=== PATIENT | female | born 1985 | race Caucasian/White ===

== ENCOUNTER 2023-06-15 10:07 | Outpatient (RCR) | payer OTHER, SELFPAY | END 2023-06-16 12:00 | disposition home or self-care (01) | LOC: FBCO 10:07 | PROVIDERS: Visit Provider Obstetrics & Gynecology | DX: O36.5990 Maternal care for other known or suspected poor fetal growth, unspecified trimester, not applicable or unspecified (principal); Z3A.00 Weeks of gestation of pregnancy not specified; O32.1XX0 Maternal care for breech presentation, not applicable or unspecified | CPT/HCPCS: 96372; J0702 ==

== ENCOUNTER 2023-06-17 06:00 | Inpatient (IN) | payer OTHER, SELFPAY ==
[2023-06-17] VITALS (36 sets, daily range): BP systolic 113–136; BP diastolic 54–91; PULSE 54–87; RESP 4–29; TEMP 36.5–37.1; O2SAT 92–100
[2023-06-17] MEDS: 0.9 % SODIUM CHLORIDE 1,000 ML 1000 ML IV ×2 (06:52→07:48)
[2023-06-17 06:55] LABS: Basophils Percent Auto 0.1 % (0.2-2.0); Eosinophils Absolute Auto 0.1 10^3/uL (0.0-0.7); Eosinophils Percent Auto 0.7 % (0.9-7.0); Hematocrit 30.8 % (36.0-48.0); Hemoglobin 10.2 g/dL (12.0-16.0); Immature Granulocytes Abs Auto 0.02 10^3/uL (0.00-0.03); Immature Granulocytes Pct Auto 0.3 % (0.0-0.5); Lymphocytes Absolute Auto 2.4 10^3/uL (1.2-3.8); Lymphocytes Percent Auto 31.3 % (20.5-60.0); Mean Corpuscular HGB Conc 33.1 g/dL (29.9-35.2); Mean Corpuscular Hemoglobin 28.7 pg (26.7-34.0); Mean Corpuscular Volume 86.5 fL (81.0-99.0); Mean Platelet Volume 10.8 fL (9.5-13.5); Monocytes Absolute Auto 0.7 10^3/uL (0.3-0.8); Monocytes Percent Auto 9.5 % (1.7-12.0); Neutrophils Absolute Auto 4.4 10^3/uL (1.4-6.5); Neutrophils Percent Auto 58.1 % (43.0-75.0); Platelet Count 202 10^3/uL (150-450); Red Blood Count 3.56 10^6/uL (4.20-5.40); Red Cell Distribution Width 14.5 % (11.0-15.0); White Blood Count 7.5 10^3/uL (4.0-11.0)
[2023-06-17 07:01] LABS: Bilirubin Urine NEGATIVE (NEGATIVE); Blood Urine TRACE-I (NEGATIVE); Clarity Urine CLEAR (CLEAR); Color Urine LT. YELLOW (YELLOW); Glucose Urine UA NEGATIVE (NEGATIVE); Ketones Urine NEGATIVE (NEGATIVE); Leukocyte Esterase Urine SMALL (NEGATIVE); Nitrite Urine NEGATIVE (NEGATIVE); Protein Urine NEGATIVE (NEG/TRACE); Specific Gravity Urine 1.015 (1.005-1.025); Urobilinogen Urine 0.2 EU/dL (0.2-1.0)
[2023-06-17 07:08] LABS: Bacteria Urine LARGE #/HPF (NONE SEEN); Mucus Urine NONE SEEN (NONE SEEN); Squamous Epithelial Cell Urine MODERATE #/LPF (NONE/RARE)
[2023-06-17 07:09] LABS: Cast Seen? NONE SEEN #/LPF (NONE SEEN); Crystals Seen? None Seen #/HPF (None Seen); Urine Culture Indicated YES
[2023-06-17 07:12] LABS: Amphetamine Screen Urine NEGATIVE (NEGATIVE); Barbiturates Screen Urine NEGATIVE (NEGATIVE); Benzodiazepines Screen Urine NEGATIVE (NEGATIVE); Buprenorphine Screen Urine NEGATIVE (NEGATIVE); Cannabinoid Screen Urine NEGATIVE (NEGATIVE); Cocaine Screen Urine NEGATIVE (NEGATIVE); Methadone Screen Urine NEGATIVE (NEGATIVE); Methamphetamines Screen Urine NEGATIVE (NEGATIVE); Opiate Screen Urine NEGATIVE (NEGATIVE); Oxycodone Screen Urine NEGATIVE (NEGATIVE); Phencyclidine Screen Urine NEGATIVE (NEGATIVE); Tricyclic Antidepressant Urine NEGATIVE (NEGATIVE)
--- NOTE | 2023-06-17 07:37 | P.OBHP_ITS ---
OB - H&P: HPI History of Present Illness Chief complaint: INDUCTION : 2 Para: 0 Gestational age based on last menstrual period: 37.1 Indications for induction: abnormal positioning and other (IUGR) History of Present Dating criteria: LMP confirmed by 1st trimester US care: good care Ultrasounds: normal 1st trimester US, normal mid trimester US and abnormal US findings Abnormal ultrasound findings: unicornuate uterus, marginal cord insertion, IUGR complications: other (unicornuate uterus , IUGR) Medical complications OB: none Labs Blood type: A (+) positive Rubella: immune RPR/VDLR: nonreactive GBS status: negative HBsAG: negative Review of Systems ROS Status of ROS 10 or more systems reviewed and unremarkable except as noted in history and below Meds Home Medications and Allergies Allergies Allergy/AdvReac Type Severity Reaction Status Date / Time No Known Drug Allergies Allergy Verified 06/15/23 10:28 Exam Constitutional Documenting provider has reviewed patient's vital signs: yes Common normals: no apparent distress General appearance: cooperative Orientation/consciousness: Yes awake, Yes oriented to person, Yes oriented to place and Yes oriented to time HENMT Common normals: normocephalic Eye Common normals: PERRL Neck & C-Spine Common normals: full ROM Lymph Lymphatic: no lymphadenopathy noted Chest Common normals: inspection of chest normal Respiratory Common normals: normal respiratory effort Auscultation: clear to auscultation bilaterally Cardio Common normals: regular rate and regular rhythm Rate: regular rate Rhythm: regular rhythm GI Palpation: soft Common normals: no CVA tenderness Back & Pelvis Common normals: no CVA tenderness Extremity Common normals: normal to inspection Neuro Common normals: oriented x3 Sensorium/orientation: awake, alert, oriented to person, oriented to place and oriented to time Psych Attitude: calm Results Labs Labs: Short CBC 06/17/23 Range/Units 06:48 WBC 7.5 (4.0-11.0) 10^3/uL Hgb 10.2 L (12.0-16.0) g/dL Hct 30.8 L (36.0-48.0) % Plt Count 202 (150-450) 10^3/uL Urine 06/17/23 Range/Units 06:20 Urine Color Lt. yellow (YELLOW) Urine Clarity Clear (CLEAR) Urine pH 7.0 (5.0-9.0) Ur Specific [place] 1.015 (1.005-1.025) Urine Protein Negative (NEG/TRACE) mg/dL Urine Glucose (UA) Negative (NEGATIVE) mg/dL OB - A/P Assessment and Plan (1) Term : Plan primary section due to breech presentation, saw MFM, IUGR
[2023-06-17] MEDS: FAMOTIDINE/PF 20 MG/2 ML VIAL IV (08:09)
[2023-06-17] MEDS: METOCLOPRAMIDE HCL 10 MG/2 ML VIAL IVP (08:09)
[2023-06-17] MEDS: CITRIC ACID/SODIUM CITRATE 30 ML SOLUTION ORACIT SHOHL'S SOLN PO (08:10)
[2023-06-17] MEDS: CEFAZOLIN SODIUM/DEXTROSE 2 GM/50 ML PIGGYBACK IV (08:16)
[2023-06-17] MEDS: LACTATED RINGER'S SOLUTION 1,000 ML 50 ML IV (09:16)
--- NOTE | 2023-06-17 10:02 | P.OBPN_ITS ---
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 I first assisted as directed. I independently closed the incision with 4-0 Vicryl on a Darian Needle without difficulty. Hemostasis noted at completion of closure. Mastisol applied to incision and steri strips then applied to incision without difficulty. Sterile abd dressing applied, pt tolerated procedure well. Exam Constitutional Vital Signs, click to edit/add: Last Vital Signs Temp 98.8 F 06/17/23 07:50 Pulse 70 06/17/23 07:50 Resp 18 06/17/23 07:50 BP 133/91 06/17/23 07:50 Pulse Ox 100 06/17/23 07:50 O2 Del Method Room Air 06/17/23 07:50 Results Labs Labs: Short CBC 06/17/23 Range/Units 06:48 WBC 7.5 (4.0-11.0) 10^3/uL Hgb 10.2 L (12.0-16.0) g/dL Hct 30.8 L (36.0-48.0) % Plt Count 202 (150-450) 10^3/uL Urine 06/17/23 Range/Units 06:20 Urine Color Lt. yellow (YELLOW) Urine Clarity Clear (CLEAR) Urine pH 7.0 (5.0-9.0) Ur Specific [place] 1.015 (1.005-1.025) Urine Protein Negative (NEG/TRACE) mg/dL Urine Glucose (UA) Negative (NEGATIVE) mg/dL OB - PN: A/P Assessment and Plan (1) Term : Time Spent with Patient Time: Total time spent is greater than 50% in coordination of care (as documented) at patient's floor/unit and/or counseling patient: Total time spent with greater than 50% in coordination of care (as documented) at patient's floor/unit and/or counseling patient: less than 15 minutes
--- NOTE | 2023-06-17 11:27 | P.ON_ITS ---
Brief Operative Note Date of procedure: 06/17/23 Pre-op diagnosis: iup at 37 1/7wk, breech presentation, unicornuate uterus, iugr Post-op diagnosis: same Procedure: NAME OF PROCEDURE: [ section ] PROCEDURE: Patient was taken back to the Operating Room where she was given a spinal anesthesia with Duramorph without difficulty. She was prepped and draped in the normal sterile fashion. A Pfannenstiel skin incision was then made 2 cm above the symphysis pubis and carried down to underlying rectus fascia using a Bovie. The fascia was incised in the midline and extended laterally using Betts scissors. Two Ramírez clamps were placed on the superior aspect of the fascia and dissected off the underlying rectus muscles. The same was performed on the inferior aspect as well. The muscles were then in the midline. Perito neum was identified and entered bluntly. The peritoneum was then extended superiorly and inferiorly with good visualization of the bladder. The bladder blade was inserted. A low transverse incision was made on the patient's uterus and extended laterally digitally. The was then delivered atraumatically after the bladder blade was removed in the cephalic position. The cord was clamped and cut. Cord blood was obtained. The was handed off to awaiting team. The patient's placenta was spontaneously delivered. The uterus was then exteriorized. The uterus was cleared of all clots and debris. The bladder blade was reinserted. The patient's uterine incision was closed using #0 Vicryl in a running lock fashion. Excellent hemostasis was assured. The uterus was then returned to the patient's abdomen. The patient's abdomen was copiously irrigated using warm saline. Peritoneal gutters were cleared of all clots and debris. Again excellent hemostasis was assured. The patient's peritoneum was closed using 3-0 Vicryl in a running fashion. The patient's fascia was closed using #0 Vicryl in a running fashion. The patient's skin was closed using 4-0 Vicryl subcuticularly. The patient tolerated the procedure well. Sponge, lap, and needle counts were correct x2. The patient was taken to the Recovery Room in stable condition. Anesthesia: spinal Surgeon: Smooth Michele Electric Organ Checker: HERIBERTO URIARTE Estimated blood loss (mL): 650 Pathology: other (placenta) Condition: stable Disposition: floor
--- NOTE | 2023-06-17 11:29 | P.OBPRC_ITS ---
Procedure Pre-op/Post-op diagnoses: Pre-Op/Post-Op Diagnoses Operation Date: 06/17/23 08:30 <No data on this case meets the specified criteria> Procedure: Procedures Operation Date: 06/17/23 08:30 Actual Procedure Side Surgeon p Not Applicable Smooth Michele DO Bolting Machine Operator: Smooth Michele Estimated blood loss (mL): 650 Disposition: floor Anesthesia type: Spinal
[2023-06-17] MEDS: KETOROLAC TROMETHAMINE 30 MG/ML VIAL IVP (11:58)
[2023-06-17] MEDS: CEFAZOLIN SODIUM/DEXTROSE,ISO 2 GM/50 ML PIGGYBACK IV (15:02)
[2023-06-17] MEDS: ENOXAPARIN SODIUM 40 MG/0.4 ML SYRINGE SUBQ (21:45)
[2023-06-18] VITALS (12 sets, daily range): BP systolic 122–139; BP diastolic 60–77; PULSE 61–80; RESP 14–18; TEMP 36.7–36.9; O2SAT 96–100
--- NOTE | 2023-06-18 00:34 | PC.NURSE ---
2100 Abdominal dressing appears red to 4 by 4s under tape across full incision. Dressing removed, cleansed with saline, steristrips appear bloody but with no new drainage, fresh 4 by 4s applied with pressure dsg to apparent past leaking area in middle of incision, no new drainage noted. Pt tolerates well
--- NOTE | 2023-06-18 01:10 | PC.NURSE ---
0050- Chowdhury not present at this time. Patient has been up and voided numerous times.
[2023-06-18] MEDS: KETOROLAC TROMETHAMINE 30 MG/ML VIAL IVP (03:54)
[2023-06-18 06:07] LABS: Basophils Percent Auto 0.2 % (0.2-2.0); Eosinophils Absolute Auto 0.1 10^3/uL (0.0-0.7); Eosinophils Percent Auto 0.5 % (0.9-7.0); Hemoglobin 7.5 g/dL (12.0-16.0); Immature Granulocytes Abs Auto 0.04 10^3/uL (0.00-0.03); Immature Granulocytes Pct Auto 0.4 % (0.0-0.5); Lymphocytes Absolute Auto 2.4 10^3/uL (1.2-3.8); Lymphocytes Percent Auto 21.6 % (20.5-60.0); Mean Corpuscular HGB Conc 32.2 g/dL (29.9-35.2); Mean Corpuscular Hemoglobin 28.8 pg (26.7-34.0); Mean Corpuscular Volume 89.6 fL (81.0-99.0); Mean Platelet Volume 10.9 fL (9.5-13.5); Monocytes Percent Auto 8.6 % (1.7-12.0); Neutrophils Absolute Auto 7.6 10^3/uL (1.4-6.5); Neutrophils Percent Auto 68.7 % (43.0-75.0); Platelet Count 184 10^3/uL (150-450); Red Cell Distribution Width 14.6 % (11.0-15.0); White Blood Count 11.1 10^3/uL (4.0-11.0)
[2023-06-18 06:15] LABS: Hematocrit 23.3 % (36.0-48.0)
--- NOTE | 2023-06-18 07:59 | W.PC.ACHO ---
Registration Status: ADM IN Primary Language: Colombian Preferred Language: Colombian report received from cleo jackson Active Medications Generic Name Dose Route Start Last Admin Trade Name Freq PRN Reason Stop Dose Admin Al Hydroxide/Mg Hydroxide 2,400 mg 06/17/23 10:23 Magnesium Hydroxide 2,400 Mg/10 Ml Oral.Susp PO Q6H PRN Dyspepsia Diphenhydramine HCl 25 mg 06/17/23 10:23 Diphenhydramine Hcl 50 Mg/Ml (1ml) Vial IV 06/18/23 10:28 Q6H PRN Itching Docusate Sodium 100 mg 06/18/23 09:00 Docusate Sodium 100 Mg Capsule PO BID HALEIGH Enoxaparin Sodium 40 mg 06/17/23 21:00 06/17/23 21:45 Enoxaparin Sodium 40 Mg/0.4 Ml Syringe SUBQ 40 mg Q24H HALEIGH Administration Sodium Chloride 1,000 mls @ 125 mls/hr 06/17/23 06:15 Sodium Chloride 0.9% 1,000 Ml IV .Q8H HALEIGH Lactated Ringer's 1,000 mls @ 50 mls/hr 06/17/23 09:15 06/17/23 09:16 Lactated Ringers IV 50 mls/hr .Q20H HALEIGH Administration Sodium Chloride 1,000 mls @ 125 mls/hr 06/17/23 10:30 Sodium Chloride 0.9% 1,000 Ml IV .Q8H HALEIGH Ibuprofen 800 mg 06/17/23 10:23 Ibuprofen 400 Mg Tablet PO Q8H PRN Pain Ketorolac Tromethamine 30 mg 06/17/23 10:23 06/18/23 03:54 Ketorolac Tromethamine 30 Mg/Ml Vial IVP 06/19/23 10:24 30 mg Q6H PRN Administration Pain Ondansetron HCl 4 mg 06/17/23 10:23 Ondansetron Pf 4 Mg/2 Ml Vial IV Q6H PRN Nausea And Vomiting Ondansetron HCl 4 mg 06/17/23 10:23 Ondansetron 4 Mg Rapdis Tablet PO Q6H PRN Nausea And Vomiting Oxycodone/Acetaminophen 1 each 06/17/23 10:23 Oxycodone Hcl/Acetaminophen 5-325 Mg Tablet PO Q4H PRN Pain Oxycodone/Acetaminophen 2 each 06/17/23 10:23 Oxycodone Hcl/Acetaminophen 5-325 Mg Tablet PO Q4H PRN Pain Polysaccharide Iron Complex 180 mg 06/18/23 09:00 Iron Polysaccharide Complex 180 Mg Capsule PO BID HALEIGH Senna 17.2 mg 06/17/23 20:00 Sennosides 8.6 Mg Tablet PO QHS PRN Constipation Simethicone 80 mg 06/17/23 10:23 Simethicone 80 Mg Tab.Chew PO QID PRN Abdominal Distention Diet Category Date Time Status Regular Consistency Diet Diet 06/17/23 Lunch Active Neurology Wes coma scale total score 15 Respiratory Lung sounds [Throughout] clear Lung sounds [Throughout] clear Lung sounds [Throughout] clear Lung sounds [Throughout] clear Lung sounds [Throughout] clear Lung sounds [Throughout] clear Pulse Oximetry 100 Pulse Oximetry 97 Pulse Oximetry 99 Pulse Oximetry 97 Pulse Oximetry 96 Pulse Oximetry 95 Pulse Oximetry 95 Pulse Oximetry 97 Pulse Oximetry 96 Pulse Oximetry 96 Pulse Oximetry 96 Pulse Oximetry 96 Pulse Oximetry 96 Pulse Oximetry 96 Pulse Oximetry 96 Pulse Oximetry 94 Pulse Oximetry 95 Pulse Oximetry 96 Pulse Oximetry 95 Pulse Oximetry 95 Pulse Oximetry 92 Pulse Oximetry 96 Pulse Oximetry 97 Pulse Oximetry 95 Pulse Oximetry 96 Pulse Oximetry 97 Oxygen Delivery Method Room Air Oxygen Delivery Method Room Air Oxygen Delivery Method Room Air Oxygen Delivery Method Room Air Oxygen Delivery Method Room Air Oxygen Delivery Method Room Air Oxygen Delivery Method Room Air Oxygen Delivery Method Room Air Oxygen Delivery Method Room Air Oxygen Delivery Method Room Air Oxygen Delivery Method Room Air Oxygen Delivery Method Room Air Cardiology Heart Sounds Strong,Regular Heart Sounds Strong,Regular Bowels Bowel Pattern No Bowel Movement Bowel Pattern No Bowel Movement Renal Bladder Pattern Continent Bladder Pattern Continent Catheter Date Urinary Catheter Removed 06/17/23 [Urethral] Time Urinary Catheter 15:15 Discontinued [Urethral]
[2023-06-18] MEDS: IRON POLYSACCHARIDE COMPLEX 180 MG CAPSULE PO ×2 (08:53→21:43)
[2023-06-18] MEDS: SIMETHICONE 80 MG TAB.CHEW PO ×2 (08:55→13:08)
[2023-06-18] MEDS: DOCUSATE SODIUM 100 MG CAPSULE PO ×2 (08:55→21:43)
--- NOTE | 2023-06-18 12:39 | PM.OBPN ---
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 I first assisted as directed. I independently closed the incision with 4-0 Vicryl on a Darian Needle without difficulty. Hemostasis noted at completion of closure. Mastisol applied to incision and steri strips then applied to incision without difficulty. Sterile abd dressing applied, pt tolerated procedure well. Patient comments: no complaints and pain well controlled status: doing well [place] feeding status: exclusively Exam Constitutional Vital Signs, click to edit/add: Last Vital Signs Temp 98.1 F 06/18/23 09:09 Pulse 75 06/18/23 08:24 Resp 18 06/18/23 09:09 BP 139/69 06/18/23 08:24 Pulse Ox 100 06/18/23 11:43 O2 Del Method Room Air 06/18/23 11:43 Documenting provider has reviewed patient's vital signs: yes Common normals: no apparent distress, average body habitus, oriented x3, no limitations, healthy appearing, alert and well nourished General appearance: cooperative and comfortable HENMT Common normals: normocephalic and head/scalp atraumatic Eye Common normals: PERRL Pupil: accommodation reflex normal Neck & C-Spine Common normals: full ROM Respiratory Common normals: normal respiratory effort Auscultation: clear to auscultation bilaterally Cardio Common normals: regular rate and regular rhythm GI Common normals: Normal to inspection, nondistended, normoactive bowel sounds present Common normals: no CVA tenderness Extremity Common normals: normal to inspection and full ROM Neuro Common normals: oriented x3, CN's II-XII intact bilaterally and moves all extremities Motor exam: strength 5/5 throughout Psych Common normals: mental status grossly normal, thought process normal, cooperative and affect normal Results Labs Labs: Short CBC 06/18/23 Range/Units 06:00 WBC 11.1 H (4.0-11.0) 10^3/uL Hgb 7.5 L (12.0-16.0) g/dL Hct 23.3 L* (36.0-48.0) % Plt Count 184 (150-450) 10^3/uL OB - PN: A/P Assessment and Plan (1) delivery delivered: Assessment and Plan: CS FOR BREECH AND UNICORNUATE UTERUS. NO COMPLICATION. (2) Anemia: Assessment and Plan: NON MEET EATER PRIOR TO . HEMOGLOBIN IN 9's PRIOR TO CS. NOW IN 7's HOWEVER WITHOUT SYMPTOMS. IS TAKING PNV AND IRON. Plan - day: 1 Plan: routine postop care Comment: KNOWS TO NOTIFY NURSE FOR VISUAL CHANGE OR HEADACHE OR LIGHTHEADEDNESS OR PROBLEM WITH INCISION WILL CONTINUE IRON AND PNV AND ALLOW THE BODY TO REPLETE HEMOGLOBIN Time Spent with Patient Time: Total time spent is greater than 50% in coordination of care (as documented) at patient's floor/unit and/or counseling patient: Total time spent with greater than 50% in coordination of care (as documented) at patient's floor/unit and/or counseling patient: 25 - 35 minutes
[2023-06-18] MEDS: IBUPROFEN 400 MG TABLET 800 MG PO ×2 (13:13→21:43)
--- NOTE | 2023-06-18 13:17 | PC.NURSE ---
LC into room. baby being held by mom, fully wrapped, mom with clothes on. Discussed benefits of skin to skin for both mom and baby. Reviewed and states it is going better than expected states latching gets better with each feed, is aware of a shallow latch or deep one and positioning is getting easier. Given handouts with discussion and the Sleep, Suckle, Thrive book States is aware support is available with LC and at [facility] support group
[2023-06-18] MEDS: ACETAMINOPHEN 500 MG TABLET 1000 MG PO (18:31)
--- NOTE | 2023-06-18 19:06 | W.PC.ACHO ---
Registration Status: ADM IN Primary Language: Mozambican Preferred Language: Mozambican report given to tonia rn Active Medications Generic Name Dose Route Start Last Admin Trade Name Freq PRN Reason Stop Dose Admin Acetaminophen 1,000 mg 06/18/23 18:18 06/18/23 18:31 Acetaminophen 500 Mg Tablet PO 1,000 mg Q6H PRN Administration Moderate Pain Al Hydroxide/Mg Hydroxide 2,400 mg 06/17/23 10:23 Magnesium Hydroxide 2,400 Mg/10 Ml Oral.Susp PO Q6H PRN Dyspepsia Docusate Sodium 100 mg 06/18/23 09:00 06/18/23 08:55 Docusate Sodium 100 Mg Capsule PO 100 mg BID HALEIGH Administration Enoxaparin Sodium 40 mg 06/17/23 21:00 06/17/23 21:45 Enoxaparin Sodium 40 Mg/0.4 Ml Syringe SUBQ 40 mg Q24H HALEIGH Administration Ibuprofen 800 mg 06/17/23 10:23 06/18/23 13:13 Ibuprofen 400 Mg Tablet PO 800 mg Q8H PRN Administration Pain Ondansetron HCl 4 mg 06/17/23 10:23 Ondansetron 4 Mg Rapdis Tablet PO Q6H PRN Nausea And Vomiting Oxycodone/Acetaminophen 1 each 06/17/23 10:23 Oxycodone Hcl/Acetaminophen 5-325 Mg Tablet PO Q4H PRN Pain Oxycodone/Acetaminophen 2 each 06/17/23 10:23 Oxycodone Hcl/Acetaminophen 5-325 Mg Tablet PO Q4H PRN Pain Polysaccharide Iron Complex 180 mg 06/18/23 09:00 06/18/23 08:53 Iron Polysaccharide Complex 180 Mg Capsule PO 180 mg BID HALEIGH Administration Senna 17.2 mg 06/17/23 20:00 Sennosides 8.6 Mg Tablet PO QHS PRN Constipation Simethicone 80 mg 06/17/23 10:23 06/18/23 13:08 Simethicone 80 Mg Tab.Chew PO 80 mg QID PRN Administration Abdominal Distention Respiratory Lung sounds [Throughout] clear Lung sounds [Throughout] clear Lung sounds [Throughout] clear Pulse Oximetry 100 Pulse Oximetry 100 Pulse Oximetry 97 Pulse Oximetry 99 Oxygen Delivery Method Room Air Oxygen Delivery Method Room Air Oxygen Delivery Method Room Air Oxygen Delivery Method Room Air Oxygen Delivery Method Room Air Oxygen Delivery Method Room Air Oxygen Delivery Method Room Air Oxygen Delivery Method Room Air Oxygen Delivery Method Room Air Cardiology Heart Sounds Regular Heart Sounds Strong,Regular Heart Sounds Strong,Regular Bowels Bowel Pattern No Bowel Movement Bowel Pattern No Bowel Movement Renal Bladder Pattern Continent Bladder Pattern Continent Bladder Pattern Continent
[2023-06-18] MEDS: ENOXAPARIN SODIUM 40 MG/0.4 ML SYRINGE SUBQ (21:43)
[2023-06-19 08:42] VITALS: BP 137/76; PULSE 83
[2023-06-19] MEDS: DOCUSATE SODIUM 100 MG CAPSULE PO (08:49)
[2023-06-19] MEDS: IBUPROFEN 400 MG TABLET 800 MG PO (08:49)
[2023-06-19] MEDS: ACETAMINOPHEN 500 MG TABLET 1000 MG PO (08:49)
[2023-06-19] MEDS: IRON POLYSACCHARIDE COMPLEX 180 MG CAPSULE PO (08:49)
[2023-06-19 08:50] VITALS: RESP 18; TEMP 37.5
--- NOTE | 2023-06-19 11:45 | PM.OBDS ---
DS: Providers Provider Date of admission: 06/17/23 06:00 Primary care physician: Non-Staff Physician, Admitting clinician: Smooth Michele Consults: 06/17/23 Consult to Anesthesiology Routine Consulting Provider: Nasir Dejesus Attending physician on discharge: Chacha Coombs Anticipated date of discharge: 06/19/23 DS: Diagnosis Discharge Diagnosis (1) delivery delivered: Assessment and plan: MAY SHOWER, PAT INCISION DRY AND NO NEED TO COVER (2) Anemia: Assessment and plan: ASYMPTOMATIC. HAS RESUMED EATING EAT. ON FOLIC ACIDE, IRON AND PNV OB - DS: Summary Hospital Course Hospital Course: UNCOMPLICATED Time spent discussing smoking cessation with patient: 3 to 10 minutes Peripartum Data - Procedures: Procedures Operation Date: 06/17/23 08:30 Actual Procedure Side Surgeon p Not Applicable Smooth Michele DO Peripartum Data - Vaginal Delivery Procedures: Procedures Operation Date: 06/17/23 08:30 Actual Procedure Side Surgeon p Not Applicable Smooth Michele DO Complications complications: none Delivery method: section Gender: female Discharge plan: home Time Spent with Patient Time attestation: Total time spent providing and/or coordinating discharge services: Time spent: less than 30 minutes Exam Constitutional Vital Signs, click to edit/add: Last Vital Signs Temp 99.5 F 06/19/23 08:50 Pulse 83 06/19/23 08:42 Resp 18 06/19/23 08:50 BP 137/76 06/19/23 08:42 Pulse Ox 96 06/18/23 19:38 O2 Del Method Room Air 06/18/23 21:45 Documenting provider has reviewed patient's vital signs: yes Common normals: no apparent distress, oriented x3, no limitations, healthy appearing, alert and well nourished [facility] Common normals: normocephalic and head/scalp atraumatic Eye Common normals: PERRL Pupil: accommodation reflex normal Neck & C-Spine Common normals: full ROM Chest Common normals: inspection of chest normal Respiratory Common normals: normal respiratory effort Cardio Common normals: regular rate and regular rhythm GI Common normals: Normal to inspection, nondistended, normoactive bowel sounds present, soft to palpation and non-tender Common normals: no CVA tenderness Extremity Common normals: normal to inspection and full ROM Neuro Motor exam: strength 5/5 throughout Psych Common normals: mental status grossly normal, cooperative and affect normal Discharge Plan Discharge Disposition: Home, Self-Care Condition: Good Assessment: PERFORMING ADL'S WITHOUT LIMITATION. EATING AND ELIMINATING NORMALLY. BREAST FEEDING WITHOUT PROBLEM. INCISION DRY AND INTACT WITHOUT ERYTHEMA. VOICING NO COMPLAINTS OR CONCERNS. CLINICAL EXAM NONFOCAL. ANXIOUS TO GO HOME. Health Concerns: WILL BE SENT HOME ON IRON AND HAS RESUMED EATING MEAT SO ANEMIA SHOULD BE RESOLVED WITHIN 3 MONTHS Plan of Treatment: DISCHARGE HOME Discharge Medications: Continued PNV [id number] 90 mg iron- 1 mg-200 mg capsule 1 cap PO DAILY folic acid 1 mg tablet 1 mg PO DAILY Activity: resume usual activities as tolerated Activity Detail: WALKING ONLY FORM OF EXERCISE FOR SIX WEEKS Diet: regular diet Patient Instructions: Anemia (DC) Activity Restrictions/Additional Instructions: NO SEX SIX WEEKS, NO DRIVING FOR 4 WEEKS, NO SWIMMING 4 WEEKS, ONLY LIFT BABY, MAY CLIMB STAIRS, MAY SHOWER, NO BATHTUB FOR 4 WEEKS, GENERAL RSV AND COVID PRECAUTIONS GIVEN Forms: Delivery - Discharge, Portal Instructions Follow Up Appointments: NEEDS INCISION CHECK WITH DR. MICHELE IN ONE WEEK Discharge location: HOME
== END 2023-06-19 13:48 | disposition home or self-care (01) | DRG 788 ==
PROVIDERS: Obstetrics & Gynecology; Admitting Provider Midwife; Visit Provider Obstetrics & Gynecology
PROC: 10D00Z1 Extraction of Products of Conception, Low, Open Approach (ICD-10-PCS; CPT 59514; principal; 2023-06-17 08:30)
DX: O32.1XX0 Maternal care for breech presentation, not applicable or unspecified (principal); O36.5930 Maternal care for other known or suspected poor fetal growth, third trimester, not applicable or unspecified; O34.03 Maternal care for unspecified congenital malformation of uterus, third trimester; Q51.4 Unicornate uterus; Z3A.37 37 weeks gestation of pregnancy; Z37.0 Single live birth; Z79.899 Other long term (current) drug therapy; O90.81 Anemia of the puerperium
CPT/HCPCS: 36415; 80307; 81001; 85025; 86850; 86900; 86901; 87086; 88307; 94667; 94668; 94761; 96372; 96374; 96375

== ENCOUNTER 2023-06-21 09:00 | Outpatient (RCR) | payer OTHER, SELFPAY ==
[2023-06-21 17:41] VITALS: PULSE 88; RESP 18; TEMP 36.8; O2SAT 96
== END 2023-06-21 10:10 | disposition home or self-care (01) ==
LOC: FBCO 09:00
PROVIDERS: Visit Provider Obstetrics & Gynecology
DX: Z39.2 Encounter for routine postpartum follow-up (principal)

== ENCOUNTER 2024-12-05 17:24 | Outpatient (OUT) | payer OTHER, SELFPAY ==
--- NOTE | 2024-12-05 17:26 | US_ITS ---
[address] [address] Patient Name: JUANITA WHEELER MRN: [id number] date: 1985 Sex: F Assigned Patient Location: Current Patient Location: Accession/Order Number: [id number] Exam Date: 12/05/2024 17:30 Report Date: 12/08/2024 10:05 At the request of: HERIBERTO URIARTE Procedure: US OB transvaginal EXAMINATION: US OB transvaginal HISTORY: AMENORRHEA N91.2 COMPARISON: No relevant comparison available. FINDINGS: GESTATIONAL SAC: Present and normal appearing. YOLK SAC: Present and normal appearing. POLE: Present and normal appearing. CARDIAC: 158 bpm UTERUS: Unicornate uterus. OVARIES: Right: Corpus lutein cyst. Left: Normal. CERVIX: 4.0 cm in length and closed. CUL-DE-SAC: Normal. OTHER: None. AGE BY LMP: 7 weeks 6 days HAYLEY BY LMP: 07/18/2025 AGE BY US CRL: 7 weeks 5 days HAYLEY BY US CRL: 07/19/2025 US/US OB transvaginal IMPRESSION: 1. Single live intrauterine . Electronically authenticated by: PUMA CONNOLLY Date: 12/08/2024 10:05
--- OUTSIDE RECORDS SUMMARY | 2024-12-05 17:27 | XMS_ITS | CCD ---
Author Organization [facility] Care Team Providers Care Plug Machine Operator Name Role Phone CHAPIN, DR NATAN Lazar Attending Unavailable CHAPIN, DR NATAN Lazar Consulting Unavailable REQUEST, NONE LISTED Primary Care Unavailnupur SAMSON, DR NATAN Lazar Admitting Unavailable GARFIELD, DR AUDREY Phillips Consulting Unavailasha CONNOLLY, DR PUMA Lazar Consulting Unavailable HERIBERTO SNELL Consulting Unavailable HERIBERTO SNELL Admitting Unavailable REQUEST, NONE LISTED Primary Care HERIBERTO Valdez Attending Unavailable Heriberto Snell CNM Unavailable Sayra Leon MD Primary Care Provider BUD MAIN Attending Unavailable HERIBERTO SNELL Attending Unavailable Medications Current Medications Medication Drug Class(es) Dates Sig (Normalized) Sig (Original) ferrous sulfate 325 mg delayed release oral tablet (1 source) Start: 12-14-2023 End: 03-13-2024 take 1 tablet by mouth in the morning ferrous sulfate (Fe Tabs) 325 (65 Fe) MG EC tablet Indications: Iron deficiency anemia secondary to inadequate dietary iron intake Take 1 tablet (325 mg) by mouth in the morning. Do not crush, chew, or split.. 90 tablet 0 12/14/2023 03/13/2024 Active folic acid 2.5 mg / pyridoxine 25 mg / vitamin b12 1 mg oral tablet (4 sources) Vitamin B12 folic acid-vit B6-vit B12 2.5-25-1 MG tablet tablet Take 1 tablet by mouth in the morning. Active w/o A Vit-Fe Fum-FA (AZESCHEW / PO) (4 sources) w/o A Vit-Fe Fum-FA (AZESCHEW / PO) Take by mouth Active w/o A V it-Fe Fum-FA (AZESCHEW / PO) Take by mouth 0 Active progesterone 200 mg oral capsule (1 source) Progesterone Start: 11-10-2024 End: 02-18-2025 take 1 capsule by mouth in the morning progesterone 200 MG capsule Indications: examination or test, positive result Take 1 capsule (200 mg) by mouth in the morning and in the evening 60 capsule 3 11/10/2024 02/18/2025 Active Problems Active Problems Problem Classification Problem Date Documented Da te Episodic/Chronic Anxiety disorders (5 sources) Anxiety about body function or health; Translations: [Other specified anxiety disorders] Onset: 08-22-2016 12-12-2023 Chronic Female infertility (4 sources) Anovulation; Translations: [Female infertility associated with anovulation] Onset: 12-26-2021 12-12-2023 Chronic 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; 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] Onset: 12-12-2023 12-12-2023 Chronic Hemorrhage during ; abruptio placenta; placenta previa (3 sources) Hemorrhage in early , unspecified; Translations: [HEMORRHAGE EARLY UNS] Onset: 04-04-2022 Episodic Menstrual disorders (10 sources) Amenorrhea; Translations: [Amenorrhea, unspecified] Onset: 03-08-2017 12-12-2023 Chronic Other screening for suspected conditions (not mental disorders or infectious disease) (2 sources) Cancer cervix screening status; Translations: [Encounter for screening for malignant neoplasm of cervix] 08-18-2024 Episodic Spontaneous (1 source) Complete or unspecified spontaneous without complication; Translations: [COMPLETE/UNS SPONT AB W/O COMP] Onset: 04-25-2022 Episodic Past or Other Problems Problem Classification Problem Date Documented Da te Episodic/Chronic Administrative/social admission (4 sources) Worried well; Translations: [Person with feared health complaint in whom no diagnosis is made] Onset: 07-27-2017 12-12-2023 Episodic Allergic reactions (4 sources) Contact dermatitis due to poison oscar; Translations: [Allergic contact dermatitis due to plants, except food] Onset: 04-26-2021 12-12-2023 Episodic Deficiency and other anemia (5 sources) Iron deficiency anemia secondary to inadequate dietary iron intake; Translations: [Other iron deficiency anemias] Onset: 10-10-2018 12-14-2023 Episodic Inflammatory diseases of female pelvic organs (4 sources) Vulvovaginitis; Translations: [Acute vaginitis] Onset: 07-27-2017 12-12-2023 Episodic Miscellaneous mental health disorders (3 sources) Anxiety about body function or health; Translations: [Other symptoms and signs involving emotional state] Onset: 08-22-2016 12-12-2023 Episodic Other ear and sense organ disorders (4 sources) Impacted cerumen of bilateral ears; Translations: [Impacted cerumen, bilateral] Onset: 12-06-2018 12-12-2023 Episodic Residual codes; unclassified (4 sources) Family history of malignant neoplasm of brain; Translations: [Family history of malignant neoplasm of other organs or systems] Onset: 07-27-2017 12-12-2023 Episodic Residual codes; unclassified (4 sources) Unprotected sexual intercourse; Translations: [High risk heterosexual behavior] Onset: 07-27-2017 12-12-2023 Episodic Results Test Name Value Interpretation Reference Range Facility HCG ( test) Ql (U)o n 08-18-2024 Interpretation and review of laboratory results Normal [facility] Healthcare Preg Test, Ur Negative [facility] Health care [facility] US OB 1ST Trimesteron 2022 US OB 1ST Trimester EXAM: First trimester ultrasound. TECHNIQUE: Transvaginal ultrasound pelvis. REASON FOR EXAM: Bleeding. Known unicollis uterus COMPARISON: None FINDINGS: There is a single intrauterine fetus with crown-rump length indicating a gestational age of 9 weeks and 3 days. This is concordant with gestational age based on last menstrual period. heart rate 165 bpm. Well-formed yolk sac. Uterus otherwise unremarkable. Right ovary 3.0 and left ovary 2.4 cm in diameter. 1.7 cm right ovarian cyst. No adnexal mass or free fluid. IMPRESSION: Single live intrauterine 9 weeks 3 days. 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 FINDINGS: Right Zdlodl29.3 x 6.3 x 5.4 cm Left Rdldrt98.8 x 5.2 x 6.0 cm Normal renal size, cortical volume and echotexture is present for this age. No collecting system dilatation or echogenic foci with posterior shadowing are noted. No bladder stone or mass. Both ureteral jets visualized. IMPRESSION: Normal bilateral renal morphology. Report reported and signed by Rangel Chowdhury on 10/10/2022 1351 Normal [facility] CBC AUTO DIFFon 06-29-2022 BASO # 0.0 103/ul Normal 0.0-0.1 [facility] Comment on above: Performed By: #### H FPFCBC #### [facility] [address] [address] [address] Preston George Basophils/100 WBC (Bld) 0.6 % Normal 0.2-2.0 [facility] Comment on above: Performed By: #### H FPFCBC #### [facility] [address] [place] [address] Dr. Preston George EO # 0.2 103/ul Normal 0.0-0.7 [facility] Comment on above: Performed By: #### H FPFCBC #### [facility] [address] [address] [address] Preston George Eosinophils/100 WBC (Bld) 3.1 % Normal 0.9-7.0 [facility] Comment on above: Performed By: #### H FPFCBC #### [facility] [address] [place] [address] Dr. Preston George Erythrocyte distribution width (RBC) [Ratio] 13.0 % Normal 11.0-15.0 [facility] Comment on above: Performed By: #### H FPFCBC #### [facility] [address] [place] [address] Dr. Preston George Hematocrit (Bld) [Volume fraction] 40.8 % Normal 36.0-48.0 [facility] Comment on above: Performed By: #### H FPFCBC #### [facility] [address] [place] [address] Dr. Preston George Hemoglobin (Bld) [Mass/Vol] 13.4 g/dL Normal 12.0-16.0 [facility] Comment on above: Performed By: #### H FPFCBC #### [facility] [address] [place] [address] Dr. Preston George IG # 0.01 10e3/ul Normal 0.00-0.03 [facility] Comment on above: Performed By: #### H FPFCBC #### [facility] [address] [place] [address] Dr. Preston George IG % 0.2 % Normal 0.0-0.5 [facility] Comment on above: Performed By: #### H FPFCBC #### [facility] [address] [place] [address] Dr. Preston George LYMPH # 2.2 103/ul Normal 1.2-3.8 [facility] Comment on above: Performed By: #### H FPFCBC #### [facility] [address] [place] [address] Dr. Preston George Lymphocytes/100 WBC (Bld) 45.5 % Normal 20.5-60.0 [facility] Comment on above: Performed By: #### H FPFCBC #### [facility] [address] [place] [address] Dr. Preston George MCH (RBC) [Entitic mass] 31.0 pg Normal 26.7-34.0 [facility] Comment on above: Performed By: #### H FPFCBC #### [facility] [address] [place] [address] Dr. Preston George MCHC (RBC) [Mass/Vol] 32.8 g/dL Normal 29.9-35.2 [facility] Comment on above: Performed By: #### H FPFCBC #### [facility] [address] [place] [address] Dr. Preston George MCV (RBC) [Entitic vol] 94.4 fL Normal 81.0-99.0 [facility] Comment on above: Performed By: #### H FPFCBC #### [facility] [address] [place] [address] Dr. Preston George MONO # 0.5 103/ul Normal 0.3-0.8 [facility] Comment on above: Performed By: #### H FPFCBC #### [facility] [address] [address] [address] Preston George Monocytes/100 WBC (Bld) 9.6 % Normal 1.7-12.0 [facility] Comment on above: Performed By: #### H FPFCBC #### [facility] [address] [address] [address] Preston George NEUT # 2.0 103/ul Normal 1.4-6.5 [facility] Comment on above: Performed By: #### H FPFCBC #### [facility] [address] [place] [address] Dr. Preston George Neutrophils/100 WBC (Bld) 41.0 % Critically low 43.0-75.0 [facility] Comment on above: Performed By: #### H FPFCBC #### [facility] [address] [place] [address] Dr. Preston George Platelet mean volume (Bld) [Entitic vol] 10.5 fL Normal 9.5-13.5 [facility] Comment on above: Performed By: #### H FPFCBC #### [facility] [address] [place] [address] Dr. Preston George PLT 274 103/ul Normal 150-450 [facility] Comment on above: Performed By: #### H FPFCBC #### [facility] [address] [place] [address] Dr. Preston George RBC 4.32 106/ul Normal 4.20-5.40 [facility] Comment on above: Performed By: #### H FPFCBC #### [facility] [address] [place] [address] Dr. Preston George WBC 4.8 103/ul Normal 4.0-11.0 [facility] Comment on above: Performed By: #### H FPFCBC #### [facility] [address] [place] [address] Dr. Preston George [facility] PROFILEon 022 Albumin [Mass/Vol] 3.9 g/dL Normal 3.4-5.0 [facility] Comment on above: Performed By: #### H FPF #### [facility] [address] [address] [address] Preston George Albumin/Globulin [Mass ratio] 1.3 {ratio} Normal [facility] Comment on above: Performed By: #### H FPF #### [facility] [address] [address] [address] Preston George ALP [Catalytic activity/Vol] 40 U/L Critically low 46-116 [facility] Comment on above: Performed By: #### H FPF #### [facility] [address] [address] [address] Preston George ALT [Catalytic activity/Vol] 17 U/L Normal 14-59 [facility] Comment on above: Performed By: #### H FPF #### [facility] [address] [address] [address] Preston George AST [Catalytic activity/Vol] 14 U/L Critically low 15-37 [facility] Comment on above: Performed By: #### H FPF #### [facility] [address] [address] [address] Preston George Bilirubin [Mass/Vol] 0.5 mg/dL Normal 0.2-1.0 [facility] Comment on above: Performed By: #### H FPF #### [facility] [address] [address] [address] Preston George Calcium [Mass/Vol] 8.7 mg/dL Normal 8.5-10.1 [facility] Comment on above: Performed By: #### H FPF #### [facility] [address] [address] [address] Preston George Chloride [Moles/Vol] 105 mmol/L Normal 98-107 [facility] Comment on above: Performed By: #### H FPF #### [facility] [address] [address] [address] Preston George CHOL-HDL RATIO NORM SEE BELOW Normal [facility] Comment on above: Result Comment: 3.3 - 4.4 LOW RISK 4.4 - 7.1 AVERAGE RISK 7.1 - 11.0 MODERATE RISK >11.0 HIGH RISK Performed By: #### H FPF #### [facility] [address] [address] [address] Preston George Cholesterol [Mass/Vol] 204 mg/dL Critically high <=200 [facility] Comment on above: Performed By: #### H FPF #### [facility] [address] [address] [address] Preston George Cholesterol in HDL [Mass/Vol] 80 mg/dL Critically high 40-60 [facility] Comment on above: Performed By: #### H FPF #### [facility] [address] [place] [address] Dr. Preston George Cholesterol in LDL [Mass/Vol] 118.0 mg/dL Normal [facility] Comment on above: Performed By: #### H FPF #### [facility] [address] [address] [address] Preston George Cholesterol.total/Cho lesterol in HDL [Mass ratio] 2.6 {ratio} Normal [facility] Comment on above: Performed By: #### H FPF #### [facility] [address] [place] [address] Dr. Preston George CO2 [Moles/Vol] 24.7 mmol/L Normal 21.0-32.0 [facility] Comment on above: Performed By: #### H FPF #### [facility] [address] [address] [address] Preston George Creatinine [Mass/Vol] 0.64 mg/dL Normal 0.55-1.02 [facility] Comment on above: Performed By: #### H FPF #### [facility] [address] [place] [address] Dr. Preston George Globulin (S) [Mass/Vol] 2.9 g/dL Normal [facility] Comment on above: Performed By: #### H FPF #### [facility] [address] [place] [address] Dr. Preston George Glucose [Mass/Vol] 92 mg/dL Normal 74-106 [facility] Comment on above: Performed By: #### H FPF #### [facility] [address] [address] [address] Preston George HDL NORMAL > or = 60 mg/dl - LOW CARDIOVASCULAR RISK <40 mg/dl - HIGH CARDIOVASCULAR RISK Normal [facility] Comment on above: Performed By: #### H FPF #### [facility] [address] [address] [address] Preston George LDL CALC NORMAL SEE BELOW Normal [facility] Comment on above: Result Comment: <100 mg/dl OPTIMAL 100 - 129 mg/dl NEAR OR ABOVE OPTIMAL 130 - 159 mg/dl BORDERLINE HIGH 160 - 189 mg/dl HIGH >190 mg/dl VERY HIGH Performed By: #### H FPF #### [facility] [address] [address] [address] Preston George Potassium [Moles/Vol] 4.2 mmol/L Normal 3.5-5.1 [facility] Comment on above: Performed By: #### H FPF #### [facility] [address] [address] [address] Preston George Protein [Mass/Vol] 6.8 g/dL Normal 6.4-8.2 [facility] Comment on above: Performed By: #### H FPF #### [facility] [address] [address] [address] Preston George Sodium [Moles/Vol] 141 mmol/L Normal 136-145 [facility] Comment on above: Performed By: #### H FPF #### [facility] [address] [address] [address] Preston George Triglyceride [Mass/Vol] 30 mg/dL Normal <=150 [facility] Comment on above: Performed By: #### H FPF #### [facility] [address] [address] [address] Preston George TSH 2.941 uIU/mL Normal 0.358-3.740 [facility] Comment on above: Performed By: #### H FPF #### [facility] [address] [address] [address] Preston George Urea nitrogen [Mass/Vol] 13.0 mg/dL Normal 7.0-18.0 [facility] Comment on above: Performed By: #### H FPF #### [facility] [address] [address] [address] Preston George Urea nitrogen/Creatinine [Mass ratio] 20.3 mg/mg Normal [facility] Comment on above: Performed By: #### H FPF #### [facility] [address] [address] [address] Preston George VLDL CALC 6.0 mg/dL Normal [facility] Comment on above: Performed By: #### H FPF #### [facility] [address] [address] [address] Preston George Q - HCG TOTAL QNon 2 HCG Qn 111 m[IU]/mL [facility] Cdl Driver Comment on above: Order Comment: [facility] Testing performed at: [facility], [address] [place] [address], [address] [place] [address], [address] [place] [address], [employer] Butting Machine Operator: Salvatore Lawson MD [facility] Collection Date/Time: [facility] Results Received Date/Time: [facility] Reported Date/Time: FASTING: NO Result Comment: Refe rence Range Non or premenopausal <5 Postmenopausal <10 Values from different assay methods may vary. The use of this assay to monitor or to diagnose patients with cancer or any condition unrelated to has not been cleared or approved by the FDA or the traffic representative of the assay. Performed By: #### [id number] #### [facility] [address] [place] [id number] Q - HCG TOTAL QNon 2 HCG Qn 820 m[IU]/mL [facility] Cdl Driver Comment on above: Order Comment: [facility] performed at: [facility], [address] [facility], [address] [place] [address], [phone], [employer]ting Machine Operator: Salvatore Lawson MD [facility] Collection Date/Time: [id number] [facility] Results Received Date/Time: [id number] [facility] Reported Date/Time: [id number] Result Comment: Refe rence Range Non or premenopausal <5 Postmenopausal <10 Values from different assay methods may vary. The use of this assay to monitor or to diagnose patients with cancer or any condition unrelated to has not been cleared or approved by the FDA or the traffic representative of the assay. Performed By: #### [id number] #### [facility] [address] [place] [address] Q - HCG TOTAL QNon 2 HCG Qn 2387 m[IU]/mL [facility] Cdl Driver Comment on above: Order Comment: [facility] performed at: Q, [facility], [address] [place] [address], [address] [place] [address], [phone], [employer]ting Machine Operator: Salvatore Lawson MD [facility] Date/Time: [id number] [facility] Results Received Date/Time: [id number] [facility] Reported Date/Time: [id number] Result Comment: Refe rence Range Non or premenopausal <5 Postmenopausal <10 Values from different assay methods may vary. The use of this assay to monitor or to diagnose patients with cancer or any condition unrelated to has not been cleared or approved by the FDA or the traffic representative of the assay. Performed By: #### 2 [id number] #### [facility] [address] [place] [address] ABO AND RH TYPEon 04-04-2022 ABO and Rh group Nom (Bld) ABO Rh Typing A Rh Positive Normal [facility] Comment on above: Performed By: #### A BORChristie #### [facility] [address] [place] [address] Dr. Preston George CBC AUTO DIFFon 04-04-2022 BASO # 0.0 103/ul Normal 0.0-0.1 [facility] Comment on above: Performed By: #### C BC #### [facility] [address] [place] [address] Dr. Preston George Basophils/100 WBC (Bld) 0.5 % Normal 0.2-2.0 [facility] Comment on above: Performed By: #### C BC #### [facility] [address] [place] [address] Dr. Preston George EO # 0.1 103/ul Normal 0.0-0.7 [facility] Comment on above: Performed By: #### C BC #### [facility] [address] [place] [address] Dr. Preston George Eosinophils/100 WBC (Bld) 1.8 % Normal 0.9-7.0 [facility] Comment on above: Performed By: #### C BC #### [facility] [address] [place] [address] Dr. Preston George Erythrocyte distribution width (RBC) [Ratio] 13.2 % Normal 11.0-15.0 [facility] Comment on above: Performed By: #### C BC #### [facility] [address] [place] [address] Dr. Preston George Hematocrit (Bld) [Volume fraction] 37.1 % Normal 36.0-48.0 [facility] Comment on above: Performed By: #### C BC #### [facility] [address] [place] [address] Dr. Preston George Hemoglobin (Bld) [Mass/Vol] 12.5 g/dL Normal 12.0-16.0 [facility] Comment on above: Performed By: #### C BC #### [facility] [address] [place] [address] Dr. Preston George IG # 0.01 10e3/ul Normal 0.00-0.03 [facility] Comment on above: Performed By: #### C BC #### [facility] [address] [place] [address] Dr. Preston George IG % 0.2 % Normal 0.0-0.5 [facility] Comment on above: Performed By: #### C BC #### [facility] [address] [place] [address] Dr. Preston George LYMPH # 1.3 103/ul Normal 1.2-3.8 [facility] Comment on above: Performed By: #### C BC #### [facility] [address] [place] [address] Dr. Preston George Lymphocytes/100 WBC (Bld) 23.7 % Normal 20.5-60.0 [facility] Comment on above: Performed By: #### C BC #### [facility] [address] [place] [address] Dr. Preston George MANUAL DIFF REQ NO Normal [facility] Comment on above: Performed By: #### C BC #### [facility] [address] [place] [address] Dr. Preston George MCH (RBC) [Entitic mass] 30.9 pg Normal 26.7-34.0 [facility] Comment on above: Performed By: #### C BC #### [facility] [address] [place] [address] Dr. Preston George MCHC (RBC) [Mass/Vol] 33.7 g/dL Normal 29.9-35.2 [facility] Comment on above: Performed By: #### C BC #### [facility] [address] [place] [address] Dr. Preston George MCV (RBC) [Entitic vol] 91.8 fL Normal 81.0-99.0 [facility] Comment on above: Performed By: #### C BC #### [facility] [address] [place] [address] Dr. Preston George MONO # 0.5 103/ul Normal 0.3-0.8 [facility] Comment on above: Performed By: #### C BC #### [facility] [address] [place] [address] Dr. Preston George Monocytes/100 WBC (Bld) 8.5 % Normal 1.7-12.0 [facility] Comment on above: Performed By: #### C BC #### [facility] [address] [place] [address] Dr. Preston George NEUT # 3.7 103/ul Normal 1.4-6.5 [facility] Comment on above: Performed By: #### C BC #### [facility] [address] [address] [address] Preston George Neutrophils/100 WBC (Bld) 65.3 % Normal 43.0-75.0 [facility] Comment on above: Performed By: #### C BC #### [facility] [address] [address] [address] Preston George Platelet mean volume (Bld) [Entitic vol] 9.5 fL Normal 9.5-13.5 [facility] Comment on above: Performed By: #### C BC #### [facility] [address] [address] [address] Preston George PLT 240 103/ul Normal 150-450 [facility] Comment on above: Performed By: #### C BC #### [facility] [address] [place] [address] Dr. Preston George RBC 4.04 106/ul Critically low 4.20-5.40 [facility] Comment on above: Performed By: #### C BC #### [facility] [address] [place] [address] Dr. Preston George WBC 5.7 103/ul Normal 4.0-11.0 [facility] Comment on above: Performed By: #### C BC #### [facility] [address] [place] [address] Dr. Preston George CULTURE URINEon 04-04-2022 CULTURE URINE Culture Observations: MODERATE GROWTH OF MIXED GENITAL JOSE A. NO POTENTIAL PATHOGENS SEEN. Normal [facility] Comment on above: Performed By: #### U RCX #### [facility] [address] [place] [address] Dr. Preston George ER URINE PROFILEon 2 Bilirubin Ql (U) Negative Normal NEGATIVE [facility] Comment on above: Performed By: #### U MICRO, ERUR #### [facility] [address] [place] [address] Dr. Preston George Clarity (U) CLOUDY Abnormal CLEAR [facility] Comment on above: Performed By: #### U MICRO, ERUR #### [facility] [address] [address] [address] Preston George Color (U) RED Abnormal YELLOW [facility] Comment on above: Performed By: #### U MICRO, ERUR #### [facility] [address] [address] [address] Preston PERERA A micrscopic examination will be performed if indicated. Normal [facility] Comment on above: Performed By: #### U MICRO, ERUR #### [facility] [address] [address] [address] Preston George Glucose Ql (U) Negative Normal NEGATIVE [facility] Comment on above: Performed By: #### U MICRO, ERUR #### [facility] [address] [place], [place] [address] Dr. Preston George Hemoglobin Ql (U) LARGE Abnormal NEGATIVE [facility] Comment on above: Performed By: #### U MICRO, ERUR #### [facility] [address] [address] [address] Preston George Ketones Ql (U) Negative Normal NEGATIVE [facility] Comment on above: Performed By: #### U MICRO, ERUR #### [facility] [address] [address] [address] Preston George LEUKOCYTES Negative Normal NEGATIVE [facility] Comment on above: Performed By: #### U MICRO, ERUR #### [facility] [address] [address] [address] Preston George Nitrite Ql (U) Negative Normal NEGATIVE [facility] Comment on above: Performed By: #### U MICRO, ERUR #### [facility] [address] [address] [address] Preston George pH (U) 8.5 [pH] Normal 5-9 [facility] Comment on above: Performed By: #### U MICRO, ERUR #### [facility] [address] [address] [address] Preston George Protein (U) [Mass/Vol] 30 mg/dL Abnormal NEGATIVE/ TRACE [facility] Comment on above: Performed By: #### U MICRO, ERUR #### [facility] [address] [address] [address] Preston George SPEC GRAVITY 1.020 Normal 1.005-<=1.025 The [facility] Comment on above: Performed By: #### U MICRO, ERUR #### [facility] [address] [address] [address] Preston George UR MICRO IND INDICATED Normal [facility] Comment on above: Performed By: #### U MICRO, ERUR #### [facility] [address] [address] [address] Preston George Urobilinogen Qn (U) 0.2 {Anupam'U}/dL Normal 0.2 - 1. 0 [facility] Comment on above: Performed By: #### U MICRO, ERUR #### [facility] [address] [place] [address] Dr. Preston George PREG QUANT HCGon 04-04-2022 HCG QUANT 5751 mIU/mL Normal [facility] Comment on above: Performed By: #### P REGQNT #### [facility] [address] [place] [address] Dr. Preston George HCG RANGE SEE BELOW Normal [facility] Comment on above: Result Comment: 5-50 0-1 WEEK 40-300 1-2 WEEKS 100-1,000 2-3 WEEKS 500-6,000 3-4 WEEKS 5,000-200,000 1-2 MONTHS 10,000-100,000 2-3 MONTHS 3,000-50,000 2ND TRIMESTER 1,000-50,000 3RD TRIMESTER Performed By: #### P REGQNT #### [facility] [address] [place] [address] Dr. Preston George PROF 14(COMP METB)on 022 Albumin [Mass/Vol] 3.5 g/dL Normal 3.4-5.0 [facility] Comment on above: Performed By: #### C MP #### [facility] [address] [address] [address] Preston George Albumin/Globulin [Mass ratio] 1.1 {ratio} Normal [facility] Comment on above: Performed By: #### C MP #### [facility] [address] [address] [address] Preston George ALP [Catalytic activity/Vol] 38 U/L Critically low 46-116 [facility] Comment on above: Performed By: #### C MP #### [facility] [address] [address] [address] Preston George ALT [Catalytic activity/Vol] 22 U/L Normal 14-59 [facility] Comment on above: Performed By: #### C MP #### [facility] [address] [address] [address] Preston George Anion gap [Moles/Vol] 14.1 mmol/L Normal [facility] Comment on above: Performed By: #### C MP #### [facility] [address] [place] [address] Dr. Preston George AST [Catalytic activity/Vol] 14 U/L Critically low 15-37 [facility] Comment on above: Performed By: #### C MP #### [facility] [address] [address] [address] Preston George Bilirubin [Mass/Vol] 0.3 mg/dL Normal 0.2-1.0 [facility] Comment on above: Performed By: #### C MP #### [facility] [address] [place] [address] Dr. Preston George Calcium [Mass/Vol] 8.6 mg/dL Normal 8.5-10.1 [facility] Comment on above: Performed By: #### C MP #### [facility] [address] [address] [address] Preston George Chloride [Moles/Vol] 105 mmol/L Normal 98-107 [facility] Comment on above: Performed By: #### C MP #### [facility] [address] [address] [address] Preston George CO2 [Moles/Vol] 24.2 mmol/L Normal 21.0-32.0 [facility] Comment on above: Performed By: #### C MP #### [facility] [address] [address] [address] Preston George Creatinine [Mass/Vol] 0.58 mg/dL Normal 0.55-1.02 [facility] Comment on above: Performed By: #### C MP #### [facility] [address] [address] [address] Preston George EGFR-AF POLISH >60 Normal >=60 [facility] Comment on above: Performed By: #### C MP #### [facility] [address] [address] [address] Preston George EGFR-NON AF POLISH >60 Normal >=60 [facility] Comment on above: Performed By: #### C MP #### [facility] [address] [place] [address] Dr. Preston George Globulin (S) [Mass/Vol] 3.1 g/dL Normal [facility] Comment on above: Performed By: #### C MP #### [facility] [address] [place] [address] Dr. Preston George Glucose [Mass/Vol] 100 mg/dL Normal 74-106 [facility] Comment on above: Performed By: #### C MP #### [facility] [address] [place] [address] Dr. Preston George Potassium [Moles/Vol] 4.3 mmol/L Normal 3.5-5.1 [facility] Comment on above: Performed By: #### C MP #### [facility] [address] [place] [address] Dr. Preston George Protein [Mass/Vol] 6.6 g/dL Normal 6.4-8.2 [facility] Comment on above: Performed By: #### C MP #### [facility] [address] [place] [address] Dr. Preston George Sodium [Moles/Vol] 139 mmol/L Normal 136-145 [facility] Comment on above: Performed By: #### C MP #### [facility] [address] [place] [address] Dr. Preston George Urea nitrogen [Mass/Vol] 12.0 mg/dL Normal 7.0-18.0 [facility] Comment on above: Performed By: #### C MP #### [facility] [address] [place] [address] Dr. Preston George Urea nitrogen/Creatinine [Mass ratio] 20.7 mg/mg Normal [facility] Comment on above: Performed By: #### C MP #### [facility] [address] [place] [address] Dr. Preston George URINE MICROSCOPIC ONLYon BACTERIA NONE SEEN Normal NONE SEEN [facility] Comment on above: Performed By: #### U MICRO, ERUR #### [facility] [address] [place] [address] Dr. Preston George Bacteria identified Cx Nom (U) INDICATED Normal [facility] Comment on above: Performed By: #### U MICRO, ERUR #### [facility] [address] [place] [address] Dr. Preston George CAST NONE SEEN Normal NONE SEEN [facility] Comment on above: Performed By: #### U MICRO, ERUR #### [facility] [address] [place] [address] Dr. Preston George Crystals LM Nom (Urine sed) NONE SEEN Normal NONE SEEN [facility] Comment on above: Performed By: #### U MICRO, ERUR #### [facility] [address] [place] [address] Dr. Preston George Epithelial cells LM Ql (Urine sed) FEW Abnormal NONE SEEN /RARE [facility] Comment on above: Performed By: #### U MICRO, ERUR #### [facility] [address] [place] [address] Dr. Preston George MUCOUS NONE SEEN Normal NONE SEEN [facility] Comment on above: Performed By: #### U MICRO, ERUR #### [facility] [address] [place] [address] Dr. Preston George RBC 50-75 Abnormal 0-2 [facility] Comment on above: Performed By: #### U MICRO, ERUR #### [facility] [address] [place], [place] [address] Dr. Preston George WBC 2-5 Abnormal NONE SEEN [facility] Comment on above: Performed By: #### U MICRO, ERUR #### [facility] [address] [place], [place] [address] Dr. Preston George US PREG TVon 04-04-2022 US PREG TV EXAMINATION: US PREG TV HISTORY: Pain , vaginal bleeding since yesterday COMPARISON: No relevant comparison available. FINDINGS: GESTATIONAL SAC: Absent POLE: Absent YOLK SAC: Absent CARDIAC: Absent UTERUS: Thickened endometrium with no visible gestational sac. OVARIES: Right: Corpus luteal cyst Left: Normal. CERVIX: 2.1 cm in length and closed. CUL-DE-SAC: Normal. OTHER: Trace amount free fluid in pelvic cul-de-sac. AGE BY LMP: 8 weeks, 1 day HAYLEY BY LMP: 11/13/2022 AGE BY US CRL: Not applicable HAYLEY BY US CRL: IMPRESSION: 1. Thickened endometrium and what appears to be a corpus lutein cyst within right ovary. No intrauterine or appreciable ectopic . Findings would be compatible with spontaneous . Follow-up recommended. Electronically authenticated by: PUMA CONNOLLY Date: 2022-04-04 07:15 Normal [facility] US Pelvic, Transabdominalon 01-02-2022 US Pelvic, Transabdominal FILL IN HOW MANY FOLLICLES AND APPROXIMATE SIZE IN EACH OVARY FINDINGS: Uterus 7.1 x 4.7 x 2.8 cm Endometrium 10mm Right Ovary3.8 x 2.4 x 2.0 cm Left Ovary4.8 x 3.7 x 1.7 cm Normal uterine orientation and morphology are identified. No worrisome mass lesions are seen. No pelvic fluid is present. Bilateral ovaries demonstrate small peripheral follicles, unremarkable in appearance. Overall appearance is normal for this age. IMPRESSION: 1. Multiple ovarian subcentimeter follicles (5 on right and 3 on the left) 2. Normal uterus. Report reported and signed by Rangel Chowdhury on 01/03/2022 1035 Normal [facility] Complete Blood Counton 12-26 Erythrocyte distribution width (RBC) [Ratio] 13.1 % Normal 11.0-15.0 [facility] Comment on above: Performed By: #### 2 5791E, 402X, 71583N, 561, 60987F #### [facility] [address] [place] [address] Hematocrit (Bld) [Volume fraction] 40.7 % Normal 35.0-47.0 [facility] Comment on above: Performed By: #### 2 5791E, 402X, 29141U, 561, 25689K #### [facility] [address] [place] [address] Hemoglobin (Bld) [Mass/Vol] 13.4 g/dL Normal 11.6-15.5 [facility] Comment on above: Performed By: #### 2 5791E, 402X, 57928B, 561, 19094O #### [facility] [address] [place] [address] MCH (RBC) [Entitic mass] 31.1 pg Normal 27.0-33.0 [facility] Comment on above: Performed By: #### 2 5791E, 402X, 20816Z, 561, 09237I #### [facility] [address] [place] [address] MCHC (RBC) [Mass/Vol] 32.9 g/dL Normal 32.0-36.0 [facility] Comment on above: Performed By: #### 2 5791E, 402X, 72253P, 561, 96588M #### [facility] [address] [place] [address] MCV (RBC) [Entitic vol] 94 fL Normal 80-100 [facility] Comment on above: Performed By: #### 2 5791E, 402X, 39184K, 561, 51799Q #### [facility] [address] [place] [address] Platelet mean volume (Bld) [Entitic vol] 11.50 fL Normal 7.50-12.50 [facility] Comment on above: Performed By: #### 2 5791E, 402X, 76603H, 561, 98852H #### [facility] [address] [place] [address] Platelets (Bld) [#/Vol] 257 10*3/uL Normal 140-400 [facility] Comment on above: Performed By: #### 2 5791E, 402X, 06693R, 561, 04260E #### [facility] [address] [place] [address] RBC (Bld) [#/Vol] 4.31 10*6/uL Normal 3.90-5.20 [facility] Comment on above: Performed By: #### 2 5791E, 402X, 13494P, 561, 42117E #### [facility] [address] [place] [address] RDW-SD 45.2 fL Normal 37.0-50.0 [facility] Comment on above: Performed By: #### 2 5791E, 402X, 05164Y, 561, 02038F #### [facility] [address] [place] [address] WBC (Bld) [#/Vol] 5.5 10*3/uL Normal 3.8-11.0 [facility] Comment on above: Performed By: #### 2 5791E, 402X, 55204S, 561, 16850D #### [facility] [address] [place] [address] Comprehensive Metabolic Pane renzo 12-26-2021 Albumin [Mass/Vol] 4.6 g/dL Normal 3.6-5.1 [facility] Comment on above: Performed By: #### 2 5791E, 402X, 94439H, 561, 33566F #### [facility] [address] [place] [address] Albumin/Globulin [Mass ratio] 2.4 {ratio} Normal 1.0-2.5 [facility] Comment on above: Performed By: #### 2 5791E, 402X, 93625X, 561, 56802T #### [facility] [address] [place] [address] ALP [Catalytic activity/Vol] 45 U/L Normal 35-119 [facility] Comment on above: Performed By: #### 2 5791E, 402X, 12708Z, 561, 50300W #### [facility] [address] [place] [address] ALT [Catalytic activity/Vol] 14 U/L Normal 6-33 [facility] Comment on above: Result Comment: 10/12 Female reference range changed. Performed By: #### 2 5791E, 402X, 74679H, 561, 30268S #### [facility] [address] [place] [address] Anion gap [Moles/Vol] 16 mmol/L Normal 12-20 [facility] Comment on above: Result Comment: Effe ctive 11/17/2019 reference range changed. Performed By: #### 2 5791E, 402X, 92270P, 561, 15977V #### [facility] [address] [place] [address] AST [Catalytic activity/Vol] 20 U/L Normal 9-34 [facility] Comment on above: Performed By: #### 2 5791E, 402X, 88581D, 561, 84097U #### [facility] [address] [place] [address] Bilirubin [Mass/Vol] 0.38 mg/dL Normal 0.30-1.20 [facility] Comment on above: Performed By: #### 2 5791E, 402X, 26678W, 561, 42642X #### [facility] [address] [place] [address] BUN/CREA 26 Ratio High 6-22 [facility] Comment on above: Performed By: #### 2 5791E, 402X, 64219F, 561, 33151Q #### [facility] [address] [place] [address] Calcium [Mass/Vol] 9.7 mg/dL Normal 8.6-10.2 [facility] Comment on above: Performed By: #### 2 5791E, 402X, 47518T, 561, 42398A #### [facility] [address] [place] [address] Chloride [Moles/Vol] 104 mmol/L Normal 98-107 [facility] Comment on above: Performed By: #### 2 5791E, 402X, 96995Y, 561, 40151T #### [facility] [address] [place] [address] CO2 [Moles/Vol] 25 mmol/L Normal 20-31 [facility] Comment on above: Performed By: #### 2 5791E, 402X, 29263Y, 561, 42700S #### [facility] [address] [place] [address] Creatinine [Mass/Vol] 0.5 mg/dL Low 0.6-1.4 [facility] Comment on above: Performed By: #### 2 5791E, 402X, 44328F, 561, 07159K #### [facility] [address] [place] [address] eGFRAA 170 mL/min/1.73m2 Normal >60 [facility] Comment on above: Performed By: #### 2 5791E, 402X, 46619Y, 561, 09765D #### [facility] [address] [place] [address] eGFRNAA 140 mL/min/1.73m2 Normal >60 [facility] Comment on above: Performed By: #### 2 5791E, 402X, 85555L, 561, 17995X #### [facility] [address] [place] [address] Globulin (S) [Mass/Vol] 1.9 g/dL Normal 1.9-3.7 [facility] Comment on above: Performed By: #### 2 5791E, 402X, 29655J, 561, 54632L #### [facility] [address] [place] [address] Glucose [Mass/Vol] 86 mg/dL Normal 65-99 [facility] Comment on above: Result Comment: For FASTING Glucose --- ADA reference ranges: Normal 65-99 mg/dl Prediabetes 100-125 Diabetes >/= 126 Performed By: #### 2 5791E, 402X, 77343U, 561, 44740L #### [facility] [address] [place] [address] Potassium [Moles/Vol] 4.6 mmol/L Normal 3.5-5.5 [facility] Comment on above: Performed By: #### 2 5791E, 402X, 96493R, 561, 36563N #### [facility] [address] [place] [address] Protein [Mass/Vol] 6.5 g/dL Normal 6.1-8.1 [facility] [place] [facility] Comment on above: Performed By: #### 2 5791E, 402X, 33914W, 561, 81428O #### [facility] [address] [place] [address] Sodium [Moles/Vol] 141 mmol/L Normal 135-146 [facility] [place] [facility] Comment on above: Performed By: #### 2 5791E, 402X, 77750O, 561, 00080T #### [facility] [address] [place] [address] Urea nitrogen [Mass/Vol] 13 mg/dL Normal 7-25 [facility] Comment on above: Performed By: #### 2 5791E, 402X, 52607F, 561, 35733Y #### [facility] [address] [place] [address] Q - DHEA SULFATEon DHEA SULFATE 149 mcg/dL Normal 19-237 [facility] Comment on above: Order Comment: [facility] performed at: [facility], [address] [place] [address], [address] [place] [address], [phone], [employer] Butting Machine Operator: Salvatore Lawson MD [facility] Collection Date/Time: [facility] Results Received Date/Time: [facility] Reported Date/Time: FASTING: UNKNOWN Performed By: #### 2 5791E, 402X, 53563V, 561, 38316S #### [facility] [address] [place] [address] Q - FSHon 12-26-2021 FSH 6.8 mIU/mL Normal [facility] Comment on above: Order Comment: [facility] performed at: [facility], [address] [facility], [address] [place] [address], [phone], [employer] Machine Operator: Salvatore Lawson MD [facility] Date/Time: [facility] Results Received Date/Time: [id number] [facility] Reported Date/Time: FASTING: UNKNOWN Result Comment: Refe rence Range Follicular Phase 2.5-10.2 Mid-cycle Peak 3.1-17.7 Luteal Phase 1.5- 9.1 Postmenopausal 23.0-116.3 Performed By: #### 2 5791E, 402X, 84985B, 561, 01576R #### [facility] [address] [place] [address] Q - INSULIN,SERUMon 12-26-19 INSULIN 1.8 uIU/mL Normal [facility] Comment on above: Order Comment: [facility] performed at: [facility], [address] , [address] [place] [address], [phone], [employer] Machine Operator: Salvatore Lawson MD [facility] Date/Time: [facility] Results Received Date/Time: [facility] Reported Date/Time: FASTING: UNKNOWN Result Comment: Refe rence Range < or = 19.6 Risk: Optimal < or = 19.6 Moderate NA High >19.6 Adult cardiovascular event risk category cut points (optimal, moderate, high) are based on [employer] population data from 10/2011. This insulin assay shows strong cross-reactivity for some insulin analogs (lispro, aspart, and glargine) and much lower cross-reactivity with others (detemir, glulisine). Performed By: #### 2 5791E, 402X, 97851A, 561, 90695S #### [facility] [address] [place] [address] Q - LHon 12-26-2021 LH 9.5 mIU/mL Normal [facility] Comment on above: Order Comment: [facility] performed at: [facility], [address] , [address] [place] [address], [phone], [employer] Operator: Salvatore Lawson MD [facility] Date/Time: [facility] Results Received Date/Time: [facility] Reported Date/Time: FASTING: UNKNOWN Result Comment: Refe rence Range Follicular Phase 1.9-12.5 Mid-Cycle Peak 8.7-76.3 Luteal Phase 0.5-16.9 Postmenopausal 10.0-54.7 Performed By: #### 2 5791E, 402X, 20985O, 561, 89504E #### [facility] [address] [place] [address] Q - PROGESTERONEon PROGESTERONE <0.5 Normal [facility] Comment on above: Order Comment: [facility] performed at: [facility], [address] [facility], [address] [facility], [place], [address], [employer]ting Machine Operator: Salvatore Lawson MD [facility] Date/Time: [id number] [facility] Results Received Date/Time: [id number] [facility] Reported Date/Time: FASTING: UNKNOWN Result Comment: Refe rence Ranges Female Follicular Phase < 1.0 Luteal Phase 2.6-21.5 Post menopausal < 0.5 1st Trimester 4.1-34.0 2nd Trimester 24.0-76.0 3rd Trimester 52.0-302.0 Performed By: #### 2 5791E, 402X, 12796H, 561, 10094A #### [facility] [address] [place] [address] TSH w/ Reflex to Free T4on 0 12-26-2021 TSH 2.190 uIU/mL Normal 0.400-4.500 [facility] Comment on above: Performed By: #### 2 5791E, 402X, 09829X, 561, 48377E #### [facility] [address] [place] [address] Vital Signs Date Time Vital Sign Value Performing Clinician Yomi merlos 08-18-2024 13:09040 Body mass index (BMI) [Ratio] 23.33 kg/m2 [facility] 08-18-2024 13: Body weight 71.67 kg Heriberto [employer] [facility] Work Phone: [facility] 08-18-2024 13:09040 Diastolic blood pressure 70 mm[Hg] [employer] [facility] Work Phone: [facility] 08-18-2024 13:09040 Systolic blood pressure 112 mm[Hg] Heribertosaniya Snell CN Work Phone: [facility] Encounters Encounter Date Encounter Type Care Provider Facility Start: 11-21-2024 End: 11-21-2024 Telephone encounter Heriberto MEDEL Work Phone: [facility] Start: 08-18-2024 End: 08-18-2024 ambulatory HERIBERTO SNELL Not Available Start: 08-18-2024 End: 08-18-2024 Gynecological examination normal Heriberto MEDEL Work Phone: [facility] Start: 08-18-2024 End: 08-18-2024 Periodic preventive med est patient 18-39 yrs Heriberto MEDEL Work Phone: [facility] Comment on above: Normal gynecologic e xamination; Screening for cervical cancer; Amenorrhea Start: 12-14-2023 Orders Only Bud Main [employer] TE[employer]ER Work Phone: [facility] Comment on above: Iron deficiency anem ia secondary to inadequate dietary iron intake (Primary Dx) Start: 12-12-2023 End: 12-12-2023 ambulatory [facility] Not Available Start: 06-29-2022 End: 06-30-2022 ambulatory HERIBERTO SNELL Facility:[facility] Start: 04-04-2022 End: 04-04-[address] NATAN SAMSON Facility:[facility] Procedures Date Procedure Procedure Detail Performing Clinician Start: 08-18-2024 Urine test visual color cmprsn meths Heriberto MEDEL Work Phone: Plan of Treatment Date Care Activity Detail Author Start: 08-15-2028 Screening for malign ant neoplasm of cervix [facility] Start: 08-18-2024 End: 08-18-2025 THINPREP IMAGING PAP AND HPV DNA REFLEX HPV 16,18 THINPREP IMAGING PAP AND HPV DNA REFLEX HPV 16,18 Pathology and Cytology Routine Screening for cervical cancer Expected: 08/18/2024 (Approximate), Expires: 08/18/2025 [facility] Work Phone: Comment on above: Expected: 08/18/2024 (Approximate), Expires: 08/18/2025 Start: 07-13-2024 Influenza vaccination Influenza Vacc ine (#1) [facility] Start: 03-13-2024 End: 12-14-2024 Ferritin [Mass/volume] in Serum or Plasma Ferritin Lab Routine Iron deficiency anemia secondary to inadequate dietary iron intake Expected: 03/13/2024 (Approximate), Expires: 12/14/2024 [facility] Work Phone: Comment on above: Expected: 03/13/2024 (Approximate), Expires: 12/14/2024 Start: 07-13-2023 Influenza vaccination Influenza Vacc ine (#1) [facility] Start: 2007 Screening for malign ant neoplasm of cervix Pap Smear [facility] Immunizations Immunization Date Immunization Notes Care Provider Memo gallegos 03-13-2008 measles, mumps and rubella virus vaccine Budteodora Santospfer [employer] Work Phone: [facility] 03-13-2008 tetanus toxoid, redu kyleigh diphtheria toxoid, and acellular pertussis vaccine, adsorbed Bud Kampfer WE[employer]ER TEACHER Work Phone: [facility] 11-09-1999 hepatitis B vaccine, pediatric or pediatric/adolescent dosage Bud Kampfer WEATHER TEACHER Work Phone: [facility] 08-27-1998 hepatitis B vaccine, pediatric or pediatric/adolescent dosage Bud Kampfer WEATHER TEACHER Work Phone: [facility] 08-27-1998 TD(adult) unspecifie d formulation Bud Kampfer WEATHER TEACHER Work Phone: [facility] 05-21-1998 hepatitis B vaccine, pediatric or pediatric/adolescent dosage Bud Kampfer WEATHER TEACHER Work Phone: [facility] 05-21-1998 measles, mumps and rubella virus vaccine Bud Kampfer WEATHER TEACHER Work Phone: [facility] Payers Date Payer Category Payer Private Health Insurance [employer] [id number] 2022 Unknown [employer] [id number] 2022-Present [address] [place] [address] [id number] 2022 Unknown [id number] 1986 Unknown [id number] 1986 Unknown [id number] 1986 Unknown [id number] 1959 Self-pay [id number] 1959 Unknown [id number] Unknown [id number] Social History Date Type Detail Facility Start: 05-01-2023 Tobacco smoking stat [facility] Never smoked tobacco [facility] Start: 05-01-2023 Tobacco use and exposure Smoke less tobacco non-user [facility] Start: 12-12-2023 End: 08-18-2024 Alcohol intake Ex-drinker (finding) [facility] Start: 06-21-2023 End: 08-15-2023 History of Social function [facility] Start: 06-21-2023 End: 08-15-2023 Humiliation, Afraid, Rape, and Kick questionnaire [HARK] [facility] Within the last year , have you been afraid of your partner or ex-partner? Patient refused [facility] Are you now , , , , never or living with a partner? Refused [facility] (I/We) worried [facility] er (my/our) food would run out before (I/we) got money to buy more. DK or Refused [facility] The thought of nuria figueroa myself has occurred to me Never [facility] Start: 12-12-2023 Alcohol Comment caffeine: 2 cups cof fee [facility] Start: 1985 Sex Assigned At Female [facility] Start: 01-24-2023 Gender identity Identifies as female gender (finding) [facility] Start: 12-06-2023 Sexual orientation Heterosexual (fin ding) [facility] NEGATED: Highlighted rowStart: NINF History of tobacco use Passive smoker [facility] Telephone encounter Note 11-21-2024 Telephone Encounter - Gisele Boone - 11/21/2024 2:26 PM EST Note Date & Type Note Facility 11-21-2024 Telephone encount er Note Pt will be 6 weeks on 11/22/24- She would like to schedule a new OB appointment. She would prefer a morning appt if available. Lmp- oct 11 [facility] Note 11-21-2024 Telephone Encounter - Gisele Boone - 11/21/2024 2:26 PM EST Note Date & Type Note Facility 11-21-2024 Miscellaneous Notes Formattin g of this note might be different from the original. Pt will be 6 weeks on 11/22/24- She would like to schedule a new OB appointment. She would prefer a morning appt if available. Lmp- oct 11 documented in this encounter [facility] History of Present illness Narrative 08-18-2024 Heriberto Snell CNM - 08/18/2024 1:00 PM EDT Note Date & Type Note Facility 08-18-2024 History of Presen t illness Narrative YEARLY HPI: This is a established patient. Chief Complaint Patient presents with Gynecologic Exam Here for annual exam. 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 complaints: no Changes in healthsince last visit: no Surgeries or hospitalizations since last visit: no control method: Menses: Last pap: 08/15/23 Other: History: Past Medical History: Diagnosis Date Acne Acute maxillary sinusitis Body mass index (BMI) 22.0-22.9, adult Cervical lymphadenopathy Cervical strain Chest wall pain Conjunctivitis Dysuria Folliculitis Generalized anxiety disorder (CMS/HCC) Grief reaction (CMS/HCC) Head injury DOI 03/21/15 Impacted cerumen, bilateral Iron deficiency anemia Irritable bowel syndrome Nausea Pharyngitis Suprapubic pain Tinea corporis previous history Unprotected sexual intercourse Vulvovaginitis Past Surgical History: Procedure Laterality Date SECTION, LOW TRANSVERSE CYST REMOVAL 2008 from right side of neck PAP SMEAR 05/20/2021 Family History Problem Relation Name Age of Onset Other (Degenerative Disc Disease) Mother Hypertension Sister Older sister Other (pre-eclampsia) Sister Older sister Migraines Sister Older sister Brain cancer Sister Younger sister tumor -2008 Allergies: No Known Allergies Medications: Current Outpatient Medications on File Prior to Visit Medication Sig Dispense Refill folic acid-vit B6-vit B12 2.5-25-1 MG tablet tablet Take 1 tablet by mouth in the morning. w/o A Vit-Fe Fum-FA (AZESCHEW / PO) Take by mouth No current facility-administered medications on file prior to visit. ROS: Review of Systems All other systems reviewed and are negative. There were no vitals filed for this visit. Physical exam: Physical Exam Vitals reviewed. Constitutional: Appearance: Normal appearance. HENT: Head: Normocephalic. Right Ear: Tympanic membrane normal. Left Ear: Tympanic membrane normal. Mouth/Throat: Mouth: Mucous membranes are moist. Eyes: Pupils: Pupils are equal, round, and reactive to light. Cardiovascular: Rate and Rhythm: Normal rate and regular rhythm. Pulses: Normal pulses. Heart sounds: Normal heart sounds. Pulmonary: Effort: Pulmonary effort is normal. Breath sounds: Normal breath sounds. Chest: Breasts: Right: Normal. Left: Normal. Abdominal: General: Abdomen is flat. Bowel sounds are normal. Palpations: Abdomen is soft. Tenderness: There is no abdominal tenderness. Genitourinary: General: Normal vulva. Exam position: Lithotomy position. Vagina: Normal. No tenderness. Cervix: Normal. No cervical motion tenderness. Uterus: Normal. Adnexa: Right adnexa normal and left adnexa normal. Musculoskeletal: General: Normal range of motion. Cervical back: Normal range of motion and neck supple. Skin: General: Skin is warm and dry. Neurological: General: No focal deficit present. Mental Status: She is alert and oriented to person, place, and time. Psychiatric: Mood and Affect: Mood normal. Assessment and Plan: 1. Annual exam 2. SBE discussed: Yes 3. Diet and exercise discussed: Yes 4. Wt control discussed: No 5. Safe sex discussed: No Paige was seen today for gynecologic exam. Diagnoses and all orders for this visit: Normal gynecologic examination Patient is currently trying to get and is taking vitamins. No follow-ups on file. There are no Patient Instructions on file for this visit. Sayra Ferrell MA, 08/18/2024 12:58 PM documented in this encounter [facility] Evaluation note Note Date & Type Note Facility Evaluation note Diagnosis Iron deficiency anemia secondary to inadequate dietary iron intake- Primary documented in this encounter [facility] Evaluation note Note Date & Type Note Facility Evaluation note Diagnosis Normal gynecologic examination Screening for cervical cancer Screening for malignant neoplasm of the cervix Amenorrhea Absence of menstruation documented in this encounter [facility] Summary Purpose Family History No Family History Records FoundNo Family History Records FoundNo Family History Records Found Advance Directives No Advanced Directives Records FoundNo Advanced Directives Records FoundNo Advanced Directives Records Found Additional Source Comments INFORMATION SOURCE (unrecogn ized section and content) DATE CREATED AUTHOR 07/05/2022 [facility] DATE CREATED AUTHOR AUTHOR'S ORGANIZ ATION 12/06/2022 [facility] dical Specialist DATE CREATED AUTHOR AUTHOR'S ORGANIZ ATION 08/24/2024 [facility] d[facility] Specialists EPIC Care Teams (unrecognized sec tion and content) Plug Machine Operator Relationship Specialty Start Date End Date Sayra Leon MD [address] [place] [address] PCP - General Family Medicine 04/12/23 Heriberto Snell CNM [address] [place] [address] Obstetrics and Gynecology 04/12/23 Plug Machine Operator Relationship Specialty Start Date End Date Sayra Leon MD [address] [place] [address] PCP - General Family Medicine 04/12/23 Heriberto Snell CNM [address] [place] [address] Obstetrics and Gynecology 04/12/23 Plug Machine Operator Relationship Specialty Start Date End Date Sayra Leon MD [address] [place] [address] PCP - General Family Medicine 04/12/23 Heriberto Snell CNM [address] [place] [address] Obstetrics and Gynecology 04/12/23 Reason for Visit (unrecogniz ed section and content) Reason Comments Gynecologic Exam FOR RECORDS PERTAINING TO PATIENTS WHO ARE OR HAVE BEEN ENROLLED IN A CHEMICAL DEPENDENCY/SUBSTANCEABUSE PROGRAM, SOME INFORMATION MAY BE OMITTED. This clinical summary was aggregated from multiple sources. Caution should be exercised in using it in the provision of clinical care. This summary normalizes information from multiple sources, and as a consequence, information in this document may materially change the coding, format and clinical context of patient data. In addition, data may be omitted in some cases. CLINICAL DECISIONS SHOULD BE BASED ON THE PRIMARY CLINICAL RECORDS. [facility] [employer] [facility]. provides no warranty or guarantee of the accuracy or completeness of information in this document.
== END 2024-12-05 17:25 | disposition home or self-care (01) ==
LOC: US 17:24
PROVIDERS: Visit Provider Midwife
DX: Z32.01 Encounter for pregnancy test, result positive (principal); Z3A.01 Less than 8 weeks gestation of pregnancy; N91.2 Amenorrhea, unspecified
CPT/HCPCS: 76817

== ENCOUNTER 2025-07-09 10:59 | Inpatient (IN) | payer OTHER, SELFPAY ==
--- OUTSIDE RECORDS SUMMARY | 2025-06-25 14:00 | XMS_ITS | Encounter Summary ---
Author Organization [facility] Address [address] [place] [address] Care Team Providers Care Counter Pocket Sewer Name Role Phone Melanie Snell CNM Unavailable [phone] Sayra Leon MD Primary Care Provider [phone] Encounter Details Date Type Department Care Team (Latest Contact Info) Description 06/25/2025 2:00 PM EDT Ancillary Procedure [facility] [address] [place] [address] AMA (advanced maternal age) multigravida 35+, third trimester ([facility]) Social History Tobacco Use Types Packs/Day Years Used Date Smoking Tobacco: Never Passive Smoke Exposure: Never Smokeless Tobacco: Never Alcohol Use Standard Drinks/Week Comments Not Currently 0 (1 standard drink = 0.6 oz pur e alcohol) caffeine: 2 cups coffee Humiliation, Afraid, Rape, and Kick questionnair e Answer Date Recorded Within the last year, have y ou been afraid of your partner or ex-partner? Patient declined 06/21/2023 Within the last year, have y ou been humiliated or emotionally abused in other ways by your partner or ex-partner? Patient declined 06/21/2023 Within the last year, have y ou been kicked, hit, slapped, or otherwise physically hurt by your partner or ex-partner? Patient declined 06/21/2023 Within the last year, have y ou been raped or forced to have any kind of sexual activity by your partner or ex-partner? Patient declined 06/21/2023 Social Connection and Isolation Panel [NHANES] A nswer Date Recorded In a typical week, how many times do you talk on the phone with family, friends, or neighbors? Patient declined 06/21/2023 How often do you get togethe r with friends or relatives? Patient declined 06/21/2023 How often do you attend mosque or worship serv ices? Patient declined 06/21/2023 Do you belong to any clubs o r organizations such as mosque groups, unions, fraternal or athletic groups, or school groups? Patient declined 06/21/2023 How often do you attend meet ings of the clubs or organizations you belong to? Patient declined 06/21/2023 Are you , , di vorced, , never , or living with a partner? Patient declined 06/21/2023 AUDIT-C Answer Date Recorded Q1: How often do you have a drink containing alc ohol? Patient declined 06/21/2023 Q2: How many drinks containi ng alcohol do you have on a typical day when you are drinking? Patient declined 06/21/2023 Q3: How often do you have si x or more drinks on one occasion? Patient declined 06/21/2023 Overall Financial Resource Strain (CARDIA) Answe r Date Recorded How hard is it for you to pa y for the very basics like food, housing, medical care, and heating? Patient declined 06/21/2023 Exercise Vital Sign Answer Date Recorde d On average, how many days pe r week do you engage in moderate to strenuous exercise (like a brisk walk)? Patient declined On average, how many minutes do you engage in exercise at this level? Patient declined 06/21/2023 Hunger Vital Sign Answer Date Recorded Within the past 12 months, y ou worried that your food would run out before you got the money to buy more. Patient declined Within the past 12 months, t he food you bought just didn't last and you didn't have money to get more. Patient declined 08/2023 PRAPARE - Transportation Answer Date Re corded In the past 12 months, has l ack of transportation kept you from medical appointments or from getting medications? Patient declined 06/21/2023 In the past 12 months, has l ack of transportation kept you from meetings, work, or from getting things needed for daily living? Patient declined 06/21/2023 Housing Stability Vital Sign Answer Ty e Recorded In the last 12 months, was t here a time when you were not able to pay the mortgage or rent on time? Patient refused 06/21/20 23 Number of Places Lived in the Last Year Not on f ile 06/21/2023 In the last 12 months, was t here a time when you did not have a steady place to sleep or slept in a skilled nursing (including now)? Patient refused 06/21/2023 Grandfalls Depression Scale Answer Date Recorded Grandfalls Depression Scale Total 6 08/15/2023 The thought of harming myself has occurred to me . Never 08/15/2023 Estimated Date of Delivery Comme nts Yes 07/18/2025 Based on last me nstrual period of 10/11/2024 (Exact Date) Sex and Gender Information Value Date Recorded Sex Assigned at Female 12/06/2023 12:18 PM EST Legal Sex Female 7:35 PM EDT Gender Identity Female 01/24/2023 7:35 PM EDT Sexual Orientation Straight 12/06/2023 12 :18 PM EST documented as of this encounter Plan of Treatment Upcoming Encounters Date Type Department Care Team (Late st Contact Info) Description 07/16/2025 3:45 PM EDT Visit [facility] [address] [place] [address] Melanie Snell CNM [address] [place] [address] documented as of this encounter Procedures Procedure Name Priority Date/Time Associated Diagnosis Comments US BIOPHYSICAL PROFILE WO NON STRESS TESTING Routine 06/25/2025 2:34 PM EDT AMA (advanced maternal age) multigravida 35+, third trimester ([facility]) documented in this encounter Results * US biophysical profile wo non stress testing (06/25/2025 2:34 PM EDT) Anatomical Region Laterality Modality Body Ultrasound 06/29/2025 2:16 PM EDT Impressions 06/29/2025 2:25 PM EDT Normal biophysical profile 06/19 TRANSCRIBED BY: ELECTRONICALLY SIGNED BY: Rangel Chowdhury MD Narrative 06/29/2025 2:25 PM EDT FINDINGS: Breathing Movements 2 Gross Body Movements 2 Tone 2 Qualitative amniotic fluid volume 2 A single, viable intrauterine is present. The placenta is anterior fundal Grade 2, cervix closed, 5.4 cm length. AYALA is 12. Heart rate 136. Procedure Note Rangel Chowdhury MD - 06/29/2025 FINDINGS: Breathing Movements 2 Gross Body Movements 2 Tone 2 Qualitative amniotic fluid volume 2 A single, viable intrauterine is present. The placenta isanterior fundal Grade 2, cervix closed, 5.4 cm length. AYALA is 12. Heartrate 136. IMPRESSION: Normal biophysical profile 06/19 TRANSCRIBED BY: ELECTRONICALLY SIGNED BY: Rangel Chowdhury MD us Melanie Snell CNM IMG OB US PROCEDURES Final R esult documented in this encounter Visit Diagnoses Diagnosis AMA (advanced maternal age) multigravida 35+, third trimester ([facility]) documented in this encounter Care Teams Counter Pocket Sewer Relationship Specialty Start Date End Date Sayra Leon MD [address] [place] [address] PCP - General Family Medicine 04/12/23 Melanie Snell CNM [address] [place] [address] Obstetrics and Gynecology 04/12/23 documented as of this encounter
--- OUTSIDE RECORDS SUMMARY | 2025-06-29 12:30 | XMS_ITS | Encounter Summary ---
Author Organization [facility] Address [address] [place] [address] Care Team Providers Care Motor Vehicle Compliance Analyst Name Role Phone Mileymarixa Melanie Johnson CNM Unavailable [phone] Sayra Leon MD Primary Care Provider [phone] Reason for Visit * Reason Comments Insect Bite Encounter Details Date Type Department Care Team (Late st Contact Info) Description 06/29/2025 12:30 PM EDT Office Visit [facility] [address] [place] [id number] Zohreh Main NP [address] [place] [address] Cellulitis of left lower extremity (Primary Dx) Social History Tobacco Use Types Packs/Day Years [...] declined 06/21/2023 How often do you attend christianity or confucianist serv ices? Patient declined 06/21/2023 Do you belong to any clubs o r organizations such as christianity groups, unions, fraternal or athletic groups, or [...] medical care, and heating? Patient declined 06/21/2023 PHQ-2 Answer Date Recorded Patient Health Questionnaire-2 Score 0 06/29/2025 Exercise Vital Sign Answer Date Recorde d [...] place to sleep or slept in a longterm (including now)? Patient refused 06/21/2023 Frank[place] Depression Scale Answer Date Recorded [place] Depression Scale Total 6 08/15/2023 The thought [...] PM EST documented as of this encounter Last Filed Vital Signs Vital Sign Reading Time Taken Comments Blood Pressure 118/76 06/29/2025 12:33 PM EDT Pulse 77 06/29/2025 12:33 PM EDT Temperature - - Respiratory Rate - - Oxygen Saturation 99% 06/29/2025 12:33 PM EDT Inhaled Oxygen Concentration - - Weight 86.2 kg (190 lb) 06/29/2025 12:33 PM EDT Height - - Body Mass Index 28.06 07/18/2023 10:05 AM EDT documented in this encounter Functional Status * Over the past 2 weeks, how often have you been bothered by any of the following problems? Question Answer Date of Assessment Author Little interest or pleasure in doing things Not at all 06/29/2025 12:36 PM EDT Angie Harris MA Feeling down, depressed, or hopeless Not at all 06/29/2025 12:36 PM EDT Angie Harris MA Patient Health Questionnaire -2 Score 0 06/29/2025 12:36 PM EDT Angie Harris MA documented as of this encounter Progress Notes * Zohreh Main NP - 06/29/2025 12:30 PM EDT Images from the original note were not included. Subjective Patient ID: Paige Enamorado is a 39 y.o. female who presents for Insect Bite. HPI History of Present Illness The patient presents for evaluation of a skin lesion on the back of her leg. She reports that her has caused various skin changes, including bumps on her hands and occasional breakouts on her legs. These breakouts resemble small pimples, which she typically pops without experiencing any pain. A similar lesion appeared on the back of her leg on 06/24/2025. By 06/25/2025, it had grown slightly, remained the same size, was not red, but was mildly painful. On 06/26/2025, the lesion increased in size, and by 06/27/2025, redness and hardness were noted underneath. Concerned about a potential infection, she sought medical attention at an urgent care facility on 06/28/2025, where she was diagnosed with cellulitis. She has been prescribed Keflex and has taken 5 doses so far. Despite this, she reports no improvement in the redness since yesterday. She also mentions that she applied heat to the area yesterday, which resulted in some pus and blood discharge. She is scheduled to see Dr. Pelayo today at 4:00 PM and again next Sunday, which will be her final appointment before her on 07/02/2025. Objective BP 118/76 (BP Location: Right arm, Patient Position: Sitting, BP Cuff Size: Small adult) Pulse 77 Wt 190 lb LMP 10/11/2024 (Exact Date) SpO2 99% BMI 28.06 kg/m?? Physical Exam Vitals reviewed. HENT: Head: Normocephalic and atraumatic. Nose: Nose normal. Mouth/Throat: Mouth: Mucous membranes are moist. Eyes: Pupils: Pupils are equal, round, and reactive to light. Cardiovascular: Rate and Rhythm: Normal rate and regular rhythm. Pulses: Normal pulses. Heart sounds: Normal heart sounds. Pulmonary: Effort: Pulmonary effort is normal. Breath sounds: Normal breath sounds. Musculoskeletal: Cervical back: Normal range of motion and neck supple. Skin: General: Skin is warm and dry. Capillary Refill: Capillary refill takes less than 2 seconds. Findings: No rash. Comments: Left posterior mid calf with small punctate pustule with surround erythema and warmth Neurological: General: No focal deficit present. Mental Status: She is alert and oriented to person, place, and time. Physical Exam Assessment & Plan Assessment & Plan 1. Cellulitis: - The patient reports a painful, red, and hard lesion on the back of her leg that appeared on Sunday and was diagnosed as cellulitis at urgent care. The redness has not improved significantly since starting the medication. - The patient has taken 5 doses of Keflex (cephalexin) so far. Warm moist compresses should be applied to help draw out any pus. She is instructed not to squeeze the lesion to avoid exacerbating the pain and infection. - The patient is advised to continue taking Keflex as prescribed. A follow-up appointment is scheduled for Sunday to monitor progress. - If no improvement plan to switch to clindamycin. Discussed with Nguyen Snell NP, as well who agreeswith treatment plan. Follow-up: 07/01/2025 documented in this encounter Plan of Treatment Upcoming Encounters Date Type Department Care Team (Late st Contact Info) Description 07/16/2025 3:45 PM EDT Visit [facility] [address] [place] [phone] Melanie Snell CNM [address] [place], [place] [id number] documented as of this encounter Visit Diagnoses Diagnosis Cellulitis of left lower extremity- Primary documented in this encounter Care Teams Motor Vehicle Compliance Analyst Relationship Specialty Start Date End Date Sayra Leon MD [address] [place], [place] [id number] PCP - General Family Medicine 04/12/23 Melanie Snell CNM [address] [place] [address] Obstetrics and Gynecology 04/12/23 documented as of this encounter
--- OUTSIDE RECORDS SUMMARY | 2025-06-29 16:00 | XMS_ITS | Encounter Summary ---
Author Organization [facility] Address [address] [place] [address] Care Team Providers Care Patient Registration Manager Name Role Phone Melanie Snell CNM Unavailable [phone] Sayra Leon MD Primary Care Provider [phone] Encounter Details Date Type Department Care Team (Latest Contact Info) Description 06/29/2025 4:00 PM EDT Routine [facility] OBGYN [address] [place] [id number] Melanie Snell CNM [address] [place], [place] [id number] NST (non-stress test) reactive ([facility]) (Primary Dx); AMA (advanced maternal age) multigravida 35+, third trimester ([facility]) Social History Tobacco Use Types Packs/Day Years [...] declined 06/21/2023 How often do you attend mandaen or christian serv ices? Patient declined 06/21/2023 Do you belong to any clubs o r organizations such as mandaen groups, unions, fraternal or athletic groups, or [...] place to sleep or slept in a jail (including now)? Patient refused 06/21/2023 [place] Depression Scale Answer Date Recorded [place] Depression Scale Total 6 08/15/2023 The thought [...] Sign Reading Time Taken Comments Blood Pressure 126/78 06/29/2025 4:03 PM EDT Pulse - - Temperature - - Respiratory Rate - - Oxygen Saturation - - Inhaled Oxygen Concentration - - Weight 86.9 kg (191 lb 9.6 oz) 06/29/2025 4:03 P M EDT Height - - Body Mass Index 28.29 07/18/2023 10:05 AM EDT documented in this [...] as of this encounter Progress Notes * Melanie Snell CNM - 06/29/2025 4:00 PM EDT Subjective No chief complaint on file. Paige Enamorado is a 39 y.o. at 37w2d with a working estimated date of delivery of 07/18/2025, by Last Menstrual Period who presents for a routine visit. She denies vaginal bleeding, leakage of fluid, decreased movements, or contractions. Her is complicated by: AMA, unicornuate uterus, history of section None The following portions of the chart were reviewed this encounter and updated as appropriate: Objective Physical Exam Expected Total Weight Gain: 25 lb-35 lb Pregravid BMI: 23.32 Labs HEMOGLOBIN Date Value Ref Range Status 04/28/2025 12.1 11.7 - 15.5 g/dL Final HEMATOCRIT Date Value Ref Range Status 04/28/2025 36.4 35.0 - 45.0 % Final No results found for: PAPPA , AFP , HCG , ESTRIOL , INHBA GLUCOSE, POSTPRANDIAL/ 1 HOUR Date Value Ref Range Status 04/13/2023 91 See Note: mg/dL Final Comment: Reference Range: Reference Range Not established Any glucose value > or = 200 mg/dL will be flagged as high unless a reference range has been established. Glucose- Negative Protein- Negative Imaging Scheduled for - growth Assessment/Plan Diagnoses and all orders for this visit: NST (non-stress test) reactive ([facility]) AMA (advanced maternal age) multigravida 35+, third trimester ([facility]) Continue vitamin. Labs reviewed. GBS taken. Expected mode of delivery repeat section Follow up in 1 week for a routine visit. documented in this encounter Plan of Treatment Upcoming Encounters Date Type Department Care Team (Late st Contact Info) Description 07/16/2025 3:45 PM EDT Visit [facility] [address] [place] [address] Melanie Snell CNM [address] [place], [place] [phone] documented as of this encounter Visit Diagnoses Diagnosis NST (non-stress test) reactive ([facility])- Primary state, incidental AMA (advanced maternal age) multigravida 35+, third trimester ([facility]) documented in this encounter Care Teams Patient Registration Manager Relationship Specialty Start Date End Date Sayra Leon MD [address] [place], [place] [id number] PCP - General Family Medicine 04/12/23 Melanie Snell CNM [address] [place] [address] Obstetrics and Gynecology 04/12/23 documented as of this encounter
--- OUTSIDE RECORDS SUMMARY | 2025-07-01 16:30 | XMS_ITS | Encounter Summary ---
Author Organization [facility] Address [address] [facility] [place] [address] Care Team Providers Care Byproduct Engineer Name Role Phone Alis Melanie Johnson CNM Unavailable [phone] Sayra Leon MD Primary Care Provider Reason for Visit * Reason Comments Follow-up Encounter Details Date Type Department Care Team (Late st Contact Info) Description 07/01/2025 4:30 PM EDT Office Visit [facility] [address] [place] [address] Zohreh Main NP [address] [place] [address] Cellulitis of left lower extremity [...] declined 06/21/2023 How often do you attend advent or baptism serv ices? Patient declined 06/21/2023 Do you belong to any clubs o r organizations such as advent groups, unions, fraZeOmega or athletic groups, or school groups? Patient [...] Date Recorded Patient Health Questionnaire-2 Score 0 07/01/2025 Exercise Vital Sign Answer Date Recorde d [...] place to sleep or slept in a mcc (including now)? Patient refused 06/21/2023 [place] Depression Scale Answer Date Recorded [place] Depression Scale Total 6 08/15/2023 The thought [...] Sign Reading Time Taken Comments Blood Pressure 126/82 07/01/2025 4:03 PM EDT Pulse 72 07/01/2025 4:03 PM EDT Temperature - - Respiratory Rate - - Oxygen Saturation 99% 07/01/2025 4:03 PM EDT Inhaled Oxygen Concentration - - Weight 85.7 kg (189 lb) 07/01/2025 4:03 PM EDT Height - - Body Mass Index 27.91 07/18/2023 10:05 AM EDT documented in this encounter Functional Status * Over the past 2 weeks, how often have you been bothered by any of the following problems? Question Answer Date of Assessment Author Little interest or pleasure in doing things Not at all 07/01/2025 4:06 PM EDT Angie Harris M A Feeling down, depressed, or hopeless Not at all 07/01/2025 4:06 PM EDT Angie Harris M A Patient Health Questionnaire -2 Score 0 07/01/2025 4:06 PM EDT Angie Harris M A documented as of this encounter Progress Notes * Zohreh Main NP - 07/01/2025 4:30 PM EDT Images from the original note were not included. Subjective ?Quick Links Last Note in Specialty Snapshot Edit RFV/CC Edit Screenings Current Meds Patient ID: Paige Enamorado is a 39 y.o. female who presents for Follow-up. HPI History of Present Illness The patient presents for evaluation of an infection. She reports a significant improvement in her condition, with the area around the infection showing signs of healing. The infection has been draining, which she believes has contributed to her improved sleep quality. She notes that the area remains hard underneath but is less so than before. She wasable to engage in physical exercise this morning. She describes the infection as unsightly and notes that the opening has enlarged due to the pressure from underneath. This is her first experience with such an infection, which she suspects may be related to her . She has been applying warmcompresses 2 to 3 times daily and finds that exposure to hot water during showers provides relief. She is scheduled for a on 07/09/2025 and has an appointment for a non- stress test (NST) on Sunday. Social History: Sleep: Improved sleep quality noted due to drainage of infection ?Quick Review Review Full History Edit History Meds - cephalexin (Keflex) 500 MG capsule famotidine (Pepcid) 20 MG tablet folic acid-vit B6-vit B12 2.5-25-1 MG tablet tablet w/o A Vit-Fe Fum-FA (AZESCHEW / PO) --- PMH - Acne Acute maxillary sinusitis Body mass index (BMI) 22.0-22.9, adult Cervical lymphadenopathy Cervical strain Chest wall pain Conjunctivitis Dysuria Folliculitis Generalized anxiety disorder Grief reaction Head injury Impacted cerumen, bilateral Iron deficiency anemia Irritable bowel syndrome Nausea Pharyngitis Suprapubic pain Tinea corporis Unprotected sexual intercourse Vulvovaginitis Objective ?Quick Links Add Vitals Timeline (Adult) Labs Imaging Results Review Trend Vitals ?? Avoid pulling in long tables of results. Comment on relevant results to support your medical decision making. BP 126/82 (BP Location: Left arm, Patient Position: Sitting, BP Cuff Size: Small adult) Pulse 72 Wt 189 lb LMP 10/11/2024 (Exact Date) SpO2 99% BMI 27.91 kg/m?? Physical Exam Vitals reviewed. HENT: Head: [...] Findings: No rash. Comments: Left posterior mid calf- punctate pustule has grown in size with surround erythema and warmth, the surrounding erythema has improved slightly but not much Neurological: General: No focal deficit present. Mental Status: She is alert and oriented to person, place, and time. Physical Exam General: No acute distress. Extremities: Swelling noted on the foot. Skin: Redness and swelling noted. Area appears larger than previous examination. ?Quick Links Full Problem List Assessment & Plan Assessment & Plan 1. Infection: - The infection appears to have increased in size, although there is a reduction in swelling on oneside. - A switch from Keflex to clindamycin will be made today. She is advised to consume yogurt or probiotics to maintain gut health during the antibiotic course. - The application of warm, moist compresses should be continued intermittently to help draw out infection. Follow-up: A follow-up appointment is scheduled for Sunday. documented in this encounter Plan of Treatment Upcoming Encounters Date Type Department Care Team (Late st Contact Info) Description 07/16/2025 3:45 PM EDT Visit [facility] [address] [place] [address] Melanie Snell CNM [address] [place], [place] [phone] documented as of this encounter Visit Diagnoses Diagnosis Cellulitis of left lower extremity- Primary documented in this encounter Care Teams Byproduct Engineer Relationship Specialty Start Date End Date Sayra Leon MD [address] [place] [address] PCP - General Family Medicine 04/12/23 Melanie Snell CNM [address] [place], [place] [phone] Obstetrics and Gynecology 04/12/23 documented as of this encounter
--- OUTSIDE RECORDS SUMMARY | 2025-07-02 15:45 | XMS_ITS | Encounter Summary ---
Author Organization [facility] Address [address] [place] [address] Care Team Providers Care Highway Design Engineer Name Role Phone Melanie Snell CNM Unavailable [phone] Sayra Leon MD Primary Care Provider [phone] Encounter Details Date Type Department Care Team (Latest Contact Info) Description 07/02/2025 3:45 PM EDT Ancillary Procedure [facility] Imaging [address] [place] [address] AMA (advanced maternal age) multigravida 35+, third trimester ([facility]) Social History Tobacco Use Types [...] declined 06/21/2023 How often do you attend yazidi or scientology serv ices? Patient declined 06/21/2023 Do you belong to any clubs o r organizations such as yazidi groups, unions, fraternal or athletic groups, or [...] a half-way (including now)? Patient refused 06/21/2023 [place] Depression Scale Answer Date Recorded [place] Depression Scale Total 6 08/15/2023 The thought [...] PM EDT Visit [facility] [address] [place] [address] Melanie Snell, CNM [address] [place] [address] documented as of this encounter Procedures Procedure Name Priority Date/Time Associated Diagnosis Comments US OB FOLLOW UP TRANSABDOMINAL APPROACH Routine 07/02/2025 4:44 PM EDT AMA (advanced maternal age) multigravida 35+, third trimester ([facility]) documented in this encounter Results * [...] (advanced maternal age) multigravida 35+, third trimester ([facility]) documented in this encounter Care Teams Highway Design Engineer Relationship Specialty Start Date End Date Sayra Leon MD [address] [place] [address] PCP - General Family Medicine 04/12/23 Melanie Snell CNM [address] [place] [address] Obstetrics and Gynecology 04/12/23 documented as of this encounter
--- OUTSIDE RECORDS SUMMARY | 2025-07-06 15:30 | XMS_ITS | Encounter Summary ---
Author Organization [facility] Address [address] [place] [address] Care Team Providers Care Flaring Machine Operator Name Role Phone Melanie Snell CNM Unavailable [phone] Sayra Leon MD Primary Care Provider [phone] Encounter Details Date Type Department Care Team (Late st Contact Info) Description 07/06/2025 3:30 PM EDT Office Visit [facility] Family Medicine [address] [place] [address] Zohreh Main NP [address] [place] [address] Cellulitis of left lower extremity [...] declined 06/21/2023 How often do you attend nondenominational or yarsanism serv ices? Patient declined 06/21/2023 Do you belong to any clubs o r organizations such as nondenominational groups, unions, fraternal or athletic groups, or [...] place to sleep or slept in a nursing home (including now)? Patient refused 06/21/2023 [place] Depression Scale Answer Date Recorded [place] Depression Scale Total 6 08/15/2023 The thought [...] Time Taken Comments Blood Pressure 120/70 07/06/2025 3:40 PM EDT Pulse - - Temperature 36.3 C (97.4 F) 07/06/2025 3:40 PM EDT Respiratory Rate 16 07/06/2025 3:40 PM EDT Oxygen Saturation - - Inhaled Oxygen Concentration - - Weight - - Height - - Body Mass Index - - documented in this encounter Progress Notes * Zohreh Main NP - 07/06/2025 3:30 PM EDT Images from the original note were not included. Paige Enamorado is a 39 y.o. female presents with chief complaint of No chief complaint on file. HPI: HPI Presents to the office today for follow up of cellulitis. Has been taking clindamycin as prescribed. She feels it may have slightly improved. SUBJECTIVE: MEDICATIONS: Current Outpatient Medications Medication Instructions clindamycin (CLEOCIN) 300 mg, Oral, 3 times daily famotidine (PEPCID) 20 mg, Oral, Nightly folic acid-vit B6-vit B12 2.5-25-1 MG tablet tablet 1 tablet, Daily w/o A Vit-Fe Fum-FA (AZESCHEW / PO) Take by mouth I have reviewed and reconciled the history and medication list with the patient today. REVIEW OF SYMPTOMS: Review of Systems OBJECTIVE: Visit Vitals BP 120/70 Temp 97.4 ??F Resp 16 LMP 10/11/2024 (Exact Date) OB Status Smoking Status Never Physical Exam Vitals reviewed. Constitutional: Appearance: Normal appearance. HENT: Head: Normocephalic and atraumatic. Right Ear: Tympanic membrane normal. Left Ear: Tympanic membrane normal. Nose: Nose normal. Mouth/Throat: Mouth: Mucous membranes are moist. Eyes: Extraocular Movements: Extraocular movements intact. Pupils: Pupils are equal, round, and reactive to light. Cardiovascular: Rate and Rhythm: Normal rate and regular rhythm. Pulses: Normal pulses. Heart sounds: Normal heart sounds. Pulmonary: Effort: Pulmonary effort is normal. Breath sounds: Normal breath sounds. Abdominal: General: Bowel sounds are normal. Palpations: Abdomen is soft. Tenderness: There is no abdominal tenderness. Musculoskeletal: General: Normal range of motion. Cervical back: Normal range of motion and neck supple. Right lower leg: No edema. Left lower leg: No edema. Skin: General: Skin is warm and dry. Capillary Refill: Capillary refill takes less than 2 seconds. Findings: No rash. Comments: Left posterior mid calf- punctate pustule has decreased in size with mild surround erythema, the surrounding erythema significantly improved Neurological: General: No focal deficit present. Mental Status: She is alert and oriented to person, place, and time. ASSESSMENT AND PLAN: Assessment/Plan Diagnoses and all orders for this visit: Cellulitis of left lower extremity Significantly improved, continue clinda, warm moist compresses. documented in this encounter Plan of Treatment Upcoming Encounters Date Type Department Care Team (Late st Contact Info) Description 07/16/2025 3:45 PM EDT Visit [facility] [address] [place] [address] Melanie Snell CNM [address] [place], [place] [id number] documented as of this encounter Visit Diagnoses Diagnosis Cellulitis of left lower extremity- Primary documented in this encounter Care Teams Flaring Machine Operator Relationship Specialty Start Date End Date Sayra Leon MD [address] [place], [place] [id number] PCP - General Family Medicine 04/12/23 Melanie Snell CNM [address] [place], [place] [phone] Obstetrics and Gynecology 04/12/23 documented as of this encounter
--- OUTSIDE RECORDS SUMMARY | 2025-07-06 15:30 | XMS_ITS | Encounter Summary ---
Author Organization [facility] Address [address] [place] [address] Care Team Providers Care Floral Designer Salesperson Name Role Phone Melanie Snell CNM Unavailable [phone] Sayra Leon MD Primary Care Provider [phone] Encounter Details Date Type Department Care Team (Latest Contact Info) Description 07/06/2025 3:30 PM EDT [facility] [address] [place] [phone] Melanie Snell, CNM [address] [place], [place] [phone] NST (non-stress test) reactive ([facility]) (Primary Dx); AMA (advanced maternal age) multigravida 35+, third trimester ([facility]); Encounter for supervision of other normal , third trimester ([facility]); History of section; Unicornuate uterus; Multigravida of advanced maternal age in third trimester ([facility]) Social History Tobacco Use Types Packs/Day [...] declined 06/21/2023 How often do you attend hindu or scientologist serv ices? Patient declined 06/21/2023 Do you belong to any clubs o r organizations such as hindu groups, unions, fraternal or athletic groups, or [...] place to sleep or slept in a retirement (including now)? Patient refused 06/21/2023 [place] Depression Scale Answer Date Recorded [place] Depression Scale Total 6 08/15/2023 The thought [...] (advanced maternal age) multigravida 35+, third trimester ([facility]) Encounter for supervision of other normal , third trimester ([facility]) History of section Unicornuate uterus Multigravida of advanced maternal age in third trimester ([facility]) Continue vitamin. Labs reviewed. Expected mode of delivery repeat section Follow up in 1 week for a routine visit. documented in this encounter Plan of Treatment Upcoming Encounters Date Type Department Care Team (Late st Contact Info) Description 07/16/2025 3:45 PM EDT Visit [facility] [address] [place] [address] Melanie Snell CNM [address] [place] [address] documented as of this encounter Visit Diagnoses Diagnosis NST (non-stress test) reactive ([facility])- Primary state, incidental AMA (advanced maternal age) multigravida 35+, third trimester ([facility]) Encounter for supervision of other normal , third trimester ([facility]) History of section Other postprocedural status Unicornuate uterus Multigravida of advanced maternal age in third trimester ([facility]) documented in this encounter Care Teams Floral Designer Salesperson Relationship Specialty Start Date End Date Sayra Leon MD [address] [place] [address] PCP - General Family Medicine 04/12/23 Melanie Snell CNM [address] [place] [address] Obstetrics and Gynecology 04/12/23 documented as of this encounter
[2025-07-09] VITALS (32 sets, daily range): BP systolic 103–128; BP diastolic 36–84; PULSE 41–63; TEMP 36.4–36.9; O2SAT 97–100
--- OUTSIDE RECORDS SUMMARY | 2025-07-09 11:02 | XMS_ITS | Clinical Summary ---
Author Organization [facility] [facility] tem Address [id number] [address] [place] [address] Care Team Providers Care Shop Girl Name Role Phone Sayra Leon MD Primary Care Provider Allergies No known active allergies Medications 25/iron fum/folic/dha (-1 ORAL) Take by mouth. Active FOLIC ACID ORAL Take by mouth. Active ondansetron ODT (ZOFRAN ODT) 8 mg disintegrating tablet Dissolve 1 tablet (8 mg total) on tongue every 8 (eight) hours as needed for nausea or vomiting. Active progesterone (PROMETRIUM) 200 mg capsule Take 1 capsule (200 mg total) by mouth in the morning. Active Active Problems Problem Noted Date Diagnosed Date Multigravida of advanced maternal age in first t rimester 01/14/2025 Estimated Date of Delivery Comme nts Yes 07/18/2025 Based on last me nstrual period of 10/11/2024 Family History Medical History Relation Name Comments Colon cancer Maternal Grandfather Stroke Maternal Grandmother Other Mother degenerative di sc disease Melanoma Paternal Grandmother Brain Tumor Sister 11 Brain cancer Sister 2009 Hypertension Sister Migraines Sister Other Sister pre-eclampsia Relation Name Status Comments Maternal Grandfather Maternal Grandmother Mother Paternal Grandmother Sister Social History Tobacco Use Types Packs/Day Years Used Date Smoking Tobacco: Never Smokeless Tobacco: Never Tobacco Cessation:Counseling Given: Not Answered Alcohol Use Standard Drinks/Week Comments Not Currently 0 (1 standard drink = 0.6 oz pur e alcohol) rare Childcare Answer Date Recorded Childcare Unknown 04/23/2019 Employment Answer Date Recorded Employment Unknown 04/23/2019 Hunger Screening Answer Date Recorded Within the past 12 months we worried whether our food would run out before we got money to buy more. Never True 01/14/2025 Within the past 12 months th e food we bought just didn't last and we didn't have money to get more. Never True 01/14/2025 Purpose - Life Answer Date Recorded Purpose and direction in life Unknown Estimated Date of Delivery Comme nts Yes 07/18/2025 Based on last me nstrual period of 10/11/2024 Sex and Gender Information Value Date Recorded Sex Assigned at Not on file Legal Sex Female 11:32 AM EDT Gender Identity Not on file Sexual Orientation Not on file Last Filed Vital Signs Vital Sign Reading Time Taken Comments Blood Pressure 133/77 01/14/2025 2:31 PM EST Pulse 82 01/14/2025 2:31 PM EST Temperature - - Respiratory Rate - - Oxygen Saturation - - Inhaled Oxygen Concentration - - Weight 72.3 kg (159 lb 6.4 oz) 01/14/2025 2:31 P M EST Height 175.3 cm (5' 9 ) 01/14/2025 2:31 PM EST Body Mass Index 23.54 01/14/2025 2:31 PM EST Plan of Treatment Health Maintenance Due Date Last Done Comments Depression Screening 1998 Pap Smear 2007 DTaP,Tdap and Td Vaccines (3 - Td or Tdap) 03/13/2018 03/13/2008, 08/27/1998 Influenza Vaccine 07/13/2025 Adult BMI Screening 01/14/2026 01/14/2025 Tobacco Screening 01/14/2026 01/14/2025 Medical Devices Not on file Insurance [employer] Care Teams Shop Girl Relationship Specialty Start Date End Date Sayra Leon MD [address] [place] [address] PCP - General Family Medicine 10/26/22
--- OUTSIDE RECORDS SUMMARY | 2025-07-09 11:02 | XMS_ITS | Encounter Summary ---
Author [facility] Address [id number] [address] [place] [address] Care Team Providers Care Procedural Nurse Name Role Phone Sayra Leon MD Primary Care Provider [phone] Reason for Referral * Diagnostic Imaging (Routine) - Pending Review Specialty Diagnoses / Procedures Referred By Contac t Referred To Contact Maternal and Medicine Diagnoses Unicornuate uterus affecting , antepartum, second trimester Advanced maternal age in multigravida, second trimester Procedures US MFM with or without consult Miki Rosas MD [address] [facility] [address] [place] [address] Phone: tel: fax: Maternal- Medicine at [facility] [address] [place] [address] Phone: tel: fax: Referral ID Status Reason Start Date Expiration Date V isits Requested Visits Authorized [id number] Pending Review 01/15/2025 01/15/2026 1 1 Encounter Details Date Type Department Care Team (Late st Contact Info) Description 01/15/2025 Orders Only Maternal- Medicine at [facility] [address] [place] [phone] Radha Porras, SEASONAL WAREHOUSE ASSOCIATE Unicornuate uterus affecting , antepartum, second trimester (Primary Dx); AMA (advanced maternal age) primigravida 35+, third trimester; Advanced maternal age in multigravida, second trimester Social History Tobacco Use Types Packs/Day Years Used Date Smoking Tobacco: Never Smokeless Tobacco: Never Alcohol Use Standard [...] on file Sexual Orientation Not on file documented as of this encounter Plan of Treatment Not on file documented as of this encounter Results * [facility] COMPREHENSIVE ANATOMIC SURVEY (02/26/2025 9:11 AM EDT) Anatomical Region Laterality Modality OB-WOOL SAMPLER Ultrasound 02/26/2025 8:08 AM EDT Narrative 02/27/2025 11:14 AM EDT NAME: LIAM GRANT : 1985 SEX: F Accession Number: [id number] ORDERING PHYSICIAN: MIKI ROSAS REFERRING PHYSICIAN: HERIBERTO URIARTE Coding ----- --------- Procedures [id number]: Ultrasound, uterus, real time with image documentation, and maternal evaluation plus detailed anatomic examination, transabdominal approach;single or first gestation 42903: Transvaginal Ultrasound (OB) Indication ----- --------- Screening for Anatomic Survey, Screening for cervical length, Unicornuate uterus, History of prior with IUGR, AMA- Supervision of elderly History ----- --------- OB History 3. Para 1 [id number] Maternal Assessment ----- --------- Physical Exam Height 175 cm, 5 ft 9 in. Weight 77 kg, 169 lb. BMI 24.96 kg/m Method ----- --------- Transabdominal and transvaginal ultrasound examination. View: Suboptimal view: limited by position ----- --------- Luna . Number of fetuses: 1 Dating ----- --------- LMP on: 10/11/2024 GA by LMP 19 w + 5 d HAYLEY by LMP: 07/18/2025 Previous Ultrasound on: 12/05/2024 Type of prior assessment: GA GA at prior assessment date 7 w + 5 d GA by previous U/S 19 w + 4 d HAYLEY by previous Ultrasound: 07/19/2025 Ultrasound examination on: 02/26/2025 GA by U/S based upon: AC, BPD, Femur, HC GA by U/S 20 w + 1 d HAYLEY by U/S: 07/15/2025 Assigned: based on the LMP, selected on 01/14/2025 Assigned GA 19 w + 5 d Assigned HAYLEY: 07/18/2025 General Evaluation ----- --------- Cardiac activity Present. FHR 136 bpm. Presentation: cephalic Placenta: Placental site: anterior, away from cervical os Umbilical cord: Cord vessels: 3 vessel cord. Insertion site: normal insertion Amniotic fluid: Amount of AF: normal amount Biometry ----- --------- BPD 48.3 mm 20w 4d 84% Hadlock OFD 60.5 mm 20w 6d 86% Collette HC 174.1 mm 20w 0d 54% Hadlock Cerebellum tr 20.8 mm 19w 6d 72% Hill Nuchal fold 4.2 mm AC 151.7 mm 20w 3d 68% Hadlock Femur 30.7 mm 19w 4d 35% Hadlock Humerus 30.2 mm 20w 0d 62% Collette HC / AC 1.15 38% Hadlock Weight Calculation: EFW 326 g 61% Hadlock EFW (lb,oz) 0 lb 12 oz EFW by Hadlock ([id number]) Head / Face / Neck Biometry: Cephalic index 0.80 61% Nicolaides Car Rental Sales Assistant 8.3 mm CM 5.4 mm 66% Nicolaides Inner IOD 15.1 mm Outer IOD 33.1 mm Nasal bone 7.2 mm Extremities / Bony Struc Biometry: FL / BPD 0.64 7% Hadlock FL / HC 0.18 32% Hadlock FL / AC 0.20 14% Hadlock Tibia 30.1 mm 21w 0d 90% Collette Anatomy ----- --------- The following structures appear normal: Head/Neck: Cranium. Lateral ventricles. Choroid plexus. Midline falx. Cavum septi pellucidi. Cerebellum. Cisterna magna. Parenchyma. Vermis. Neck. Nuchal fold. Face: Nasal bone. Maxilla. Mandible. Orbits. Heart/Thorax: 4-chamber view. RVOT view. 3-vessel view. 1-gwwlot-pjvidei view. Situs. Aortic arch view. Bicaval view. Ductal arch view. Interventricular septum. Great vessels. Cardiac position. Cardiac axis. Cardiac size. Cardiac rhythm. Right lung. Left lung. Abdomen: Abdom. wall. Cord insertion. Stomach. Kidneys. Bladder. Small bowel. Large bowel. Genitals. Spine: Cervical spine. Thoracic spine. Lumbar spine. Sacral spine. Extremities/Skeleton: Right upper arm. Right forearm. Right hand. Left upper arm. Left forearm. Left hand. Right upper leg. Right lower leg. Right foot. Left upper leg. Left lower leg. Left foot. The following structures could not be adequately visualized: Face Profile. Heart / Thorax LVOT view. Diaphragm. The following structures could not be examined: Face Lips. Nose. Abdomen Right renal artery. Left renal artery. Maternal Structures ----- --------- Uterus Visualized Cervix Visualized Approach - Transvaginal: Cervical length 3.69 cm Right Ovary Not visualized Left Ovary Not visualized Cul de Sac Visualized. No free fluid visualized Impression ----- --------- Single viable intrauterine with EFW measuring at the 61%. AC measures at the 68%. Transvaginal cervical length measures 3.69 cm. Recommendations ----- --------- The patient is scheduled in four to six week(s) to complete anatomic survey. Subsequent follow up or other follow up as clinically determined by primary OB provider unless otherwise specified by MFM. Results forwarded to ordering provider so they can follow up with the patient as necessary. Procedure Note Nory Pro MD - 02/27/2025 NAME: LIAM GRANT : 1985 SEX: F Accession Number: [id number] ORDERING PHYSICIAN: MIKI ROSAS REFERRING PHYSICIAN: HERIBERTO URIARTE Coding ----- --------- Procedures [id number]: Ultrasound, uterus, real time with imagedocumentation, and maternal evaluation plus detailed anatomic examination, transabdominalapproach;single or first gestation [id number]: Transvaginal Ultrasound (OB) Indication ----- --------- Screening for Anatomic Survey, Screening for cervical length, Unicornuateuterus, History of prior with IUGR, AMA- Supervision of elderly History ----- --------- OB History 3. Para 1 [id number] Maternal Assessment ----- --------- Physical Exam Height 175 cm, 5 ft 9 in. Weight 77 kg, 169 lb. BMI 24.96kg/m Method ----- --------- Transabdominal and transvaginal ultrasound examination. View: Suboptimalview: limited by position ----- --------- Luna . Number of fetuses: 1 Dating ----- --------- LMP on: 10/11/2024 GA by LMP 19 w + 5 d HAYLEY by LMP: 07/18/2025 Previous Ultrasound on: 12/05/2024 Type of prior assessment: GA GA at prior assessment date 7 w + 5 d GA by previous U/S 19 w + 4 d HAYLEY by previous Ultrasound: 07/19/2025 Ultrasound examination on: 02/26/2025 GA by U/S based upon: AC, BPD, Femur, HC GA by U/S 20 w + 1 d HAYLEY by U/S: 07/15/2025 Assigned: based on the LMP, selected on 01/14/2025 Assigned GA 19 w + 5 d Assigned HAYLEY: 07/18/2025 General Evaluation ----- --------- Cardiac activity Present. FHR 136 bpm. Presentation: cephalic Placenta: Placental site: anterior, away from cervical os Umbilical cord: Cord vessels: 3 vessel cord. Insertion site: normalinsertion Amniotic fluid: Amount of AF: normal amount Biometry ----- --------- BPD 48.3 mm 20w 4d 84% Hadlock OFD 60.5 mm 20w 6d 86% Collette HC 174.1 mm 20w 0d 54% Hadlock Cerebellum tr 20.8 mm 19w 6d 72% Hill Nuchal fold 4.2 mm AC 151.7 mm 20w 3d 68% Hadlock Femur 30.7 mm 19w 4d 35% Hadlock Humerus 30.2 mm 20w 0d 62% Collette HC / AC 1.15 38% Hadlock Weight Calculation: EFW 326 g 61% Hadlock EFW (lb,oz) 0 lb 12 oz EFW by Hadlock ([id number]) Head / Face / Neck Biometry: Cephalic index 0.80 61% Nicolaides Car Rental Sales Assistant 8.3 mm CM 5.4 mm 66% Nicolaides Inner IOD 15.1 mm Outer IOD 33.1 mm Nasal bone 7.2 mm Extremities / Bony Struc Biometry: FL / BPD 0.64 7% Hadlock FL / HC 0.18 32% Hadlock FL / AC 0.20 14% Hadlock Tibia 30.1 mm 21w 0d 90% Collette Anatomy ----- --------- The following structures appear normal: Head/Neck: Cranium. Lateral ventricles. Choroid plexus. Midline falx.Cavum septi pellucidi. Cerebellum. Cisterna magna. Parenchyma. Vermis. Neck. Nuchal fold. Face: Nasal bone. Maxilla. Mandible. Orbits. Heart/Thorax: 4-chamber view. RVOT view. 3-vessel view. 8-vusgdx-hgjkdonqsjn. Situs. Aortic arch view. Bicaval view. Ductal arch view. Interventricular septum. Great vessels. Cardiacposition. Cardiac axis. Cardiac size. Cardiac rhythm. Right lung. Left lung. Abdomen: Abdom. wall. Cord insertion. Stomach. Kidneys. Bladder. Smallbowel. Large bowel. Genitals. Spine: Cervical spine. Thoracic spine. Lumbar spine. Sacral spine. Extremities/Skeleton: Right upper arm. Right forearm. Right hand. Leftupper arm. Left forearm. Left hand. Right upper leg. Right lower leg. Right foot. Left upper leg. Left lower leg. Leftfoot. The following structures could not be adequately visualized: Face Profile. Heart / Thorax LVOT view. Diaphragm. The following structures could not be examined: Face Lips. Nose. Abdomen Right renal artery. Left renal artery. Maternal Structures ----- --------- Uterus Visualized Cervix Visualized Approach - Transvaginal: Cervical length 3.69 cm Right Ovary Not visualized Left Ovary Not visualized Cul de Sac Visualized. No free fluid visualized Impression ----- --------- Single viable intrauterine with EFW measuring at the 61%. FetalAC measures at the 68%. Transvaginal cervical length measures 3.69 cm. Recommendations ----- --------- The patient is scheduled in four to six week(s) to complete anatomicsurvey. Subsequent follow up or other follow up as clinically determined byprimary OB provider unless otherwise specified by MFM. Results forwarded to ordering provider so they can follow up with thepatient as necessary. Miki Rosas MD [facility] ORDERABLES Final Resul t documented in this encounter Visit Diagnoses Diagnosis Unicornuate uterus affecting , antepartum, second trimester- Primary AMA (advanced maternal age) primigravida 35+, third trimester Advanced maternal age in multigravida, second trimester documented in this encounter Care Teams Procedural Nurse Relationship Specialty Start Date End Date Sayra Leon MD [address] [place] [address] PCP - General Family Medicine 10/26/22 documented as of this encounter
--- OUTSIDE RECORDS SUMMARY | 2025-07-09 11:02 | XMS_ITS | Encounter Summary ---
Author Organization [facility] Address [address] [place] [address] Care Team Providers Care Concrete Rubber Name Role Phone Heriberto SnellM Unavailable [phone] Sayra Leon MD Primary Care Provider [phone] Encounter Details Date Type Department Care Team (Late st Contact Info) Description 04/07/2025 External Result Encounter [facility] [address] [place] [address] Heriberto Snell CNM [address] [place], [place] [id number] Social History Tobacco Use Types Packs/Day Years [...] declined 06/21/2023 How often do you attend scientology or scientology serv ices? Patient declined 06/21/2023 Do you belong to any clubs o r organizations such as scientology groups, unions, fraternal or athletic groups, or [...] place to sleep or slept in a [facility] (including now)? Patient refused 06/21/2023 [place] Depression Scale Answer Date Recorded [place] Depression Scale Total 6 08/15/2023 The thought [...] 3:45 PM EDT Visit [facility] [address] [place] [address] Heriberto Snell CNM [address] [place] [address] documented as of this encounter Procedures Procedure Name Priority Date/Time Associated Diagnosis Comments US OB 14+ WEEKS ANATOMY SCAN 04/07/2025 4:21 PM EDT documented in this encounter Results * US OB 14+ weeks anatomy scan (04/07/2025 4:21 PM EDT) Anatomical Region Laterality Modality Body Ultrasound 04/07/2025 4:21 PM EDT Narrative 04/07/2025 4:21 PM EDT THIS EXAM WAS PERFORMED AT [facility] NAME: LIAM GRANT : 1985 SEX: F Accession Number: [id number] ORDERING PHYSICIAN: HERIBERTO SNELL REFERRING PHYSICIAN: HERIBERTO SNELL Coding ----- --------- Procedures 50963: Follow-up Ultrasound, per fetus Indication ----- --------- Screening for follow-up survey, Unicornuate uterus, History of prior with IUGR, AMA- Supervision of elderly History ----- --------- OB History 3. Para 1 [id number] Maternal Assessment ----- --------- Physical Exam Height 175 cm, 5 ft 9 in. Initial weight 72 kg, 159 lb. Initial BMI 23.48 kg/m??? Method ----- --------- Transabdominal ultrasound examination ----- --------- Luna . Number of fetuses: 1 Dating ----- --------- LMP on: 10/11/2024 GA by LMP 25 w + 3 d HAYLEY by LMP: 07/18/2025 Previous Ultrasound on: 12/05/2024 Type of prior assessment: GA GA at prior assessment date 7 w + 5 d GA by previous U/S 25 w + 2 d HAYLEY by previous Ultrasound: 07/19/2025 Ultrasound examination on: 04/07/2025 GA by U/S based upon: AC, BPD, Femur, HC GA by U/S 26 w + 3 d HAYLEY by U/S: 07/11/2025 Assigned: based on the LMP, selected on 01/14/2025 Assigned GA 25 w + 3 d Assigned HAYLEY: 07/18/2025 General Evaluation ----- --------- Cardiac activity Present. FHR 142 bpm. Presentation: cephalic Placenta: Placental site: anterior, away from cervical os Umbilical cord: Cord vessels: 3 vessel cord. Insertion site: documented previously Amniotic fluid: Amount of AF: normal amount. MVP 5.4 cm Biometry ----- --------- Standard BPD 67.5 mm 27w 1d 91% Hadlock OFD 87.0 mm 28w 0d 99% Collette HC 248.6 mm 27w 0d 81% Hadlock Cerebellum tr 27.9 mm 24w 5d 32% Hill AC 226.4 mm 27w 0d 86% Hadlock Femur 43.4 mm 24w 2d 9% Hadlock Humerus 41.1 mm 24w 6d 23% Collette HC / AC 1.10 EFW 887 g 66% Hadlock EFW (lb) 1 lb EFW (oz) 15 oz EFW by: Hadlock ([id number]-FL) Extended Tibia 37.7 mm 24w 2d 15% Collette Sex Worker Or Escort 6.5 mm CM 4.0 mm 3% Nicolaides Head / Face / Neck Cephalic index 0.78 39% Nicolaides Nasal bone: present Extremities / Bony Struc FL / BPD 0.64 FL / HC 0.17 FL / AC 0.19 Other Structures FHR 142 bpm Anatomy ----- --------- The following structures appear normal: Head/Neck: Cranium. Lateral ventricles. Cavum septi pellucidi. Cerebellum. Cisterna magna. Parenchyma. Face: Lips. Nose. Nasal bone. Heart/Thorax: 4-chamber view. LVOT view. Situs. Cardiac position. Cardiac axis. Cardiac size. Cardiac rhythm. Diaphragm. Abdomen: Stomach. Kidneys. Bladder. Small bowel. Large bowel. Right renal artery. Left renal artery. The following structures could not be examined: Face Profile. The following structures were documented previously: Head / Neck Choroid plexus. Midline falx. Vermis. Neck. Face Maxilla. Mandible. Orbits. Heart / Thorax RVOT view. 3-vessel view. 3-aiwmqu-ythgcoh view. Aortic arch view. Bicaval view. Ductal arch view. Interventricular septum. Great vessels. Right lung. Left lung. Abdomen Abdom. wall. Cord insertion. Genitals. Spine: Cervical spine. Thoracic spine. Lumbar spine. Sacral spine. Extremities/Skeleton: Right upper arm. Right forearm. Right hand. Left upper arm. Left forearm. Left hand. Right upper leg. Right lower leg. Right foot. Left upper leg. Left lower leg. Left foot. Maternal Structures ----- --------- Uterus Visualized Cervix Visualized Right Ovary Not visualized Left Ovary Not visualized Cul de Sac Suboptimal Impression ----- --------- Single viable intrauterine with appropriate interval growth. EFW measures at the 66%, AC measures at the 86%. Amniotic fluid MVP measures 5.4 cm. Recommendations ----- --------- Please see [facility] recommendations from prior clinical and/or ultrasound report documentation. anatomic survey is incomplete due to late gestational age and suboptimal visualization. Patient is not scheduled to return for additional ultrasound. Please reschedule for specific concerns or indications. Subsequent follow up or other follow up as clinically determined by primary OB provider unless otherwise specified by [facility]. Results forwarded to ordering provider so they can follow up with the patient as necessary. Procedure Note Radiology, Radiologist, - 04/07/2025 THIS EXAM WAS PERFORMED AT [facility] NAME: LIAM GRANT : 1985 SEX: F Accession Number: [id number] ORDERING PHYSICIAN: HERIBERTO SNELL REFERRING PHYSICIAN: HERIBERTO SNELL Coding ----- --------- Procedures [id number]: Follow-up Ultrasound, per fetus Indication ----- --------- Screening for follow-up survey, Unicornuate uterus, History of priorpregnancy with IUGR, AMA- Supervision of elderly History ----- --------- OB History 3. Para 1 [id number] Maternal Assessment ----- --------- Physical Exam Height 175 cm, 5 ft 9 in. Initial weight 72 kg, 159 lb.Initial BMI 23.48 kg/m??? Method ----- --------- Transabdominal ultrasound examination ----- --------- Luna . Number of fetuses: 1 Dating ----- --------- LMP on: 10/11/2024 GA by LMP 25 w + 3 d HAYLEY by LMP: 07/18/2025 Previous Ultrasound on: 12/05/2024 Type of prior assessment: GA GA at prior assessment date 7 w + 5 d GA by previous U/S 25 w + 2 d HAYLEY by previous Ultrasound: 07/19/2025 Ultrasound examination on: 04/07/2025 GA by U/S based upon: AC, BPD, Femur, HC GA by U/S 26 w + 3 d HAYLEY by U/S: 07/11/2025 Assigned: based on the LMP, selected on 01/14/2025 Assigned GA 25 w + 3 d Assigned HAYLEY: 07/18/2025 General Evaluation ----- --------- Cardiac activity Present. FHR 142 bpm. Presentation: cephalic Placenta: Placental site: anterior, away from cervical os Umbilical cord: Cord vessels: 3 vessel cord. Insertion site: documentedpreviously Amniotic fluid: Amount of AF: normal amount. MVP 5.4 cm Biometry ----- --------- Standard BPD 67.5 mm 27w 1d 91% Hadlock OFD 87.0 mm 28w 0d 99% Collette HC 248.6 mm 27w 0d 81% Hadlock Cerebellum tr 27.9 mm 24w 5d 32% Hill AC 226.4 mm 27w 0d 86% Hadlock Femur 43.4 mm 24w 2d 9% Hadlock Humerus 41.1 mm 24w 6d 23% Collette HC / AC 1.10 EFW 887 g 66% Hadlock EFW (lb) 1 lb EFW (oz) 15 oz EFW by: Hadlock (PLL-WB-TA-FL) Extended Tibia 37.7 mm 24w 2d 15% Collette Sex Worker Or Escort 6.5 mm CM 4.0 mm 3% Nicolaides Head / Face / Neck Cephalic index 0.78 39% Nicolaides Nasal bone: present Extremities / Bony Struc FL / BPD 0.64 FL / HC 0.17 FL / AC 0.19 Other Structures FHR 142 bpm Anatomy ----- --------- The following structures appear normal: Head/Neck: Cranium. Lateral ventricles. Cavum septi pellucidi. Cerebellum.Cisterna magna. Parenchyma. Face: Lips. Nose. Nasal bone. Heart/Thorax: 4-chamber view. LVOT view. Situs. Cardiac position. Cardiacaxis. Cardiac size. Cardiac rhythm. Diaphragm. Abdomen: Stomach. Kidneys. Bladder. Small bowel. Large bowel. Right renalartery. Left renal artery. The following structures could not be examined: Face Profile. The following structures were documented previously: Head / Neck Choroid plexus. Midline falx. Vermis. Neck. Face Maxilla. Mandible. Orbits. Heart / Thorax RVOT view. 3-vessel view. 4-vlomvh-xpqbnwz view. Aorticarch view. Bicaval view. Ductal arch view. Interventricular septum. Great vessels. Right lung. Left lung. Abdomen Abdom. wall. Cord insertion. Genitals. Spine: Cervical spine. Thoracic spine. Lumbar spine. Sacral spine. Extremities/Skeleton: Right upper arm. Right forearm. Right hand. Leftupper arm. Left forearm. Left hand. Right upper leg. Right lower leg. Right foot. Left upper leg. Left lower leg. Leftfoot. Maternal Structures ----- --------- Uterus Visualized Cervix Visualized Right Ovary Not visualized Left Ovary Not visualized Cul de Sac Suboptimal Impression ----- --------- Single viable intrauterine with appropriate interval growth. EFWmeasures at the 66%, AC measures at the 86%. Amniotic fluid MVP measures 5.4 cm. Recommendations ----- --------- Please see [facility] recommendations from prior clinical and/or ultrasoundreport documentation. anatomic survey is incomplete due to late gestational age andsuboptimal visualization. Patient is not scheduled to return for additional ultrasound. Please reschedule for specific concerns orindications. Subsequent follow up or other follow up as clinically determined byprimary OB provider unless otherwise specified by [facility]. Results forwarded to ordering provider so they can follow up with thepatient as necessary. us Heriberto Snell CNM IMG OB US PROCEDURES Final R esult documented in this encounter Visit Diagnoses Not on filedocumented in this encounter Care Teams Concrete Rubber Relationship Specialty Start Date End Date Sayra Leon MD [address] [facility] [place] [address] PCP - General Family Medicine 04/12/23 Heriberto Snell CNM [address] [place] [address] Obstetrics and Gynecology 04/12/23 documented as of this encounter
--- OUTSIDE RECORDS SUMMARY | 2025-07-09 11:02 | XMS_ITS | Encounter Summary ---
Author Organization [facility] Address [address] [facility] [place] [address] Care Team Providers Care Pickle Water Pump Operator Name Role Phone Melanie Snell CNM Unavailable [phone] Sayra Leon MD Primary Care Provider [phone] Encounter Details Date Type Department Care Team (Latest Contact Info) Description 04/29/2025 Results Follow-Up [facility] [address] [place] [address] Sayra Tavares MA CBC, GLUCOSE, GESTATIONAL SCREEN ([id number] CUTOFF, US OB follow up transabdominal approach, Additional followed-up results: 5 Social History Tobacco Use Types Packs/Day Years [...] declined 06/21/2023 How often do you attend latter-day or restorationism serv ices? Patient declined 06/21/2023 Do you belong to any clubs o r organizations such as latter-day groups, unions, fraternal or athletic groups, or [...] place to sleep or slept in a care home (including now)? Patient refused 06/21/2023 Parks Depression Scale Answer Date Recorded [place] Depression Scale Total 6 08/15/2023 The thought [...] 3:45 PM EDT Visit [facility] [address] [place] [address] Melanie Snell CNM [address] [place] [address] documented as of this encounter Visit Diagnoses Not on filedocumented in this encounter Care Teams Pickle Water Pump Operator Relationship Specialty Start Date End Date Sayra Leon MD [address] [place], [place] [id number] PCP - General Family Medicine 04/12/23 Melanie Snell CNM [address] [place], [place] [id number] Obstetrics and Gynecology 04/12/23 documented as of this encounter
--- OUTSIDE RECORDS SUMMARY | 2025-07-09 11:03 | XMS_ITS | Clinical Summary ---
Author Organization [facility] Address [address] [place] [address] Care Team Providers Care Hospital Nurse Liaison Name Role Phone MileyNguyen calvinMelanie L CNM Unavailable [phone] Sayra Leon MD Primary Care Provider [phone] Allergies No known active allergies Medications folic acid-vit B6-vit B12 2.5-25-1 MG tablet tablet Take 1 tablet by mouth in the morning. Active w/o A Vit-Fe Fum-FA (AZESCHEW /POSTNA ARTURO PO) Take by mouth Active famotidine (Pepcid) 20 MG tabletIndicatio ns:Heartburn Take 1 tablet (20 mg) by mouth at bedtime 30 tablet 2 5 07/18/20 25 Active clindamycin (Cleocin) 300 MG capsuleIndicati ons:Cellulitis of left lower extremity Take 1 capsule (300 mg) by mouth in the morning and 1 capsule (300 mg) in the evening and 1 capsule (300 mg) before bedtime. Do all this for 10 days. 30 capsule 5 07/11/20 25 Active famotidine (Pepcid) 20 MG tabletIndicatio ns:Heartburn Take 1 tablet (20 mg) by mouth at bedtime 30 tablet 2 5 06/18/20 25 Discontinu ed(Reorder ) cephalexin (Keflex) 500 MG capsule Take 500 mg by mouth in the morning and 500 mg at noon and 500 mg in the evening and 500 mg before bedtime. 5 07/01/20 25 Discontinu ed(Alterna te therapy) Active Problems Problem Noted Date Diagnosed Date Unicornate uterus 12/12/2023 Amenorrhea 03/15/2022 Anovulation 12/26/2021 Poison oscar 04/26/2021 Impacted cerumen, bilateral 12/06/2018 Iron deficiency anemia secblanca espinozay to inadequate dietary iron intake 10/10/2018 Family history of malignant neoplasm of brain Physically well but worried 07/27/2017 Unprotected sexual intercourse 07/27/2017 Vulvovaginitis 07/27/2017 Generalized anxiety disorder 03/11/2017 Irregular menstrual cycle 03/08/2017 Anxiety about health 08/22/2016 Estimated Date of Delivery Comme nts Yes 07/18/2025 Based on last me nstrual period of 10/11/2024 (Exact Date) Encounters Date Type Department Care Team Description 07/06/2025 3:30 PM EDT [facility] [address] [place] [address] Zohreh Main NP Cellulitis of left lower extremity (Primary Dx) 07/06/2025 3:30 PM EDT Routine [facility] [address] [place] [address] Melanie Snell CNM NST (non-stress test) reactive ([facility]) (Primary Dx); AMA (advanced maternal age) multigravida 35+, third trimester ([facility]); Encounter for supervision of other normal , third trimester ([facility]); History of section; Unicornuate uterus; Multigravida of advanced maternal age in third trimester ([facility]) 07/06/2025 [facility] [address] [place] [address] Melanie Snell CNM 07/06/2025 Travel 07/02/2025 3:45 PM EDT Ancillary Procedure [facility] [address] [phone] AMA (advanced maternal age) multigravida 35+, third trimester ([facility]) 07/02/2025 Travel 07/01/2025 4:30 PM EDT Office Visit [facility] [address] [facility] [place] [phone] Zohreh Main NP Cellulitis of left lower extremity (Primary Dx) 07/01/2025 Travel 07/01/2025 Telephone [place] [id number] [facility] [place] [phone] Angie Harris MA 06/29/2025 4:00 PM EDT Routine [facility] [address] [facility] [place] [phone] Melanie Snell CNM NST (non-stress test) reactive ([facility]) (Primary Dx); AMA (advanced maternal age) multigravida 35+, third trimester ([facility]) 06/29/2025 12:30 PM EDT Office Visit [place] [id number] [facility] [place] [phone] Zohreh Main NP Cellulitis of left lower extremity (Primary Dx) 06/29/2025 Travel 06/25/2025 2:00 PM EDT [facility] [address] [place] [address] AMA (advanced maternal age) multigravida 35+, third trimester ([facility]) 06/25/2025 Travel 06/22/2025 3:00 PM EDT [facility] [address] [facility] [place] [phone] Melanie Snell CNM NST (non-stress test) reactive ([facility]) (Primary Dx); Encounter for supervision of other normal , third trimester ([facility]) 06/22/2025 Bamboo flowsheet [facility] [address] [facility] [place] [phone] Melanie Snell CNM 06/18/2025 2:30 PM EDT Ancillary Procedure [facility] [address] [facility] [address] [place] [address] AMA (advanced maternal age) multigravida 35+, third trimester ([facility]) 06/18/2025 Travel 06/18/2025 Refill [facility] [address] [place] [address] Sayra Tavares MA Heartburn 06/15/2025 3:00 PM EDT Routine [facility] [address] [place] [phone] Melanie Snell CNM NST (non-stress test) reactive ([facility]) (Primary Dx); screening for streptococcus B ([facility]); Encounter for supervision of other normal , third trimester ([facility]); AMA (advanced maternal age) multigravida 35+, third trimester ([facility]); History of section 06/15/2025 Bamboo [facility] [address] [place] [address] Melanie Snell CNM 06/11/2025 2:00 PM EDT Ancillary Procedure [facility] [address] [facility] [address] [place] [address] AMA (advanced maternal age) multigravida 35+, third trimester ([facility]) 06/11/2025 Travel 06/08/2025 1:30 PM EDT Routine [facility] [address] [place] [phone] Melanie Snell CNM NST (non-stress test) reactive ([facility]) (Primary Dx); Encounter for supervision of other normal , third trimester ([facility]); AMA (advanced maternal age) multigravida 35+, third trimester ([facility]); Heartburn; Unicornuate uterus 06/08/2025 Bamboo flowsheet [facility] [address] [place] [address] Melanie Snell CNM 06/07/2025 Travel 06/04/2025 3:00 PM EDT Ancillary Procedure [facility] [address] [facility] [address] [place] [address] AMA (advanced maternal age) multigravida 35+, third trimester ([facility]) 06/04/2025 2:30 PM EDT Routine [facility] [address] [facility] [place] [address] Melanie Snell CNM Encounter for supervision of other normal , third trimester ([facility]) (Primary Dx); Non-stress test reactive ([facility]); AMA (advanced maternal age) multigravida 35+, third trimester ([facility]); Unicornuate uterus 06/04/2025 Bamboo flowsheet [facility] [address] [facility] [place] [address] Melanie Snell CNM 06/04/2025 Travel 05/12/2025 2:00 PM EDT Ancillary Procedure [facility] [address] [facility] [address] [place] [address] AMA (advanced maternal age) multigravida 35+, third trimester ([facility]) 05/12/2025 Travel 05/05/2025 Travel 04/29/2025 Results [facility] [address] [place] [address] Sayra Tavares MA CBC, GLUCOSE, GESTATIONAL SCREEN (50G)-135 CUTOFF, US OB follow up transabdominal approach, Additional followed-up results: 5 04/28/2025 2:00 PM EDT Routine [facility] [address] [facility] [place] [address] Melanie Snell CNM Unicornuate uterus (Primary Dx); Encounter for supervision of other normal , third trimester ([facility]); Screening for iron deficiency anemia; Screening for diabetes mellitus (DM); AMA (advanced maternal age) multigravida 35+, third trimester ([facility]) 04/28/2025 Bamboo flowsheet [facility] [address] [place] [address] Melanie Snell CNM 04/21/2025 Travel 04/13/2025 Results Follow-Up [facility] [address] [place] [address] Melanie Snell CNM US OB 14+ weeks anatomy scan from Last 3 Months Immunizations Immunization Administration Dates Next Due Hep B, Adolescent or Pediatric 11/09/1999,1997,05/21/1998 MMR 03/13/2008,05/21/1998 Td (adult), unspecified 08/27/1998 Tdap 03/13/2008 Family History Medical History Relation Name Comments Degenerative Disc Disease Mother Hypertension Sister 1 Older sister Migraines Sister 1 Older sister pre-eclampsia Sister 1 Older sister Brain cancer Sister 2 Younger sister tumor -2008 Relation Name Status Comments Brother Alive Father Alive Mother Alive Sister 1 Older sister Alive Sister 2 Younger sister Social History Tobacco Use Types Packs/Day Years Used Date Smoking Tobacco: Never Passive Smoke Exposure: Never Smokeless Tobacco: Never Tobacco Cessation:Counseling Given: [...] declined 06/21/2023 How often do you attend yazdanism or zoroastrianism serv ices? Patient declined 06/21/2023 Do you belong to any clubs o r organizations such as yazdanism groups, unions, fraternal or athletic groups, or [...] or rent on time? Patient refused 06/21/20 Number of Places Lived in the Last Year Not on f ile 06/21/2023 In the last 12 months, was t here a time when you did not have a steady place to sleep or slept in a group home (including now)? Patient refused 06/21/2023 [place] Depression Scale Answer Date Recorded [place] Depression Scale Total 6 08/15/2023 The thought [...] Orientation Straight 12/06/2023 12 :18 PM EST Last Filed Vital Signs Vital Sign Reading Time Taken Comments Blood Pressure 120/70 07/06/2025 3:40 PM EDT Pulse 72 07/01/2025 4:03 PM EDT Temperature 36.3 C (97.4 F) 07/06/2025 3:40 PM EDT Respiratory Rate 16 07/06/2025 3:40 PM EDT Oxygen Saturation 99% 07/01/2025 4:03 PM EDT Inhaled Oxygen Concentration - - Weight 86.6 kg (191 lb) 07/06/2025 3:26 PM EDT Height 175.3 cm (5' 9 ) 07/18/2023 10:05 AM EDT Body Mass Index 28.21 07/18/2023 10:05 AM EDT Plan of Treatment Upcoming Encounters Date Type Department Care Team (Late st Contact Info) Description 07/16/2025 3:45 PM EDT Visit [facility] [address] [place] [address] Melanie Snell CNM [address] [place] [address] Health Maintenance Due Date Last Done Comments Pap Smear 2007 Influenza Vaccine (#1) 2025 Cervical Cancer Screening 08/15/2028 HPV/Cotest 08/15/2028 08/15/2023, 08/0 01/2022, 06/09/2021, Additional history exists Procedures Procedure Name Priority Date/Time Associated Diagnosis Comments US OB FOLLOW UP TRANSABDOMINAL APPROACH Routine 07/02/2025 4:44 PM EDT AMA (advanced maternal age) multigravida 35+, third trimester ([facility]) US BIOPHYSICAL PROFILE WO NON STRESS TESTING Routine 06/25/2025 2:34 PM EDT AMA (advanced maternal age) multigravida 35+, third trimester ([facility]) US BIOPHYSICAL PROFILE WO NON STRESS TESTING Routine 06/18/2025 2:36 PM EDT AMA (advanced maternal age) multigravida 35+, third trimester ([facility]) STREPTOCCOUS, GROUP B CULTURE Routine 06/15/2025 4:34 PM EDT screening for streptococcus B ([facility]) US OB FOLLOW UP TRANSABDOMINAL APPROACH Routine 06/11/2025 2:43 PM EDT AMA (advanced maternal age) multigravida 35+, third trimester ([facility]) US BIOPHYSICAL PROFILE WO NON STRESS TESTING Routine 06/04/2025 3:38 PM EDT AMA (advanced maternal age) multigravida 35+, third trimester ([facility]) US OB FOLLOW UP TRANSABDOMINAL APPROACH Routine 05/12/2025 2:37 PM EDT AMA (advanced maternal age) multigravida 35+, third trimester ([facility]) GLUCOSE, GESTATIONAL SCREEN (50G)-135 CUTOFF Routine 04/28/2025 2:43 PM EDT Screening for diabetes mellitus (DM) CBC Routine 04/28/2025 2:43 PM EDT Screening for iron deficiency anemia THINPREP PAP AND HPV MRNA E6/E7 W/RFL HPV 16,18/45 Routine 08/15/2023 12:14 PM EDT Screening for cervical cancer from Last 3 Months or Most Recently Relevant to Health Maintenance Results * US OB follow up transabdominal approach (07/02/2025 4:44 PM EDT) Only the most recent of3 resultswithin the time period is included. Anatomical Region Laterality Modality Body Ultrasound 07/03/2025 [...] menstrual period. TRANSCRIBED BY: ELECTRONICALLY SIGNED BY: MD Parth Gentile 07/03/2025 1:02 PM EDT FINDINGS: A single, [...] IMG OB US PROCEDURES Final R esult * US biophysical profile wo non stress testing (06/25/2025 2:34 PM EDT) Only the most recent of3 resultswithin the time period is included. Anatomical Region Laterality Modality Body Ultrasound 06/29/2025 [...] IMG OB US PROCEDURES Final R esult * STREPTOCCOUS, GROUP B CULTURE (06/15/2025 4:34 PM EDT) MICRO NUMBER [id number] [facility] SPECIMEN QUALITY Adequate [facility] SOURCE VAGINAL/ANOR ECTAL [facility] STATUS FINAL [facility] RESULT SEE NOTE [facility] Comment: No group B Streptococcus isolated COMMENT SEE NOTE [facility] Comment: Note per CDC guidelines optimal recovery is achieved by swabbing both the lower vagina and rectum (through the anal sphincter). 06/15/2025 4:34 PM EDT 06/15/2025 4:35 PM EDT Narrative Resulting Agency Comment Performing Organization Information Site ID: QPT Name: [facility] Address: [address] [place] [address], [address] [place] [phone] Director: Salvatore Lawson MD us Melanie Snell CNM LAB BODY FLUIDS AND STOOLS O RDERABLES Final Result [facility] * GLUCOSE, GESTATIONAL SCREEN (50G)-135 CUTOFF (04/28/2025 2:43 PM EDT) Pathologist [facility] GLUCOSE, GESTATIONAL SCREEN (50G)-135 CUTOFF 107 <135 mg/dL [facility] 04/28/2025 2:43 PM EDT 04/28/2025 2:43 PM EDT Narrative Resulting Agency Comment Performing Organization Information Site ID: QPT Name: [facility] Address: [address] [place] [address], [address] [place] [phone] Director: Salvatore Lawson MD Melaniesaniya Snell CN LAB BLOOD ORDERABLES Final R esult Performing Organization Address [facility] de Phone Number [facility] * CBC (04/28/2025 2:43 PM EDT) WHITE BLOOD CELL COUNT 8.5 3.8 - 10.8 Thousand/u L [facility] RED BLOOD CELL COUNT 3.83 3.80 - 5.10 Million/uL [facility] HEMOGLOBIN 12.1 11.7 - 15.5 g/dL [facility] HEMATOCRIT 36.4 35.0 - 45.0 % [facility] MCV 95.0 80.0 - 100.0 fL [facility] MCH 31.6 27.0 - 33.0 pg [facility] MCHC 33.2 32.0 - 36.0 g/dL [facility] Comment: For adults, a slight decrease in the calculated MCHC value (in the range of 30 to 32 g/dL) is most likely not clinically significant; however, it should be interpreted with caution in correlation with other red cell parameters and the patient's clinical condition. RDW 12.4 11.0 - 15.0 % [facility] PLATELET COUNT 211 140 - 400 Thousand/u L [facility] MPV 9.8 7.5 - 12.5 fL [facility] Blood Venous blood specimen / Unknown 04/28/2025 2:43 PM EDT 04/28/2025 2:43 PM EDT Narrative Resulting Agency Comment Performing Organization Information Site ID: QPT Name: [facility] Address: [address] [place] [address], [address] [place] [phone] Director: Salvatore Lawson MD Melanie MEDEL LAB BLOOD ORDERABLES Final R esult Performing Organization Address [facility] Co de Phone Number [facility] * THINPREP PAP AND HPV MRNA E6/E7 W/RFL HPV 16,18/45 (08/15/2023 12:14 PM EDT) CLINICAL INFORMATION [facility] Comment:None given LMP [facility] Comment:NONE GIVEN PREV. PAP [facility] Comment:NONE GIVEN PREV. BX [facility] Comment:NONE GIVEN SOURCE [facility] Comment:None given STATEMENT OF ADEQUACY [facility] Comment: Satisfactory for evaluation. Endocervical/transformation zone component present. INTERPRETATION/RESU LT [facility] Comment: Cytology Results: Negative for intraepithelial lesion or malignancy. ACCOUNTING SPECIALIST [facility] Comment: BIBI ELLISON(ASCP) CT Screening Location: [place] [address]. (ALWAYS MESSAGE) [facility] Comment: EXPLANATORY NOTE: The Pap is a screening test for cervical cancer. It is not a diagnostic test and is subject to false negative and false positive results. It is most reliable when a satisfactory sample, regularly obtained, is submitted with relevant clinical findings and history, and when the Pap result is evaluated along with historic and current clinical information. EFFECTIVE OCTOBER 08, 2023, the version of ThinPrep you ordered, commonly known as manual ThinPrep, will be DISCONTINUED. An alternative form of ThinPrep, called ThinPrep Imaging, will continue to be available. For a copy of the client communication (TIS Client Letter) showing TIS test codes, see [email or web address], and navigate to [employer]>Physician Materials>TIS Client Letter. You can also call for test code assistance. HPV MRNA E6/E7 Not Detected Not Detected [facility] Comment: Methodology: Brim Raiser-Mediated Amplification This assay detects E6/E7 viral messenger RNA (mRNA) from 14 high-risk HPV types (16,18,31,33,35,39,45,51,52,56,58,59,66,68). Cervical sources are required for HPV testing. If a vaginal source from a patient who has had a total hysterectomy with removal of cervix was submitted, please contact the testing laboratory for alternative testing options. For additional information, please refer to http://education.[employer].LineMetrics/faq/WFS755o5 (This link if provided for information/ educational purposes only.) 08/15/2023 12:1 4 PM EDT 08/16/2023 3:40 AM EDT Narrative Resulting Agency Comment Performing Organization Information Site ID: [id number] Name: [facility] Address: [address] [place] [address] Director: Salvatore Lawson MD Melanie Snell CNM LAB BLOOD ORDERABLES Final R esult [facility] from Last 3 Months or Most Recently Relevant to Health Maintenance Insurance [employer] Care Teams Hospital Nurse Liaison Relationship Specialty Start Date End Date Sayra Leon MD [address] [place] [address] PCP - General Family Medicine 04/12/23 Melanie Snell CNM [address] [place] [phone] Obstetrics and Gynecology 04/12/23
--- OUTSIDE RECORDS SUMMARY | 2025-07-09 11:03 | XMS_ITS | Encounter Summary ---
Author Organization [facility] Address [address] [facility] [place] [address] Care Team Providers Care Installer Helper Name Role Phone Melanie Snell CNM Unavailable [phone] Sayra Leon MD Primary Care Provider [phone] Encounter Details Date Type Department Care Team (Late st Contact Info) Description 07/01/2025 Telephone [facility] Medicine [address] [place] [address] Angie Harris MA Social History Tobacco Use Types Packs/Day Years [...] How often do you attend mandaen or congregation serv ices? Patient declined 06/21/2023 Do you [...] place to sleep or slept in a alf (including now)? Patient refused 06/21/2023 [place] Depression Scale Answer Date Recorded [place] Depression Scale Total 6 08/15/2023 The thought [...] PM EST documented as of this encounter Miscellaneous Notes * Telephone Encounter - RICK ASKEW - 07/01/2025 10:57 AM EDT Pt returned call, she is able to come at 4pm today. * Telephone Encounter - Angie Harris MA - 07/01/2025 10:23 AM EDT If pt calls back, ask if she will move appointment to 4. It pt is agreeable leave her appointment time at 4:30 documented in this encounter Plan of Treatment Upcoming Encounters Date Type Department Care Team (Late st Contact Info) Description 07/16/2025 3:45 PM EDT Visit [facility] [address] [place] [phone] Melanie Snell, FADI [address] [place] [address] documented as of this encounter Visit Diagnoses Not on filedocumented in this encounter Care Teams Installer Helper Relationship Specialty Start Date End Date Sayra Leon MD [address] [place] [address] PCP - General Family Medicine 04/12/23 Melanie Snell CNM [address] [place], [place] [phone] Obstetrics and Gynecology 04/12/23 documented as of this encounter
--- OUTSIDE RECORDS SUMMARY | 2025-07-09 11:03 | XMS_ITS | Encounter Summary ---
Author Organization [facility] Address [address] [facility] [place] [address] Care Team Providers Care Continuous Still Operator Name Role Phone Melanie Snell CNM Unavailable [phone] Sayra Leon MD Primary Care Provider [phone] Encounter Details Date Type Department Care Team (Latest Contact Info) Description 07/02/2025 Travel Social History Tobacco Use Types Packs/Day Years [...] declined 06/21/2023 How often do you attend religion or jew serv ices? Patient declined 06/21/2023 Do you belong to any clubs o r organizations such as religion groups, unions, fraternal or athletic groups, or [...] skilled nursing (including now)? Patient refused 06/21/2023 [place] Depression Scale Answer Date Recorded [place] Depression Scale Total 6 08/15/2023 The thought [...] 3:45 PM EDT Visit [facility] [address] [place] [address] Melanie Snell CNM [address] [place] [address] documented as of this encounter Visit Diagnoses Not on filedocumented in this encounter Care Teams Continuous Still Operator Relationship Specialty Start Date End Date Sayra Leon MD [address] [place], [place] [phone] PCP - General Family Medicine 04/12/23 Melanie Snell CNM [address] [place], [place] [phone] Obstetrics and Gynecology 04/12/23 documented as of this encounter
--- OUTSIDE RECORDS SUMMARY | 2025-07-09 11:03 | XMS_ITS | Encounter Summary ---
Author Organization [facility] Address [address] [facility] [place] [address] Care Team Providers Care Wood Last Maker Name Role Phone Melanie Snell CNM Unavailable [phone] Sayra Leon MD Primary Care Provider [phone] Encounter Details Date Type Department Care Team (Latest Contact Info) Description 06/29/2025 Travel Social History Tobacco Use Types Packs/Day [...] declined 06/21/2023 How often do you attend holiness or taoist serv ices? Patient declined 06/21/2023 Do you belong to any clubs o r organizations such as holiness groups, unions, fraternal or athletic groups, or [...] place to sleep or slept in a prison (including now)? Patient refused 06/21/2023 [place] Depression Scale Answer Date Recorded [place] Depression Scale Total 6 08/15/2023 The thought [...] PM EST documented as of this encounter Functional Status * Over the [...] Harris MA documented as of this encounter Plan of Treatment Upcoming Encounters Date Type Department Care Team (Late st Contact Info) Description 07/16/2025 3:45 PM EDT Visit [facility] [address] [place] [address] Melanie Snell CNM [address] [place] [address] documented as of this encounter Visit Diagnoses Not on filedocumented in this encounter Care Teams Wood Last Maker Relationship Specialty Start Date End Date Sayra Leon MD [address] [place] [address] PCP - General Family Medicine 04/12/23 Melanie Snell CNM [address] [place] [address] Obstetrics and Gynecology 04/12/23 documented as of this encounter
--- OUTSIDE RECORDS SUMMARY | 2025-07-09 11:03 | XMS_ITS | Encounter Summary ---
Author Organization [facility] Address [address] [facility] [place] [address] Care Team Providers Care Prep Room Supervisor Name Role Phone Melanie Snell CNM Unavailable [phone] Sayra Leon MD Primary Care Provider [phone] Encounter Details Date Type Department Care Team (Latest Contact Info) Description 06/25/2025 Travel Social History Tobacco Use Types Packs/Day [...] declined 06/21/2023 How often do you attend confucianism or druze serv ices? Patient declined 06/21/2023 Do you belong to any clubs o r organizations such as confucianism groups, unions, fraternal or athletic groups, or [...] a jail (including now)? Patient refused 06/21/2023 [place] Depression Scale Answer Date Recorded [place] Depression Scale Total 6 08/15/2023 The thought [...] 3:45 PM EDT Visit [facility] [address] [place] [address] Melanie Snell CNM [address] [place] [address] documented as of this encounter Visit Diagnoses Not on filedocumented in this encounter Care Teams Prep Room Supervisor Relationship Specialty Start Date End Date Sayra Leon MD [address] [place] [address] PCP - General Family Medicine 04/12/23 Melanie Snell CNM [address] [place] [address] Obstetrics and Gynecology 04/12/23 documented as of this encounter
--- OUTSIDE RECORDS SUMMARY | 2025-07-09 11:03 | XMS_ITS | Encounter Summary ---
Author Organization [facility] Address [address] [place] [address] Care Team Providers Care College Administrator Name Role Phone Heriberto SnellM Unavailable [phone] Sayra Leon MD Primary Care Provider [phone] Encounter Details Date Type Department Care Team (Late st Contact Info) Description 12/08/2024 Clinisync Result Encounter [facility] External Department Unsolicited Heriberto Snell CNM [address] [place] [address] Social History Tobacco Use Types Packs/Day Years [...] declined 06/21/2023 How often do you attend quaker or worship serv ices? Patient declined 06/21/2023 Do you belong to any clubs o r organizations such as quaker groups, unions, fraternal or athletic groups, or [...] place to sleep or slept in a fci (including now)? Patient refused 06/21/2023 [place] Depression Scale Answer Date Recorded [place] Depression Scale Total 6 08/15/2023 The thought of harming myself has occurred to me . Never 08/15/2023 Comments No Sex and Gender Information Value Date Recorded [...] 3:45 PM EDT Visit [facility] [address] [place] [id number] Heriberto Snell, FADI [address] [place], [place] [id number] documented as of this encounter Procedures Procedure Name Priority Date/Time Associated Diagnosis Comments US OB TRANSVAGINAL 12/08/2024 10 :05 AM EST documented in this encounter Results * US OB TRANSVAGINAL (12/08/2024 10:05 AM EST) Anatomical Region Laterality Modality Other 12/08/2024 10:0 5 AM EST Narrative 12/08/2024 10:07 AM EST The [address] [address] Ultrasound Report Signed Patient: JUANITA WHEELER MR#: [id number] : 1985 Acct:[id number] Age/Sex: 39 / F ADM Date: 12/05/24 Loc: US Attending Dr: HERIBERTO SNELL APRN, CNM Ordering Physician: HERIBERTO SNELL APRN, CNM Date of Service: 12/05/24 Procedure(s): US OB transvaginal Accession Number(s): [id number] cc: HERIBERTO SNELL APRN, CNM; Physician,Non-Staff [place] The [place] [id number] Patient Name: JUANITA WHEELER MRN: [id number] date: 1985 Sex: F Assigned Patient Location: US Current Patient Location: Accession/Order Number: [id number] Exam Date: 12/05/2024 17:30 Report Date: 12/08/2024 10:05 At the request of: HERIBERTO SNELL Procedure: US OB transvaginal EXAMINATION: US OB transvaginal HISTORY: AMENORRHEA N91.2 COMPARISON: No relevant comparison available. FINDINGS: GESTATIONAL SAC: Present and normal appearing. YOLK SAC: Present and normal appearing. POLE: Present and normal appearing. CARDIAC: 158 bpm UTERUS: Unicornate uterus. OVARIES: Right: Corpus lutein cyst. Left: Normal. CERVIX: 4.0 cm in length and closed. CUL-DE-SAC: Normal. OTHER: None. AGE BY LMP: 7 weeks 6 days HAYLEY BY LMP: 07/18/2025 AGE BY US CRL: 7 weeks 5 days HAYLEY BY US CRL: 07/19/2025 US/US OB transvaginal IMPRESSION: 1. Single live intrauterine . Electronically authenticated by: PUMA REYNOLDS Date: 12/08/2024 10:05 Dictated By: Puma Reynolds M.D. Signed By: 12/08/24 1007 DD/ 1005 TD/TT: Pre Kindergarten Teacher: Procedure Note Radiology, Radiologist, MD - 12/08/2024 [place] [address] Ultrasound Report Signed Patient: JUANITA WHEELERMR#: [id number] : 1985Acct:[id number] Age/Sex: 39 / FADM Date: 12/05/24 Loc: US Attending Dr: HERIBERTO SNELL APRN, CNM Ordering Physician: HERIBERTO SNELL APRN, CNM Date of Service: 12/05/24 Procedure(s): US OB transvaginal Accession Number(s): [id number] cc: HERIBERTO SNELL APRN, CNM; Physician,Non-Staff M.DSejal [place] [id number] Patient Name: JUANITA WHEELER MRN: [id number] date: 1985 Sex: F Assigned Patient Location: US Current Patient Location: Accession/Order Number: [id number] Exam Date: 12/05/2024 17:30 Report Date: 12/08/2024 10:05 At the request of: HERIBERTO SNELL Procedure: US OB transvaginal EXAMINATION: US OB transvaginal HISTORY: AMENORRHEA N91.2 COMPARISON: No relevant comparison available. FINDINGS: GESTATIONAL SAC: Present and normal appearing. YOLK SAC: Present and normal appearing. POLE: Present and normal appearing. CARDIAC: 158 bpm UTERUS: Unicornate uterus. OVARIES: Right: Corpus lutein cyst. Left: Normal. CERVIX: 4.0 cm in length and closed. CUL-DE-SAC: Normal. OTHER: None. AGE BY LMP: 7 weeks 6 days HAYLEY BY LMP: 07/18/2025 AGE BY US CRL: 7 weeks 5 days HAYLEY BY US CRL: 07/19/2025 US/US OB transvaginal IMPRESSION: 1. Single live intrauterine . Electronically authenticated by: PUMA REYNOLDS Date: 12/08/2024 10:05 Dictated By: Puma Reynolds M.D. Signed By:12/08/24 1007 DD/ 1005 TD/TT: Pre Kindergarten Teacher: Heriberto Snell CNM [facility] Final Resu lt documented in this encounter Visit Diagnoses Not on filedocumented in this encounter Care Teams College Administrator Relationship Specialty Start Date End Date Sayra Leon MD [address] [place], [place] [phone] PCP - General Family Medicine 04/12/23 Heriberto Snell CNM [address] [place], [place] [phone] Obstetrics and Gynecology 04/12/23 documented as of this encounter
--- OUTSIDE RECORDS SUMMARY | 2025-07-09 11:03 | XMS_ITS | Encounter Summary ---
Author Organization [facility] Address [address] [facility] [place] [address] Care Team Providers Care Assurance Auditor Name Role Phone Melanie Snell CNM Unavailable [phone] Sayra Leon MD Primary Care Provider Encounter Details Date Type Department Care Team (Latest Contact Info) Description 07/06/2025 Travel Social History Tobacco Use Types Packs/Day [...] declined 06/21/2023 How often do you attend roman catholic or buddhist serv ices? Patient declined 06/21/2023 Do you belong to any clubs o r organizations such as roman catholic groups, unions, fraternal or athletic groups, or [...] place to sleep or slept in a halfway (including now)? Patient refused 06/21/2023 [place] Depression Scale Answer Date Recorded [place] Depression Scale Total 6 08/15/2023 The thought [...] 3:45 PM EDT Visit [facility] [address] [place] [address] Melanie Snell CNM [address] [place] [address] documented as of this encounter Visit Diagnoses Not on filedocumented in this encounter Care Teams Assurance Auditor Relationship Specialty Start Date End Date Sayra Leon MD [address] [place], [place] [phone] PCP - General Family Medicine 04/12/23 Melanie Snell CNM [address] [place], [place] [phone] Obstetrics and Gynecology 04/12/23 documented as of this encounter
--- OUTSIDE RECORDS SUMMARY | 2025-07-09 11:03 | XMS_ITS | Encounter Summary ---
Author [facility] Address [id number] [address] [place] [address] Care Team Providers Care Home Health Scheduler Name Role Phone Sayra Leon MD Primary Care Provider [phone] Encounter Details Date Type Department Care Team (Late st Contact Info) Description 10/30/2022 [facility]phone [facility] [address] [place] [id number] Jacqui Shields CMA Social History Tobacco Use Types Packs/Day Years Used Date Smoking Tobacco: Never Smokeless Tobacco: Never Alcohol Use Standard Drinks/Week Comments Yes 0 (1 standard drink = 0.6 oz pur e alcohol) rare Childcare Answer Date Recorded Childcare Unknown 04/23/2019 Employment Answer Date Recorded Employment Unknown 04/23/2019 Purpose - Life Answer Date Recorded Purpose and direction in life Unknown Comments No Sex and Gender Information Value Date Recorded Sex Assigned at Not on file Legal Sex Female 11:32 AM EDT Gender Identity Not on file Sexual Orientation Not on file COVID-19 Exposure Response Date Recorded In the last month, have you been in contact with someone who was confirmed or suspected to have Coronavirus / COVID-19? No / Unsure 10/16/2022 2:25 PM EST documented as of this encounter Miscellaneous Notes * Telephone Encounter - Jacqui Shields CMA - 10/30/2022 9:46 AM EST Pt called in stating that she took 2 positive tests and cancelled her HSG procedure for 10/31/22. Pt stated the IVF center was going to place her on Progesterone once she got due to history of miscarriage. Pt would like to know if this is something you would place her on? * Telephone Encounter - Karime Harp MD - 10/30/2022 9:46 AM EST PLS CALL PT/[facility] OFFICE TO FU ON HER QHCG TEST RESULTS documented in this encounter Plan of Treatment Not on file documented as of this encounter Visit Diagnoses Not on filedocumented in this encounter Care Teams Home Health Scheduler Relationship Specialty Start Date End Date Sayra Leon MD [address] [place] [address] PCP - General Family Medicine 10/26/22 documented as of this encounter
--- OUTSIDE RECORDS SUMMARY | 2025-07-09 11:03 | XMS_ITS | Encounter Summary ---
Author Organization [facility] Address [address] [place] [address] Care Team Providers Care Supervisor Glycerin Name Role Phone Heriberto SnellM Unavailable [phone] Sayra Leon MD Primary Care Provider [phone] Encounter Details Date Type Department Care Team (Late st Contact Info) Description 01/14/2025 External Result Encounter [facility] [address] [place] [address] Heriberto Snell CNM [address] [place], [place] [phone] Social History Tobacco Use Types Packs/Day Years [...] How often do you attend rastafari or latter day serv ices? Patient declined 06/21/2023 Do you [...] a usp (including now)? Patient refused 06/21/2023 [place] Depression Scale Answer Date Recorded [place] Depression Scale Total 6 08/15/2023 The thought [...] 3:45 PM EDT Visit [facility] [address] [place] [address] Heriberto Snell CNM [address] [place] [address] documented as of this encounter Procedures Procedure Name Priority Date/Time Associated Diagnosis Comments US OB 14+ WEEKS ANATOMY SCAN 01/14/2025 3:34 PM EST documented in this encounter Results * US OB 14+ weeks anatomy scan (01/14/2025 3:34 PM EST) Anatomical Region Laterality Modality Body Ultrasound 01/14/2025 3:34 PM EST Narrative 01/14/2025 3:34 PM EST THIS EXAM WAS PERFORMED AT [facility] NAME: LIAM GRANT : 1985 SEX: F Accession Number: [id number] ORDERING PHYSICIAN: HERIBERTO SNELL REFERRING PHYSICIAN: HERIBERTO SNELL Coding ----- --------- Procedures 49854: Ultrasound, uterus, real time with image documentation, and maternal evaluation, first trimester (< 14 weeks 0 days), transabdominal approach; single or first gestation Indication ----- --------- Screening for Nuchal Translucency,Unicornuate uterus, History of prior with IUGR, AMA- Supervision of elderly History ----- --------- OB History 3. Para 1 [id number] Maternal Assessment ----- --------- Physical Exam Height 175 cm, 5 ft 9 in. Weight 72 kg, 159 lb. BMI 23.48 kg/m??? Method ----- --------- Transabdominal ultrasound examination ----- --------- Luna . Number of fetuses: 1 Dating ----- --------- LMP on: 10/11/2024 GA by LMP 13 w + 4 d HAYLEY by LMP: 07/18/2025 Previous Ultrasound on: 12/05/2024 Type of prior assessment: GA GA at prior assessment date 7 w + 5 d GA by previous U/S 13 w + 3 d HAYLEY by previous Ultrasound: 07/19/2025 Ultrasound examination on: 01/14/2025 GA by U/S based upon: CRL GA by U/S 14 w + 1 d HAYLEY by U/S: 07/14/2025 Assigned: based on the LMP, selected on 01/14/2025 Assigned GA 13 w + 4 d Assigned HAYLEY: 07/18/2025 General Evaluation ----- --------- Cardiac activity Present. FHR 144 bpm. Presentation: cephalic Placenta: Placental site: anterior Umbilical cord: Cord vessels: 3 vessel cord Amniotic fluid: Amount of AF: normal amount Biometry ----- --------- FHR 144 bpm 3% Soniya CRL 82.0 mm 14w 1d 82% Hadlock Anatomy ----- --------- The following structures appear normal: Cranium: choroid plexus. Stomach. Bladder. The following structures were visualized: Arms. Legs. Maternal Structures ----- --------- Uterus Visualized Cervix Visualized Approach - Transabdominal Right Ovary Not visualized Left Ovary Not visualized Cul de Sac Suboptimal Impression ----- --------- Single viable intrauterine consistent with 13w 4d with an HAYLEY of 07/18/2025. No adnexal masses noted. Recommendations ----- --------- Please see [facility] documentation from today. Patient is scheduled in 6 weeks for the anatomic survey, cervical length ultrasound. Subsequent follow up or other follow up as clinically determined by primary OB provider unless otherwise specified by [facility]. Results forwarded to ordering provider so they can follow up with the patient as necessary. Procedure Note Radiology, Radiologist, - 01/14/2025 THIS EXAM WAS PERFORMED AT [facility] NAME: LIAM GRANT : 1985 SEX: F Accession Number: [id number] ORDERING PHYSICIAN: HERIBERTO SNELL REFERRING PHYSICIAN: HERIBERTO SNELL Coding ----- --------- Procedures [id number]: Ultrasound, uterus, real time with imagedocumentation, and maternal evaluation, first trimester (< 14 weeks 0 days), transabdominal approach;single or first gestation Indication ----- --------- Screening for Nuchal Translucency,Unicornuate uterus, History of priorpregnancy with IUGR, AMA- Supervision of elderly History ----- --------- OB History 3. Para 1 [id number] Maternal Assessment ----- --------- Physical Exam Height 175 cm, 5 ft 9 in. Weight 72 kg, 159 lb. BMI 23.48kg/m??? Method ----- --------- Transabdominal ultrasound examination ----- --------- Luna . Number of fetuses: 1 Dating ----- --------- LMP on: 10/11/2024 GA by LMP 13 w + 4 d HAYLEY by LMP: 07/18/2025 Previous Ultrasound on: 12/05/2024 Type of prior assessment: GA GA at prior assessment date 7 w + 5 d GA by previous U/S 13 w + 3 d HAYLEY by previous Ultrasound: 07/19/2025 Ultrasound examination on: 01/14/2025 GA by U/S based upon: CRL GA by U/S 14 w + 1 d HAYLEY by U/S: 07/14/2025 Assigned: based on the LMP, selected on 01/14/2025 Assigned GA 13 w + 4 d Assigned HAYLEY: 07/18/2025 General Evaluation ----- --------- Cardiac activity Present. FHR 144 bpm. Presentation: cephalic Placenta: Placental site: anterior Umbilical cord: Cord vessels: 3 vessel cord Amniotic fluid: Amount of AF: normal amount Biometry ----- --------- FHR 144 bpm 3% Nicolaides CRL 82.0 mm 14w 1d 82% Hadlock Anatomy ----- --------- The following structures appear normal: Cranium: choroid plexus. Stomach. Bladder. The following structures were visualized: Arms. Legs. Maternal Structures ----- --------- Uterus Visualized Cervix Visualized Approach - Transabdominal Right Ovary Not visualized Left Ovary Not visualized Cul de Sac Suboptimal Impression ----- --------- Single viable intrauterine consistent with 13w 4d with an HAYLEY of07/18/2025. No adnexal masses noted. Recommendations ----- --------- Please see [facility] documentation from today. Patient is scheduled in 6 weeks for the anatomic survey, cervical lengthultrasound. Subsequent follow up or other follow up as clinically determined byprimary OB provider unless otherwise specified by M. Results forwarded to ordering provider so they can follow up with thepatient as necessary. us Heriberto Snell CNM IMG OB US PROCEDURES Final R esult documented in this encounter Visit Diagnoses Not on filedocumented in this encounter Care Teams Supervisor Glycerin Relationship Specialty Start Date End Date Sayra Leon MD [address] [place], [place] [phone] PCP - General Family Medicine 04/12/23 Heriberto Snell CNM [address] [place] [address] Obstetrics and Gynecology 04/12/23 documented as of this encounter
--- OUTSIDE RECORDS SUMMARY | 2025-07-09 11:03 | XMS_ITS | Encounter Summary ---
Author Organization [facility] Address [address] [place] [address] Care Team Providers Care Printed Circuit Boards Inspector Name Role Phone Melanie Snell CNM Unavailable [phone] Sayra Leon MD Primary Care Provider [phone] Encounter Details Date Type Department Care Team (Late st Contact Info) Description 11/20/2024 Orders Only [facility] [address] [place] [address] Melanie Snell CNM [address] [place], [place] [phone] Amenorrhea; examination or test, positive result ([facility]) Social History Tobacco Use Types [...] declined 06/21/2023 How often do you attend congregation or yarsani serv ices? Patient declined 06/21/2023 Do you belong to any clubs o r organizations such as congregation groups, unions, [email or web address] or athletic groups, or school groups? Patient [...] place to sleep or slept in a chcf (including now)? Patient refused 06/21/2023 [place] Depression Scale Answer Date Recorded [place] Depression Scale Total 6 08/15/2023 The thought [...] PM EDT Visit [facility] [address] [place] [address] Melanie Snell CNM [address] [place], [place] [phone] Scheduled Orders Name Type Priority Associated Diagnoses Orde r Schedule US OB transvaginal Imaging Routine Amenorrhea examination or test, positive result ([facility]) Expected: 11/20/2024, Expires: 11/20/2025 documented as of this encounter Visit Diagnoses Diagnosis Amenorrhea Absence of menstruation examination or test, positive result ([facility]) examination or test, positive result documented in this encounter Care Teams Printed Circuit Boards Inspector Relationship Specialty Start Date End Date Sayra Leon MD [address] [place], [place] [phone] PCP - General Family Medicine 6/1/23 Melanie Snell CNM [address] [place] [address] Obstetrics and Gynecology 04/12/23 documented as of this encounter
--- OUTSIDE RECORDS SUMMARY | 2025-07-09 11:03 | XMS_ITS | Encounter Summary ---
Author Organization [facility] tem Address [id number] [address] [place] [address] Care Team Providers Care Tank Tender Name Role Phone Sayra Leon MD Primary Care Provider [phone] Encounter Details Date Type Department Care Team (Late st Contact Info) Description 11/21/2022 Abstract Maternal- Medicine at [facility] [address] [place] [address] External, Scanning Provider Social History Tobacco Use Types Packs/Day Years Used Date Smoking Tobacco: Never Smokeless Tobacco: Never Tobacco Cessation:Counseling Given: Not Answered Alcohol Use Standard Drinks/Week Comments Yes 0 (1 standard drink = 0.6 oz pur e alcohol) rare Childcare Answer Date Recorded Childcare Unknown 04/23/2019 Employment Answer Date Recorded Employment Unknown 04/23/2019 Purpose - Life Answer Date Recorded Purpose and direction in life Unknown Comments Yes Sex and Gender Information Value Date Recorded Sex Assigned at Not on file Legal Sex Female 11:32 AM EDT Gender Identity Not on file Sexual Orientation Not on file COVID-19 Exposure Response Date Recorded In the last month, have you been in contact with someone who was confirmed or suspected to have Coronavirus / COVID-19? No / Unsure 11/22/2022 7:51 AM EST documented as of this encounter Plan of Treatment Not on file documented as of this encounter Procedures Procedure Name Priority Date/Time Associated Diagnosis Comments ULTRASOUND OFFICE Routine 11/21/2022 1:38 PM EST ULTRASOUND OFFICE Routine 11/21/2022 1:23 PM EST documented in this encounter Results * Ultrasound - Office (11/21/2022 1:38 PM EST) Anatomical Region Laterality Modality AMB Ultrasound us Not In System Ref Prov IMG US ORDERABLES Final R esult * Ultrasound - Office (11/21/2022 1:23 PM EST) Anatomical Region Laterality Modality AMB Ultrasound us Not In System Ref Prov IMG US ORDERABLES Final R esult documented in this encounter Visit Diagnoses Not on filedocumented in this encounter Care Teams Tank Tender Relationship Specialty Start Date End Date Sayra Leon MD [address] [place] [address] PCP - General Family Medicine 10/26/22 documented as of this encounter
--- OUTSIDE RECORDS SUMMARY | 2025-07-09 11:03 | XMS_ITS | Encounter Summary ---
Author Organization [facility] Address [address] [place] [address] Care Team Providers Care Paintings Restorer Name Role Phone Melanie SnellM Unavailable [phone] Sayra Leon MD Primary Care Provider [phone] Encounter Details Date Type Department Care Team (Late st Contact Info) Description 07/06/2025 Bamboo flowsheet [facility] [address] [place] [address] Melanie Snell CNM [address] [place] [address] Social History Tobacco Use Types Packs/Day Years [...] declined 06/21/2023 How often do you attend jain or latter day serv ices? Patient declined 06/21/2023 Do you belong to any clubs o r organizations such as jain groups, unions, fraternal or athletic groups, or [...] a half-way (including now)? Patient refused 06/21/2023 [place] Depression Scale Answer Date Recorded [place] Depression Scale Total 6 08/15/2023 The thought [...] 3:45 PM EDT Visit [facility] [address] [place] [address] Melanie Snell CNM [address] [place] [address] documented as of this encounter Visit Diagnoses Not on filedocumented in this encounter Care Teams Paintings Restorer Relationship Specialty Start Date End Date Sayra Leon MD [address] [place], [place] [phone] PCP - General Family Medicine 04/12/23 Melanie Snell CNM [address] [place] [address] Obstetrics and Gynecology 04/12/23 documented as of this encounter
--- OUTSIDE RECORDS SUMMARY | 2025-07-09 11:03 | XMS_ITS | Encounter Summary ---
Author Organization [facility] Address [address] [place] [address] Care Team Providers Care Shaker Washer Name Role Phone Melanie Snell CN Unavailable [phone] Sayra Leon MD Primary Care Provider [phone] Encounter Details Date Type Department Care Team (Late st Contact Info) Description 06/13/2023 Abstract [facility] [address] [place] [address] Melanie Snell CNM [address] [place], [place] [phone] Social History Tobacco Use Types Packs/Day Years Used Date Smoking Tobacco: Never Passive Smoke Exposure: Never Smokeless Tobacco: Never Alcohol Use Standard Drinks/Week Comments Not Currently 0 (1 standard drink = 0.6 oz pur e alcohol) caffeine: coffee Comments Yes Sex and Gender Information Value Date Recorded Sex Assigned at Female 12/06/2023 12:18 PM EST Legal Sex Female 7:35 PM EDT Gender Identity Female 01/24/2023 7:35 PM EDT Sexual Orientation Straight 12/06/2023 12 :18 PM EST COVID-19 Exposure Response Date Recorded In the last 10 days, have yo u been in contact with someone who was confirmed or suspected to have Coronavirus/COVID-19? No / Unsure 06/05/2023 3:44 PM EDT documented as of this encounter Plan of Treatment Upcoming Encounters Date Type Department Care Team (Late st Contact Info) Description 07/16/2025 3:45 PM EDT Visit [facility] [address] [place] [address] Melanie Snell CNM [address] [place], [place] [phone] documented as of this encounter Visit Diagnoses Not on filedocumented in this encounter Care Teams Shaker Washer Relationship Specialty Start Date End Date Sayra Leon MD [address] [place], [place] [phone] PCP - General Family Medicine 04/12/23 Melanie Snell CNM [address] [place], [place] [phone] Obstetrics and Gynecology 04/12/23 documented as of this encounter
--- OUTSIDE RECORDS SUMMARY | 2025-07-09 11:03 | XMS_ITS | Encounter Summary ---
Author Organization [facility] Address [address] [facility] [place] [address] Care Team Providers Care Nurse Leader Name Role Phone Melanie Snell CNM Unavailable [phone] Sayra Leon MD Primary Care Provider [phone] Encounter Details Date Type Department Care Team (Latest Contact Info) Description 07/01/2025 Travel Social History Tobacco Use Types Packs/Day [...] declined 06/21/2023 How often do you attend latter day or yazdanism serv ices? Patient declined 06/21/2023 Do you belong to any clubs o r organizations such as latter day groups, unions, fraternal or athletic groups, or [...] a usp (including now)? Patient refused 06/21/2023 Franklin Depression Scale Answer Date Recorded Franklin Depression Scale Total 6 08/15/2023 The thought [...] M A documented as of this encounter Plan of Treatment Upcoming Encounters Date Type Department Care Team (Late st Contact Info) Description 07/16/2025 3:45 PM EDT Visit [facility] [address] [place] [address] Melanie Snell CNM [address] [place] [address] documented as of this encounter Visit Diagnoses Not on filedocumented in this encounter Care Teams Nurse Leader Relationship Specialty Start Date End Date Sayra Leon MD [address] [place] [address] PCP - General Family Medicine 04/12/23 Melanie Snell CNM [address] [place] [address] Obstetrics and Gynecology 04/12/23 documented as of this encounter
--- OUTSIDE RECORDS SUMMARY | 2025-07-09 11:03 | XMS_ITS | Encounter Summary ---
Author Organization [facility] tem Address [id number] [address] 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
--- OUTSIDE RECORDS SUMMARY | 2025-07-09 11:15 | XMS_ITS | CCD ---
Author Organization [facility] Care Team Providers Care Physician Intensivist Name Role Phone CHAPIN, DR NATAN Lazar Attending Unavailable CHAPIN, DR NATAN Lazar Consulting Unavailable REQUEST, NONE LISTED Primary Care Unavaila jayson SAMSON, DR NATAN Lazar Admitting Unavailable GARFIELD, DR AUDREY Phillips Consulting Unavailasha CONNOLLY, DR PUMA Lazar Consulting Unavailable NIESHAOHERIBERTO Consulting Unavailable NIESHAOHERIBERTO Admitting Unavailable REQUEST, NONE LISTED Primary Care Unavaila ble VIVIANA SNELLE Attending Unavailable Floro GIANFRANCOMHeriberto Unavailable Sayra Green MD Primary Care Provider Sayra Green MD Primary Care Provider [phone] VIVIANA SNELLE Referring Unavailable SAYRA GREEN Primary Care Unavailable MIKI ROSAS Attending Unavailable FLOROVIVIANAE Referring Unavailable SAYRA GREEN Primary Care Unavailable NIESHAOVIVIANAE Referring Unavailable SAYRA GREEN Primary Care Unavailable SAYRA GREEN Primary Care Unavailable FLORO, HERIBERTO Referring Unavailable Sayra Baires MD Primary Care Pr ovider Josee Belle APRN Attending Provider HERIBERTO SNELL Attending Unavailable FLOROHERIBERTO Attending Unavailable FLOROVIVIANAE Elizabeth Referring Unavailable FLORO, HERIBERTO Johnson Attending Unavailable FLORO, HERIBERTO L Referring Unavailable FLORO, HERIBERTO L Attending Unavailable FLORO, HERIBERTO Johnson Attending Unavailable FLORO, HERIBERTO Johnson Attending Unavailable FLORO, HERIBERTO Johnson Attending Unavailable FLORO, HERIBERTO Elizabeth Referring Unavailable FLORO, HERIBERTO Johnson Attending Unavailable FLORO, HERIBERTO Johnson [facility] Johnson Attending [facility] L Referring Unavailable FLORO, HERIBERTO L Attending Unavailable FLORO, HERIBERTO L Attending Unavailable FLORO, HERIBERTO L Referring Unavailable FLORO, HERIBERTO L Attending Un[facility] L Referring Unavailable [facility] Attending Unavailable [facility], HERIBERTO Johnson Attending Unavailable [facility] Attending Unavailable [facility], HERIBERTO L Referring Un[facility] HER[facility] L Attending Unavailable [facility] Attending Unavailable Medications Current Medications Medication Drug Class(es) Dates Sig (Normalized) Sig (Original) clindamycin 300 mg oral capsule (7 sources) Lincosamide Antibacterial Start: 07-01-2025 End: 07-11-2025 take 1 capsule by mouth in the morning, then take 1 capsule by mouth in the evening, then take 1 capsule by mouth at bedtime clindamycin (Cleocin) 300 MG capsule Indications: Cellulitis of left lower extremity Take 1 capsule (300 mg) by mouth in the morning and 1 capsule (300 mg) in the evening and 1 capsule (300 mg) before bedtime. Do all this for 10 days. 30 capsule 07/01/2025 07/11/2025 Active famotidine 20 mg oral tablet (20 sources) Histamine-2 Receptor Antagonist Start: 06-18-2025 End: 07-18-2025 take 1 tablet by mouth at bedtime famotidine (Pepcid) 20 MG tablet Indications: Heartburn Take 1 tablet (20 mg) by mouth at bedtime 30 tablet 2 06/18/2025 07/18/2025 Active Start: 03-11-2025 End: 04-10-2025 take 1 tablet by mouth at bedtime famotidine (Pepcid) 20 MG tablet Indications: Heartburn Take 1 tablet (20 mg) by mouth at bedtime 30 tablet 2 03/11/2025 Active ferrous sulfate 325 mg delayed release oral [...] tablet 0 12/14/2023 03/13/2024 Active folic acid 1 mg oral tablet (3 sources) Start: 06-28-2025 take 1 tablet by mouth once daily Folic Acid 1 mg tablet Active 1 MG PO Daily June 28, 2025 12:00am Complies with drug therapy FOLIC ACID ORAL Take by mouth. Active folic acid 2.5 mg / pyridoxine 25 mg / vitamin b12 1 mg oral tablet (20 sources) Vitamin B12 folic acid-vit B 6-vit B12 2.5-25-1 MG tablet tablet Take 1 tablet by mouth in the morning. Active Iron (1 source) Start: 06-28-20 take 1 capsule by mouth once daily Pnv 146-Urhu-Cnsskn-Dha 90 mg iron- 1 mg-200 mg capsule Active 1 CAP PO Daily June 28, 2025 12:00am Complies with drug therapy ondansetron 8 mg disintegrating oral tablet (13 sources) Serotonin-3 Receptor Antagonist Start: 02-13-20 End: 03-14-20 take 1 tablet by mouth every eight hours for nausea ondansetron ODT (Zofran-ODT) 8 MG disintegrating tablet Indications: Nausea/vomiting in Take 1 tablet (8 mg) by mouth every 8 (eight) hours if needed for nausea or vomiting 20 tablet 1 02/12/2025 03/14/2025 Active Start: 12-17-2024 End: 02-06-2025 take 1 tablet by mouth every eight hours for nausea ondansetron ODT (Zofran-ODT) 8 MG disintegrating tablet Indications: Nausea/vomiting in Take 1 tablet (8 mg) by mouth every 8 (eight) hours if needed for nausea or vomiting 20 tablet 1 01/07/2025 02/06/2025 Active 25/iron fum/folic/d knowles (-1 ORAL) (2 sources) 25/iron fum/folic/dha (-1 ORAL) Take by mouth. Active w/o A Vit-Fe Fum-FA (AZESCHEW / PO) (20 sources) w/o A V it-Fe Fum-FA (AZESCHEW / PO) Take by mouth Active w/o A V it-Fe Fum-FA (AZESCHEW / PO) Take by mouth 0 Active progesterone 200 mg oral capsule (12 sources) Progesterone Start: 11-10-2024 End: 02-18-2025 take 1 capsule by mouth in the morning progesterone 200 MG capsule Indications: examination or test, positive result Take 1 capsule (200 mg) by mouth in the morning and in the evening 60 capsule 3 11/10/2024 02/18/2025 Active Completed/Discontinued Medications Medication Drug Class(es) Dates Sig (Normalized) Sig (Original) cephalexin 500 mg oral capsule (6 sources) Cephalosporin Antibacterial Start: 06-28-2025 End: 07-01-2025 cephalexin (Keflex) 500 MG capsule Take 500 mg by mouth in the morning and 500 mg at noon and 500 mg in the evening and 500 mg before bedtime. 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] Onset: 12-12-2023 12-12-2023 Chronic Hemorrhage during ; abruptio placenta; placenta previa (9 sources) Hemorrhage in early , unspecified; Translations: [Antepartum hemorrhage] Onset: 04-04-2022 Episodic Menstrual disorders (20 sources) Amenorrhea; Translations: [Amenorrhea, unspecified] Onset: 03-08-2017 12-12-2023 Chronic Other complications of (4 sources) Vomiting of , unspecified; Translations: [Unspecified vomiting of , unspecified as to episode of care or not applicable] 12-17-2024 Episodic Other complications of (16 sources) Multigravida of advanced maternal age; Translations: [Supervision of elderly multigravida, first trimester] Onset: 01-14-2025 01-14-2025 Episodic Other complications of (1 source) Supervision of elderly multigravida, first trimester; Translations: [Supervision of elderly multigravida, first trimester] Onset: 01-14-2025 Episodic Other complications of (2 sources) Maternal care for unspecified congenital malformation of uterus, second trimester; Translations: [Maternal care for unspecified congenital malformation of uterus, second trimester] Onset: 02-26-2025 Episodic Other complications of (2 sources) Supervision of elderly multigravida, second trimester; Translations: [Supervision of elderly multigravida, second trimester] Onset: 02-26-2025 Episodic Other gastrointestinal disorders (6 sources) Heartburn; Translations: [Heartburn] 03-11-2025 Episodic Other and delivery including normal (20 sources) test positive; Translations: [Encounter for test, result positive] 12-18-2024 Episodic Other screening for suspected conditions (not mental disorders or infectious disease) (20 sources) Cancer cervix screening status; Translations: [Encounter for screening for malignant neoplasm of cervix] Onset: 01-14-2025 08-18-2024 Episodic Skin and subcutaneous tissue infections (6 sources) Cellulitis of left lower limb; Translations: [Cellulitis of left lower limb] 06-29-2025 Episodic Spontaneous (1 source) Complete or unspecified spontaneous without complication; Translations: [COMPLETE/UNS SPONT AB W/O COMP] Onset: 04-25-2022 Episodic Unclassified (1 source) AMA Onset: 01-14-2025 Past or Other Problems Problem Classification Problem Date Documented Da te Episodic/Chronic Administrative/social admission (20 sources) Worried well; Translations: [Person with feared health complaint in whom no diagnosis is made] Onset: 07-27-2017 12-12-2023 Episodic Allergic reactions (20 sources) Contact dermatitis due to poison oscar; Translations: [Allergic contact dermatitis due to plants, except food] Onset: 04-26-2021 12-12-2023 Episodic Deficiency and other anemia (20 sources) Iron deficiency anemia secondary to inadequate dietary iron intake; Translations: [Other iron deficiency anemias] Onset: 10-10-2018 12-14-2023 Episodic Inflammatory diseases of female pelvic organs (20 sources) Vulvovaginitis; Translations: [Acute vaginitis] Onset: 07-27-2017 12-12-2023 Episodic Miscellaneous mental health disorders (20 sources) Anxiety about body function or health; Translations: [Other symptoms and signs involving emotional state] Onset: 08-22-2016 12-12-2023 Episodic Other ear and sense organ disorders (20 sources) Impacted cerumen of bilateral ears; Translations: [Impacted cerumen, bilateral] Onset: 12-06-2018 12-12-2023 Episodic Residual codes; unclassified (20 sources) Family history of malignant neoplasm of brain; Translations: [Family history of malignant neoplasm of other organs or systems] Onset: 07-27-2017 12-12-2023 Episodic Residual codes; unclassified (20 sources) Unprotected sexual intercourse; Translations: [High risk heterosexual behavior] Onset: 07-27-2017 12-12-2023 Episodic NEGATED: Highlighted row has been ruled out!Unclassified (1 source) No known active problems 06-13-2023 Results Test Name Value Interpretation Reference Range Facility US OB FOLLOW UP TRANSABDOMIN AL APPROACHon 07-02-2025 OB FOLLOW UP TRANSABDOMINAL APPROACH FINDINGS: A single, live intrauterine is present [...] 2708 grams ( 6 pound, 0 ounces). IMPRESSION: 1.Single, live intrauterine , current sonographic [...] BY: ELECTRONICALLY SIGNED BY: Rangel Chowdhury MD Normal Not Available US BIOPHYSICAL PROFILE WO NON STRESS TESTINGon 06-25-2025 US BIOPHYSICAL PROFILE WO NON STRESS TESTING FINDINGS: Breathing Movements 2 Gross Body Movements 2 Tone 2 Qualitative amniotic fluid volume 2 A single, viable intrauterine is present. The placenta is anterior fundal Grade 2, cervix closed, 5.4 cm length. AYALA is 12. Heart rate 136. IMPRESSION: Normal biophysical profile 06/19 TRANSCRIBED BY: ELECTRONICALLY SIGNED BY: Rangel Chowdhury MD Normal Not Available US BIOPHYSICAL PROFILE WO NON STRESS TESTINGon 06-18-2025 US BIOPHYSICAL PROFILE WO NON STRESS TESTING FINDINGS: Breathing Movements 2 Gross Body Movements 2 Tone 2 Qualitative amniotic fluid volume 2 A single, viable intrauterine is present. Anterior fundal placenta, Grade 1. AYALA 14.0 cm. Cervix closed 5.9 cm. Cephalic presentation. Heart rate 113 bpm. IMPRESSION: 06/19 biophysical profile TRANSCRIBED BY: ELECTRONICALLY SIGNED BY: Rangel Chowdhury MD Normal Not Available US OB FOLLOW UP TRANSABDOMIN AL APPROACHon 06-11-2025 US OB FOLLOW UP TRANSABDOMINAL APPROACH EXAM: US OB FOLLOW UP TRANSABDOMINAL APPROACH HISTORY: Advanced maternal age. COMPARISON: Ob ultrasound 06/04/2025. TECHNIQUE: Two-dimensional transabdominal grayscale ultrasound imaging of the pelvis was performed. FINDINGS: Gestation: Single Presentation: Cephalic Cardiac Activity: 132 beats per minute Placental Location: Anterior with no sonographic abnormalities identified. Cervical Length: 4.1 cm Amniotic Fluid Index: 14.8 cm MEASUREMENTS: BPD: 8.5 cm EGA: 34 weeks 1 days HC: 30.9 cm EGA: 34 weeks 3 days AC: 30.0 cm EGA: 34 weeks 0 days FL: 6.7 cm EGA: 34 weeks 2 days HC/AC Ratio: 1.03 The gestational age by today's ultrasound is 34 weeks 2 days. Estimated Weight: 2360 grams, ( 5 lb 3 oz). Weight Percentile for gestational age: 31 % IMPRESSION: 1. Single, live intrauterine gestation 34 weeks, 5 days by LMP. Today's ultrasound measurements correlate with a gestational age of 34 weeks 2 days. Estimated weight is 2360 grams, ( 5 lb 3 oz) which correlates to 31 %. HAYLEY by today's ultrasound is 07/21/2025. Interpreted by: Electronically signed by ROMAINE DUCKWORTH II, MD, PHD at 12-Jun-2025 08:26:23 AM [facility] Normal Not Available US BIOPHYSICAL PROFILE WO NON STRESS TESTINGon 06-04-2025 US BIOPHYSICAL PROFILE WO NON STRESS TESTING EXAM: US BIOPHYSICAL PROFILE WO NON STRESS TESTING HISTORY: Biophysical profile, advanced maternal age. COMPARISON: Ob ultrasound 05/12/2025. TECHNIQUE: Two-dimensional transabdominal grayscale ultrasound imaging of the pelvis was performed. FINDINGS: Gestation: Single Presentation: Cephalic Cardiac Activity: 138 beats per minute Placental Location: Fundal with no sonographic abnormalities identified. Cervical Length: 4.9 cm Amniotic Fluid Index: 14.3 cm BIOPHYSICAL PROFILE: breathin tone: 2 movement: 2 Amniotic fluid: 2 BPP: 8/8 IMPRESSION: 1. Single, live intrauterine gestation 33 weeks, 5 days by LMP. HAYLEY by LMP is 07/18/2025. 2. Normal BPP: 8/8. Interpreted by: Electronically signed by ROMAINE DUCKWORTH II, MD, PHD at 05-Jun-2025 08:35:12 AM [facility] Normal Not Available US OB FOLLOW UP TRANSABDOMIN AL APPROACHon 05-12-2025 US OB FOLLOW UP TRANSABDOMINAL APPROACH EXAM: US OB FOLLOW UP TRANSABDOMINAL APPROACH HISTORY: Advanced maternal age. COMPARISON: Ob ultrasound 01/07/2025. TECHNIQUE: Two-dimensional transabdominal grayscale ultrasound imaging of the pelvis was performed. FINDINGS: Gestation: Single Presentation: Cephalic Cardiac Activity: 136 beats per minute Placental Location: Anterior with no sonographic abnormalities identified. Cervical Length: 4.4 cm Amniotic Fluid Index: 11.4 cm MEASUREMENTS: BPD: 7.9 cm EGA: 31 weeks 6 days HC: 28.3 cm EGA: 31 weeks 0 days AC: 26.0 cm EGA: 30 weeks 1 days FL: 5.9 cm EGA: 30 weeks 4 days HC/AC Ratio: 1.09 The gestational age by today's ultrasound is 30 weeks 6 days. Estimated Weight: 1584 grams, ( 3 lb 8 oz). Weight Percentile for gestational age: 40 % IMPRESSION: 1. Single, live intrauterine gestation 30 weeks, 3 days by LMP. Today's ultrasound measurements correlate with a gestational age of 30 weeks 6 days. Estimated weight is 1584 grams, ( 3 lb 8 oz) which correlates to 40 %. HAYLEY by today's ultrasound is 07/15/2025. Interpreted by: Electronically signed by ROMAINE DUCKWORTH II, MD, PHD at 13-May-2025 08:07:18 AM [facility] Normal Not Available US for pregnancyon TITLE OF EXAM: OB Ultrasound: REASON FOR EXAM: First trimester OB. COMPARISON: 12/05/2024 TECHNIQUE: Grayscale and M-mode Doppler imaging is performed. FINDINGS: Measurements: heart rate: 149 bpm CRL: 6.8 cm GA for sonogram: 13.0 wk (12.0-14.1) Cervix Length: 3.4 cm HAYLEY: 07/18/2025 Uterus: 14.71 x 9.19 cm Right Ovary: Not visualized Left Ovary: Not visualized FINDINGS There is a single living intrauterine gestation. 12.6 weeks gestational age based on LMP. HAYLEY July 18, 2025. cardiac activity of 149 bpm. Neither ovary visualized due to bowel gas. Hypoechoic tubular areas fill with color in the lower uterine segment consistent with vascularity. IMPRESSION: 1. Single living intrauterine gestation. 12 weeks 4 days gestational age based on ultrasound. HAYLEY July 18, 2025. 2. Follow-up ultrasound at 20 to 22 weeks gestational age for growth and anatomy scan. *This report is generated using voice recognition reporting (Embarke). On occasion [employer] erroneously drops words from the report or replaces the spoken word with similar sounding words. Please call with any questions/concerns regarding this report.* Dictated and transcribed 01/08/25/dpd This report has been electronically signed and approved by the interpreting radiologist. IMAGING Jeremy Garza MD - 01/08/2025 TITLE OF EXAM: OB Ultrasound: REASON FOR EXAM: First trimester OB. COMPARISON: 12/05/2024 TECHNIQUE: Grayscale and M-mode Doppler imaging is performed. FINDINGS: Measurements: heart rate: 149 bpm CRL: 6.8 cm GA for sonogram: 13.0 wk (12.0-14.1) Cervix Length: 3.4 cm HAYLEY: 07/18/2025 Uterus: 14.71 x 9.19 cm Right Ovary: Not visualized Left Ovary: Not visualized FINDINGS There is a single living intrauterine gestation. 12.6 weeks gestational age based on LMP. HAYLEY July 18, 2025. cardiac activity of 149 bpm. Neither ovary visualized due to bowel gas. Hypoechoic tubular areas fill with color in the lower uterine segment consistent with vascularity. IMPRESSION: 1. Single living intrauterine gestation. 12 weeks 4 days gestational age based on ultrasound. HAYLEY July 18, 2025. 2. Follow-up ultrasound at 20 to 22 weeks gestational age for growth and anatomy scan. *This report is generated using voice recognition reporting (Embarke). On occasion [employer] erroneously drops words from the report or replaces the spoken word with similar sounding words. Please call with any questions/concerns regarding this report.* Dictated and transcribed 01/08/25/dpd This report has been electronically signed and approved by the interpreting radiologist. [facility] [employer] US for pregnancyOrdered By: Jeremy Garza on 01-08-2025 [employer]force Work Phone: US OB < 14 WEEKS EARLYon US OB < 14 WEEKS EARLY TITLE OF EXAM: OB Ultrasound: REASON FOR EXAM: First trimester OB. COMPARISON: 12/05/2024 TECHNIQUE: Grayscale and M-mode Doppler imaging is performed. FINDINGS: Measurements: heart rate: 149 bpm CRL: 6.8 cm GA for sonogram: 13.0 wk (12.0-14.1) Cervix Length: 3.4 cm HAYLEY: 07/18/2025 Uterus: 14.71 x 9.19 cm Right Ovary: Not visualized Left Ovary: Not visualized FINDINGS There is a single living intrauterine gestation. 12.6 weeks gestational age based on LMP. HAYLEY July 18, 2025. cardiac activity of 149 bpm. Neither ovary visualized due to bowel gas. Hypoechoic tubular areas fill with color in the lower uterine segment consistent with vascularity. IMPRESSION: 1. Single living intrauterine gestation. 12 weeks 4 days gestational age based on ultrasound. HAYLEY July 18, 2025. 2. Follow-up ultrasound at 20 to 22 weeks gestational age for growth and anatomy scan. *This report is generated using voice recognition reporting (Embarke). On occasion [employer] erroneously drops words from the report or replaces the spoken word with similar sounding words. Please call with any questions/concerns regarding this report.* Dictated and transcribed 01/08/25/dpd This report has been electronically signed and approved by the interpreting radiologist. 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 FINDINGS: Right Tymkar80.3 x 6.3 x 5.4 cm Left Lsbmas59.8 x 5.2 x 6.0 cm Normal renal size, cortical volume and echotexture is present for this age. No collecting system dilatation or echogenic foci with posterior shadowing are noted. No bladder stone or mass. Both ureteral jets visualized. IMPRESSION: Normal bilateral renal morphology. Report reported and signed by Rangel Chowdhury on 10/10/2022 1351 Normal [facility] CBC AUTO DIFFon 06-29-2022 BASO # 0.0 103/ul Normal 0.0-0.1 [facility] Comment on above: Performed By: #### H FPFCBC #### [facility] [address] [address] [address] Preston George Basophils/100 WBC (Bld) 0.6 % Normal 0.2-2.0 [facility] Comment on above: Performed By: #### H FPFCBC #### [facility] [address] [place] [address] Dr. Preston George EO # 0.2 103/ul Normal 0.0-0.7 [facility] Comment on above: Performed By: #### H FPFCBC #### [facility] [address] [place] [address] Dr. Preston George Eosinophils/100 WBC (Bld) 3.1 % Normal 0.9-7.0 [facility] Comment on above: Performed By: #### H FPFCBC #### [facility] [address] [place] [address] Dr. Preston George Erythrocyte distribution width (RBC) [Ratio] 13.0 % Normal 11.0-15.0 [facility] Comment on above: Performed By: #### H FPFCBC #### [facility] [address] [place] [address] Dr. Preston George Hematocrit (Bld) [Volume fraction] 40.8 % Normal 36.0-48.0 [facility] Comment on above: Performed By: #### H FPFCBC #### [facility] [address] [place] [address] Dr. Preston George Hemoglobin (Bld) [Mass/Vol] 13.4 g/dL Normal 12.0-16.0 [facility] Comment on above: Performed By: #### H FPFCBC #### [facility] [address] [place] [address] Dr. Preston George IG # 0.01 10e3/ul Normal 0.00-0.03 [facility] Comment on above: Performed By: #### H FPFCBC #### [facility] [address] [place] [address] Dr. Preston George IG % 0.2 % Normal 0.0-0.5 [facility] Comment on above: Performed By: #### H FPFCBC #### [facility] [address] [place] [address] Dr. Preston George LYMPH # 2.2 103/ul Normal 1.2-3.8 [facility] Comment on above: Performed By: #### H FPFCBC #### [facility] [address] [place] [address] Dr. Preston George Lymphocytes/100 WBC (Bld) 45.5 % Normal 20.5-60.0 [facility] Comment on above: Performed By: #### H FPFCBC #### [facility] [address] [place] [address] Dr. Preston George MCH (RBC) [Entitic mass] 31.0 pg Normal 26.7-34.0 [facility] Comment on above: Performed By: #### H FPFCBC #### [facility] [address] [place] [address] Dr. Preston George MCHC (RBC) [Mass/Vol] 32.8 g/dL Normal 29.9-35.2 [facility] Comment on above: Performed By: #### H FPFCBC #### [facility] [address] [place] [address] Dr. Preston George MCV (RBC) [Entitic vol] 94.4 fL Normal 81.0-99.0 [facility] Comment on above: Performed By: #### H FPFCBC #### [facility] [address] [place] [address] Dr. Preston George MONO # 0.5 103/ul Normal 0.3-0.8 [facility] Comment on above: Performed By: #### H FPFCBC #### [facility] [address] [place] [address] Dr. Preston George Monocytes/100 WBC (Bld) 9.6 % Normal 1.7-12.0 [facility] Comment on above: Performed By: #### H FPFCBC #### [facility] [address] [place] [address] Dr. Preston George NEUT # 2.0 103/ul Normal 1.4-6.5 [facility] Comment on above: Performed By: #### H FPFCBC #### [facility] [address] [address] [address] Preston George Neutrophils/100 WBC (Bld) 41.0 % Critically low 43.0-75.0 [facility] Comment on above: Performed By: #### H FPFCBC #### [facility] [address] [address] [address] Preston George Platelet mean volume (Bld) [Entitic vol] 10.5 fL Normal 9.5-13.5 [facility] Comment on above: Performed By: #### H FPFCBC #### [facility] [address] [address] [address] Preston George PLT 274 103/ul Normal 150-450 [facility] Comment on above: Performed By: #### H FPFCBC #### [facility] [address] [place] [address] Dr. Preston George RBC 4.32 106/ul Normal 4.20-5.40 [facility] Comment on above: Performed By: #### H FPFCBC #### [facility] [address] [place] [address] Dr. Preston George WBC 4.8 103/ul Normal 4.0-11.0 [facility] Comment on above: Performed By: #### H FPFCBC #### [facility] [address] [place] [address] Dr. Preston George [facility] PROFILEon 022 Albumin [Mass/Vol] 3.9 g/dL Normal 3.4-5.0 [facility] Comment on above: Performed By: #### H FPF #### [facility] [address] [place] [address] Dr. Preston George Albumin/Globulin [Mass ratio] 1.3 {ratio} Normal [facility] Comment on above: Performed By: #### H FPF #### [facility] [address] [place] [address] Dr. Preston George ALP [Catalytic activity/Vol] 40 U/L Critically low 46-116 [facility] Comment on above: Performed By: #### H FPF #### [facility] [address] [address] [address] Preston George ALT [Catalytic activity/Vol] 17 U/L Normal 14-59 [facility] Comment on above: Performed By: #### H FPF #### [facility] [address] [address] [address] Preston George AST [Catalytic activity/Vol] 14 U/L Critically low 15-37 [facility] Comment on above: Performed By: #### H FPF #### [facility] [address] [address] [address] Preston George Bilirubin [Mass/Vol] 0.5 mg/dL Normal 0.2-1.0 [facility] Comment on above: Performed By: #### H FPF #### [facility] [address] [place] [address] Dr. Preston George Calcium [Mass/Vol] 8.7 mg/dL Normal 8.5-10.1 [facility] Comment on above: Performed By: #### H FPF #### [facility] [address] [place] [address] Dr. Preston George Chloride [Moles/Vol] 105 mmol/L Normal 98-107 [facility] Comment on above: Performed By: #### H FPF #### [facility] [address] [place] [address] Dr. Preston George CHOL-HDL RATIO NORM SEE BELOW Normal [facility] Comment on above: Result Comment: 3.3 - 4.4 LOW RISK 4.4 - 7.1 AVERAGE RISK 7.1 - 11.0 MODERATE RISK >11.0 HIGH RISK Performed By: #### H FPF #### [facility] [address] [address] [address] Preston George Cholesterol [Mass/Vol] 204 mg/dL Critically high <=200 [facility] Comment on above: Performed By: #### H FPF #### [facility] [address] [address] [address] Preston George Cholesterol in HDL [Mass/Vol] 80 mg/dL Critically high 40-60 [facility] Comment on above: Performed By: #### H FPF #### [facility] [address] [address] [address] Preston George Cholesterol in LDL [Mass/Vol] 118.0 mg/dL Normal [facility] Comment on above: Performed By: #### H FPF #### [facility] [address] [address] [address] Preston George Cholesterol.total/Cho lesterol in HDL [Mass ratio] 2.6 {ratio} Normal [facility] Comment on above: Performed By: #### H FPF #### [facility] [address] [address] [address] Preston George CO2 [Moles/Vol] 24.7 mmol/L Normal 21.0-32.0 [facility] Comment on above: Performed By: #### H FPF #### [facility] [address] [address] [address] Preston George Creatinine [Mass/Vol] 0.64 mg/dL Normal 0.55-1.02 [facility] Comment on above: Performed By: #### H FPF #### [facility] [address] [address] [address] Preston George Globulin (S) [Mass/Vol] 2.9 g/dL Normal [facility] Comment on above: Performed By: #### H FPF #### [facility] [address] [address] [address] Preston George Glucose [Mass/Vol] 92 mg/dL Normal 74-106 [facility] Comment on above: Performed By: #### H FPF #### [facility] [address] [address] [address] Preston George HDL NORMAL > or = 60 mg/dl - LOW CARDIOVASCULAR RISK <40 mg/dl - HIGH CARDIOVASCULAR RISK Normal [facility] Comment on above: Performed By: #### H FPF #### [facility] [address] [address] [address] Preston George LDL CALC NORMAL SEE BELOW Normal [facility] Comment on above: Result Comment: <100 mg/dl OPTIMAL 100 - 129 mg/dl NEAR OR ABOVE OPTIMAL 130 - 159 mg/dl BORDERLINE HIGH 160 - 189 mg/dl HIGH >190 mg/dl VERY HIGH Performed By: #### H FPF #### [facility] [address] [place] [address] Dr. Preston George Potassium [Moles/Vol] 4.2 mmol/L Normal 3.5-5.1 [facility] Comment on above: Performed By: #### H FPF #### [facility] [address] [address] [address] Preston George Protein [Mass/Vol] 6.8 g/dL Normal 6.4-8.2 [facility] Comment on above: Performed By: #### H FPF #### [facility] [address] [place] [address] Dr. Preston George Sodium [Moles/Vol] 141 mmol/L Normal 136-145 [facility] Comment on above: Performed By: #### H FPF #### [facility] [address] [place] [address] Dr. Preston George Triglyceride [Mass/Vol] 30 mg/dL Normal <=150 [facility] Comment on above: Performed By: #### H FPF #### [facility] [address] [place] [address] Dr. Preston George TSH 2.941 uIU/mL Normal 0.358-3.740 [facility] Comment on above: Performed By: #### H FPF #### [facility] [address] [place] [address] Dr. Preston George Urea nitrogen [Mass/Vol] 13.0 mg/dL Normal 7.0-18.0 [facility] Comment on above: Performed By: #### H FPF #### [facility] [address] [place] [address] Dr. Preston George Urea nitrogen/Creatinine [Mass ratio] 20.3 mg/mg Normal [facility] Comment on above: Performed By: #### H FPF #### [facility] [address] [place] [address] Dr. Preston George VLDL CALC 6.0 mg/dL Normal [facility] Comment on above: Performed By: #### H FPF #### [facility] [address] [address] [address] Preston George Q - HCG TOTAL QNon 2 HCG Qn 111 m[IU]/mL High [facility] Comment on above: Order Comment: [facility] performed at: [employer], [address] [place] [address], [address] [place] [address], Casework Specialist: Salvatore Lawson MD [facility] Collection Date/Time: [id number] [facility] Results Received Date/Time: [facility] Reported Date/Time: FASTING: NO Result Comment: Refe rence Range Non or premenopausal <5 Postmenopausal <10 Values from different assay methods may vary. The use of this assay to monitor or to diagnose patients with cancer or any condition unrelated to has not been cleared or approved by the FDA or the associate relations specialist of the assay. Performed By: #### 2 [id number] #### [facility] [address] [place] [address] Q - HCG TOTAL QNon 2 HCG Qn 820 m[IU]/mL [facility] Comment on above: Order Comment: [facility] performed at: [employer], [facility], [address] [place] [address], [address] [place] [address], [address] [place] [address], Casework Specialist: Salvatore Lawson MD [facility] Collection Date/Time: [id number] [facility] Results Received Date/Time: [id number] [facility] Reported Date/Time: [id number] Result Comment: Refe rence Range Non or premenopausal <5 Postmenopausal <10 Values from different assay methods may vary. The use of this assay to monitor or to diagnose patients with cancer or any condition unrelated to has not been cleared or approved by the FDA or the associate relations specialist of the assay. Performed By: #### 2 [id number] #### [facility] [address] [place] [address] Q - HCG TOTAL QNon 2 HCG Qn 2387 m[IU]/mL [facility] [employer] Comment on above: Order Comment: [facility] performed at: [facility], [address], [address] [place], [address], Casework Specialist: Salvatore Lawson MD [facility] Collection Date/Time: [id number] [facility] Results Received Date/Time: [id number] [facility] Reported Date/Time: Result Comment: Refe rence Range Non or premenopausal <5 Postmenopausal <10 Values from different assay methods may vary. The use of this assay to monitor or to diagnose patients with cancer or any condition unrelated to has not been cleared or approved by the FDA or the associate relations specialist of the assay. Performed By: #### 2 [id number] #### [facility] [address] [place] [id number] ABO AND RH TYPEon 04-04-2022 ABO and Rh group Nom (Bld) ABO Rh Typing A Rh Positive Normal [facility] Comment on above: Performed By: #### A DAYA #### [facility] [address] [place] [address] Dr. Preston George CBC AUTO DIFFon 04-04-2022 BASO # 0.0 103/ul Normal 0.0-0.1 [facility] Comment on above: Performed By: #### C BC #### [facility] [address] [place] [address] Dr. Preston George Basophils/100 WBC (Bld) 0.5 % Normal 0.2-2.0 [facility] Comment on above: Performed By: #### C BC #### [facility] [address] [place] [address] Dr. Preston George EO # 0.1 103/ul Normal 0.0-0.7 [facility] Comment on above: Performed By: #### C BC #### [facility] [address] [place] [address] Dr. Preston George Eosinophils/100 WBC (Bld) 1.8 % Normal 0.9-7.0 [facility] Comment on above: Performed By: #### C BC #### [facility] [address] [place] [address] Dr. Preston George Erythrocyte distribution width (RBC) [Ratio] 13.2 % Normal 11.0-15.0 [facility] Comment on above: Performed By: #### C BC #### [facility] [address] [place] [address] Dr. Preston George Hematocrit (Bld) [Volume fraction] 37.1 % Normal 36.0-48.0 [facility] Comment on above: Performed By: #### C BC #### [facility] [address] [place] [address] Dr. Preston George Hemoglobin (Bld) [Mass/Vol] 12.5 g/dL Normal 12.0-16.0 [facility] Comment on above: Performed By: #### C BC #### [facility] [address] [place] [address] Dr. Preston George IG # 0.01 10e3/ul Normal 0.00-0.03 [facility] Comment on above: Performed By: #### C BC #### [facility] [address] [place] [address] Dr. Preston George IG % 0.2 % Normal 0.0-0.5 [facility] Comment on above: Performed By: #### C BC #### [facility] [address] [place] [address] Dr. Preston George LYMPH # 1.3 103/ul Normal 1.2-3.8 [facility] Comment on above: Performed By: #### C BC #### [facility] [address] [place] [address] Dr. Preston George Lymphocytes/100 WBC (Bld) 23.7 % Normal 20.5-60.0 [facility] Comment on above: Performed By: #### C BC #### [facility] [address] [place] [address] Dr. Preston George MANUAL DIFF REQ NO Normal [facility] Comment on above: Performed By: #### C BC #### [facility] [address] [place], [place] [id number] Dr. Preston George MCH (RBC) [Entitic mass] 30.9 pg Normal 26.7-34.0 [facility] Comment on above: Performed By: #### C BC #### [facility] [address] [place] [address] Dr. Preston George MCHC (RBC) [Mass/Vol] 33.7 g/dL Normal 29.9-35.2 [facility] Comment on above: Performed By: #### C BC #### [facility] [address] [place] [address] Dr. Preston George MCV (RBC) [Entitic vol] 91.8 fL Normal 81.0-99.0 [facility] Comment on above: Performed By: #### C BC #### [facility] [address] [place] [address] Dr. Preston George MONO # 0.5 103/ul Normal 0.3-0.8 [facility] Comment on above: Performed By: #### C BC #### [facility] [address] [place] [address] Dr. Preston George Monocytes/100 WBC (Bld) 8.5 % Normal 1.7-12.0 [facility] Comment on above: Performed By: #### C BC #### [facility] [address] [place] [address] Dr. Preston George NEUT # 3.7 103/ul Normal 1.4-6.5 [facility] Comment on above: Performed By: #### C BC #### [facility] [address] [place] [address] Dr. Preston George Neutrophils/100 WBC (Bld) 65.3 % Normal 43.0-75.0 [facility] Comment on above: Performed By: #### C BC #### [facility] [address] [place] [address] Dr. Preston George Platelet mean volume (Bld) [Entitic vol] 9.5 fL Normal 9.5-13.5 [facility] Comment on above: Performed By: #### C BC #### [facility] [address] [place] [address] Dr. Preston George PLT 240 103/ul Normal 150-450 [facility] Comment on above: Performed By: #### C BC #### [facility] [address] [place] [address] Dr. Preston George RBC 4.04 106/ul Critically low 4.20-5.40 [facility] Comment on above: Performed By: #### C BC #### [facility] [address] [address] [address] Preston George WBC 5.7 103/ul Normal 4.0-11.0 [facility] Comment on above: Performed By: #### C BC #### [facility] [address] [place] [address] Dr. Preston George CULTURE URINEon 04-04-2022 CULTURE URINE Culture Observations: MODERATE GROWTH OF MIXED GENITAL JOSE A. NO POTENTIAL PATHOGENS SEEN. Normal [facility] Comment on above: Performed By: #### U RCX #### [facility] [address] [place] [address] Dr. Preston George ER URINE PROFILEon Bilirubin Ql (U) Negative Normal NEGATIVE [facility] Comment on above: Performed By: #### U MICRO, ERUR #### [facility] [address] [place] [address] Dr. Preston George Clarity (U) CLOUDY Abnormal CLEAR [facility] Comment on above: Performed By: #### U MICRO, ERUR #### [facility] [address] [place] [address] Dr. Preston George Color (U) RED Abnormal YELLOW [facility] Comment on above: Performed By: #### U MICRO, ERUR #### [facility] [address] [place] [address] Dr. Preston PERERA A micrscopic examination will be performed if indicated. Normal [facility] Comment on above: Performed By: #### U MICRO, ERUR #### [facility] [address] [place] [address] Dr. Preston George Glucose Ql (U) Negative Normal NEGATIVE [facility] Comment on above: Performed By: #### U MICRO, ERUR #### [facility] [address] [address] [address] Preston George Hemoglobin Ql (U) LARGE Abnormal NEGATIVE [facility] Comment on above: Performed By: #### U MICRO, ERUR #### [facility] [address] [place] [address] Dr. Preston George Ketones Ql (U) Negative Normal NEGATIVE [facility] Comment on above: Performed By: #### U MICRO, ERUR #### [facility] [address] [place] [address] Dr. Preston George LEUKOCYTES Negative Normal NEGATIVE [facility] Comment on above: Performed By: #### U MICRO, ERUR #### [facility] [address] [place] [address] Dr. Preston George Nitrite Ql (U) Negative Normal NEGATIVE [facility] Comment on above: Performed By: #### U MICRO, ERUR #### [facility] [address] [place] [address] Dr. Preston George pH (U) 8.5 [pH] Normal 5-9 [facility] Comment on above: Performed By: #### U MICRO, ERUR #### [facility] [address] [place] [address] Dr. Perston George Protein (U) [Mass/Vol] 30 mg/dL Abnormal NEGATIVE/ TRACE [facility] Comment on above: Performed By: #### U MICRO, ERUR #### [facility] [address] [place] [address] Dr. Preston George SPEC GRAVITY 1.020 Normal 1.005-<=1.025 [facility] Comment on above: Performed By: #### U MICRO, ERUR #### [facility] [address] [place] [address] Dr. Preston George UR MICRO IND INDICATED Normal [facility] Comment on above: Performed By: #### U MICRO, ERUR #### [facility] [address] [place] [address] Dr. Preston George Urobilinogen Qn (U) 0.2 {Anupam'U}/dL Normal 0.2 - 1. 0 [facility] Comment on above: Performed By: #### U MICRO, ERUR #### [facility] [address] [address] [address] Preston George PREG QUANT HCGon 04-04-2022 HCG QUANT 5751 mIU/mL Normal [facility] Comment on above: Performed By: #### P REGQNT #### [facility] [address] [address] [address] Preston George HCG RANGE SEE BELOW Normal [facility] Comment on above: Result Comment: 5-50 0-1 WEEK 40-300 1-2 WEEKS 100-1,000 2-3 WEEKS 500-6,000 3-4 WEEKS 5,000-200,000 1-2 MONTHS 10,000-100,000 2-3 MONTHS 3,000-50,000 2ND TRIMESTER 1,000-50,000 3RD TRIMESTER Performed By: #### P REGQNT #### [facility] [address] [place] [address] Dr. Preston George PROF 14(COMP METB)on 022 Albumin [Mass/Vol] 3.5 g/dL Normal 3.4-5.0 [facility] Comment on above: Performed By: #### C MP #### [facility] [address] [place] [address] Dr. Preston George Albumin/Globulin [Mass ratio] 1.1 {ratio} Normal [facility] Comment on above: Performed By: #### C MP #### [facility] [address] [place] [address] Dr. Preston George ALP [Catalytic activity/Vol] 38 U/L Critically low 46-116 [facility] Comment on above: Performed By: #### C MP #### [facility] [address] [place] [address] Dr. Preston George ALT [Catalytic activity/Vol] 22 U/L Normal 14-59 [facility] Comment on above: Performed By: #### C MP #### [facility] [address] [place], [place] [id number] Dr. Preston George Anion gap [Moles/Vol] 14.1 mmol/L Normal [facility] Comment on above: Performed By: #### C MP #### [facility] [address] [address] [address] Preston George AST [Catalytic activity/Vol] 14 U/L Critically low 15-37 [facility] Comment on above: Performed By: #### C MP #### [facility] [address] [address] [address] Preston George Bilirubin [Mass/Vol] 0.3 mg/dL Normal 0.2-1.0 [facility] Comment on above: Performed By: #### C MP #### [facility] [address] [address] [address] Preston George Calcium [Mass/Vol] 8.6 mg/dL Normal 8.5-10.1 [facility] Comment on above: Performed By: #### C MP #### [facility] [address] [place] [address] Dr. Preston George Chloride [Moles/Vol] 105 mmol/L Normal 98-107 [facility] Comment on above: Performed By: #### C MP #### [facility] [address] [address] [address] Preston George CO2 [Moles/Vol] 24.2 mmol/L Normal 21.0-32.0 [facility] Comment on above: Performed By: #### C MP #### [facility] [address] [address] [address] Preston George Creatinine [Mass/Vol] 0.58 mg/dL Normal 0.55-1.02 [facility] Comment on above: Performed By: #### C MP #### [facility] [address] [place] [address] Dr. Preston George EGFR-AF MONGOLIAN >60 Normal >=60 [facility] Comment on above: Performed By: #### C MP #### [facility] [address] [place] [address] Dr. Preston George EGFR-NON AF MONGOLIAN >60 Normal >=60 [facility] Comment on above: Performed By: #### C MP #### [facility] [address] [address] [address] Preston George Globulin (S) [Mass/Vol] 3.1 g/dL Normal [facility] Comment on above: Performed By: #### C MP #### [facility] [address] [address] [address] Preston George Glucose [Mass/Vol] 100 mg/dL Normal 74-106 [facility] Comment on above: Performed By: #### C MP #### [facility] [address] [address] [address] Preston George Potassium [Moles/Vol] 4.3 mmol/L Normal 3.5-5.1 [facility] Comment on above: Performed By: #### C MP #### [facility] [address] [address] [address] Preston George Protein [Mass/Vol] 6.6 g/dL Normal 6.4-8.2 [facility] Comment on above: Performed By: #### C MP #### [facility] [address] [address] [address] Preston George Sodium [Moles/Vol] 139 mmol/L Normal 136-145 [facility] Comment on above: Performed By: #### C MP #### [facility] [address] [address] [address] Preston George Urea nitrogen [Mass/Vol] 12.0 mg/dL Normal 7.0-18.0 [facility] Comment on above: Performed By: #### C MP #### [facility] [address] [address] [address] Preston George Urea nitrogen/Creatinine [Mass ratio] 20.7 mg/mg Normal [facility] Comment on above: Performed By: #### C MP #### [facility] [address] [address] [address] Preston George URINE MICROSCOPIC ONLYon BACTERIA NONE SEEN Normal NONE SEEN [facility] Comment on above: Performed By: #### U MICRO, ERUR #### [facility] [address] [place] [address] Dr. Preston George Bacteria identified Cx Nom (U) INDICATED Normal [facility] Comment on above: Performed By: #### U MICRO, ERUR #### [facility] [address] [place] [address] Dr. Preston George CAST NONE SEEN Normal NONE SEEN [facility] Comment on above: Performed By: #### U MICRO, ERUR #### [facility] [address] [place] [address] Dr. Preston George Crystals LM Nom (Urine sed) NONE SEEN Normal NONE SEEN [facility] Comment on above: Performed By: #### U MICRO, ERUR #### [facility] [address] [place] [address] Dr. Preston George Epithelial cells LM Ql (Urine sed) FEW Abnormal NONE SEEN /RARE [facility] Comment on above: Performed By: #### U MICRO, ERUR #### [facility] [address] [place] [address] Dr. Preston George MUCOUS NONE SEEN Normal NONE SEEN [facility] Comment on above: Performed By: #### U MICRO, ERUR #### [facility] [address] [place] [address] Dr. Preston George RBC 50-75 Abnormal 0-2 [facility] Comment on above: Performed By: #### U MICRO, ERUR #### [facility] [address] [place] [address] Dr. Preston George WBC 2-5 Abnormal NONE SEEN [facility] Comment on above: Performed By: #### U MICRO, ERUR #### [facility] [address] [place] [address] Dr. Preston George US PREG TVon 04-04-2022 [...] PUMA CONNOLLY Date: 2022-04-04 07:15 Normal [facility] US Pelvic, Transabdominalon 01-02-2022 US Pelvic, Transabdominal [...] by Rangel Chowdhury on 01/03/2022 1035 Normal [facility] Feather [employer]her Complete Blood Counton 12-26 Erythrocyte distribution width (RBC) [Ratio] 13.1 % Normal 11.0-15.0 [facility] Comment on above: Performed By: #### 2 5791E, 402X, 28079R, 561, 67776R #### [facility] [address] [place] [address] Hematocrit (Bld) [Volume fraction] 40.7 % Normal 35.0-47.0 [facility] Comment on above: Performed By: #### 2 5791E, 402X, 89745T, 561, 51245P #### [facility] [address] [place] [address] Hemoglobin (Bld) [Mass/Vol] 13.4 g/dL Normal 11.6-15.5 [facility] Fe[facility] [employer]her Comment on above: Performed By: #### 2 5791E, 402X, 11723N, 561, 28081O #### [facility] [address] [place] [address] MCH (RBC) [Entitic mass] 31.1 pg Normal 27.0-33.0 [facility] Comment on above: Performed By: #### 2 5791E, 402X, 82162R, 561, 88023F #### [facility] [address] [place] [address] MCHC (RBC) [Mass/Vol] 32.9 g/dL Normal 32.0-36.0 [facility] Comment on above: Performed By: #### 2 5791E, 402X, 29153Z, 561, 32511R #### [facility] [address] [place] [address] MCV (RBC) [Entitic vol] 94 fL Normal 80-100 [facility] Comment on above: Performed By: #### 2 5791E, 402X, 89087B, 561, 99267B #### [facility] [address] [place] [address] Platelet mean volume (Bld) [Entitic vol] 11.50 fL Normal 7.50-12.50 [facility] Comment on above: Performed By: #### 2 5791E, 402X, 67673J, 561, 81401O #### [facility] [address] [place] [address] Platelets (Bld) [#/Vol] 257 10*3/uL Normal 140-400 [facility] Comment on above: Performed By: #### 2 5791E, 402X, 90446V, 561, 84846T #### [facility] [address] [place] [address] RBC (Bld) [#/Vol] 4.31 10*6/uL Normal 3.90-5.20 [facility] Comment on above: Performed By: #### 2 5791E, 402X, 73271H, 561, 76977Z #### [facility] [address] [place] [address] RDW-SD 45.2 fL Normal 37.0-50.0 [facility] Comment on above: Performed By: #### 2 5791E, 402X, 47518A, 561, 63089L #### [facility] [address] [place] [address] WBC (Bld) [#/Vol] 5.5 10*3/uL Normal 3.8-11.0 León jackson [place] [facility] Comment on above: Performed By: #### 2 5791E, 402X, 82251J, 561, 10621I #### [facility] [address] [place] [address] Comprehensive Metabolic Pane renzo 12-26-2021 Albumin [Mass/Vol] 4.6 g/dL Normal 3.6-5.1 León rn [place] [facility] Comment on above: Performed By: #### 2 5791E, 402X, 85630G, 561, 44041B #### [facility] [address] [place] [address] Albumin/Globulin [Mass ratio] 2.4 {ratio} Normal 1.0-2.5 [facility] Feather Washer Comment on above: Performed By: #### 2 5791E, 402X, 55457C, 561, 52681Q #### [facility] [address] [place] [address] ALP [Catalytic activity/Vol] 45 U/L Normal 35-119 [facility] Comment on above: Performed By: #### 2 5791E, 402X, 42051J, 561, 43129J #### [facility] [address] [place] [address] ALT [Catalytic activity/Vol] 14 U/L Normal 6-33 [facility] Comment on above: Result Comment: 10/12 Female reference range changed. Performed By: #### 2 5791E, 402X, 10833M, 561, 96131R #### [facility] [address] [place] [address] Anion gap [Moles/Vol] 16 mmol/L Normal 12-20 [facility] Comment on above: Result Comment: Effe ctive 11/17/2019 reference range changed. Performed By: #### 2 5791E, 402X, 56961R, 561, 95455O #### [facility] [address] [place] [address] AST [Catalytic activity/Vol] 20 U/L Normal 9-34 [place] [facility] Comment on above: Performed By: #### 2 5791E, 402X, 14169V, 561, 43296N #### [facility] [address] [place] [address] Bilirubin [Mass/Vol] 0.38 mg/dL Normal 0.30-1.20 [facility] Comment on above: Performed By: #### 2 5791E, 402X, 18435P, 561, 42742S #### [facility] [address] [place] [address] BUN/CREA 26 Ratio High 6-22 [facility] Comment on above: Performed By: #### 2 5791E, 402X, 60852L, 561, 38112K #### [facility] [address] [place] [address] Calcium [Mass/Vol] 9.7 mg/dL Normal 8.6-10.2 [facility] Comment on above: Performed By: #### 2 5791E, 402X, 51872S, 561, 93830I #### [facility] [address] [place] [address] Chloride [Moles/Vol] 104 mmol/L Normal 98-107 [facility] Comment on above: Performed By: #### 2 5791E, 402X, 88690D, 561, 25761F #### [facility] [address] [place] [address] CO2 [Moles/Vol] 25 mmol/L Normal 20-31 [facility] Comment on above: Performed By: #### 2 5791E, 402X, 66867F, 561, 34880M #### [facility] [address] [place] [address] Creatinine [Mass/Vol] 0.5 mg/dL Low 0.6-1.4 [facility] Comment on above: Performed By: #### 2 5791E, 402X, 87443I, 561, 56237S #### [facility] [address] [place] [address] eGFRAA 170 mL/min/1.73m2 Normal >60 [facility] Specialist Comment on above: Performed By: #### 2 5791E, 402X, 84222L, 561, 62379T #### [facility] [address] [place] [address] eGFRNAA 140 mL/min/1.73m2 Normal >60 [facility] Comment on above: Performed By: #### 2 5791E, 402X, 42963Y, 561, 25905U #### [facility] [address] [place] [address] Globulin (S) [Mass/Vol] 1.9 g/dL Normal 1.9-3.7 [facility] Comment on above: Performed By: #### 2 5791E, 402X, 16833K, 561, 51553J #### [facility] [address] [place] [address] Glucose [Mass/Vol] 86 mg/dL Normal 65-99 León jackson [place] Fe[employer] Comment on above: Result Comment: For FASTING Glucose --- ADA reference ranges: Normal 65-99 mg/dl Prediabetes 100-125 Diabetes >/= 126 Performed By: #### 2 5791E, 402X, 01660W, 561, 51986X #### [facility] [address] [place] [address] Potassium [Moles/Vol] 4.6 mmol/L Normal 3.5-5.5 [facility] Comment on above: Performed By: #### 2 5791E, 402X, 29559G, 561, 79176I #### [facility] [address] [place] [address] Protein [Mass/Vol] 6.5 g/dL Normal 6.1-8.1 León jackson [place] [facility] Comment on above: Performed By: #### 2 5791E, 402X, 75041J, 561, 49805P #### [facility] [address] [place] [address] Sodium [Moles/Vol] 141 mmol/L Normal 135-146 León jackson [place] [facility] Comment on above: Performed By: #### 2 5791E, 402X, 83535O, 561, 06419R #### [facility] [address] [place] [address] Urea nitrogen [Mass/Vol] 13 mg/dL Normal 7-25 [facility] Feather Washer Comment on above: Performed By: #### 2 5791E, 402X, 34152D, 561, 22399N #### [facility] [address] [place] [address] Q - DHEA SULFATEon DHEA SULFATE 149 mcg/dL Normal 19-237 [facility] Feather Washer Comment on above: Order Comment: [facility] performed at: [facility], [address] , [address] [place] [address], [address] [place] [address], Casework Specialist: Salvatore Lawson MD [facility] Collection Date/Time: [facility] Results Received Date/Time: [facility] Reported Date/Time: FASTING: UNKNOWN Performed By: #### 2 5791E, 402X, 24756I, 561, 66310S #### [facility] [address] [place] [address] Q - FSHon 12-26-2021 FSH 6.8 mIU/mL Normal [facility] Comment on above: Order Comment: [facility] performed at: [employer], [address], [address] [place] [address], [address] [place] [address], Casework Specialist: Salvatore Lawson MD [facility] Collection Date/Time: [facility] Results Received Date/Time: [facility] Reported Date/Time: FASTING: UNKNOWN Result Comment: Refe rence Range Follicular Phase 2.5-10.2 Mid-cycle Peak 3.1-17.7 Luteal Phase 1.5- 9.1 Postmenopausal 23.0-116.3 Performed By: #### 2 5791E, 402X, 54255K, 561, 60229N #### [facility] [address] [place] [address] Q - INSULIN,SERUMon 12-26-19 INSULIN 1.8 uIU/mL Normal [facility] Comment on above: Order Comment: [facility] performed at: [employer], [address] , [address] [place] [address], [address] [place] [address], Casework Specialist: Salvatore Lawson MD [facility] Collection Date/Time: [facility] Results Received Date/Time: [facility] Reported Date/Time: FASTING: UNKNOWN Result Comment: Refe rence Range < or = 19.6 Risk: Optimal < or = 19.6 Moderate NA High >19.6 Adult cardiovascular event risk category cut points (optimal, moderate, high) are based on [employer] population data from 10/2011. This insulin assay shows strong cross-reactivity for some insulin analogs (lispro, aspart, and glargine) and much lower cross-reactivity with others (detemir, glulisine). Performed By: #### 2 5791E, 402X, 53806V, 561, 31912B #### [facility] [address] [place] [address] Q - LHon 12-26-2021 LH 9.5 mIU/mL Normal [facility] Comment on above: Order Comment: [facility] performed at: [employer], [address] [place] [address], [address] [place] [address], [address] [place] [address], Casework Specialist: Salvatore Lawson MD [facility] Collection Date/Time: [facility] Results Received Date/Time: [facility] Reported Date/Time: FASTING: UNKNOWN Result Comment: Refe rence Range Follicular Phase 1.9-12.5 Mid-Cycle Peak 8.7-76.3 Luteal Phase 0.5-16.9 Postmenopausal 10.0-54.7 Performed By: #### 2 5791E, 402X, 14284V, 561, 97131K #### [facility] [address] [place] [address] Q - PROGESTERONEon PROGESTERONE <0.5 Normal [facility] Feather Washer Comment on above: Order Comment: [facility] performed at: [facility], [address] [place] [address], [address] [place] [address], [address] [place] [address], Casework Specialist: Salvatore Lawson MD [facility] Collection Date/Time: [facility] Results Received Date/Time: [id number] [facility] Reported Date/Time: [id number] FASTING: UNKNOWN Result Comment: Refe rence Ranges Female Follicular Phase < 1.0 Luteal Phase 2.6-21.5 Post menopausal < 0.5 1st Trimester 4.1-34.0 2nd Trimester 24.0-76.0 3rd Trimester 52.0-302.0 Performed By: #### 2 5791E, 402X, 36274N, 561, 60853N #### [facility] [address] [place] [address] TSH w/ Reflex to Free T4on 0 12-26-2021 TSH 2.190 uIU/mL Normal 0.400-4.500 [facility] io Feather Washer Comment on above: Performed By: #### 2 5791E, 402X, 95649N, 561, 36824K #### [facility] [address] [place] [address] Vital Signs Date Time Vital Sign Value Performing Clinician Facility 07-06-2025 15:40-0400 Body temperature 97.39 [degF] Bud Santoslobito STRIKER OFF Work Phone: [facility] 07-06-2025 15:40-0400 Diastolic blood pressure 70 mm[Hg] Bud Santoslobito STRIKER OFF Work Phone: [facility] 07-06-2025 15:40-0400 Respiratory rate 16 /min Bud Santoshenriyajaira STRIKER OFF Work Phone: [facility] 07-06-2025 15:40-0400 Systolic blood pressure 120 mm[Hg] Bud Santoslobito STRIKER OFF Work Phone: [facility] 07-06-2025 15:26-0400 Body mass index (BMI) [Ratio] 28.21 kg/m2 Heriberto Trento CNM Work Phone: [facility] 07-06-2025 15:26-0400 Body weight 86.64 kg Heriberto Nieshao CNM Work Phone: [facility] 07-06-2025 15:26-0400 Diastolic blood pressure 70 mm[Hg] Heriberto Nieshao CNM Work Phone: [facility] 07-06-2025 15:26-0400 Systolic blood pressure 120 mm[Hg] Heriberto Snell CNM Work Phone: [facility] 07-01-2025 16:03-0400 Body mass index (BMI) [Ratio] 27.91 kg/m2 Bud Main STRIKER OFF Work Phone: [facility] 07-01-2025 16:03-0400 Body weight 85.73 kg Bud Main STRIKER OFF Work Phone: [facility] 07-01-2025 16:03-0400 Diastolic blood pressure 82 mm[Hg] Bud Main STRIKER OFF Work Phone: [facility] 07-01-2025 16:03-0400 Heart rate 72 /min Bud Main STRIKER OFF Work Phone: [facility] 07-01-2025 16:03-0400 SaO2% (BldA) [Mass fraction] 99 % Bud Main STRIKER OFF Work Phone: [facility] 07-01-2025 16:03-0400 Systolic blood pressure 126 mm[Hg] Bud Main STRIKER OFF Work Phone: [facility] 06-29-2025 16:03-0400 Body mass index (BMI) [Ratio] 28.29 kg/m2 Heriberto Snell CNM Work Phone: [facility] 06-29-2025 16:03-0400 Body weight 86.91 kg Heriberto Snell CNM Work Phone: [facility] 06-29-2025 16:03-0400 Diastolic blood pressure 78 mm[Hg] Heriberto Snell CNM Work Phone: [facility] 06-29-2025 16:03-0400 Systolic blood pressure 126 mm[Hg] Heriberto Snell CNM Work Phone: [facility] 06-29-2025 12:33-0400 Body mass index (BMI) [Ratio] 28.06 kg/m2 Bud Main STRIKER OFF Work Phone: [facility] 06-29-2025 12:33-0400 Body weight 86.18 kg Bud Main STRIKER OFF Work Phone: [facility] 06-29-2025 12:33-0400 Diastolic blood pressure 76 mm[Hg] Bud Main STRIKER OFF Work Phone: [facility] 06-29-2025 12:33-0400 Heart rate 77 /min Bud Main STRIKER OFF Work Phone: [facility] 06-29-2025 12:33-0400 SaO2% (BldA) [Mass fraction] 99 % Bud Main STRIKER OFF Work Phone: [facility] 06-29-2025 12:33-0400 Systolic blood pressure 118 mm[Hg] Bud Main STRIKER OFF Work Phone: [facility] 06-28-2025 10:50-0400 Body height 175.26 cm Sayra Green MD Work Phone: [facility] 06-28-2025 10:50-0400 Body mass index (BMI) [Ratio] 28.3 kg/m2 Sarya Green MD Work Phone: [facility] 06-28-2025 10:50-0400 Body temperature 98.7 [degF] Sayra Green MD Work Phone: [facility] 06-28-2025 10:50-0400 Body weight 87.08 kg Sayra Green MD Work Phone: [facility] 06-28-2025 10:50-0400 Diastolic blood pressure 77 mm[Hg] Sayra Green MD Work Phone: [facility] 06-28-2025 10:50-0400 Heart rate 73 /min Sayra Green MD Work Phone: [facility] 06-28-2025 10:50-0400 Respiratory rate 18 /min Sayra Green MD Work Phone: [facility] 06-28-2025 10:50-0400 SaO2% (BldA) [Mass fraction] 99 % Sayra Green MD Work Phone: [facility] 06-28-2025 10:50-0400 Systolic blood pressure 123 mm[Hg] Sayra Green MD Work Phone: [facility] 06-22-2025 15:00-0400 Body mass index (BMI) [Ratio] 28.35 kg/m2 Heriberto Floro CNM Work Phone: [facility] 06-22-2025 15:00-0400 Body weight 87.09 kg Heriberto Floro CNM Work Phone: [facility] 06-22-2025 15:00-0400 Diastolic blood pressure 80 mm[Hg] Heriberto Floro CNM Work Phone: [facility] 06-22-2025 15:00-0400 Systolic blood pressure 124 mm[Hg] Heriberto Floro CNM Work Phone: [facility] 06-15-2025 15:01-0400 Body mass index (BMI) [Ratio] 27.62 kg/m2 Heriberto Floro CNM Work Phone: [facility] 06-15-2025 15:01-0400 Body weight 84.82 kg Heriberto Floro CNM Work Phone: [facility] 06-15-2025 15:01-0400 Diastolic blood pressure 80 mm[Hg] Heriberto Floro CNM Work Phone: [facility] 06-15-2025 15:01-0400 Systolic blood pressure 118 mm[Hg] Heriberto Floro CNM Work Phone: [facility] 06-08-2025 13:33-0400 Body mass index (BMI) [Ratio] 27.91 kg/m2 Heriberto Floro CNM Work Phone: [facility] 06-08-2025 13:33-0400 Body weight 85.73 kg Heriberto Floro CNM Work Phone: [facility] 06-08-2025 13:33-0400 Diastolic blood pressure 60 mm[Hg] Heriberto Floro CNM Work Phone: [facility] 06-08-2025 13:33-0400 Systolic blood pressure 100 mm[Hg] Heriberto Floro CNM Work Phone: [facility] 06-04-2025 14:39-0400 Body mass index (BMI) [Ratio] 27.91 kg/m2 Heriberto Floro CNM Work Phone: [facility] 06-04-2025 14:39-0400 Body weight 85.73 kg Heriberto Floro CNM Work Phone: [facility] 06-04-2025 14:39-0400 Diastolic blood pressure 70 mm[Hg] Heriberto Floro CNM Work Phone: [facility] 06-04-2025 14:39-0400 Systolic blood pressure 110 mm[Hg] Heriberto Floro CNM Work Phone: [facility] 04-28-2025 13:53-0400 Body mass index (BMI) [Ratio] 27.02 kg/m2 Heriberto Floro CNM Work Phone: [facility] 04-28-2025 13:53-0400 Body weight 83.01 kg Heriberto Floro CNM Work Phone: [facility] 04-28-2025 13:53-0400 Diastolic blood pressure 70 mm[Hg] Heriberto Floro CNM Work Phone: [facility] 04-28-2025 13:53-0400 Systolic blood pressure 110 mm[Hg] Heriberto Floro CNM Work Phone: [facility] 04-07-2025 14:38-0400 Body mass index (BMI) [Ratio] 26.43 kg/m2 Heriberto Floro CNM Work Phone: [facility] 04-07-2025 14:38-0400 Body weight 81.19 kg Heriberto Floro CNM Work Phone: [facility] 04-07-2025 14:38-0400 Diastolic blood pressure 70 mm[Hg] Heriberto Floro CNM Work Phone: [facility] 04-07-2025 14:38-0400 Systolic blood pressure 120 mm[Hg] Heriberto Floro CNM Work Phone: [facility] 03-11-2025 15:32-0400 Body mass index (BMI) [Ratio] 25.25 kg/m2 Heriberto Floro CNM Work Phone: [facility] 03-11-2025 15:32-0400 Body weight 77.56 kg Heriberto Floro CNM Work Phone: [facility] 03-11-2025 15:32-0400 Diastolic blood pressure 70 mm[Hg] Heriberto Floro CNM Work Phone: [facility] 03-11-2025 15:32-0400 Systolic blood pressure 116 mm[Hg] Heriberto Floro CNM Work Phone: [facility] 02-11-2025 09:28-0400 Body mass index (BMI) [Ratio] 24.07 kg/m2 Heriberto Floro CNM Work Phone: [facility] 02-11-2025 09:28-0400 Body weight 73.94 kg Heriberto Floro CNM Work Phone: [facility] 02-11-2025 09:28-0400 Diastolic blood pressure 60 mm[Hg] Heriberto Floro CNM Work Phone: [facility] 02-11-2025 09:28-0400 Systolic blood pressure 110 mm[Hg] Heriberto Floro CNM Work Phone: [facility] 01-14-2025 14:31-0500 Body height 175.3 cm Miki Rosas MD Work Phone: [facility] 01-14-2025 14:31-0500 Body mass index (BMI) [Ratio] 23.54 kg/m2 Miki Rosas MD Work Phone: [facility] 01-14-2025 14:31-0500 Body weight 72.3 kg Miki Rosas MD Work Phone: [facility] 01-14-2025 14:31-0500 Diastolic blood pressure 77 mm[Hg] Miki Rosas MD Work Phone: [facility] 01-14-2025 14:31-0500 Heart rate 82 /min Miki Rosas MD Work Phone: [facility] 01-14-2025 14:31-0500 Systolic blood pressure 133 mm[Hg] Miki Rosas MD Work Phone: [facility] 01-14-2025 09:34-0500 Body mass index (BMI) [Ratio] 23.33 kg/m2 Heriberto Floro CNM Work Phone: [facility] 01-14-2025 09:34-0500 Body weight 71.67 kg Heriberto Floro CNM Work Phone: [facility] 01-14-2025 09:34-0500 Diastolic blood pressure 62 mm[Hg] Heriberto Floro CNM Work Phone: [facility] 01-14-2025 09:34-0500 Systolic blood pressure 102 mm[Hg] Heriberto Floro CNM Work Phone: [facility] 01-07-2025 13:30-0500 Diastolic blood pressure 80 mm[Hg] Heriberto Floro CNM Work Phone: [facility] 01-07-2025 13:30-0500 Systolic blood pressure 122 mm[Hg] Heriberto Floro CNM Work Phone: [facility] 12-17-2024 10:16-0500 Body mass index (BMI) [Ratio] 23.33 kg/m2 Heriberto Floro CNM Work Phone: [facility] 12-17-2024 10:16-0500 Body weight 71.67 kg Heriberto Trento CNM Work Phone: [facility] 12-17-2024 10:16-0500 Diastolic blood pressure 70 mm[Hg] Heriberto Nieshao CNM Work Phone: [facility] 12-17-2024 10:16-0500 Systolic blood pressure 110 mm[Hg] Heriberto Nieshao CNM Work Phone: [facility] 08-18-2024 13:09-0400 Body mass index (BMI) [Ratio] 23.33 kg/m2 Heriberto Trento CNM Work Phone: [facility] 08-18-2024 13:09-0400 Body weight 71.67 kg Heriberto Floro CNM Work Phone: [facility] 08-18-2024 13:09-0400 Diastolic blood pressure 70 mm[Hg] Heriberto Nieshao CNM Work Phone: [facility] 08-18-2024 13:09-0400 Systolic blood pressure 112 mm[Hg] Heriberto Nieshao CNM Work Phone: [facility] Encounters Encounter Date Encounter Type Care Provider Facility Start: 07-06-2025 End: 07-06-2025 Office outpatient visit 15 minutes Bud Main NP [facility] Comment on above: Cellulitis of left l ower extremity (Primary Dx) Start: 07-06-2025 End: 07-06-2025 Subsequent care visit [facility] Comment on above: NST (non-stress test ) reactive ([facility]) (Primary Dx); AMA (advanced maternal age) multigravida 35+, third trimester ([facility]); Encounter for supervision of other normal , third trimester ([facility]); History of section; Unicornuate uterus; Multigravida of advanced maternal age in third trimester ([facility]) Start: 07-06-2025 End: 07-06-2025 ambulatory HERIBERTO L FLORO Not Available Start: 07-06-2025 End: 07-06-2025 Bamboo flowsheet Heriberto L Floro CNM Work Phone: [facility] Start: 07-06-2025 End: 07-06-2025 Bamboo flowsheet Heriberto L Floro CNM Work Phone: [facility] Start: 07-02-2025 End: 07-02-2025 ambulatory HERIBERTO L FLORO Not Available Start: 07-01-2025 End: 07-01-2025 Office outpatient visit 15 minutes Bud Main NP Work Phone: [facility] Comment on above: Cellulitis of left l ower extremity (Primary Dx) Start: 07-01-2025 End: 07-01-2025 ambulatory BUD SANTOSPFER Not Available Start: 06-29-2025 End: 06-29-2025 Subsequent care visit Heriberto Elizabeth Trento CNM Work Phone: [facility] Comment on above: NST (non-stress test ) reactive ([facility]) (Primary Dx); AMA (advanced maternal age) multigravida 35+, third trimester ([facility]) Start: 06-29-2025 End: 06-29-2025 ambulatory HERIBERTO L FLORO Not Available Start: 06-29-2025 End: 06-29-2025 ambulatory BUD KAMPFER Not Available Start: 06-29-2025 End: 06-29-2025 Office outpatient visit 15 minutes Bud Main STRIKER OFF Work Phone: [facility] Comment on above: Cellulitis of left l ower extremity (Primary Dx) Start: 06-28-2025 End: 06-28-2025 ambulatory Sayra Green MD Work Phone: [facility] Work Phone: Start: 06-28-2025 End: 06-28-2025 Patient encounter procedure Josee Noyola [facility] Work Phone: Start: 06-25-2025 End: 06-25-2025 ambulatory HERIBERTO L FLORO Not Available Start: 06-22-2025 End: 06-22-2025 Subsequent care visit Heriberto L Floro CNM Work Phone: [facility] Comment on above: NST (non-stress test ) reactive ([facility]) (Primary Dx); Encounter for supervision of other normal , third trimester ([facility]) Start: 06-22-2025 End: 06-22-2025 ambulatory HERIBERTO L FLORO Not Available Start: 06-22-2025 End: 06-22-2025 Bamboo flowsheet Heriberto L Floro CNM Work Phone: [facility] Start: 06-22-2025 End: 06-22-2025 Bamboo flowsheet Heriberto L Floro CNM Work Phone: [facility] Start: 06-18-2025 End: 06-18-2025 ambulatory HERIBERTO L FLORO Not Available Start: 06-15-2025 End: 06-15-2025 Subsequent care visit Heriberto L Floro CNM Work Phone: [facility] Comment on above: NST (non-stress test ) reactive ([facility]) (Primary Dx); screening for streptococcus B ([facility]); Encounter for supervision of other normal , third trimester ([facility]); AMA (advanced maternal age) multigravida 35+, third trimester ([facility]); History of section Start: 06-15-2025 End: 06-15-2025 ambulatory HERIBERTO L FLORO Not Available Start: 06-15-2025 End: 06-15-2025 Bamboo flowsheet Heriberto L Floro CNM Work Phone: [facility] [place] [facility] Start: 06-15-2025 End: 06-15-2025 Bamboo flowsheet Heriberto L Floro CNM Work Phone: [facility] Start: 06-11-2025 End: 06-11-2025 ambulatory HERIBERTO L FLORO Not Available Start: 06-08-2025 End: 06-08-2025 Bamboo flowsheet Heriberto L Floro CNM Work Phone: [facility] Start: 06-08-2025 End: 06-08-2025 Bamboo flowsheet Heriberto L Floro CNM Work Phone: [facility] Start: 06-08-2025 End: 06-08-2025 Subsequent care visit Heriberto L Floro CNM Work Phone: [facility] Comment on above: NST (non-stress test ) reactive ([facility]) (Primary Dx); Encounter for supervision of other normal , third trimester ([facility]); AMA (advanced maternal age) multigravida 35+, third trimester ([facility]); Heartburn; Unicornuate uterus Start: 06-08-2025 End: 06-08-2025 ambulatory HERIBERTO L FLORO Not Available Start: 06-04-2025 End: 06-04-2025 ambulatory HERIBERTO L FLORO Not Available Start: 06-04-2025 End: 06-04-2025 Subsequent care visit Heriberto L Floro CNM Work Phone: [facility] Comment on above: Encounter for superv ision of other normal , third trimester ([facility]) (Primary Dx); Non-stress test reactive ([facility]); AMA (advanced maternal age) multigravida 35+, third trimester ([facility]); Unicornuate uterus Start: 06-04-2025 End: 06-04-2025 ambulatory HERIBERTO L FLORO Not Available Start: 06-04-2025 End: 06-04-2025 Bamboo flowsheet Heriberto L Floro CNM Work Phone: [facility] Start: 06-04-2025 End: 06-04-2025 Bamboo flowsheet Heriberto L Floro CNM Work Phone: [facility] Start: 05-12-2025 End: 05-12-2025 ambulatory HERIBERTO L FLORO Not Available Start: 04-28-2025 End: 04-28-2025 Bamboo flowsheet Heriberto L Floro CNM Work Phone: [facility] Start: 04-28-2025 End: 04-28-2025 Bamboo flowsheet Heriberto L Floro CNM Work Phone: [facility] Start: 04-28-2025 End: 04-28-2025 Subsequent care visit Heriberto L Floro CNM Work Phone: [facility] Comment on above: Unicornuate uterus ( Primary Dx); Encounter for supervision of other normal , third trimester ([facility]); Screening for iron deficiency anemia; Screening for diabetes mellitus (DM); AMA (advanced maternal age) multigravida 35+, third trimester ([facility]) Start: 04-28-2025 End: 04-28-2025 ambulatory HERIBERTO L FLORO Not Available Start: 04-07-2025 End: 04-07-2025 Subsequent care visit Heriberto L Floro CNM Work Phone: [facility] Comment on above: Encounter for superv ision of other normal , second trimester (Primary Dx); Heartburn; History of section; Unicornuate uterus Start: 04-07-2025 End: 04-07-2025 ambulatory [facility] G [facility] Start: 04-07-2025 End: 04-07-2025 Bamboo flowsheet Heriberto L Floro CNM Work Phone: [facility] Start: 04-07-2025 End: 04-07-2025 Bamboo flowsheet Heriberto L Floro CNM Work Phone: [facility] Start: 03-11-2025 End: 03-11-2025 ambulatory HERIBERTO L FLORO Not Available Start: 03-11-2025 End: 03-11-2025 Subsequent care visit Heriberto Elizabeth Trento CNM Work Phone: [facility] Comment on above: Heartburn (Primary D x); Encounter for supervision of other normal , second trimester; History of section Start: 03-11-2025 End: 03-11-2025 Bamboo flowsheet Heriberto L Floro CNM Work Phone: [facility] Start: 03-11-2025 End: 03-11-2025 Bamboo flowsheet Heriberto L Floro CNM Work Phone: [facility] Start: 02-26-2025 End: 02-26-2025 ambulatory [facility] Start: 02-11-2025 End: 02-11-2025 Bamboo flowsheet Heriberto L Floro CNM Work Phone: [facility] Start: 02-11-2025 End: 02-11-2025 Bamboo flowsheet Heriberto L Floro CNM Work Phone: [facility] Start: 02-11-2025 End: 02-11-2025 Subsequent care visit Heriberto Elizabeth Trento CNM Work Phone: [facility] Comment on above: Bleeding in early pr egnancy ([facility]) (Primary Dx); Unicornuate uterus; History of section; Nausea/vomiting in ([facility]) Start: 02-11-2025 End: 02-11-2025 ambulatory HERIBERTO L FLORO Not Available Start: 01-14-2025 End: 01-14-2025 Office consultation new/estab patient 60 min Miki Rosas MD Work Phone: [facility] Comment on above: Multigravida of adva nced maternal age in first trimester (Primary Dx) Start: 01-14-2025 End: 01-14-2025 ambulatory HERIBERTO FLORO [facility] Start: 01-14-2025 End: 01-14-2025 Bamboo flowsheet Heriberto L Nieshao CNM Work Phone: [facility] Start: 01-14-2025 End: 01-14-2025 Bamboo flowsheet Heriberto Elizabeth Floro CNM Work Phone: [facility] Start: 01-14-2025 End: 01-14-2025 ambulatory HERIBERTO L FLORO Not Available Start: 01-14-2025 End: 01-14-2025 Subsequent care visit Heriberto Elizabeth Trento CNM Work Phone: [facility] Comment on above: Bleeding in early pr egnancy (Primary Dx); examination or test, positive result; Unicornuate uterus; History of section Start: 01-07-2025 End: 01-07-2025 Subsequent care visit Heriberto Elizabeth Trento CNM Work Phone: [facility] Comment on above: Bleeding in early pr egnancy Start: 01-07-2025 End: 01-07-2025 ambulatory HERIBERTO L FLORO Not Available Start: 12-24-2024 End: 12-24-2024 Chart abstracting Miki Rosas MD Work Phone: [facility] Start: 12-22-2024 End: 12-22-2024 Telephone encounter Sayra Green MD Work Phone: [facility] Start: 12-17-2024 End: 12-17-2024 Initial care visit Heriberto Elizabeth Trento CNM Work Phone: [facility] Comment on above: GA: 9w4d Start: 12-17-2024 End: 12-17-2024 ambulatory HERIBERTO L FLORO Not Available Start: 11-21-2024 End: 11-21-2024 Telephone encounter Heriberto Elizabeth Floro CNM Work Phone: [facility] Start: 08-18-2024 End: 08-18-2024 ambulatory HERIBERTO SNELL Not Available Start: 08-18-2024 End: 08-18-2024 Gynecological examination normal Heriberto Snell CNM Work Phone: [facility] Start: 08-18-2024 End: 08-18-2024 Periodic preventive med est patient 18-39 yrs Heriberto Snell CNM Work Phone: [facility] Comment on above: Normal gynecologic e xamination; Screening for cervical cancer; Amenorrhea Start: 12-14-2023 Orders Only Budteodora Main STRIKER OFF Work Phone: [facility] Comment on above: Iron deficiency anem ia secondary to inadequate dietary iron intake (Primary Dx) Start: 06-29-2022 End: 06-30-2022 ambulatory HERIBERTO SNELL Facility: Start: 04-04-2022 End: 04-04-[address] NATAN SAMSON Facility: Procedures Date Procedure Procedure Detail Performing Clinician Start: 08-18-2024 Urine test visual color cmprsn meths Heriberto Snell CNM Work Phone: H/O: section History of section Heriberto Trento CNM Work Phone: H/O: section History of section Heriberto Trento CNM Work Phone: H/O: section History of section Heriberto Trento CNM Work Phone: H/O: section History of section Heriberto Elizabeth Trento CNM Work Phone: H/O: section History of section Heriberto Elizabeth Trento CNM Work Phone: H/O: section History of section Heriberto Elizabeth Trento CNM Work Phone: H/O: section History of section Heriberto Elizabeth Trento CNM Work Phone: Plan of Treatment Date Care Activity Detail Author Start: 08-15-2028 Screening for malign ant neoplasm of cervix [facility] Start: 01-14-2026 Adult BMI Screening Adult BMI Screen ing [facility] Start: 01-14-2026 Tobacco Screening Tobacco Screening [facility] Start: 07-16-2025 End: 07-16-2025 ambulatory 07/16/2025 3:45 PM EDT [facility] [address] [facility] [phone] Heriberto Snell CNM [address] [place] [facility] [place] [address] [facility] Start: 07-13-2025 Influenza vaccination [facility] Start: 07-09-2025 End: 07-09-2025 Professional / ancillary services management [facility] Start: 07-06-2025 End: 07-06-2025 Patient encounter procedure [facility] Comment on above: Arrived Start: 07-02-2025 End: 07-02-2025 Professional / ancillary services management [facility] Start: 07-01-2025 End: 07-01-2025 Patient encounter procedure 07/01/2025 4:30 PM EDT [facility] [address] [place] [phone] Bud Main NP [address] [place] [facility] [place] [address] [facility] Start: 06-29-2025 End: 06-29-2025 Patient encounter procedure [facility] Start: 06-25-2025 End: 06-25-2025 Professional / ancillary services management [facility] Start: 06-22-2025 End: 06-22-2025 Patient encounter procedure [facility] Comment on above: Arrived Start: 06-18-2025 End: 06-18-2025 Professional / ancillary services management [facility] Start: 06-15-2025 End: 06-15-2025 Patient encounter procedure [facility] Comment on above: Arrived Start: 06-15-2025 End: 06-15-2026 STREPTOCCOUS, GROUP B CULTURE STREPTOCCOUS, GROUP B CULTURE Lab Routine screening for streptococcus B ([facility]) Expected: 06/15/2025 (Approximate), Expires: 06/15/2026 [facility] Work Phone: Comment on above: Expected: 06/15/2025 (Approximate), Expires: 06/15/2026 Start: 06-11-2025 End: 06-11-2025 Professional / ancillary services management [facility] Start: 06-08-2025 End: 06-08-2025 Patient encounter procedure [facility] Comment on above: Arrived Start: 06-04-2025 End: 06-04-2025 Professional / ancillary services management 06/04/2025 3:00 PM EDT Ancillary Procedure [facility] [address] [phone] [facility] Start: 06-04-2025 End: 06-04-2025 Patient encounter procedure [facility] Comment on above: Arrived Start: 05-12-2025 End: 05-12-2025 Professional / ancillary services management 05/12/2025 2:00 PM EDT Ancillary Procedure [facility] [address] [phone] [facility] Start: 05-12-2025 End: 05-12-2025 Patient encounter procedure 05/12/2025 1:30 PM EDT Routine [facility] [address] [place] [phone] Heriberto Snell CNM [address] [place] [address] [facility] Start: 04-28-2025 End: 04-28-2026 CBC panel - Blood by Automated count CBC Lab Routine Screening for iron deficiency anemia Expected: 04/28/2025 (Approximate), Expires: 04/28/2026 [facility] Work Phone: Comment on above: Expected: 04/28/2025 (Approximate), Expires: 04/28/2026 Start: 04-28-2025 End: 04-28-2026 GLUCOSE, GESTATIONAL SCREEN (50G)-135 CUTOFF GLUCOSE, GESTATIONAL SCREEN (50G)-135 CUTOFF Lab Routine Screening for diabetes mellitus (DM) Expected: 04/28/2025 (Approximate), Expires: 04/28/2026 [facility] Comment on above: Expected: 04/28/2025 (Approximate), Expires: 04/28/2026 Start: 04-28-2025 End: 04-28-2025 Patient encounter procedure [facility] Comment on above: Arrived Start: 04-28-2025 End: 04-28-2026 US biophysical profile wo non stress testing US biophysical profile wo non stress testing Imaging Routine AMA (advanced maternal age) multigravida 35+, third trimester ([facility]) Expected: 04/28/2025, Expires: 04/28/2026 [facility] Comment on above: Expected: 04/28/2025 , Expires: 04/28/2026 Start: 04-28-2025 End: 04-28-2026 US for US OB follow up transabdominal approach Imaging Routine AMA (advanced maternal age) multigravida 35+, third trimester ([facility]) Expected: 04/28/2025, Expires: 04/28/2026 [facility] Comment on above: Expected: 04/28/2025 , Expires: 04/28/2026 Start: 04-07-2025 End: 04-07-2025 Patient encounter procedure [facility] Comment on above: Arrived Start: 02-26-2025 End: 02-26-2025 Patient encounter procedure 02/26/2025 8:00 AM EDT Appointment [facility] [place] [address] [facility] [address] [place] [address] [facility] [place] Start: 02-11-2025 End: 02-11-2025 Patient encounter procedure [facility] Comment on above: Arrived Start: 01-14-2025 End: 01-14-2025 Patient encounter procedure 01/14/2025 3:30 PM EST Office Visit [facility] [address] [place] [phone] Miki Rosas MD [address] [place] [address] [facility] Start: 01-14-2025 End: 01-14-2025 Patient encounter procedure 01/14/2025 2:15 PM EST Appointment [facility] [address] [facility] [place] [phone] [facility] Start: 01-14-2025 End: 01-14-2025 Patient encounter procedure 01/14/2025 9:30 AM EST Routine [facility] [address] [place] [phone] Heriberto Snell CN [address] [place], [place] [phone] [facility] Start: 12-17-2024 End: 12-17-2025 ABO/Rh ABO/Rh Lab Routine examination or test, positive result Expected: 12/17/2024 (Approximate), Expires: 12/17/2025 [facility] Comment on above: Expected: 12/17/2024 (Approximate), Expires: 12/17/2025 Start: 12-17-2024 End: 12-17-2025 Antibody screen Antibody screen Lab Routine examination or test, positive result Expected: 12/17/2024 (Approximate), Expires: 12/17/2025 [facility] Comment on above: Expected: 12/17/2024 (Approximate), Expires: 12/17/2025 Start: 12-17-2024 End: 12-17-2025 Bacteria identified in Urine by Culture Urine culture Microbiology Routine examination or test, positive result Expected: 12/17/2024 (Approximate), Expires: 12/17/2025 [facility] Comment on above: Expected: 12/17/2024 (Approximate), Expires: 12/17/2025 Start: 12-17-2024 End: 12-17-2025 CBC panel - Blood by Automated count CBC Lab Routine examination or test, positive result Expected: 12/17/2024 (Approximate), Expires: 12/17/2025 [facility] Comment on above: Expected: 12/17/2024 (Approximate), Expires: 12/17/2025 Start: 12-17-2024 End: 12-17-2025 DRUG TOX MONITORIGN 6 W/ CONF,URINE DRUG TOX MONITORIGN 6 W/ CONF,URINE Lab Routine examination or test, positive result Expected: 12/17/2024 (Approximate), Expires: 12/17/2025 [facility] Comment on above: Expected: 12/17/2024 (Approximate), Expires: 12/17/2025 Start: 12-17-2024 End: 12-17-2025 Hemoglobin A1c/Hemoglobin.total in Blood Hemoglobin A1c Lab Routine examination or test, positive result Expected: 12/17/2024 (Approximate), Expires: 12/17/2025 [facility] Comment on above: Expected: 12/17/2024 (Approximate), Expires: 12/17/2025 Start: 12-17-2024 End: 12-17-2025 Hepatitis B virus surface Ag [Presence] in Serum or Plasma by Immunoassay Hepatitis B surface antigen Lab Routine examination or test, positive result Expected: 12/17/2024 (Approximate), Expires: 12/17/2025 [facility] Work Phone: Comment on above: Expected: 12/17/2024 (Approximate), Expires: 12/17/2025 Start: 12-17-2024 End: 12-17-2025 Hepatitis C virus Ab [Presence] in Serum or Plasma by Immunoassay Hepatitis C antibody Lab Routine examination or test, positive result Expected: 12/17/2024 (Approximate), Expires: 12/17/2025 [facility] Comment on above: Expected: 12/17/2024 (Approximate), Expires: 12/17/2025 Start: 12-17-2024 End: 12-17-2025 HIV-1/HIV-2 antigen/antibody combination immunoassay HIV-1 and HIV-2 antibodies Lab Routine examination or test, positive result Expected: 12/17/2024 (Approximate), Expires: 12/17/2025 [facility] Comment on above: Expected: 12/17/2024 (Approximate), Expires: 12/17/2025 Start: 12-17-2024 End: 12-17-2025 Neisseria gonorrhoeae DNA [Presence] in Cervical mucus by ABIGAIL with probe detection C. trachomatis / N. gonorrhoeae, DNA probe Pathology and Cytology Routine examination or test, positive result Expected: 12/17/2024 (Approximate), Expires: 12/17/2025 [facility] Comment on above: Expected: 12/17/2024 (Approximate), Expires: 12/17/2025 Start: 12-17-2024 End: 12-17-2025 Reagin Ab [Presence] in Serum by RPR RPR Lab Routine examination or test, positive result Expected: 12/17/2024 (Approximate), Expires: 12/17/2025 [facility] Comment on above: Expected: 12/17/2024 (Approximate), Expires: 12/17/2025 Start: 12-17-2024 End: 12-17-2025 Rubella antibody, IgG Rubella antibody, IgG Lab Routine examination or test, positive result Expected: 12/17/2024 (Approximate), Expires: 12/17/2025 [facility] Comment on above: Expected: 12/17/2024 (Approximate), Expires: 12/17/2025 Start: 12-17-2024 End: 12-17-2025 TSH W/REFLEX TO FT4 TSH W/REFLEX TO FT4 Lab Routine examination or test, positive result Expected: 12/17/2024 (Approximate), Expires: 12/17/2025 [facility] Comment on above: Expected: 12/17/2024 (Approximate), Expires: 12/17/2025 Start: 12-17-2024 End: 12-17-2025 URINALYSIS MICROSCOPIC URINALYSIS MICROSCOPIC Lab Routine examination or test, positive result Expected: 12/17/2024 (Approximate), Expires: 12/17/2025 [facility] Comment on above: Expected: 12/17/2024 (Approximate), Expires: 12/17/2025 Start: 08-18-2024 End: 08-18-2025 THINPREP IMAGING PAP AND HPV DNA REFLEX HPV 16,18 THINPREP IMAGING PAP AND HPV DNA REFLEX HPV 16,18 Pathology and Cytology Routine Screening for cervical cancer Expected: 08/18/2024 (Approximate), Expires: 08/18/2025 [facility] Work Phone: Comment on above: Expected: 08/18/2024 (Approximate), Expires: 08/18/2025 Start: 07-13-2024 Influenza vaccination N [facility] Start: 06-13-2024 Adult BMI Screening Adult BMI Screen ing [facility] Start: 06-13-2024 Tobacco Screening Tobacco Screening [facility] Start: 03-13-2024 End: 12-14-2024 Ferritin [Mass/volume] in Serum or Plasma Ferritin Lab Routine Iron deficiency anemia secondary to inadequate dietary iron intake Expected: 03/13/2024 (Approximate), Expires: 12/14/2024 [facility] Work Phone: Comment on above: Expected: 03/13/2024 (Approximate), Expires: 12/14/2024 Start: 07-13-2023 Influenza vaccination Influenza Vacc ine (#1) [facility] Start: 03-13-2018 DTaP,Tdap and Td Vaccines (3 - Td or Tdap) DTaP,Tdap and Td Vaccines (3 - Td or Tdap) [facility] Start: 2007 Screening for malign ant neoplasm of cervix Pap Smear [facility] Start: 1998 Depression Screening Depression Scre enzahira [facility] Immunizations Immunization Date Immunization Notes Care Provider Memo gallegos 03-13-2008 measles, mumps and rubella virus vaccine Bud Main STRIKER OFF Work Phone: [facility] 03-13-2008 tetanus toxoid, redu kyleigh diphtheria toxoid, and acellular pertussis vaccine, adsorbed Bud Main STRIKER OFF Work Phone: [facility] 11-09-1999 hepatitis B vaccine, pediatric or pediatric/adolescent dosage Bud Main STRIKER OFF Work Phone: [facility] 08-27-1998 hepatitis B vaccine, pediatric or pediatric/adolescent dosage Bud Main STRIKER OFF Work Phone: [facility] 08-27-1998 TD(adult) unspecifie d formulation Bud Main STRIKER OFF Work Phone: [facility] 05-21-1998 hepatitis B vaccine, pediatric or pediatric/adolescent dosage Bud Main STRIKER OFF Work Phone: [facility] 05-21-1998 measles, mumps and rubella virus vaccine Bud Main STRIKER OFF Work Phone: [facility] Healthcare Payers Date Payer Category Payer Managed Care Other (unspecified) [id number] 2024 Private Health Insurance [id number] 2022 Unknown [employer] [id number] 2022-Present [address] [place] [address] [id number] 2014 Commercial Managed C are - PPO [id number] 1986 Unknown [id number] 2.16840.1.571482.3.579.2.5 93 1986 Unknown [id number] 2.16.840.1.017091.3.579.2.1 286 1986 Unknown [id number] 2.16.840.1.760473.3.579.2.1 286 1986 Unknown [id number] 2.16.840.1.875085.3.579.2.1 286 1986 Unknown [id number] 2.16.840.1.731360.3.579.2.1 286 1986 Unknown [id number] 2.16.840.1.100051.3.579.2.1 259 1986 Unknown [id number] 2.16.840.1.958959.3.579.2.1 259 1986 Unknown [id number] 2.16.840.1.765262.3.579.2.1 259 1986 Unknown [id number] 2.16.840.1.004332.3.579.2.1 259 1986 Unknown [id number] 2.16.840.1.438797.3.579.2.1 259 1986 Unknown [id number] 2.16.840.1.631658.3.579.2.1 259 1986 Unknown [id number] 2.16.840.1.779850.3.579.2.1 259 1986 Unknown [id number] 2.16840.1.447366.3.579.2.1 259 1986 Unknown [id number] 2.16.840.1.917294.3.579.2.1 259 1986 Unknown [id number] 2.16.840.1.969796.3.579.2.1 259 1986 Unknown [id number] 2.16.840.1.243092.3.579.2.1 259 1986 Unknown [id number] 2.16.840.1.640615.3.579.2.1 259 1986 Unknown [id number] 2.16.840.1.132905.3.579.2.1 259 1986 Unknown [id number] 2.16.840.1.561729.3.579.2.1 259 1986 Unknown [id number] 2.16.840.1.065597.3.579.2.1 259 1986 Unknown [id number] 2.16.840.1.926128.3.579.2.1 259 1986 Unknown [id number] 2.16.840.1.707840.3.579.2.1 259 1986 Unknown [id number] 2.16.840.1.033547.3.579.2.1 259 1986 Unknown [id number] 2.16.840.1.536574.3.579.2.1 259 1986 Unknown [id number] 2.16.840.1.238109.3.579.2.1 259 1986 Unknown [id number] 2.16.840.1.108032.3.579.2.1 259 1986 Unknown [id number] 2.16.840.1.665565.3.579.2.1 259 1986 Unknown [id number] 2.16.840.1.805347.3.579.2.1 259 1986 Unknown [id number] 2.16.840.1.538661.3.579.2.1 259 1959 Self-pay [id number] 1959 Unknown [id number] Unknown [id number] 2.16.840.1.578215.3.579.2.5 93 Social History Date Type Detail Facility Start: 05-01-2023 End: 06-28-2025 Tobacco smoking status [facility] Never smoked tobacco [facility] Start: 10-16-2022 End: 05-01-2023 Tobacco use and exposure Smokeless tobacco non-user [facility] Start: 12-12-2023 End: 07-02-2025 Alcohol intake Ex-drinker (finding) [facility] Start: 06-21-2023 End: 08-15-2023 History of Social function [facility] Start: 06-21-2023 End: 08-15-2023 Humiliation, Afraid, Rape, and Kick questionnaire [HARK] [facility] Within the last year , have you been afraid of your partner or ex-partner? Patient refused [facility] Are you now , , , , never or living with a partner? Refused [facility] (I/We) worried whe er (my/our) food would run out before (I/we) got money to buy more. DK or Refused [facility] The thought of nuria figueroa myself has occurred to me Never [facility] Start: 12-12-2023 Alcohol Comment caffeine: 2 cu ps coffee [facility] Start: 1985 Sex Assigned At Female [facility] Start: 01-24-2023 Gender identity Identifies as female gender (finding) [facility] Start: 12-06-2023 Sexual orientation Heterosexual (fin ding) [facility] Start: 10-25-2024 [facility] Start: 10-16-2022 Alcohol Comment rare [facility] Start: 1985 Sex assigned at Not on file [facility] Start: 06-17-2015 [facility]finding[facility] NEGATED: Highlighted rowStart: NINF History of tobacco use Passive smoker [facility] Functional Status Date Assessment Result Facility 07-01-2025 Patient Health Quest ionnaire 2 item (PHQ-2) [Reported] [facility] 06-29-2025 Patient Health Quest ionnaire 2 item (PHQ-2) [Reported] [facility] Clinical Notes 08-18-2024 to 07-06-2025 Bud Main NP - 07/06/2025 3:30 PM EDLeola Snell CNM - 07/06/2025 3:30 PM Suresh Main NP - 07/01/2025 4:30 PM EDLeola Snell CNM - 06/29/2025 4:00 PM EDT Note Date & Type Note Facility 07-06-2025 History of Presen t illness Narrative Images from the original note were not [...] OBJECTIVE: Visit Vitals BP 120/70 Temp 97.4 F Resp 16 LMP 10/11/2024 (Exact Date) OB [...] warm moist compresses. documented in this encounter [facility] 07-06-2025 History of Presen t illness Narrative Subjective No chief complaint on file. Paige [...] for this visit: NST (non-stress test) reactive ([facility]) AMA (advanced maternal age) multigravida 35+, third trimester ([facility]) Encounter for supervision of other normal , third trimester ([facility]) History of section Unicornuate uterus Multigravida of advanced maternal age in third trimester ([facility]) Continue vitamin. Labs reviewed. Expected mode of delivery repeat section Follow up in 1 week for a routine visit. documented in this encounter [facility] 07-01-2025 History of Presen t illness Narrative Images from the original note were not [...] but is less so than before. She was able to engage in physical exercise this morning. She describes the infection as unsightly and notes that the opening has enlarged due to the pressure from underneath. This is her first experience with such an infection, which she suspects may be related to her . She has been applying warm compresses 2 to 3 times daily and finds that exposure to hot water during showers provides relief. She is scheduled for a on 07/09/2025 and has an appointment for a non-stress test (NST) on Sunday. Social History: Sleep: [...] 10/11/2024 (Exact Date) SpO2 99% BMI 27.91 kg/m Physical Exam Vitals reviewed. HENT: Head: Normocephalic [...] there is a reduction in swelling on one side. - A switch from Keflex to clindamycin will be made today. She is advised to consume yogurt or probiotics to maintain gut health during the antibiotic course. - The application of warm, moist compresses should be continued intermittently to help draw out infection. Follow-up: A follow-up appointment is scheduled for Sunday. documented in this encounter [facility] 06-29-2025 History of Presen t illness Narrative Subjective No chief complaint on file. Paige [...] a routine visit. documented in this encounter [facility] 06-29-2025 History of Presen t illness Narrative Images from the original note were not [...] 10/11/2024 (Exact Date) SpO2 99% BMI 28.06 kg/m Physical Exam Vitals reviewed. HENT: Head: Normocephalic [...] with Nguyen Snell NP, as well who agrees with treatment plan. Follow-up: 07/01/2025 documented in this encounter [facility] 06-22-2025 History of Presen t illness Narrative Subjective No chief complaint on file. Paige Enamorado is a 39 y.o. at 36w2d with a working estimated date of delivery of 07/18/2025, by Last Menstrual Period who presents for a routine visit. She denies vaginal bleeding, leakage of fluid, decreased movements, or contractions. Her is complicated by: AMA, unicornuate uterus, history of IUGR last , history of section The following portions of the chart were reviewed this encounter and updated as appropriate: Protein- Trace Glucose- Negative Objective Physical Exam Weight: 192 lb Expected Total Weight Gain: 25 lb-35 lb Pregravid BMI: 23.32 BP: 124/80 Labs HEMOGLOBIN Date Value Ref Range Status [...] unless a reference range has been established. Imaging Assessment/Plan Diagnoses and all orders for this visit: NST (non-stress test) reactive ([facility]) Encounter for supervision of other normal , third trimester ([facility]) Continue vitamin. Labs reviewed. GBS taken. Expected mode of delivery repeat section Follow up in 1 week for a routine visit. documented in this encounter [facility] 06-15-2025 History of Presen t illness Narrative Subjective No chief complaint on file. Paige Enamorado is a 39 y.o. at 35w2d with a working estimated date of delivery [...] 1 SAB Her is complicated by: AMA, unicornuate uterus Objective Physical Exam Weight: 187 lb Expected Total Weight Gain: 25 lb-35 lb Pregravid BMI: 23.32 BP: 118/80 Urine protein- negative Urine glucose- negative Assessment/Plan Diagnoses and all orders for this visit: NST (non-stress test) reactive ([facility]) screening for streptococcus B ([facility]) - STREPTOCCOUS, GROUP B CULTURE; Future Encounter for supervision of other normal , third trimester ([facility]) AMA (advanced maternal age) multigravida 35+, third trimester ([facility]) History of section Continue vitamin. Labs reviewed. GBS done today Reactive NST in office today Expected mode of delivery repeat Follow up in 1 week for a routine visit. documented in this encounter [facility] 06-08-2025 History of Presen t illness Narrative Subjective No chief complaint on file. Paige Enamorado is a 39 y.o. at 34w2d with a working estimated date of delivery [...] 1 SAB Her is complicated by: AMA, unicornuate uterus Objective Physical Exam Weight: 189 lb Expected Total Weight Gain: 25 lb-35 lb Pregravid BMI: 23.32 BP: 100/60 Urine protein-negative Urine glucose-negative Assessment/Plan Diagnoses and all orders for this visit: NST (non-stress test) reactive ([facility]) Encounter for supervision of other normal , third trimester ([facility]) AMA (advanced maternal age) multigravida 35+, third trimester ([facility]) Heartburn Unicornuate uterus Continue vitamin. Labs reviewed. GBS taken. Reactive NST in office today Expected mode of delivery repeat Follow up in 1 week for a routine visit. documented in this encounter [facility] 06-04-2025 History of Presen t illness Narrative Subjective No chief complaint on file. Paige Enamorado is a 39 y.o. at 33w5d with a working estimated date of delivery [...] 1 SAB Her is complicated by: AMA, unicornuate uterus Objective Physical Exam Weight: 189 lb Expected Total Weight Gain: 25 lb-35 lb Pregravid BMI: 23.32 BP: 110/70 Urine protein-negative Urine glucose-negative Assessment/Plan Diagnoses and all orders for this visit: Encounter for supervision of other normal , third trimester ([facility]) Non-stress test reactive ([facility]) Reactive NST today BPP performed Continue vitamin. Labs reviewed GBS taken. Expected mode of delivery repeat Follow up in 1 week for a routine visit. documented in this encounter [facility] 04-28-2025 History of Presen t illness Narrative Subjective No chief complaint on file. Paige Enamorado is a 39 y.o. at 28w3d with a working estimated date of delivery [...] 1 SAB Her is complicated by: AMA, unicornuate uterus The following portions of the chart were reviewed this encounter and updated as appropriate: Objective Physical Exam Weight: 183 lb Expected Total Weight Gain: 25 lb-35 lb Pregravid BMI: 23.32 BP: 110/70 Urine protein-negative Urine glucose-negative Labs: reviewed Imaging Assessment/Plan Diagnoses and all orders for this visit: Unicornuate uterus Encounter for supervision of other normal , third trimester ([facility]) Screening for iron deficiency anemia - CBC; Future Screening for diabetes mellitus (DM) - GLUCOSE, GESTATIONAL SCREEN (50G)-135 CUTOFF; Future AMA (advanced maternal age) multigravida 35+, third trimester ([facility]) - US OB follow up transabdominal approach; Future - US biophysical profile wo non stress testing; Future - US biophysical profile wo non stress testing; Future - US biophysical profile wo non stress testing; Future - US biophysical profile wo non stress testing; Future - US OB follow up transabdominal approach; Future - US biophysical profile wo non stress testing; Future Continue vitamin. Labs reviewed. Rhogam GTT 04/28/25 Doing well and she will schedule her NSTs and BPP, growths for testing. She is leaving on vacation in a couple of weeks and will start testing before she leaves at 30w3d a growth US Follow up in 2 weeks for growth US and then 4 weeks for a routine visit. documented in this encounter [facility] 04-07-2025 History of Presen t illness Narrative Subjective No chief complaint on file. Paige Enamorado is a 39 y.o. at 25w3d with a working estimated date of delivery [...] KELLEE 1 SAB Her is complicated by: The following portions of the chart were reviewed this encounter and updated as appropriate: Objective Physical Exam Expected Total Weight Gain: 25 lb-35 lb Pregravid BMI: 23.32 BP: 120/70 Urine protein-negative Urine glucose-negative Labs: reviewed Imaging Assessment/Plan Diagnoses and all orders for this visit: Encounter for supervision of other normal , second trimester Heartburn History of section Unicornuate uterus Continue vitamin. Labs reviewed. Rhogam not needed patient is A+ GTT at 28 weeks Follow up in 2 weeks for a routine visit. documented in this encounter [facility] 03-11-2025 History of Presen t illness Narrative Subjective No chief complaint on file. Paige Enamorado is a 39 y.o. at 21w4d with a working estimated date of delivery [...] KELLEE 1 SAB Her is complicated by: heartburn, AMA, unicornuate uterus The following portions of the chart were reviewed this encounter and updated as appropriate: Objective Physical Exam Weight: 171 lb Expected Total Weight Gain: 25 lb-35 lb Pregravid BMI: 23.32 BP: 116/70 Urine protein-negative Urine glucose-negative Labs: reviewed Imaging Assessment/Plan Continue vitamin. Labs reviewed. Rhogam GTT . Follow up in 2 weeks for a routine visit. documented in this encounter [facility] 02-11-2025 History of Presen t illness Narrative Subjective No chief complaint on file. Paige Enamorado is a 39 y.o. at 17w4d with a working estimated date of delivery [...] KELLEE 1 SAB Her is complicated by: The following portions of the chart were reviewed this encounter and updated as appropriate: Objective Physical Exam weight: 163 lb Expected Total Weight Gain: 25 lb-35 lb Pregravid BMI: 23.32 BP: 110/60 Urine protein-negative Urine glucose-negative Labs: reviewed Imaging Assessment/Plan Continue vitamin. Labs reviewed. Rhogam GTT . Follow up in 2 weeks for a routine visit. documented in this encounter [facility] 01-14-2025 History of Presen t illness Narrative Headache/epigastric pain/blurry vision/swelling? No Cramping/contractions? No Abnormal vaginal discharge? Patient reports brown spotting last week, has since resolved Spotting/vaginal bleeding? No Loss or gush of fluid like your water may have broken? No Do you have cats at home? No Do you change the litter box (reason: risk of toxoplasmosis)? N/A Genetic testing done this here or other office? No Have you been seen here at [facility] in a previous ? Yes Recent ER visits or hospitalizations? No Bring blood sugar log or meter with you today? (Please bring them with you for every visit at [facility]) N/A Flu vaccine (Sep-January)? No Any concerns that you would like me to mention to the provider today? Patient reports noticing occasional heart palpitations throughout the past week. States she briefly discussed with primary OB this AM REASON FOR CONSULTATION: Advanced maternal age. HISTORY OF PRESENT ILLNESS: Paige Enamorado is a pleasant 39 y.o. G 3 P1 011. at 13w4d due on Estimated Date of Delivery: 07/18/25 . Patient was seen today due to the following 1. Advanced maternal age with low risk cell free DNA testing. 2. 1 prior low transverse . Patient is scheduled for repeat . Currently the patient has no complaints. The patient denies nausea, vomiting, abdominal pain, vaginal bleeding, SOB or chest pain. Patient's PMH/PSH,SH,PSYCH Hx, MEDs, ALLERGIES, and ROS were all reviewed and updated in the appropriate sections. Patient Active Problem List Diagnosis Multigravida of advanced maternal age in first trimester Past Medical History: Diagnosis Date AMA (advanced maternal age) multigravida 35+ Anovulation Cervical lymphadenopathy Family history of malignant neoplasm of brain Generalized anxiety disorder Head injury 03/21/2015 IBS (irritable bowel syndrome) Iron deficiency anemia secondary to inadequate dietary iron intake 2017 Irregular menstrual cycle Migraines Unicornate uterus PAST OBSTETRICAL HISTORY: OB History 3 Para 1 Term 1 AB 1 Living 1 SAB 1 IAB Ectopic Multiple Live Births 1 SURGICAL HISTORY: Past Surgical History: Procedure Laterality Date SECTION CYST REMOVAL 2009 right side of neck ALLERGIES: No Known Allergies CURRENT MEDICATIONS: Current Outpatient Medications: FOLIC ACID ORAL, Take by mouth., Disp: , Rfl: ondansetron ODT (ZOFRAN ODT) 8 mg disintegrating tablet, Dissolve 1 tablet (8 mg total) on tongue every 8 (eight) hours as needed for nausea or vomiting., Disp: , Rfl: 25/iron fum/folic/dha (-1 ORAL), Take by mouth., Disp: , Rfl: progesterone (PROMETRIUM) 200 mg capsule, Take 1 capsule (200 mg total) by mouth in the morning. (Patient not taking: Reported on 01/14/2025), Disp: , Rfl: FAMILY/GENETIC HISTORY: No family history of VTE, cardiac defects and mental retardation . SOCIAL HISTORY:Patient denies tobacco use, alcohol use, or drug use. RECENT HOSPITALIZATION: none I did review all the labs results available in addition to labs which were ordered by the primary care physician, and the other consultants, we search on [employer] and all the available care everywhere epic I did review all the imaging studies of the patient available on EMR, ordered by the primary care physician and the other cleaning validation consultant HABITS: Patient activity no restrictions, diet no restrictions REVIEW OF SYSTEM: Head and Neck: Negative for any dizziness and headaches. Cardiovascular and Respiratory System: Denies any chest pain, shortness of breath, and coughing. Abdominal and System: Denies any abdominal pain, nausea, vomiting, vaginal bleeding, and vaginal discharge PHYSICAL EXAMINATION: BP 133/77 (BP Site: Left Arm, BP Postition: Sitting) Pulse 82 Ht 175.3 cm (5' 9 ) Wt 72.3 kg (159 lb 6.4 oz) LMP 10/11/2024 BMI 23.54 kg/m . Gravid abdomen, Respirations not labored. Well oriented time place person, normal gait RECOMMENDATION: 1. Advanced maternal age with low risk cell free DNA testing. 2. Please offer early glucose tolerance test. 3. Follow-up in 6 weeks for targeted anatomy at [facility] office. 4. Routine care at OB provider. 5. Patient interested in repeat at her local hospital. 6. Patient is low risk and can be delivered at her local hospital. DISPOSITION: At this point the patient is in complete care of her customer accounts advisor. Patient does have 1 more ultrasound scheduled at our [place] office Thank you for allowing me to participate in Paige Enamorado . If there any questions please do not hesitate to contact us. Sincerely, MIKI ROSAS MD documented in this encounter [facility] 01-14-2025 History of Presen t illness Narrative Subjective No chief complaint on file. Paige Enamorado is a 39 y.o. at 13w4d with a working estimated date of delivery [...] KELLEE 1 SAB Her is complicated by: heart palpitations. She states it happened that last 2 nights. Gene feels it in her throat and then when it kept happening last night she got some anxiety with it. She then went to sleep. She is seeing [facility] today and I did suggest that she bring it up with them. The following portions of the chart were reviewed this encounter and updated as appropriate: Objective Physical Exam weight: 158 lb Expected Total Weight Gain: 25 lb-35 lb Pregravid BMI: 23.32 BP: 102/62 Urine protein-negative Urine glucose-negative Labs: reviewed Imaging Assessment/Plan Diagnoses and all orders for this visit: Bleeding in early examination or test, positive result - Ambulatory referral to Obstetrics / Gynecology Unicornuate uterus History of section Patient denies bleeding or discharge since the first episode last week. She does have a doppler at home and does auscultate heart tones twice daily, morning and night. Continue vitamin. Labs reviewed. Rhogam GTT Follow up in 2 weeks for a routine visit. documented in this encounter [facility] 01-07-2025 History of Presen t illness Narrative Subjective No chief complaint on file. Paige Enamorado is a 39 y.o. at 12w4d with a working estimated date of delivery of 07/18/2025, by Last Menstrual Period who presents for a routine visit. She is having vaginal spotting, dark brown discharge, denies leakage of fluid, and no contractions or pain OB History Para Term AB Living 3 1 1 1 1 SAB IAB Ectopic Multiple Live Births 1 1 # Outcome Date GA Lbr Benji/2nd Weight Sex Type Anes PTL Lv 3 Current 2 Term 06/17/23 37w1d 5 lb 8 oz F CS-LTranv KELLEE 1 SAB Her is complicated by: dark brown spotting that started today. She noticed it in her underwear one time. Pt states no recent intercourse She states she did do a pretty intense workout over last weekend but nothing since, just upper body work out. Last [place] was about a week ago. The following portions of the chart were reviewed this encounter and updated as appropriate: Objective Physical Exam , Pregravid BMI: 23.32 Expected Total Weight Gain: 25 lb-35 lb BP: 122/80 Labs Imaging Assessment/Plan Diagnoses and all orders for this visit: Bleeding in early - US OB less than 14 weeks early; Future Patient has appt with [facility] next week and I suggested she rest until then. No intercourse, pelvic rest, no working out, rest when she can on the couch until she can see [facility] for recommendation. ] Urine protein Urine glucose Continue vitamin. Labs reviewed. Order placed for anatomy scan at 20 weeks. Follow up in 4 weeks for a routine visit. documented in this encounter [facility] 12-22-2024 Telephone encounter Note [place], this is Leana. At maternal feed on medicine, I am calling about a patient. You referred to us Paige Enamorado, date 1985. I need a database for the [employer]. I need her address, her emergency contact, I need everything, and can I have a better copy of this card? Because every number I have tried to enter off of this card for insurance to run. It will not run fax number [phone]. Me personally, , Option 3, thank you. [facility] 12-22-2024 Miscellaneous Notes Mn, this is Leana. At maternal feed on medicine, I am calling about a patient. You referred to us Paige Enamorado, date 1985. I need a database for the [employer]. I need her address, her emergency contact, I need everything, and can I have a better copy of this card? Because every number I have tried to enter off of this card for insurance to run. It will not run fax number [phone]. Me personally, , Option 3, thank you. documented in this encounter [facility] 12-17-2024 History of Presen t illness Narrative ;uSubjective Paige Enamorado is a 39 y.o. at 9w4d with a working estimated date of delivery of 07/18/2025, by Last Menstrual Period who presents for an initial visit. This is planned. Patient Care Team: Sayra Green MD as PCP - General (Family Medicine) Heriberto Snell CNM (Obstetrics and Gynecology) OB History Para Term AB Living 3 1 1 1 1 SAB IAB Ectopic Multiple Live Births 1 1 # Outcome Date GA Lbr Benji/2nd Weight Sex Type Anes PTL Lv 3 Current 2 Term 06/17/23 37w1d 5 lb 8 oz F CS-LTranv KELLEE 1 SAB Her is complicated by: history of loss, unicornuate uterus and AMA Patient referred by Gynecology History Last Pap 08/15/2024 The following portions of the chart were reviewed this encounter and updated as appropriate: Review of Systems Negative except Objective Physical Exam Expected Total Weight Gain: Could not be calculated Pregravid BMI: Could not be calculated Urine protein-nehgative Urine glucose-negative Labs- drawn today Assessment/Plan Diagnoses and all orders for this visit: Nausea/vomiting in - ondansetron ODT (Zofran-ODT) 8 MG disintegrating tablet; Take 1 tablet (8 mg) by mouth every 8 (eight) hours if needed for nausea or vomiting examination or test, positive result - Hepatitis B surface antigen; Future - Rubella antibody, IgG; Future - CBC; Future - Antibody screen; Future - RPR; Future - Hemoglobin A1c; Future - TSH W/REFLEX TO FT4; Future - HIV-1 and HIV-2 antibodies; Future - ABO/Rh; Future - DRUG TOX MONITORIGN 6 W/ CONF,URINE; Future - Hepatitis C antibody; Future - Urine culture; Future - URINALYSIS MICROSCOPIC; Future - C. trachomatis / N. gonorrhoeae, DNA probe; Future Unicornuate uterus History of section Blue education folder given. Patient educated on safe medication list. Genetic testing information given. Discussed the do's and don'ts in the blue folder. We discussed labs and what we draw and what we are testing for. Patient is also informed that we do a urine drug test. Patient also given office phone number and [facility] number to call in case of an emergency or after hours needs. PVU and all questions answered. We did discuss place of delivery. Patient should plan to go to [facility] for all services unless an emergency and they need to go to the closest ER. We can make other arrangements possibly if patient would like to deliver at another facility but I did explain I am now at [facility] 100% of the time and would like to do all deliveries there. Patient referral to [facility] sent today as well for consult of and well being AMA and unicornuate uterus. Patient will begin increased surveillance testing at 32 weeks or sooner if needed. documented in this encounter [facility] 11-21-2024 Telephone encounter Note Pt will be 6 weeks on 11/22/24- She would like to schedule a new OB appointment. She would prefer a morning appt if available. Lmp- oct 11 [facility] 11-21-2024 Miscellaneous Notes Pt will be 6 weeks on 11/22/24- She would like to schedule a new OB appointment. She would prefer a morning appt if available. Lmp- oct 11 documented in this encounter [facility] 08-18-2024 History of Presen t illness Narrative [...] 8 oz F CS-LTranv KELLEE 1 SAB [employer] complaints: no Changes in healthsince last visit: [...] 08/18/2024 12:58 PM documented in this encounter [facility] Healthcare Evaluation note Diagnosis Iron deficiency anemia secondary to inadequate dietary iron intake- Primary [facility] Diagnosis Normal gynecologic examination Screening for cervical cancer Screening for malignant neoplasm of the cervix Amenorrhea Absence of menstruation [facility] Diagnosis Nausea/vomiting in - Primary Unspecified vomiting of , unspecified as to episode of care examination or test, positive result Unicornuate uterus History of section Other postprocedural status [facility] Diagnosis Bleeding in early Unspecified hemorrhage in early , unspecified as to episode of care Bleeding in early Unspecified hemorrhage in early , unspecified as to episode of care [facility] Diagnosis Bleeding in early - Primary Unspecified hemorrhage in early , unspecified as to episode of care examination or test, positive result Unicornuate uterus History of section Other postprocedural status [facility] Diagnosis Multigravida of advanced maternal age in first trimester- Primary [facility] Diagnosis Heartburn- Primary Encounter for supervision of other normal , second trimester History of section Other postprocedural status [facility] Diagnosis Encounter for supervision of other normal , second trimester- Primary Heartburn History of section Other postprocedural status Unicornuate uterus [facility]* Diagnosis Unicornuate uterus- Primary Encounter for supervision of other normal , third trimester ([facility]HS-HCC) Screening for iron deficiency anemia Screening for diabetes mellitus (DM) Screening for diabetes mellitus AMA (advanced maternal age) multigravida 35+, third trimester (HHS-HCC) [facility] Diagnosis Encounter for supervision of other normal , third trimester (HHS-HCC)- Primary Non-stress test reactive (HHS-HCC) state, incidental AMA (advanced maternal age) multigravida 35+, third trimester (HHS-HCC) Unicornuate uterus documented in [facility]* Diagnosis NST (non-stress test) reactive (HHS-HCC)- Primary state, incidental Encounter for supervision of other normal , third trimester (HHS-HCC) AMA (advanced maternal age) multigravida 35+, third trimester (HHS-HCC) Heartburn Unicornuate uterus [facility]* Diagnosis Bleeding in early ([facility]HS-HCC)- Primary Unspecified hemorrhage in early , unspecified as to episode of care Unicornuate uterus History of section Other postprocedural status Nausea/vomiting in ([facility]) Unspecified vomiting of , unspecified as to episode of care documented [facility]* Diagnosis NST (non-stress test) reactive (HHS-HCC)- Primary state, incidental screening for streptococcus B ([facility]) screening for Streptococcus B Encounter for supervision of other normal , third trimester ([facility]) AMA (advanced maternal age) multigravida 35+, third trimester ([facility]) History of section Other postprocedural status [facility]* Diagnosis NST (non-stress test) reactive ([facility]HS-HCC)- Primary state, incidental Encounter for supervision of other normal , third trimester ([facility]HS-HCC) documented in this [facility] noteNo assessment information availableOhiohealth [facility] Work Phone: Evaluation note* Diagnosis Cellulitis of left lower extremity- Primary documented in this [facility]* Diagnosis NST (non-stress test) reactive ([facility]HS-HCC)- Primary state, incidental AMA (advanced maternal age) multigravida 35+, third trimester ([facility]HS-HCC) documented [facility]* Diagnosis Cellulitis of left lower extremity- Primary documented in this [facility]* Diagnosis Cellulitis of left lower extremity- Primary documented in [facility]* Diagnosis NST (non-stress test) reactive ([facility])- Primary state, incidental AMA (advanced maternal age) multigravida 35+, third trimester ([facility]) Encounter for supervision of other normal , third trimester ([facility]) History of section Other postprocedural status Unicornuate uterus Multigravida of advanced maternal age in third trimester ([facility]) documented in this encounter [facility] HealthcareInstructionsNot on filedocumented in this encounterProMedind Health SystemInstructionsNot on filedocumented in this encounterProMarion Hospital SystemReason for referral (narrative)No reason for referral information availableOhiohealth [facility] Work Phone: Reason for visit Narrative* Maternity Services (Routine) - Closed Specialty Diagnoses / Procedures Referred By Contac t Referred To Contact Obstetrics and Gynecology Diagnoses examination or test, positive result Procedures GA OFFICE/OUTPATIENT NEW HIGH MDM 60 MINUTES Heriberto Snell CNM [address] [place] [address] Phone: tel: fax: Heriberto Snell CNM [address] [place] [address] Phone: tel: fax: Referral ID Status Reason Start Date Expiration Date V isits Requested Visits Authorized [id number] Closed Specialty Services Required 12/18/2024 06/16/2025 99 99 [facility] Healthcare Summary Purpose Family History Relationship Condition Age at Onset Recorded Date/T litzy family member Unknown Advance Directives Advance Directive Response Recorded Date/ Time Advance Directives No April 06 1:46pm Chief Complaint and Reason for Visit Chief Complaint Admit Date Bug bite June 28, 2025 10 :35am Additional Source Comments INFORMATION SOURCE (unrecogn ized section and content) DATE CREATED AUTHOR 07/05/2022 [facility] DATE CREATED AUTHOR AUTHOR'S ORGANIZ ATION 12/06/2022 [facility] dical Specialist DATE CREATED AUTHOR AUTHOR'S ORGANIZ ATION 01/16/2025 [facility] DATE CREATED AUTHOR AUTHOR'S ORGANIZ ATION 02/28/2025 [facility] DATE CREATED AUTHOR AUTHOR'S ORGANIZ ATION 04/10/2025 [facility] DATE CREATED AUTHOR AUTHOR'S ORGANIZ ATION 07/06/2025 [facility] dical Specialists EPIC Care Teams (unrecognized sec tion and content) Physician Intensivist Relationship Specialty Start Date End Date Sayra Green MD [address] [place] [address] PCP - General Family Medicine 04/12/23 Heriberto Snell CNM [address] [facility] [place] [address] Obstetrics and Gynecology 04/12/23 Physician Intensivist Relationship Specialty Start Date End Date Sayra Green MD [address] [place] [address] PCP - General Family Medicine 04/12/23 Heriberto Snell CNM [address] [place] [address] Obstetrics and Gynecology 04/12/23 Physician Intensivist Relationship Specialty Start Date End Date Sayra Green MD [address] [place] [address] PCP - General Family Medicine 04/12/23 Heriberto Snell CNM [address] [place] [address] Obstetrics and Gynecology 04/12/23 Physician Intensivist Relationship Specialty Start Date End Date Sayra Green MD [address] [place] [address] PCP - General Family Medicine 04/12/23 Heriberto Snell CNM [address] [place] [address] Obstetrics and Gynecology 04/12/23 Physician Intensivist Relationship Specialty Start Date End Date Sayra Green MD [address] [place] [address] PCP - General Family Medicine 10/26/22 Physician Intensivist Relationship Specialty Start Date End Date Sayra Green MD [address] [place] [address] PCP - General Family Medicine 04/12/23 Heriberto Snell CNM [address] [place] [address] Obstetrics and Gynecology 04/12/23 Physician Intensivist Relationship Specialty Start Date End Date Sayra Green MD [address] [place] [address] PCP - General Family Medicine 04/12/23 Heriberto Snell CNM [address] [place] [address] Obstetrics and Gynecology 04/12/23 Physician Intensivist Relationship Specialty Start Date End Date Sayra Green MD [address] [place] [address] PCP - General Family Medicine 10/26/22 Physician Intensivist Relationship Specialty Start Date End Date Sayra Green MD [address] [place] [address] PCP - General Family Medicine 04/12/23 Heriberto Snell CNM [address] [place] [address] Obstetrics and Gynecology 04/12/23 Physician Intensivist Relationship Specialty Start Date End Date Sayra Green MD [address] [place] [address] PCP - General Family Medicine 04/12/23 Heriberto Snell CNM [address] [place] [address] Obstetrics and Gynecology 04/12/23 Physician Intensivist Relationship Specialty Start Date End Date Sayra Green MD [address] [place] [address] PCP - General Family Medicine 04/12/23 Heriberto Snell CNM [address] [place] [address] Obstetrics and Gynecology 04/12/23 Physician Intensivist Relationship Specialty Start Date End Date Sayra Green MD [address] [place] [address] PCP - General Family Medicine 04/12/23 Heriberto Snell CNM [address] [place] [address] Obstetrics and Gynecology 04/12/23 Physician Intensivist Relationship Specialty Start Date End Date Sayra Green MD [address] [place] [address] PCP - General Family Medicine 04/12/23 Heriberto Snell CNM [address] [facility] [place] [address] Obstetrics and Gynecology 04/12/23 Physician Intensivist Relationship Specialty Start Date End Date Sayra Green MD [address] [facility] [place] [address] PCP - General Family Medicine 04/12/23 Heriberto Snell CNM [address] [facility] [place] [address] Obstetrics and Gynecology 04/12/23 Physician Intensivist Relationship Specialty Start Date End Date Sayra Green MD [address] [facility] [place] [address] PCP - General Family Medicine 04/12/23 Heriberto Snell CNM [address] [facility] [place] [address] Obstetrics and Gynecology 04/12/23 Physician Intensivist Relationship Specialty Start Date End Date Sayra Green MD [address] [facility] [place] [address] PCP - General Family Medicine 04/12/23 Heriberto Snell CNM [address] [facility] [place] [address] Obstetrics and Gynecology 04/12/23 Team Status: Active Member Role Status Dates Sayra Green MD Primary Care Provide r Active Team Status: Inactive Member Role Status Dates Sayra Green MD Primary Care Provider Active Start: June End: June 28, 2025 Josee Belle , [employer] Attending Provider Active Start: June 28, 2025 End: June 28, 2025 Physician Intensivist Relationship Specialty Start Date End Date Sayra Green MD [address] [place] [address] PCP - General Family Medicine 04/12/23 Heriberto Snell CNM [address] [facility] [place] [address] Obstetrics and Gynecology 04/12/23 Physician Intensivist Relationship Specialty Start Date End Date Sayra Green MD [address] [facility] [place] [address] PCP - General Family Medicine 04/12/23 Heriberto Snell CNM [address] [facility] [place] [address] Obstetrics and Gynecology 04/12/23 Physician Intensivist Relationship Specialty Start Date End Date Sayra Green MD [address] [facility] [place] [address] PCP - General Family Medicine 04/12/23 Heriberto Snell CNM [address] [facility] [place] [address] Obstetrics and Gynecology 04/12/23 Reason for Visit (unrecogniz ed section and content) Reason Comments Gynecologic Exam Reason Comments Initial Visit Reason Comments AMA UNICORNUATE UTERUS Reason Comments Insect Bite Reason Comments Follow-up Goals (unrecognized section and content) Goals may be documented in a n alternate section FOR RECORDS PERTAINING TO PATIENTS WHO ARE [...] BE BASED ON THE PRIMARY CLINICAL RECORDS. [facility] [employer] [facility]. provides no warranty or guarantee of the accuracy or completeness of information in this document.
[2025-07-09 11:32] LABS: Hematocrit 34.6 % (36.0-48.0); Hemoglobin 11.9 g/dL (12.0-16.0); Immature Granulocytes Abs Auto 0.02 10^3/uL (0.00-0.03); Immature Granulocytes Pct Auto 0.3 % (0.0-0.5); Lymphocytes Absolute Auto 1.8 10^3/uL (1.2-3.8); Mean Corpuscular HGB Conc 34.4 g/dL (29.9-35.2); Mean Corpuscular Hemoglobin 30.3 pg (26.7-34.0); Mean Corpuscular Volume 88.0 fL (81.0-99.0); Platelet Count 184 10^3/uL (150-450); Red Blood Count 3.93 10^6/uL (4.20-5.40); White Blood Count 7.7 10^3/uL (4.0-11.0)
[2025-07-09 11:44] LABS: Cannabinoid Screen Urine NEGATIVE (NEGATIVE); Methamphetamines Screen Urine NEGATIVE (NEGATIVE); Tricyclic Antidepressant Urine NEGATIVE (NEGATIVE)
--- NOTE | 2025-07-09 12:05 | PM.OBHP ---
OB - H&P: HPI History of Present Illness Chief complaint: : 3 Para: 1 Gestational age based on last menstrual period: 38.5 History of Present Dating criteria: LMP confirmed by 1st trimester US care: good care Ultrasounds: normal 1st trimester US and normal mid trimester US complications: other (unicornuate uterus , IUGR) Medical complications OB: none Labs Blood type: A (+) positive Rubella: immune RPR/VDLR: nonreactive GBS status: negative HBsAG: negative Review of Systems ROS Status of ROS: 10 or more systems reviewed and unremarkable except as noted in history and below [facility] Medical History (Updated 06/23/23 @ 00:00 by ) delivery delivered ?O82 - Encounter for delivery without indication (ICD-10) Family History (Updated 06/17/23 @ 08:09 by Farzaneh Luna) Sister Family history of cancer Grandmother Family history of stroke Social History (Updated 06/17/23 @ 08:11 by Farzaneh Luna) Within the past year, how often did you have a drink containing alcohol: never Score interpretation: A score less than 3 is consistent with normal alcohol consumption. Smoking status: Never smoker Non-prescribed substance use: denies use Are you now , , , , never or living with a partner: Feel stressed/tense/nervous/anxious/difficulty sleeping: not at all Do you think of yourself as: straight/heterosexual Gender Identity: female Meds Home Medications and Allergies Home Medications ?Medication ?Instructions ?Recorded ?Confirmed ?Type folic acid 1 mg tablet 1 mg PO DAILY 06/17/23 06/17/23 History vitamins no.102-iron 90 1 cap PO DAILY 06/17/23 06/17/23 History mg-folate 1 mg-dha 200 mg capsule Allergies Allergy/AdvReac Type Severity Reaction Status Date / Time No Known Drug Allergies Allergy Verified 06/15/23 10:28 Exam Constitutional Documenting provider has reviewed patient's vital signs: yes Common normals: no apparent distress General appearance: cooperative, comfortable, well kempt and well developed Orientation/consciousness: Yes awake, Yes oriented to person, Yes oriented to place and Yes oriented to time HENMT Common normals: normocephalic Head and scalp: normal to inspection Face and sinus: normal facial exam Eye Common normals: EOMs intact bilaterally General eye: normal appearance of both eyes Visual acuity: acuity normal Alignment: alignment normal Neck & C-Spine Common normals: full ROM General: normal visual inspection Chest Common normals: inspection of chest normal Respiratory Common normals: normal respiratory effort Effort & inspection: able to speak in complete sentences Cardio Common normals: regular rate and regular rhythm Rate: regular rate Rhythm: regular rhythm GI Common normals: Normal to inspection, nondistended, normoactive bowel sounds present Inspection: normal to inspection Back & Pelvis Common normals: no CVA tenderness Extremity Common normals: normal to inspection General: normal exam except as noted Neuro Common normals: oriented x3 Sensorium/orientation: awake, alert, oriented to person, oriented to place and oriented to time Psych Common normals: mental status grossly normal, thought process normal, cooperative, affect normal, speech normal, activity/motor behavior normal, denies hallucinations, denies homicidal ideation and denies suicidal ideation Appearance: grossly normal and well kempt Attitude: calm Activity/motor behavior: appropriate eye contact Results Labs Labs: Short CBC 07/09/25 Range/Units 11:15 WBC 7.7 (4.0-11.0) 10^3/uL Hgb 11.9 L (12.0-16.0) g/dL Hct 34.6 L (36.0-48.0) % Plt Count 184 (150-450) 10^3/uL
[2025-07-09] MEDS: FAMOTIDINE/PF 20 MG/2 ML VIAL IV (12:15)
[2025-07-09] MEDS: METOCLOPRAMIDE HCL 10 MG/2 ML VIAL IVP (12:15)
[2025-07-09] MEDS: CEFAZOLIN SODIUM/DEXTROSE,ISO 2 GM/50 ML PIGGYBACK IV ×2 (12:15→20:01)
--- NOTE | 2025-07-09 13:15 | PM.ONB ---
Brief Operative Note Date of procedure: 07/09/25 Pre-op diagnosis general: iup at 38 4/7wks, previous c/s, unicornuate uterus Post-op diagnosis: same as pre-op Procedure: NAME OF PROCEDURE: [ section ] PROCEDURE: Patient was taken back to the Operating Room where she was given a spinal anesthesia with Duramorph without difficulty. She was prepped and draped in the normal sterile fashion. A Pfannenstiel skin incision was then made 2 cm above the symphysis pubis and carried down to underlying rectus fascia using a Bovie. The fascia was incised in the midline and extended laterally using Betts scissors. Two Ramírez clamps were placed on the superior aspect of the fascia and dissected off the underlying rectus muscles. The same was performed on the inferior aspect as well. The muscles were then in the midline. Peritoneum was identified and entered bluntly. The peritoneum was then extended superiorly and inferiorly with good visualization of the bladder. The bladder blade was inserted. A low transverse incision was made on the patient's uterus and extended laterally digitally. The infant was then delivered atraumatically after the bladder blade was removed in the cephalic position. The cord was clamped and cut. Cord blood was obtained. The infant was handed off to awaiting team. The patient's placenta was spontaneously delivered. The uterus was then exteriorized. The uterus was cleared of all clots and debris. The bladder blade was reinserted. The patient's uterine incision was closed using #0 Vicryl in a running lock fashion. Excellent hemostasis was assured. The uterus was then returned to the patient's abdomen. The patient's abdomen was copiously irrigated using warm saline. Peritoneal gutters were cleared of all clots and debris. Again excellent hemostasis was assured. The patient's peritoneum was closed using 3-0 Vicryl in a running fashion. The patient's fascia was closed using #0 Vicryl in a running fashion. The patient's skin was closed using 4-0 Vicryl subcuticularly. The patient tolerated the procedure well. Sponge, lap, and needle counts were correct x2. The patient was taken to the Recovery Room in stable condition. Anesthesia: spinal Surgeon: Smooth Michele Shovel Log Loader Operator: HERIBERTO URIARTE Estimated blood loss (mL): 575 Pathology: other (placenta) Condition: stable Disposition: floor Urinary Catheter Management Urinary Catheter Management Urethral: Cath placed during this visit: no
--- NOTE | 2025-07-09 13:20 | P.OBPRC_ITS ---
Procedure Pre-op/Post-op diagnoses: Pre-Op/Post-Op Diagnoses Operation Date: 07/09/25 12:30 <No data on this case meets the specified criteria> Procedure: Procedures Operation Date: 07/09/25 12:30 Actual Procedure Side Surgeon p Repeat ( Nguyen Pt.) Not Applicable Smooth Michele DO Supervisor Bleach Plant: HERIBERTO URIARTE Estimated blood loss (mL): 575 Disposition: floor Anesthesia type: Spinal
--- NOTE | 2025-07-09 13:36 | P.EN_ITS ---
Event Note Event Note: I first assisted
--- NOTE | 2025-07-09 13:36 | PM.EN ---
Event Note Event Note: I first assisted
--- NOTE | 2025-07-09 13:47 | PM.EN ---
Event Note Event Note: Scrubber System Attendant note: I first assisted Dr Michele with a repeat section as directed. I then independently closed the incision with 4-0 vicryl without difficulty. Hemostasis noted at closure of incision. Patient tolerated procedure well.
[2025-07-09] MEDS: BENZOCAINE/MENTHOL 85 GRAM SPRAY BOTTLE 1 APPLIC TOPICAL (20:35)
[2025-07-09] MEDS: GLYCERIN/WITCH HAZEL PADS 1 PAD TOPICAL (20:36)
[2025-07-10] VITALS (7 sets, daily range): BP systolic 128–138; BP diastolic 64–85; PULSE 70–78; TEMP 36.3–37.1; O2SAT 98
[2025-07-10] MEDS: ENOXAPARIN SODIUM 40 MG/0.4 ML SYRINGE SUBQ (02:03)
[2025-07-10 06:09] LABS: Hematocrit 30.1 % (36.0-48.0); Hemoglobin 10.3 g/dL (12.0-16.0); Immature Granulocytes Abs Auto 0.02 10^3/uL (0.00-0.03); Immature Granulocytes Pct Auto 0.2 % (0.0-0.5); Lymphocytes Absolute Auto 1.8 10^3/uL (1.2-3.8); Mean Corpuscular HGB Conc 34.2 g/dL (29.9-35.2); Mean Corpuscular Hemoglobin 30.4 pg (26.7-34.0); Mean Corpuscular Volume 88.8 fL (81.0-99.0); Platelet Count 191 10^3/uL (150-450); Red Blood Count 3.39 10^6/uL (4.20-5.40); White Blood Count 9.8 10^3/uL (4.0-11.0)
[2025-07-10] MEDS: KETOROLAC TROMETHAMINE 30 MG/ML VIAL IVP (09:33)
[2025-07-10] MEDS: DOCUSATE SODIUM 100 MG CAPSULE PO ×2 (09:34→20:46)
--- NOTE | 2025-07-10 10:29 | P.OBPN_ITS ---
OB - PN: Subj Subjective Patient comments: no complaints and pain well controlled [place] status: doing well Exam Constitutional Vital Signs, click to edit/add: Last Vital Signs Temp 97.4 F L 07/10/25 00:13 Pulse 49 L 07/09/25 15:53 Resp 16 07/09/25 15:50 BP 128/70 07/10/25 04:14 Pulse Ox 98 07/10/25 00:13 O2 Del Method Room Air 07/09/25 21:45 Documenting provider has reviewed patient's vital signs: yes Common normals: no apparent distress Respiratory Common normals: normal respiratory effort and clear to auscultation bilaterally Cardio Common normals: regular rate and regular rhythm GI Common normals: Normal to inspection, nondistended, normoactive bowel sounds present Extremity Common normals: no clubbing, cyanosis or edema and no calf tenderness Results Labs Labs: Short CBC 07/09/25 07/10/25 Range/Units 11:15 06:00 WBC 7.7 9.8 (4.0-11.0) 10^3/uL Hgb 11.9 L 10.3 L (12.0-16.0) g/dL Hct 34.6 L 30.1 L (36.0-48.0) % Plt Count 184 191 (150-450) 10^3/uL Urinary Catheter Management Urinary Catheter Management Urethral: Cath placed during this visit: no OB - PN: A/P Plan - Vaginal Delivery day: 1 Plan: routine care Time Spent with Patient Time: Total time spent is greater than 50% in coordination of care (as documented) at patient's floor/unit and/or counseling patient: Total time spent with greater than 50% in coordination of care (as documented) at patient's floor/unit and/or counseling patient: less than 15 minutes
[2025-07-10] MEDS: IBUPROFEN 400 MG TABLET 800 MG PO (18:34)
[2025-07-10] MEDS: SIMETHICONE 80 MG TAB.CHEW PO (18:36)
[2025-07-11] MEDS: ENOXAPARIN SODIUM 40 MG/0.4 ML SYRINGE SUBQ (04:18)
[2025-07-11] MEDS: IBUPROFEN 400 MG TABLET 800 MG PO ×2 (04:18→12:21)
[2025-07-11 08:07] VITALS: TEMP 36.7
[2025-07-11] MEDS: DOCUSATE SODIUM 100 MG CAPSULE PO (08:21)
[2025-07-11] MEDS: ACETAMINOPHEN 500 MG TABLET 1000 MG PO (08:21)
--- NOTE | 2025-07-11 10:26 | PM.OBPN ---
OB - PN: Subj Subjective Patient comments: no complaints [place] status: doing well feeding status: exclusively Exam Constitutional Vital Signs, click to edit/add: Last Vital Signs Temp 98.0 F 07/11/25 08:07 Pulse 73 07/10/25 23:07 Resp 20 07/11/25 08:07 BP 128/64 07/10/25 23:07 Pulse Ox 98 07/10/25 00:13 O2 Del Method Room Air 07/11/25 08:08 Documenting provider has reviewed patient's vital signs: yes Common normals: no apparent distress General appearance: cooperative, comfortable, well kempt and well developed Orientation/consciousness: Yes awake, Yes oriented to person, Yes oriented to place and Yes oriented to time HENMT Common normals: normocephalic Eye Common normals: EOMs intact bilaterally General eye: normal appearance of both eyes Neck & C-Spine Common normals: full ROM General: normal visual inspection Lymph Lymphatic: no lymphadenopathy noted Chest Common normals: inspection of chest normal Respiratory Common normals: normal respiratory effort Effort & inspection: able to speak in complete sentences Auscultation: clear to auscultation bilaterally Cardio Common normals: regular rate Rate: regular rate Rhythm: regular rhythm GI Common normals: Normal to inspection, nondistended, normoactive bowel sounds present Inspection: normal to inspection Palpation: soft Common normals: no CVA tenderness Back & Pelvis Common normals: no CVA tenderness Thoracic spine/upper back: normal to inspection Lumbar spine/lower back: normal to inspection Extremity Common normals: normal to inspection Neuro Common normals: oriented x3 Psych Common normals: mental status grossly normal, thought process normal, cooperative, affect normal, speech normal, activity/motor behavior normal, denies hallucinations, denies homicidal ideation and denies suicidal ideation Appearance: grossly normal Attitude: calm Urinary Catheter Management Urinary Catheter Management Urethral: Cath placed during this visit: no OB - PN: A/P Assessment and Plan (1) Term delivered: (2) Previous section: (3) Unicornuate uterus: (4) Advanced maternal age (AMA) in : Time Spent with Patient Time: Total time spent is greater than 50% in coordination of care (as documented) at patient's floor/unit and/or counseling patient: Total time spent with greater than 50% in coordination of care (as documented) at patient's floor/unit and/or counseling patient: less than 15 minutes
== END 2025-07-11 13:24 | disposition home or self-care (01) | DRG 788 ==
PROVIDERS: Admitting Provider Midwife; Family Provider Family Medicine; Referring Provider Obstetrics & Gynecology; Visit Provider Obstetrics & Gynecology
PROC: 10D00Z1 Extraction of Products of Conception, Low, Open Approach (ICD-10-PCS; CPT 59514; principal; 2025-07-09 12:30)
DX: O36.5930 Maternal care for other known or suspected poor fetal growth, third trimester, not applicable or unspecified (principal); O34.03 Maternal care for unspecified congenital malformation of uterus, third trimester; O34.211 Maternal care for low transverse scar from previous cesarean delivery; Z3A.38 38 weeks gestation of pregnancy; Z37.0 Single live birth; Q51.4 Unicornate uterus
CPT/HCPCS: 36415; 59025; 59050; 80307; 85025; 86850; 86900; 86901; 88307; 94667; 94668; J0690; J1650; J1885; J2274; J2405; J2765; J3490

== ENCOUNTER 2025-07-15 07:59 | Outpatient (OUT) | payer OTHER, SELFPAY ==
--- OUTSIDE RECORDS SUMMARY | 2011-09-21 12:35 | XMS_ITS | Continuity of Care Document ---
Author Organization [facility] Address [address] [place] [address] Phone Care Team Providers Care Trapeze Performer Name Role Phone Yaw Newsome Unavailable Unavailable Procedures Procedure Date TB INTRADERMAL TEST TB INTRADERMAL TEST Advance Directives Directive Yes / No Effective Date File Name No Information Encounters Encounter Description Practice Location Reason(s) For Visit Diagnoses Date Provider Providers Copied on Encounter [facility], [address], [place], [id number], [place] tel:[phone] [facility] No Information Rosalio Green. [address], [place], [id number], [place]. tel:[phone] [facility], [address], [place], [id number], [place] tel:[phone] [facility] Screening examination for pulmonary tuberculosis Rosalio Green. [address], [place], [id number], [place]. tel:[phone] Family History Family Member Type Diagnosis Age At Onset No Information Payers Payer name Insurance type Covered alliance party ID Authoriza tion(s) No Information Social History Type Description Quantity Date Captured Comments Sex Female Smoking Status No Information Chief Complaint And Reason For Visit No Information Reason For Referral Reason For Referral No Information History Of Present Illness Encounter Date Complaint History Of Prese nt Illness No Information Functional Status Date Functional Assessmen t No Information Instructions Date Instruction Additional Infor mation No Information Assessments Type Assessment Date No Information Patient Care Teams Name Effective Dates (start - stop) Status Members No Information
--- OUTSIDE RECORDS SUMMARY | 2025-07-01 16:30 | XMS_ITS | Encounter Summary ---
Author Organization [facility] Address [address] [facility] [place] [address] Care Team Providers Care Payroll Master Name Role Phone Alis Melanie Johnson CNM Unavailable Sayra Leon MD Primary Care Provider [phone] Reason for Visit * Reason Comments Follow-up Encounter Details Date Type Department Care Team (Late st Contact Info) Description 07/01/2025 4:30 PM EDT Office Visit [facility] [address] [place] [address] Zohreh Main NP [address] [place] [address] Cellulitis of left lower extremity [...] declined 06/21/2023 How often do you attend catholic or mandaen serv ices? Patient declined 06/21/2023 Do you belong to any clubs o r organizations such as catholic groups, unions, fraMedia Matchmaker or athletic groups, or school groups? Patient [...] a longterm (including now)? Patient refused 06/21/2023 [place] Depression Scale Answer Date Recorded [place] Depression Scale Total 6 08/15/2023 The thought [...] Description 07/16/2025 3:45 PM EDT Visit [facility] [address] [place] [address] Melanie Snell CNM [address] [place], [place] [phone] documented as of this encounter Visit Diagnoses Diagnosis Cellulitis of left lower extremity- Primary documented in this encounter Care Teams Payroll Master Relationship Specialty Start Date End Date Sayra Leon MD [address] [place] [address] PCP - General Family Medicine 04/12/23 Melanie Snell CNM [address] [place], [place] [phone] Obstetrics and Gynecology 04/12/23 documented as of this encounter
--- OUTSIDE RECORDS SUMMARY | 2025-07-02 15:45 | XMS_ITS | Encounter Summary ---
Author Organization [facility] Address [address] [place] [address] Care Team Providers Care Group Controller Name Role Phone Melanie Snell CNM Unavailable [phone] Sayra Leon MD Primary Care Provider [phone] Encounter Details Date Type Department Care Team (Latest Contact Info) Description 07/02/2025 3:45 PM EDT Ancillary Procedure [facility] Imaging [address] [place] [address] AMA (advanced maternal age) multigravida 35+, third trimester ([facility]) Social History Tobacco Use Types [...] declined 06/21/2023 How often do you attend shinto or hoahaoism serv ices? Patient declined 06/21/2023 Do you belong to any clubs o r organizations such as shinto groups, unions, fraternal or athletic groups, or [...] place to sleep or slept in a half-way (including now)? Patient refused 06/21/2023 [place] Depression Scale Answer Date Recorded [place] Depression Scale Total 6 08/15/2023 The thought [...] Description 07/16/2025 3:45 PM EDT Visit [facility] [address] [place] [address] Melanie Snell, CNM [address] [place] [address] documented as of this encounter Procedures Procedure Name Priority Date/Time Associated Diagnosis Comments US OB FOLLOW UP TRANSABDOMINAL APPROACH Routine 07/02/2025 4:44 PM EDT AMA (advanced maternal age) multigravida 35+, third trimester ([facility]) documented in this encounter Results * US OB follow up transabdominal approach (07/02/2025 4:44 PM EDT) Anatomical Region Laterality Modality Body Ultrasound 07/03/2025 12:1 5 PM EDT Impressions 07/03/2025 1:02 PM EDT 1.Single, live intrauterine , current sonographic age of 36 weeks and 5 days, with an estimated date of delivery of July 25, 2025. 2. Current weight by percentile is 13.4% which is reduced from the prior study of June 11, 2025 (31%). COMMENT: History indicates patient is scheduled for a July 09, 2025. * Estimated Weight (g) by Percentile is based upon an accurate estimated age based on last menstrual period. TRANSCRIBED BY: ELECTRONICALLY SIGNED BY: Rangel Chowdhury MD Narrative 07/03/2025 1:02 PM EDT FINDINGS: A single, live intrauterine is present with normal cardiac rate of 147 beats per minute. Normal activity and amniotic fluid volume. Amniotic fluid index is 13.0 cm. Morphology is grossly normal. The cervix is long and closed, 5.0cm. The placenta is anterior, not associated with the cervical os. History indicates a uni chylous uterus The current sonographic age is 36 weeks and 5 days, based on the following measurements: BPD 9.6 cm (39 weeks, 1days) Head Circumference 33.1cm ( 37weeks, 5 days) Abdominal Circumference 30.6cm ( 34 weeks, 4 days) Femur Length 6.9cm (35 weeks, 3 days) Presentation Cephalic Placenta Anterior, Grade 2 Weight (g) by Percentile 13.4 % * These measurements result in an estimated date of delivery of July 25, 2025 The current estimated weight is 2708 grams ( 6 pound, 0 ounces). Procedure Note Rangel Chowdhury MD - 07/03/2025 FINDINGS: A single, live intrauterine is present with normal cardiacrate of 147 beats per minute. Normal activity and amniotic fluidvolume. Amniotic fluid index is 13.0 cm. Morphology is grossly normal.The cervix is long and closed, 5.0cm. The placenta is anterior, notassociated with the cervical os. History indicates a uni chylous uterusThe current sonographic age is 36 weeks and 5 days, based on the followingmeasurements: BPD 9.6 cm (39 weeks, 1days) Head Circumference 33.1cm ( 37weeks, 5 days) Abdominal Circumference 30.6cm ( 34 weeks, 4 days) Femur Length 6.9cm (35 weeks, 3 days) Presentation Cephalic Placenta Anterior, Grade 2 Weight (g) by Percentile 13.4 % * These measurements result in an estimated date of delivery of 2024 The current estimated weight is 2708 grams ( 6 pound, 0ounces). IMPRESSION: 1.Single, live intrauterine , current sonographic age of 36weeks and 5 days, with an estimated date of delivery of July. 2. Current weight by percentile is 13.4% which is reduced from theprior study of June 11, 2025 (31%). COMMENT: History indicates patient is scheduled for a June. * Estimated Weight (g) by Percentile is based upon an accurateestimated age based on last menstrual period. TRANSCRIBED BY: ELECTRONICALLY SIGNED BY: Rangel Chowdhury MD us Melanie Snell CNM IMG OB US PROCEDURES Final R esult documented in this encounter Visit Diagnoses Diagnosis AMA (advanced maternal age) multigravida 35+, third trimester ([facility]) documented in this encounter Care Teams Group Controller Relationship Specialty Start Date End Date Sayra Leon MD [address] [place] [address] PCP - General Family Medicine 04/12/23 Melanie Snell CNM [address] [place] [address] Obstetrics and Gynecology 04/12/23 documented as of this encounter
--- OUTSIDE RECORDS SUMMARY | 2025-07-06 15:30 | XMS_ITS | Encounter Summary ---
Author Organization [facility] Address [address] [place] [address] Care Team Providers Care Front Office Medical Assistant Name Role Phone Melanie Snell CNM Unavailable [phone] Sayra Leon MD Primary Care Provider [phone] Encounter Details Date Type Department Care Team (Latest Contact Info) Description 07/06/2025 3:30 PM EDT Routine [facility] [address] [place] [phone] Melanie Snell, CNM [address] [place], [place] [phone] NST (non-stress test) reactive ([facility]) (Primary Dx); AMA (advanced maternal age) multigravida 35+, third trimester ([facility]); Encounter for supervision of other normal , third trimester ([facility]); History of section; Unicornuate uterus; Multigravida of advanced maternal age in third trimester ([facility]) Social History Tobacco Use Types Packs/Day Years [...] declined 06/21/2023 How often do you attend adventist or yarsanism serv ices? Patient declined 06/21/2023 Do you belong to any clubs o r organizations such as adventist groups, unions, fraternal or athletic groups, or [...] place to sleep or slept in a fdc (including now)? Patient refused 06/21/2023 [place] Depression Scale Answer Date Recorded [place] Depression Scale Total 6 08/15/2023 The thought [...] Sign Reading Time Taken Comments Blood Pressure 120/70 07/06/2025 3:26 PM EDT Pulse - - Temperature - - Respiratory Rate - - Oxygen Saturation - - Inhaled Oxygen Concentration - - Weight 86.6 kg (191 lb) 07/06/2025 3:26 PM EDT Height - - Body Mass Index 28.21 07/18/2023 10:05 AM EDT documented in this encounter Progress Notes * Melanie Snell CNM - 07/06/2025 3:30 PM EDT Subjective No chief complaint on file. Paige Enamorado is a 39 y.o. at 38w2d with a working estimated date of delivery of 07/18/2025, by Last Menstrual Period who presents for a routine visit. She denies vaginal bleeding, leakage of fluid, decreased movements, or contractions. OB History Para Term AB Living 3 1 1 1 1 SAB IAB Ectopic Multiple Live Births 1 1 # Outcome Date GA Lbr Benji/2nd Weight Sex Type Anes PTL Lv 3 Current 2 Term 06/17/23 37w1d 5 lb 8 oz F CS-LTranv KELLEE 1 SAB Her is complicated by: AMA, Objective Physical Exam Weight: 191 lb Expected Total Weight Gain: 25 lb-35 lb Pregravid BMI: 23.32 BP: 120/70 Urine protein-negative Urine glucose-negative Assessment/Plan Diagnoses and all orders for this visit: NST (non-stress test) reactive ([facility]) AMA (advanced maternal age) multigravida 35+, third trimester ([facility]) Encounter for supervision of other normal , third trimester ([facility]) History of section Unicornuate uterus Multigravida of advanced maternal age in third trimester ([facility]) Continue vitamin. Labs reviewed. Expected mode of delivery repeat section Follow up in 1 week for a routine visit. documented in this encounter Plan of Treatment Upcoming Encounters Date Type Department Care Team (Late st Contact Info) Description 07/16/2025 3:45 PM EDT Visit [facility] [address] [place] [address] Melanie Snell CNM [address] [place] [address] documented as of this encounter Visit Diagnoses Diagnosis NST (non-stress test) reactive ([facility])- Primary state, incidental AMA (advanced maternal age) multigravida 35+, third trimester ([facility]) Encounter for supervision of other normal , third trimester ([facility]) History of section Other postprocedural status Unicornuate uterus Multigravida of advanced maternal age in third trimester ([facility]) documented in this encounter Care Teams Front Office Medical Assistant Relationship Specialty Start Date End Date Sayra Leon MD [address] [place] [address] PCP - General Family Medicine 04/12/23 Melanie Snell CNM [address] [place] [address] Obstetrics and Gynecology 04/12/23 documented as of this encounter
--- OUTSIDE RECORDS SUMMARY | 2025-07-06 15:30 | XMS_ITS | Encounter Summary ---
Author Organization [facility] Address [address] [facility] [place] [address] Care Team Providers Care Rental Car Ferry Driver Name Role Phone Melanie Snell CNM Unavailable [phone] Sayra Leon MD Primary Care Provider [phone] Encounter Details Date Type Department Care Team (Late st Contact Info) Description 07/06/2025 3:30 PM EDT Office Visit [facility] Family Medicine [address] [place] [address] Zohreh Main NP [address] [place] [address] Cellulitis of left lower extremity [...] declined 06/21/2023 How often do you attend rastafari or yazdanism serv ices? Patient declined 06/21/2023 Do you belong to any clubs o r organizations such as rastafari groups, unions, fraternal or athletic groups, or [...] place to sleep or slept in a usp (including now)? Patient refused 06/21/2023 [place] Depression Scale Answer Date Recorded [place] Depression Scale Total 6 08/15/2023 The thought [...] 3:45 PM EDT Visit [facility] [address] [place] [address] Melanie Snell CNM [address] [place], [place] [phone] documented as of this encounter Visit Diagnoses Diagnosis Cellulitis of left lower extremity- Primary documented in this encounter Care Teams Rental Car Ferry Driver Relationship Specialty Start Date End Date Sayra Leon MD [address] [place], [place] [phone] PCP - General Family Medicine 04/12/23 Melanie Snell CNM [address] [place], [place] [phone] Obstetrics and Gynecology 04/12/23 documented as of this encounter
--- OUTSIDE RECORDS SUMMARY | 2025-07-10 20:28 | XMS_ITS | Continuity of Care Document ---
Author Organization [facility] Address [address] [place] [address] Phone Care Team Providers Care Food Service Helper Name Role Phone Sayra Baires MD Primary Care Pr ovider Josee Belle APRN Attending Provider Smooth Michele DO Attending Provider Care Teams Visit Care Team Team Status: Inactive Member Role Status Dates Sayra Leon MD Primary Care Provider Active Start: June End: June 28, 2025 Josee Belle APRN Attending Provider Active Start: June 28, 2025 End: June 28, 2025 Patient Care Team Team Status: Inactive Member Role Status Dates Smooth Michele DO Attending Provider Active Start : July 09, 2025 End: July 09, 2025 Chief Complaint and Reason for Visit Chief Complaint Admit Date Bug bite June 28, 2025 10 :35am Unknown July 09, 2025 1: 00pm Reason for Visit Admit Date Cellulitis of left leg without foot Augu st 2024 10:35am Allergies, Adverse Reactions, Alerts Allergen Type Severity Reaction Last Updated Verified Status No Known Allergies Allergy Unknown June 28, 2025 10:51am Yes Active Social History Smoking Status Status Start Date End Date Date of Observa tion Never smoked tobacco (finding) June 28, 2025 10:53am Observation Status Observation Response Date of Response Legal Sex Female (finding) Sex Assigned At Female [birth year] Status Y June 28 Family History Relationship Condition Age at Onset Recorded Date/T litzy family member Unknown Problems Active Problems Medical Problem Onset Date Status Cellulitis of left leg without foot Unknown Active Medications Medication Status Dose Units Route Directions Qty Days St art Date Stop Date End Date Instructions Adherence Famotidine 20 mg tablet Active 20 MG PO Daily at bedtime June 28, 2025 12:00a m Unknown Folic Acid 1 mg tablet Active 1 MG PO Daily June 28, 2025 12:00a m Unknown Pnv 102-Iron-Fo late-Dha 90 mg iron- 1 mg-200 mg capsule Active 1 CAP PO Daily June 28, 2025 12:00a m Unknown Cephalexin 500 mg capsule Active 500 MG PO Four times daily 08 06June 28, 2025 12:00a m Unknown Vital Signs Vital Reading Result Reference Range Collection Date/Time Height 69 [in_i] June 28 10:50am Weight 87.08 kg June 28 10:50am Body Temperature 98.7 [degF] 97.6-99.0 June 10:50am Heart Rate 73 /min 60-100 June 28 10:50am Respiratory rate 18 /min 12-June 10:50am Oxygen saturation by Pulse oximetry 99 % 95-100 June 28, 2025 10 :50am BP Systolic 123 mm[Hg] 100-140 June 28 10:50am BP Diastolic 77 mm[Hg] 60-100 June 28 10:50am BMI (Body Mass Index) 28.3 kg/m2 June 28, 2025 10:50am Advance Directives Advance Directive Response Recorded Date/ Time Advance Directives No April 06 1:46pm Insurance Providers Guarantor Paige Enamorado Address [address] [address] Contact Info. Home Phone: Payer Policy Id Subscriber's Name Subscriber Id Effectiv e Date Expiration Date [facility] [id number] Paige Enamorado [id number] Encounters Encounter Location(s) Arrival/Admit Date Discharge/Depart Date Provider(s) Departed Physician/Prov ider Office Visit -[facility] June 28, 2025 10:35am June 28, 2025 11:06am Dennys Morel APRN Departed Referred -[facility] July 09, 2025 1:00pm July 09, 2025 1:01pm Smooth Michele Recent Diagnosis Onset Date Admit Date Cellulitis of left leg without foot Unknown June 28, 2025 10:35am Assessments Diagnosis Onset Date Resolution Status Admit Date Cellulitis of left leg witho ut foot acute June 28 10:35am Plan of Treatment Author Josee Belle [facility] Authored June 28, 2025 12 :03pm Discussed concern for cellul itis. Will treat with Keflex. Finish entire course. Elevation encouraged. Closely monitor area and follow-up for any rapidly spreading erythema, edema, develops fever. Patient verbalized understanding of treatment plan. Future Tests Future scheduled test information is unavailable Pending Tests Pending diagnostic test information is unavailable Future Visits Future appointment information is unavailable Referrals to Other Providers Referral information is unavailable Future Procedures Future procedure information is unavailable Future Medications Future medication information is unavailable Patient Instructions Patient instructions are unavailable
--- OUTSIDE RECORDS SUMMARY | 2025-07-15 08:02 | XMS_ITS | Encounter Summary ---
Author Organization [facility] Address [address] [place] [address] Care Team Providers Care Junction Maker Name Role Phone Melanie Snell CNM Unavailable Sayra Leon MD Primary Care Provider [phone] Encounter Details Date Type Department Care Team (Late st Contact Info) Description 04/13/2025 Results Follow-Up [facility] OBGYN [address] [place] [address] Melanie Snell CNM [address] [place], [place] [id number] OB 14+ weeks anatomy scan Social History Tobacco Use Types Packs/Day Years [...] How often do you attend jain or mandaeism serv ices? Patient declined 06/21/2023 Do you belong to any clubs o r organizations such as jain groups, unions, [employer] or athletic groups, or school groups? Patient [...] a longterm (including now)? Patient refused 06/21/2023 [place] Depression Scale Answer Date Recorded [place] Depression Scale Total 6 08/15/2023 The thought [...] 3:45 PM EDT Visit [facility] [address] [place] [address] Melanie Snell CNM [address] [place] [address] documented as of this encounter Visit Diagnoses Not on filedocumented in this encounter Care Teams Junction Maker Relationship Specialty Start Date End Date Sayra Leon MD [address] [place], [place] [id number] PCP - General Family Medicine 04/12/23 Melanie Snell CNM [address] [place], [place] [phone] Obstetrics and Gynecology 04/12/23 documented as of this encounter
--- OUTSIDE RECORDS SUMMARY | 2025-07-15 08:03 | XMS_ITS | Clinical Summary ---
Author Organization [facility] tem Address [facility]-[id number] [address] [place] [address] Care Team Providers Care Learning Consultant Name Role Phone Sayra Leon MD Primary [...] on file Insurance [employer] Care Teams Learning Consultant Relationship Specialty Start Date End Date Sayra Leon MD [address] [place] [address] PCP - General Family Medicine 10/26/22
--- OUTSIDE RECORDS SUMMARY | 2025-07-15 08:03 | XMS_ITS ---
Author Organization [facility] Address [address] [facility] [place] [address] Care Team Providers Care Pool Table Mechanic Name Role Phone Melanie Snell CNM Unavailable [phone] Sayra Leon MD Primary Care Provider [phone] Inpatient Discharge Transitional Care Management (TCM) Status:Closed (Closed) Start date:07/11/2025 Enrollment date:07/14/2025 Enrollment reason:Identified using hospital discharge data End date:07/14/2025 Close reason:Not eligible Overview Patient discharged from [facility] on 07[facility]11. Please contact for hospital KETTY and schedulefollow-up appointment within 7-14 days. Continued Care and Services Coordination
--- OUTSIDE RECORDS SUMMARY | 2025-07-15 08:03 | XMS_ITS | Encounter Summary ---
Author Organization [facility] Address [address] [facility] [place] [address] Care Team Providers Care As400 Analyst Name Role Phone Melanie Snell CNM Unavailable [phone] Sayra Leon MD Primary Care Provider [phone] Encounter Details Date Type Department Care Team (Late st Contact Info) Description 07/01/2025 Telephone [facility] Medicine [address] [place] [address] Angie Harris MA Social History [...] declined 06/21/2023 How often do you attend taoist or taoist serv ices? Patient declined 06/21/2023 Do you belong to any clubs o r organizations such as taoist groups, unions, fraternal or athletic groups, or [...] a prison (including now)? Patient refused 06/21/2023 [place] Depression Scale Answer Date Recorded [place] Depression Scale Total 6 08/15/2023 The thought [...] 3:45 PM EDT Visit [facility] [address] [place] [id number] Melanie Snell, FADI [address] [place] [address] documented as of this encounter Visit Diagnoses Not on filedocumented in this encounter Care Teams As400 Analyst Relationship Specialty Start Date End Date Sayra Leon MD [address] [place] [address] PCP - General Family Medicine 04/12/23 Melanie Snell CNM [address] [place], [place] [phone] Obstetrics and Gynecology 04/12/23 documented as of this encounter
--- OUTSIDE RECORDS SUMMARY | 2025-07-15 08:03 | XMS_ITS | Encounter Summary ---
[id number] [address] [place] [address] Care Team Providers Care Assistant Superintendent For Curriculum Name Role Phone Sayra Leon MD Primary Care Provider [phone] Encounter Details Date Type Department Care Team (Late st Contact Info) Description 10/30/2022 [facility] [address] [place] [phone] Jacqui Shields CMA Social History Tobacco Use [...] on filedocumented in this encounter Care Teams Assistant Superintendent For Curriculum Relationship Specialty Start Date End Date Sayra Leon MD [address] [place] [address] PCP - General Family Medicine 10/26/22 documented as of this encounter
--- OUTSIDE RECORDS SUMMARY | 2025-07-15 08:03 | XMS_ITS | Encounter Summary ---
Author Organization [facility] Address [address] [place] [address] Care Team Providers Care Floriculturist Name Role Phone Melanie SnellM Unavailable Sayra Leon MD Primary Care Provider [phone] Encounter Details Date Type Department Care Team (Late st Contact Info) Description 07/06/2025 Bamboo flowsheet [facility] [place] [facility] [address] [place] [address] Melanie Snell CNM [address] [place] [address] Social History Tobacco Use Types [...] declined 06/21/2023 How often do you attend spiritism or restorationism serv ices? Patient declined 06/21/2023 Do you belong to any clubs o r organizations such as spiritism groups, unions, fraternal or athletic groups, or [...] a mcfp (including now)? Patient refused 06/21/2023 [place] Depression Scale Answer Date Recorded [place] Depression Scale Total 6 08/15/2023 The thought [...] 3:45 PM EDT Visit [facility] [address] [place] [address] Melanie Snell CNM [address] [place] [address] documented as of this encounter Visit Diagnoses Not on filedocumented in this encounter Care Teams Floriculturist Relationship Specialty Start Date End Date Sayra Leon MD [address] [place], [place] [phone] PCP - General Family Medicine 04/12/23 Melanie Snell CNM [address] [place] [address] Obstetrics and Gynecology 04/12/23 documented as of this encounter
--- OUTSIDE RECORDS SUMMARY | 2025-07-15 08:03 | XMS_ITS | Encounter Summary ---
Author Organization [facility] Address [address] [facility] [place] [address] Care Team Providers Care Rapid Outsole Stitcher Name Role Phone Melanie Snell CNM Unavailable Sayra Leon MD Primary Care Provider [phone] Encounter Details Date Type Department Care Team (Latest Contact Info) Description 04/29/2025 Results Follow-Up [facility] OBGYN [address] [place] [address] Sayra Tavares MA CBC, GLUCOSE, [...] declined 06/21/2023 How often do you attend taoism or hindu serv ices? Patient declined 06/21/2023 Do you belong to any clubs o r organizations such as taoism groups, unions, fraternal or athletic groups, or [...] a alf (including now)? Patient refused 06/21/2023 [place] Depression Scale Answer Date Recorded [place] Depression Scale Total 6 08/15/2023 The thought [...] 3:45 PM EDT Visit [facility] [address] [place] [address] Melanie Snell CNM [address] [place] [address] documented as of this encounter Visit Diagnoses Not on filedocumented in this encounter Care Teams Rapid Outsole Stitcher Relationship Specialty Start Date End Date Sayra Leon MD [address] [place], [place] [id number] PCP - General Family Medicine 04/12/23 Melanie Snell CNM [address] [place], [place] [phone] Obstetrics and Gynecology 04/12/23 documented as of this encounter
--- OUTSIDE RECORDS SUMMARY | 2025-07-15 08:03 | XMS_ITS | Encounter Summary ---
Author Organization [facility] tem Address [facility][id number] [address] [place] [address] Care Team Providers Care Radio Recorder Name Role Phone Sayra Leon MD Primary Care Provider [phone] Encounter Details Date Type Department Care Team (Late st Contact Info) Description 02/15/2023 Telephone Maternal- Medicine at [facility] [address] [facility] [place] [phone] Estefani Aponte Social History Tobacco Use Types [...] on filedocumented in this encounter Care Teams Radio Recorder Relationship Specialty Start Date End Date Sayra Leon MD [address] [place], [place] [phone] PCP - General Family Medicine 10/26/22 documented as of this encounter
--- OUTSIDE RECORDS SUMMARY | 2025-07-15 08:03 | XMS_ITS | Encounter Summary ---
Author Organization [facility] Address [address] [place] [address] Care Team Providers Care Wooling Machine Operator Name Role Phone Heriberto SnellM Unavailable [phone] Sayra Leon MD Primary Care Provider [phone] Encounter Details Date Type Department Care Team (Late st Contact Info) Description 01/14/2025 External Result Encounter [facility] [address] [place] [address] Heriberto Snell CNM [address] [place], [place] [phone] Social History Tobacco Use Types Packs/Day Years [...] declined 06/21/2023 How often do you attend methodist or scientologist serv ices? Patient declined 06/21/2023 Do you belong to any clubs o r organizations such as methodist groups, unions, fraternal or athletic groups, or [...] skilled nursing (including now)? Patient refused 06/21/2023 [place] Depression Scale Answer Date Recorded [place] Depression Scale Total 6 08/15/2023 The thought [...] 3:45 PM EDT Visit [facility] [address] [place] [address] Heriberto Snell CNM [address] [place] [address] documented as of this encounter Procedures Procedure Name Priority Date/Time Associated Diagnosis Comments US OB 14+ WEEKS ANATOMY SCAN 01/14/2025 3:34 PM EST documented in this encounter Results * US OB 14+ weeks anatomy scan (01/14/2025 3:34 PM EST) Anatomical Region Laterality Modality Body Ultrasound 01/14/2025 3:34 PM EST Narrative 01/14/2025 3:34 PM EST THIS EXAM WAS PERFORMED AT [facility] NAME: LIAM GRANT : 1985 SEX: F Accession Number: [id number] ORDERING PHYSICIAN: HERIBERTO SNELL REFERRING PHYSICIAN: HERIBERTO SNELL Coding ----- --------- Procedures [id number]: Ultrasound, uterus, real time with image documentation, and maternal evaluation, first trimester (< 14 weeks 0 days), transabdominal approach; single or first gestation Indication ----- --------- Screening for Nuchal Translucency,Unicornuate uterus, History of prior with IUGR, AMA- Supervision of elderly History ----- --------- OB History 3. Para 1 [id number] Maternal Assessment ----- --------- Physical Exam Height [...] masses noted. Recommendations ----- --------- Please see [facility] documentation from today. Patient is scheduled in 6 weeks for the anatomic survey, cervical length ultrasound. Subsequent follow up or other follow up as clinically determined by primary OB provider unless otherwise specified by [facility]. Results forwarded to ordering provider so they can follow up with the patient as necessary. Procedure Note Radiology, Radiologist, - 01/14/2025 THIS EXAM WAS PERFORMED AT [facility] NAME: LIAM GRANT : 1985 SEX: F Accession Number: [id number] ORDERING PHYSICIAN: HERIBERTO SNELL REFERRING PHYSICIAN: HERIBERTO SNELL Coding ----- --------- Procedures [id number]: Ultrasound, uterus, real time with imagedocumentation, and maternal evaluation, first trimester (< 14 weeks 0 days), transabdominal approach;single or first gestation Indication ----- --------- Screening for Nuchal Translucency,Unicornuate uterus, History of priorpregnancy with IUGR, AMA- Supervision of elderly History ----- --------- OB History 3. Para 1 [id number] Maternal Assessment ----- --------- Physical Exam Height [...] on filedocumented in this encounter Care Teams Wooling Machine Operator Relationship Specialty Start Date End Date Sayra Leon MD [address] [place], [place] [id number] PCP - General Family Medicine 04/12/23 Heriberto Snell CNM [address] [place] [address] Obstetrics and Gynecology 04/12/23 documented as of this encounter
--- OUTSIDE RECORDS SUMMARY | 2025-07-15 08:03 | XMS_ITS | Encounter Summary ---
Author Organization [facility] Address [address] [facility] [place] [address] Care Team Providers Care Umbrella Tipper Name Role Phone Melanie Snell CNM Unavailable [phone] Sayra Leon MD Primary Care Provider [phone] Encounter Details Date Type Department Care Team [...] How often do you attend nondenominational or oriental orthodox serv ices? Patient declined 06/21/2023 Do you [...] place to sleep or slept in a correction (including now)? Patient refused 06/21/2023 [place] Depression Scale Answer Date Recorded [place] Depression Scale Total 6 08/15/2023 The thought [...] 3:45 PM EDT Visit [facility] [address] [place] [address] Melanie Snell CNM [address] [place] [address] documented as of this encounter Visit Diagnoses Not on filedocumented in this encounter Care Teams Umbrella Tipper Relationship Specialty Start Date End Date Sayra Leon MD [address] [place], [place] [phone] PCP - General Family Medicine 04/12/23 Melanie Snell CNM [address] [place], [place] [phone] Obstetrics and Gynecology 04/12/23 documented as of this encounter
--- OUTSIDE RECORDS SUMMARY | 2025-07-15 08:03 | XMS_ITS | Encounter Summary ---
Author Organization [facility] Address [address] [facility] [place] [address] Care Team Providers Care Commercial Stripper Name Role Phone Melanie SnellM Unavailable [phone] Sayra Leon MD Primary Care Provider [phone] Encounter Details Date Type Department Care Team (Late st Contact Info) Description 07/10/2025 Clinisync Result Encounter [facility] External Department Unsolicited Smooth Michele, DO [address] [place], [place] [id number] Social History Tobacco Use Types Packs/Day Years [...] declined 06/21/2023 How often do you attend jew or sikh serv ices? Patient declined 06/21/2023 Do you belong to any clubs o r organizations such as jew groups, unions, fraternal or athletic groups, or [...] place to sleep or slept in a senior living (including now)? Patient refused 06/21/2023 [place] Depression Scale Answer Date Recorded [place] Depression Scale Total 6 08/15/2023 The thought [...] 07/16/2025 3:45 PM EDT Visit [facility] [address] [place] [address] Melanie Snell CNM [address] [place] [address] documented as of this encounter Procedures Procedure Name Priority Date/Time Associated Diagnosis Comments ALL CBC WITH AUTO DIFF Routine 07/10/2025 6:00 AM EDT documented in this encounter Results * (ABNORMAL) ALL CBC WITH AUTO DIFF (07/10/2025 6:00 AM EDT) [facility] WBC 9.8 4.0 - 11.0 10 3/uL [facility] RBC 3.39(L) 4.20 - 5.40 10 6/uL [facility]H HGB 10.3(L) 12.0 - 16.0 g/dL [facility] TB[facility] HCT 30.1(L) 36.0 - 48.0 % [facility] MCV 88.8 81.0 - 99.0 fL TBH [facility]H MCH 30.4 26.7 - 34.0 pg TBH [facility]H MCHC 34.2 29.9 - 35.2 g/dL [facility] RDW 13.1 11.0 - 15.0 % [facility] TBH PLT 191 150 - 450 10 3/uL [facility] TBH MPV 10.6 9.5 - 13.5 fL [facility]H NEUTROPHILS PERCENT AUTO 73.5 43.0 - 75.0 % [facility] LYMPHOCYTES PERCENT AUTO 18.2(L) 20.5 - 60.0 % [facility] MONOCYTES PERCENT AUTO 6.8 1.7 - 12.0 % [facility]H EO % 1.2 0.9 - 7.0 % [facility] BASOPHILS PERCENT AUTO 0.1(L) 0.2 - 2.0 % [facility] IMMATURE GRANULOCYTES PCT AUTO 0.2 0.0 - 0.5 % [facility] NEUTROPHILS ABSOLUTE AUTO 7.2(H) 1.4 - 6.5 10 3/uL [facility] LYMPHOCYTES ABSOLUTE AUTO 1.8 1.2 - 3.8 10 3/uL [facility] MONOCYTES ABSOLUTE AUTO 0.7 0.3 - 0.8 10 3/uL [facility] TBH EO # 0.1 0.0 - 0.7 10 3/uL [facility] BASOPHILS ABSOLUTE AUTO 0.0 0.0 - 0.1 10 3/uL [facility] IMMATURE GRANULOCYTES ABS AUTO 0.02 0.00 - 0.03 10 3/uL [facility] 07/10/2025 6:00 AM EDT 07/10/2025 6:05 AM EDT Narrative [facility] - 07/10/2025 6:11 AM EDT us Smooth Ryne DO [facility] Final Result [facility] documented in this encounter Visit Diagnoses Not on filedocumented in this encounter Care Teams Commercial Stripper Relationship Specialty Start Date End Date Sayra Leon MD [address] [place], [place] [id number] PCP - General Family Medicine 04/12/23 Melanie Snell CNM [address] [place] [address] Obstetrics and Gynecology 04/12/23 documented as of this encounter
--- OUTSIDE RECORDS SUMMARY | 2025-07-15 08:03 | XMS_ITS | Encounter Summary ---
Author Organization [facility] Address [address] [facility] [place] [address] Care Team Providers Care Press Washer Name Role Phone Melanie SnellM Unavailable [phone] Sayra Leon MD Primary Care Provider [phone] Encounter Details Date Type Department Care Team (Late st Contact Info) Description 07/14/2025 Patient Outreach [facility] [address] [place] [address] Yuliya Bauman LPN [address] [place] [address] Social History Tobacco Use Types Packs/Day Years [...] declined 06/21/2023 How often do you attend episcopalian or islam serv ices? Patient declined 06/21/2023 Do you belong to any clubs o r organizations such as episcopalian groups, unions, fraternal or athletic groups, or [...] Date Recorded Patient Health Questionnaire-2 Score 0 07/14/2025 Exercise Vital Sign Answer Date Recorde d [...] place to sleep or slept in a long-term (including now)? Patient refused 06/21/2023 [place] Depression Scale Answer Date Recorded [place] Depression Scale Total 6 08/15/2023 The thought [...] pleasure in doing things Not at all 07/14/2025 10:58 AM EDT Yuliya Bauman LP N Feeling down, depressed, or hopeless Not at all 07/14/2025 10:58 AM EDT Yuliya Bauman LP N Patient Health Questionnaire -2 Score 0 07/14/2025 10:58 AM EDT Yuliya Bauman LP N documented as of this encounter Progress Notes * Yuliya Bauman LPN - 07/14/2025 10:56 AM EDT Images from the original note were not included. Flowsheet Row Patient Outreach from 07/14/2025 in [facility] with Yuliya Bauman LPN Hospital Information ED, Hospital or [facility] Facility Discharge? Hospital Patient has been contacted within two business days of discharge Yes Diagnosis C Section Discharge Date 06/10/25 Discharged To: Home Setting Discharge Hospital [facility] Engagement Call Start Time 1050 Admission Date 07/09/25 Medications Discharge medications reviewed and reconciled from hospital? Yes Is the patient having any side effects they believe may be caused by any medication additions or changes? No Does the patient have all medications ordered at discharge? Yes Nursing Interventions No intervention needed Is the patient taking all medications as directed (includes completed medication regime)? Yes Nursing Interventions Nurse provided patient education Appointments Does the patient have a primary care provider? Yes Nursing Interventions Verified appointment date/time/provider Does the patient have any upcoming specialty appointments? Yes [Alis 07/16/25] Nursing Interventions Advised patient to keep appointment Self Management Patient Teaching Does the patient have access to their discharge instructions? Yes Nursing Interventions Reviewed instructions with patient What is the patient's perception of their health status since discharge? Improving Is the patient/caregiver able to teach back the hierarchy of who to call/visit for symptoms/problems? PCP, Specialist, Home Health nurse, Urgent Care, ED, 911 Yes Wrap Up Call End Time 1100 Jimmy complete. Call to pt. Pt reports pain is controlled by ibuprofen 1-2 X daily. Reinforced s/s ofinfection at incision, pt denies, and verbalized understanding. Pt describes light lochia and denies clots. Bowels are regular. Pt denies any depression or difficulty coping at this time. Pt is currently and pumping. Baby sees repair mechanic today 07/14/25. Pt reports she has all baby's needs met as she has crib, car seat, diapers/wipes, and clothing. Pt denies any questions, concerns, or needs today. Meds reconciled. PPV Alis 07/16/25. documented in this encounter Plan of Treatment Upcoming Encounters Date Type Department Care Team (Late st Contact Info) Description 07/16/2025 3:45 PM EDT Visit [facility] [address] [place] [address] Melanie Snell CNM [address] [place] [address] documented as of this encounter Visit Diagnoses Diagnosis delivery delivered ([facility] Primary delivery, without mention of indication, delivered, with or without mention of antepartum condition documented in this encounter Care Teams Press Washer Relationship Specialty Start Date End Date Sayra Leon MD [address] [place], [place] [id number] PCP - General Family Medicine 04/12/23 Melanie Snell CNM [address] [place], [place] [phone] Obstetrics and Gynecology 04/12/23 documented as of this encounter
--- OUTSIDE RECORDS SUMMARY | 2025-07-15 08:03 | XMS_ITS | Encounter Summary ---
Author Organization [facility] Address [address] [place] [address] Care Team Providers Care Jd Edwards Developer Name Role Phone Melanie Snell CNM Unavailable [phone] Sayra Leon MD Primary Care Provider [phone] Encounter Details Date Type Department Care Team (Late st Contact Info) Description 11/20/2024 Orders Only [facility] [address] [place] [address] Melanie Snell CNM [address] [place], [place] [id number] Amenorrhea; examination or test, positive result ([facility]) Social History Tobacco Use Types Packs/Day [...] declined 06/21/2023 How often do you attend congregational or catholic serv ices? Patient declined 06/21/2023 Do you belong to any clubs o r organizations such as congregational groups, unions, [employer] or athletic groups, or school groups? [...] a alf (including now)? Patient refused 06/21/2023 [place] Depression Scale Answer Date Recorded [place] Depression Scale Total 6 08/15/2023 The thought [...] PM EDT Visit [facility] [address] [place] [address] Melanie Snell CNM [address] [place], [place] [phone] Scheduled Orders Name Type Priority Associated Diagnoses Orde r Schedule US OB transvaginal Imaging Routine Amenorrhea examination or test, positive result ([facility]) Expected: 11/20/2024, Expires: 11/20/2025 documented as of this encounter Visit Diagnoses Diagnosis Amenorrhea Absence of menstruation examination or test, positive result ([facility]) examination or test, positive result documented in this encounter Care Teams Jd Edwards Developer Relationship Specialty Start Date End Date Sayra Leon MD [address] [place], [place] [phone] PCP - General Family Medicine 6/1/23 Melanie Snell CNM [address] [place] [address] Obstetrics and Gynecology 04/12/23 documented as of this encounter
--- OUTSIDE RECORDS SUMMARY | 2025-07-15 08:03 | XMS_ITS | Clinical Summary ---
Author Organization [facility] Address [address] [place] [address] Care Team Providers Care Retail Loan Originator Name Role Phone Mileymarixa Melanie Johnson CNM Unavailable [phone] Sayra Leon MD Primary Care Provider [phone] Allergies No known active allergies Medications folic acid-vit B6-vit B12 2.5-25-1 MG tablet tablet Take 1 tablet by mouth in the morning. Active w/o A Vit-Fe Fum-FA (AZESCHEW /POSTNA ARTURO PO) Take by mouth Active famotidine (Pepcid) 20 MG tabletIndicatio ns:Heartburn Take 1 tablet (20 mg) by mouth at bedtime 30 tablet 2 5 07/18/20 25 Active ibuprofen 800 MG tablet Take 800 mg by mouth every 8 (eight) hours if needed 5 Active famotidine (Pepcid) 20 MG tabletIndicatio ns:Heartburn Take 1 tablet (20 mg) by mouth at bedtime 30 tablet 2 5 06/18/20 25 Discontinue d(Reorder) cephalexin (Keflex) 500 MG capsule Take 500 mg by mouth in the morning and 500 mg at noon and 500 mg in the evening and 500 mg before bedtime. 5 07/01/20 25 Discontinue d(Alternate therapy) clindamycin (Cleocin) 300 MG capsuleIndicati ons:Cellulitis of left lower extremity Take 1 capsule (300 mg) by mouth in the morning and 1 capsule (300 mg) in the evening and 1 capsule (300 mg) before bedtime. Do all this for 10 days. 30 capsule 5 07/11/20 Active Problems Problem Noted Date Diagnosed Date [...] Encounters Date Type Department Care Team Description 07/14/2025 Patient Outreach [facility] [address] [place] [phone] Yuliya Bauman LPN 07/11/2025 [facility] [place] [address] Melanie Snell CNM 07/10/2025 Clinisync Result Encounter NOM External Department Unsolicited Smooth Michele DO 07/09/2025 Clinisync Result Encounter NOM External Department Unsolicited Melanie Snell CNM 07/06/2025 3:30 PM EDT Office Visit [facility] [address] [place] [phone] Zohreh Main NP Cellulitis of left lower extremity (Primary Dx) 07/06/2025 3:30 PM EDT [facility] [address] [place] [address] Melanie Snell CNM NST (non-stress test) reactive ([facility]) (Primary Dx); AMA (advanced maternal age) multigravida 35+, third trimester ([facility]); Encounter for supervision of other normal , third trimester ([facility]); History of section; Unicornuate uterus; Multigravida of advanced maternal age in third trimester ([facility]) 07/06/2025 Bamboo flowsheet [facility] [address] [place] [address] Melanie Snell CNM 07/06/2025 Travel 07/02/2025 3:45 PM EDT Ancillary Procedure [facility] [address] [facility] [address] [place] [phone] AMA (advanced maternal age) multigravida 35+, third trimester ([facility]) 07/02/2025 Travel 07/01/2025 4:30 PM EDT Office Visit [facility] [facility] [place] [phone] Zohreh Main NP Cellulitis of left lower extremity (Primary Dx) 07/01/2025 Travel 07/01/2025 Telephone [facility] [facility] [place] [phone] Angie Harris MA 06/29/2025 4:00 PM EDT Routine [facility] [address] [place] [address] Melanie Snell CNM NST (non-stress test) reactive ([facility]) (Primary Dx); AMA (advanced maternal age) multigravida 35+, third trimester ([facility]) 06/29/2025 12:30 PM EDT Office Visit [facility] [facility] [place] [phone] Zohreh Main NP Cellulitis of left lower extremity (Primary Dx) 06/29/2025 Travel 06/25/2025 2:00 PM EDT Ancillary Procedure [facility] [address] [facility] [address] [place] [phone] AMA (advanced maternal age) multigravida 35+, third trimester ([facility]) 06/25/2025 Travel 06/22/2025 3:00 PM EDT Routine [facility] [address] [facility] [place] [address] Melanie Snell CNM NST (non-stress test) reactive ([facility]) (Primary Dx); Encounter for supervision of other normal , third trimester ([facility]) 06/22/2025 Bamboo flowsheet [facility] [address] [facility] [place] [address] Melanie Snell CNM 06/18/2025 2:30 PM EDT Ancillary Procedure [facility] [address] [facility] [address] [place] [phone] AMA (advanced maternal age) multigravida 35+, third trimester ([facility]) 06/18/2025 Travel 06/18/2025 Refill [facility] [address] [facility] [place] [address] Sayra Tavares MA Heartburn 06/15/2025 3:00 PM EDT Routine [facility] [address] [facility] [place] [address] Melanie Snell CNM NST (non-stress test) reactive ([facility]) (Primary Dx); screening for streptococcus B ([facility]); Encounter for supervision of other normal , third trimester ([facility]); AMA (advanced maternal age) multigravida 35+, third trimester ([facility]); History of section 06/15/2025 Bamboo flowsheet [facility] [address] [facility] [place] [address] Melanie Snell CNM 06/11/2025 2:00 PM EDT Ancillary Procedure [facility] [address] [facility] [address] [place] [phone] AMA (advanced maternal age) multigravida 35+, third trimester ([facility]) 06/11/2025 Travel 06/08/2025 1:30 PM EDT Routine [facility] [address] [facility] [place] [address] Melanie Snell CNM NST (non-stress test) reactive ([facility]) (Primary Dx); Encounter for supervision of other normal , third trimester ([facility]); AMA (advanced maternal age) multigravida 35+, third trimester ([facility]); Heartburn; Unicornuate uterus 06/08/2025 Bamboo flowsheet [facility] [address] [facility] [place] [address] Melanie Snell CNM 06/07/2025 Travel 06/04/2025 3:00 PM EDT Ancillary Procedure [facility] [address] [facility] [address] [place] [address] AMA (advanced maternal age) multigravida 35+, third trimester ([facility]) 06/04/2025 2:30 PM EDT Routine [facility] [address] [facility] [place] [address] Melanie Snell CNM Encounter for supervision of other normal , third trimester ([facility]) (Primary Dx); Non-stress test reactive ([facility]); AMA (advanced maternal age) multigravida 35+, third trimester ([facility]); Unicornuate uterus 06/04/2025 Bamboo flowsheet [facility] [address] [facility] [place] [address] Melanie Snell CNM 06/04/2025 Travel 05/12/2025 2:00 PM EDT Ancillary Procedure [facility] [address] [facility] [address] [place] [address] AMA (advanced maternal age) multigravida 35+, third trimester ([facility]) 05/12/2025 Travel 05/05/2025 Travel 04/29/2025 [facility] [address] [place] [address] Sayra Tavares MA CBC, GLUCOSE, GESTATIONAL SCREEN (50G)-135 CUTOFF, US OB follow up transabdominal approach, Additional followed-up results: 5 04/28/2025 2:00 PM EDT Routine [facility] [address] [place] [address] Melanie Snell CNM Unicornuate uterus (Primary Dx); Encounter for supervision of other normal , third trimester ([facility]); Screening for iron deficiency anemia; Screening for diabetes mellitus (DM); AMA (advanced maternal age) multigravida 35+, third trimester ([facility]) 04/28/2025 Bamboo flowsheet [facility] [address] [place] [address] Melanie Snell CNM 04/21/2025 Travel from Last 3 Months Immunizations Immunization Administration [...] declined 06/21/2023 How often do you attend gnosticism or gnosticist serv ices? Patient declined 06/21/2023 Do you belong to any clubs o r organizations such as gnosticism groups, unions, fraternal or athletic groups, or [...] place to sleep or slept in a [place] [facility] [place] facility (including now)? Patient refused 06/21/2023 [place] Depression Scale Answer Date Recorded [place] Depression Scale Total 6 08/15/2023 The thought [...] Description 07/16/2025 3:45 PM EDT Visit [facility] [address] [place] [address] Melanie Snell, FADI [address] [place], [place] [phone] Health Maintenance Due Date Last Done Comments Pap Smear 2007 Influenza Vaccine (#1) 2025 Cervical Cancer Screening 08/15/2028 HPV/Cotest 08/15/2028 08/15/2023, 08/0 01/2022, 06/09/2021, Additional history exists Procedures Procedure Name Priority Date/Time Associated Diagnosis Comments ALL CBC WITH AUTO DIFF Routine 5 6:00 AM EDT ALL CBC WITH AUTO DIFF Routine 5 11:15 AM EDT [facility] DRUG SCREEN RAPID (URINE) Routine 07/09/2025 11:00 AM EDT US OB FOLLOW UP TRANSABDOMINAL APPROACH Routine 07/02/2025 4:44 PM EDT AMA (advanced maternal age) multigravida 35+, third trimester ([facility]) US BIOPHYSICAL PROFILE WO NON STRESS TESTING [...] Recently Relevant to Health Maintenance Results * (ABNORMAL) ALL CBC WITH AUTO DIFF (07/10/2025 6:00 AM EDT) Only the most recent of2 resultswithin the time period is included. [facility] WBC 9.8 4.0 - 11.0 10 [...] us Smooth Ryne DO [facility] Final Result Performing Organization Address City/State/[facility] Co de Phone Number [facility] * TB DRUG SCREEN RAPID (URINE) (07/09/2025 11:00 AM EDT) Pathologist [facility] CANNABINOID SCREEN URINE NEGATIVE NEGATIVE [facility] PHENCYCLIDINE SCREEN URINE NEGATIVE NEGATIVE [facility] COCAINE SCREEN URINE NEGATIVE NEGATIVE TBH METHAMPHETAMINES SCREEN URINE NEGATIVE NEGATIVE TBH OPIATE SCREEN URINE NEGATIVE NEGATIVE TBH AMPHETAMINE SCREEN URINE NEGATIVE NEGATIVE TBH BENZODIAZEPINES SCREEN URINE NEGATIVE NEGATIVE TBH TRICYCLIC ANTIDEPRESSANT URINE NEGATIVE NEGATIVE TBH METHADONE SCREEN URINE NEGATIVE NEGATIVE TBH BARBITURATES SCREEN URINE NEGATIVE NEGATIVE TBH OXYCODONE SCREEN URINE NEGATIVE NEGATIVE TBH BUPRENORPHINE SCREEN URINE NEGATIVE NEGATIVE TBH Comment: DRUG CLASS TEST SYSTEM CUT-OFF CONCENTRATIONS ARE FOLLOWS: AMP (Amphetamine): 500 ng/mL BAR (Barbiturates): 200 ng/mL BZO (Benzodiazepines): 150 ng/mL BUP (Buprenorphine): 10 ng/mL GERRI (Cocaine): 150 ng/mL mAMP (Methamphetamine): 500 ng/mL MTD (Methadone): 200 ng/mL OPI (Opiates): 100 ng/mL OXY (Oxycodone): 100 ng/mL PCP (Phencyclidine): 25 ng/mL THC (Cannabinoids): 50 ng/mL TCA (Trycyclic Antidepressants): 300 ng/mL 07/09/2025 11:0 0 AM EDT 07/09/2025 11:28 AM EDT Narrative [facility] - 07/09/2025 11:44 AM EDT us Melanie Snell CNM [facility] Final Result [facility] * US OB follow up transabdominal approach [...] BY: ELECTRONICALLY SIGNED BY: Rangel Chowdhury MD Melanie Snell CNM IMG OB US PROCEDURES [...] BY: ELECTRONICALLY SIGNED BY: Rangel Chowdhury MD Melanie Snell CNM [facility] OB US PROCEDURES Final R esult * STREPTOCCOUS, GROUP B CULTURE (06/15/2025 4:34 PM EDT) Pathologist [facility] [place] MICRO NUMBER [id number] [facility] SPECIMEN QUALITY Adequate [facility] SOURCE VAGINAL/ANOR [...] Performing Organization Information Site ID: QPT Name: [facility] Address: [address] [place] [address], [address] [place] [phone] Director: Salvatore Lawson MD us Melanie Snell CNM LAB BODY FLUIDS AND STOOLS O RDERABLES Final Result Performing Organization Address City/[facility] Co de Phone Number [facility] * GLUCOSE, GESTATIONAL SCREEN (50G)-135 CUTOFF (04/28/2025 2:43 PM EDT) GLUCOSE, GESTATIONAL SCREEN (50G)-135 CUTOFF 107 <135 mg/dL [facility] 04/28/2025 2:43 PM EDT 04/28/2025 2:43 PM EDT Narrative Resulting Agency Comment Performing Organization Information Site ID: QPT Name: [facility] Address: [address] [place] [address], [address] [place] [phone] Director: Salvatore Lawson MD us Melanie Snell CNM LAB BLOOD ORDERABLES Final R esult Performing Organization Address [facility] Co de Phone Number [facility] * CBC (04/28/2025 2:43 PM EDT) Pathologist [facility] WHITE BLOOD CELL COUNT 8.5 3.8 - [...] Performing Organization Information Site ID: QPT Name: [facility] Address: [address] [place] [address], [address] [place] [phone] Director: Salvatore Lawson MD Melanie Snell CNM LAB BLOOD ORDERABLES Final R esult [facility] * THINPREP PAP AND HPV MRNA E6/E7 W/RFL HPV 16,18/45 (08/15/2023 12:14 PM EDT) CLINICAL INFORMATION [facility] Comment:None given LMP [facility] Comment:NONE GIVEN PREV. PAP [facility] Comment:NONE GIVEN PREV. BX [facility] Comment:NONE GIVEN SOURCE [facility] Comment:None given STATEMENT OF ADEQUACY [facility] Comment: Satisfactory for evaluation. Endocervical/transformation zone component present. INTERPRETATION/RESU LT [facility] Comment: Cytology Results: Negative for intraepithelial lesion or malignancy. PAD MACHINE FEEDER [facility] Comment: BIBI ELLISON(ASCP) CT Screening Location: [facility] [address] [address]. (ALWAYS MESSAGE) [facility] Comment: EXPLANATORY NOTE: The [...] Client Letter) showing TIS test codes, see [email or web address] TV/Resources, and navigate to [employer]>Physician Materials>TIS Client Letter. You can also call for test code assistance. HPV MRNA E6/E7 Not Detected Not Detected [facility] Comment: Methodology: [employer] Director-Mediated Amplification This assay detects E6/E7 viral messenger RNA (mRNA) from 14 high-risk HPV types (16,18,31,33,35,39,45,51,52,56,58,59,66,68). Cervical sources are required for HPV testing. If a vaginal source from a patient who has had a total hysterectomy with removal of cervix was submitted, please contact the testing laboratory for alternative testing options. For additional information, please refer to http://education.ReliOn/faq/CNS116s7 (This link if provided for information/ educational purposes only.) 08/15/2023 12:1 4 PM EDT 08/16/2023 3:40 AM EDT Narrative Resulting Agency Comment Performing Organization Information Site ID: [id number] Name: [facility] Address: [address] [place] [address], [address] [place] [phone] Director: Salvatore Lawson MD us Melanie Snell CNM LAB BLOOD ORDERABLES Final R esult [facility] from Last 3 Months or Most Recently Relevant to [place] [address] [employer] Care Teams Retail Loan Originator Relationship Specialty Start Date End Date Sayra Leon MD [address] [place] [address] PCP - General Family Medicine 04/12/23 Melanie Snell CNM [address] [place] [address] Obstetrics and Gynecology 04/12/23
--- OUTSIDE RECORDS SUMMARY | 2025-07-15 08:03 | XMS_ITS | Encounter Summary ---
Author Organization [facility] Address [address] [facility] [place] [address] Care Team Providers Care Virtual Reality Specialist Name Role Phone Melanie Snell CNM Unavailable [phone] Sayra Leon MD Primary Care Provider [phone] Encounter Details Date Type Department Care Team [...] often do you attend roman catholic or adventism serv ices? Patient declined 06/21/2023 Do you [...] place to sleep or slept in a intermediate (including now)? Patient refused 06/21/2023 [place] Depression Scale Answer Date Recorded [place] Depression Scale Total 6 08/15/2023 The thought [...] 07/16/2025 3:45 PM EDT Visit [facility] [address] [place] [address] Melanie Snell CNM [address] [place] [address] documented as of this encounter Visit Diagnoses Not on filedocumented in this encounter Care Teams Virtual Reality Specialist Relationship Specialty Start Date End Date Sayra Leon MD [address] [place] [address] PCP - General Family Medicine 04/12/23 Melanie Snell CNM [address] [place] [address] Obstetrics and Gynecology 04/12/23 documented as of this encounter
--- OUTSIDE RECORDS SUMMARY | 2025-07-15 08:03 | XMS_ITS | Encounter Summary ---
Author Organization [facility] Address [address] [place] [address] Care Team Providers Care Tombstone Erector Helper Name Role Phone Heriberto SnellM Unavailable [phone] Sayra Leon MD Primary Care Provider [phone] Encounter Details Date Type Department Care Team (Late st Contact Info) Description 04/07/2025 External Result Encounter [facility] [address] [place] [address] Heriberto Snell CNM [address] [place], [place] [id number] Social History Tobacco Use Types Packs/Day Years [...] declined 06/21/2023 How often do you attend oriental orthodox or anabaptist serv ices? Patient declined 06/21/2023 Do you belong to any clubs o r organizations such as oriental orthodox groups, unions, fraternal or athletic groups, or [...] a intermediate (including now)? Patient refused 06/21/2023 [place] Depression Scale Answer Date Recorded [place] Depression Scale Total 6 08/15/2023 The thought [...] 3:45 PM EDT Visit [facility] [address] [place] [address] Heriberto Snell CNM [address] [place] [address] documented as of this encounter Procedures Procedure Name Priority Date/Time Associated Diagnosis Comments US OB 14+ WEEKS ANATOMY SCAN 04/07/2025 4:21 PM EDT documented in this encounter Results * US OB 14+ weeks anatomy scan (04/07/2025 4:21 PM EDT) Anatomical Region Laterality Modality Body Ultrasound 04/07/2025 4:21 PM EDT Narrative 04/07/2025 4:21 PM EDT THIS EXAM WAS PERFORMED AT [facility] NAME: LIAM GRANT : 1985 SEX: F Accession Number: [id number] ORDERING PHYSICIAN: HERIBERTO SNELL REFERRING PHYSICIAN: HERIBERTO SNELL Coding ----- --------- Procedures 91096: Follow-up Ultrasound, per fetus Indication ----- --------- Screening for follow-up survey, Unicornuate uterus, History of prior with IUGR, AMA- Supervision of elderly History ----- --------- OB History 3. Para 1 [id number] Maternal Assessment ----- --------- Physical Exam Height [...] EFW (oz) 15 oz EFW by: Hadlock ([id number]-[id number]-FL) Extended Tibia 37.7 mm 24w 2d 15% Collette Crocheter Hand 6.5 mm CM 4.0 mm 3% Nicolaides [...] Heart / Thorax RVOT view. 3-vessel view. 7-asnvli-ihdaoyr view. Aortic arch view. Bicaval view. Ductal [...] 5.4 cm. Recommendations ----- --------- Please see [facility] recommendations from prior clinical and/or ultrasound report documentation. anatomic survey is incomplete due to late gestational age and suboptimal visualization. Patient is not scheduled to return for additional ultrasound. Please reschedule for specific concerns or indications. Subsequent follow up or other follow up as clinically determined by primary OB provider unless otherwise specified by [facility]. Results forwarded to ordering provider so they can follow up with the patient as necessary. Procedure Note Radiology, Radiologist, - 04/07/2025 THIS EXAM WAS PERFORMED AT [facility] NAME: LIAM GRANT : 1985 SEX: F Accession Number: [id number] ORDERING PHYSICIAN: HERIBERTO SNELL REFERRING PHYSICIAN: HERIBERTO SNELL Coding ----- --------- Procedures 04313: Follow-up Ultrasound, per fetus Indication ----- --------- Screening for follow-up survey, Unicornuate uterus, History of priorpregnancy with IUGR, AMA- Supervision of elderly History ----- --------- OB History 3. Para 1 [id number] Maternal Assessment ----- --------- Physical Exam Height [...] EFW (oz) 15 oz EFW by: Hadlock ([id number]-FL) Extended Tibia 37.7 mm 24w 2d 15% Collette Crocheter Hand 6.5 mm CM 4.0 mm 3% Nicolaides [...] Heart / Thorax RVOT view. 3-vessel view. 9-menwnf-jeglbsu view. Aorticarch view. Bicaval view. Ductal arch [...] 5.4 cm. Recommendations ----- --------- Please see [facility] recommendations from prior clinical and/or ultrasoundreport documentation. [...] on filedocumented in this encounter Care Teams Tombstone Erector Helper Relationship Specialty Start Date End Date Sayra Leon MD [address] [facility] [place] [address] PCP - General Family Medicine 04/12/23 Heriberto Snell CNM [address] [place] [address] Obstetrics and Gynecology 04/12/23 documented as of this encounter
--- OUTSIDE RECORDS SUMMARY | 2025-07-15 08:03 | XMS_ITS | Encounter Summary ---
Author Organization [facility] tem Address [id number] [address] [place] [address] Care Team Providers Care Senior Financial Name Role Phone Sayra Leon MD Primary Care Provider [phone] Encounter Details Date Type Department Care Team (Late st Contact Info) Description 11/21/2022 Abstract Maternal- Medicine at [facility] [address] [place] [address] External, Scanning Provider Social History Tobacco Use [...] on filedocumented in this encounter Care Teams Senior Financial Relationship Specialty Start Date End Date Sayra Leon MD [address] [place] [address] PCP - General Family Medicine 10/26/22 documented as of this encounter
--- OUTSIDE RECORDS SUMMARY | 2025-07-15 08:03 | XMS_ITS | Encounter Summary ---
Author Organization [facility] Address [address] [facility] [place] [address] Care Team Providers Care Business Banking Officer Name Role Phone Heriberto SnellM Unavailable [phone] Sayra Loen MD Primary Care Provider [phone] Encounter Details Date Type Department Care Team (Late st Contact Info) Description 12/08/2024 Clinisync Result Encounter [facility] External Department Unsolicited Heriberto Snell CNM [address] [place] [address] Social History Tobacco Use Types Packs/Day Years [...] How often do you attend methodist or sikhism serv ices? Patient declined 06/21/2023 Do you [...] a halfway (including now)? Patient refused 06/21/2023 [place] Depression Scale Answer Date Recorded [place] Depression Scale Total 6 08/15/2023 The thought [...] 3:45 PM EDT Visit [facility] [address] [place] [phone] Heriberto Snell, FADI [address] [place], [place] [phone] documented as of this encounter Procedures Procedure Name Priority Date/Time Associated Diagnosis Comments US OB TRANSVAGINAL 12/08/2024 10 :05 AM EST documented in this encounter Results * US OB TRANSVAGINAL (12/08/2024 10:05 AM EST) Anatomical Region Laterality Modality Other 12/08/2024 10:0 5 AM EST Narrative 12/08/2024 10:07 AM EST The [address] [address] Ultrasound Report Signed Patient: JUANITA WHEELER MR#: [id number] : 1985 Acct:[id number] Age/Sex: 39 / F ADM Date: 12/05/24 Loc: US Attending Dr: HERIBERTO SNELL APRN, CNM Ordering Physician: HERIBERTO SNELL APRN, CNM Date of Service: 12/05/24 Procedure(s): US OB transvaginal Accession Number(s): [id number] cc: HERIBERTO SNELL APRN, CNM; Physician,Non-Staff [place] [id number] Patient Name: JUANITA WHEELER MRN: [id number] date: 1985 Sex: F Assigned Patient Location: US Current Patient Location: Accession/Order Number: [id number] Exam Date: 12/05/2024 17:30 Report Date: 12/08/2024 [...] Signed By: 12/08/24 1007 DD/ 1005 TD/TT: Spray Painting Machine Operator: Procedure Note Radiology, Radiologist, MD - 12/08/2024 [place] [address] Ultrasound Report Signed Patient: JUANITA WHEELERMR#: [id number] : 1985Acct:[id number] Age/Sex: 39 / FADM Date: 12/05/24 Loc: US Attending Dr: HERIBERTO SNELL APRN, CNM Ordering Physician: HERIBERTO SNELL APRN, CNM Date of Service: 12/05/24 Procedure(s): US OB transvaginal Accession Number(s): [id number] cc: HERIBERTO SNELL APRN, CNM; Physician,Non-Staff M.DSejal [place] [id number] Patient Name: JUANITA WHEELER MRN: [id number] date: 1985 Sex: F Assigned Patient Location: US Current Patient Location: Accession/Order Number: [id number] Exam Date: 12/05/2024 17:30 Report Date: 12/08/2024 [...] M.D. Signed By:12/08/24 1007 DD/ 1005 TD/TT: Spray Painting Machine Operator: Heriberto Snell CNM [facility] Final Resu lt documented in this encounter Visit Diagnoses Not on filedocumented in this encounter Care Teams Business Banking Officer Relationship Specialty Start Date End Date Sayra Leon MD [address] [place], [place] [phone] PCP - General Family Medicine 04/12/23 Heriberto Snell CNM [address] [place], [place] [phone] Obstetrics and Gynecology 04/12/23 documented as of this encounter
--- OUTSIDE RECORDS SUMMARY | 2025-07-15 08:03 | XMS_ITS | Encounter Summary ---
Author Organization [facility] Address [address] [place] [address] Care Team Providers Care It Assistant Name Role Phone Melanie Snell CNM Unavailable [phone] Sayra Leon MD Primary Care Provider [phone] Encounter Details Date Type Department Care Team (Late st Contact Info) Description 07/11/2025 Abstract [facility] [address] [place] [address] Melanie Snell CNM [address] [place], [place] [address] Social History Tobacco Use Types Packs/Day Years [...] declined 06/21/2023 How often do you attend pentecostalism or confucianist serv ices? Patient declined 06/21/2023 Do you belong to any clubs o r organizations such as pentecostalism groups, unions, fraternal or athletic groups, or [...] skilled nursing (including now)? Patient refused 06/21/2023 [place] Depression Scale Answer Date Recorded [place] Depression Scale Total 6 08/15/2023 The thought [...] LP N documented as of this encounter Plan of Treatment Upcoming Encounters Date Type Department Care Team (Late st Contact Info) Description 07/16/2025 3:45 PM EDT Visit [facility] [address] [place] [address] Melanie Snell CNM [address] [place] [address] documented as of this encounter Visit Diagnoses Not on filedocumented in this encounter Care Teams It Assistant Relationship Specialty Start Date End Date Sayra Leon MD [address] [place] [address] PCP - General Family Medicine 04/12/23 Melanie Snell CNM [address] [facility] [place] [address] Obstetrics and Gynecology 04/12/23 documented as of this encounter
--- OUTSIDE RECORDS SUMMARY | 2025-07-15 08:03 | XMS_ITS | Encounter Summary ---
Author Organization [facility] Address [address] [facility] [place] [address] Care Team Providers Care Legal Billing Analyst Name Role Phone Melanie Snell CNM Unavailable [phone] Sayra Leon MD Primary Care Provider [phone] Encounter Details Date Type Department Care Team [...] declined 06/21/2023 How often do you attend mormonism or hinduism serv ices? Patient declined 06/21/2023 Do you belong to any clubs o r organizations such as mormonism groups, unions, fraternal or athletic groups, or [...] a half-way (including now)? Patient refused 06/21/2023 [place] Depression Scale Answer Date Recorded [place] Depression Scale Total 6 08/15/2023 The thought [...] 3:45 PM EDT Visit [facility] [address] [place] [address] Melanie Snell CNM [address] [place] [address] documented as of this encounter Visit Diagnoses Not on filedocumented in this encounter Care Teams Legal Billing Analyst Relationship Specialty Start Date End Date Sayra Leon MD [address] [place], [place] [phone] PCP - General Family Medicine 04/12/23 Melanie Snell CNM [address] [place], [place] [phone] Obstetrics and Gynecology 04/12/23 documented as of this encounter
--- OUTSIDE RECORDS SUMMARY | 2025-07-15 08:03 | XMS_ITS | Encounter Summary ---
Author Organization [facility] Address [address] [facility] [place] [address] Care Team Providers Care Career Development Director Name Role Phone Melanie SnellM Unavailable [phone] Sayra Leon MD Primary Care Provider [phone] Encounter Details Date Type Department Care Team (Late st Contact Info) Description 07/09/2025 Clinisync Result Encounter [facility] External Department Unsolicited Melanie Snell CNM [address] [place] [address] Social History Tobacco Use Types Packs/Day Years [...] declined 06/21/2023 How often do you attend jainism or advent serv ices? Patient declined 06/21/2023 Do you belong to any clubs o r organizations such as jainism groups, unions, fraternal or athletic groups, or [...] a longterm (including now)? Patient refused 06/21/2023 [place] Depression Scale Answer Date Recorded [place] Depression Scale Total 6 08/15/2023 The thought [...] 07/16/2025 3:45 PM EDT Visit [facility] [address] [place] [address] Melanie Snell CNM [address] [place] [address] documented as of this encounter Procedures Procedure Name Priority Date/Time Associated Diagnosis Comments ALL CBC WITH AUTO DIFF Routine 07/09/2025 11:15 AM EDT [facility] DRUG SCREEN RAPID (URINE) Routine 07/09/2025 11:00 AM EDT documented in this encounter Results * (ABNORMAL) ALL CBC WITH AUTO DIFF (07/09/2025 11:15 AM EDT) [facility] WBC 7.7 4.0 - 11.0 10 3/uL [facility] RBC 3.93(L) 4.20 - 5.40 10 6/uL [facility] HGB 11.9(L) 12.0 - 16.0 g/dL [facility] HCT 34.6(L) 36.0 - 48.0 % [facility] MCV 88.0 81.0 - 99.0 fL [facility]H [facility] MCH 30.3 26.7 - 34.0 pg TBH [facility] MCHC 34.4 29.9 - 35.2 g/dL [facility] RDW 13.1 11.0 - 15.0 % [facility] PLT 184 150 - 450 10 3/uL [facility]H MPV 11.0 9.5 - 13.5 fL [facility] NEUTROPHILS PERCENT AUTO 68.8 43.0 - 75.0 % [facility] LYMPHOCYTES PERCENT AUTO 23.6 20.5 - 60.0 % [facility] MONOCYTES PERCENT AUTO 6.2 1.7 - 12.0 % [facility] EO % 0.8(L) 0.9 - 7.0 % [facility] BASOPHILS PERCENT AUTO 0.3 0.2 - 2.0 % [facility] IMMATURE GRANULOCYTES PCT AUTO 0.3 0.0 - 0.5 % [facility] NEUTROPHILS ABSOLUTE AUTO 5.3 1.4 - 6.5 10 3/uL [facility] LYMPHOCYTES ABSOLUTE AUTO 1.8 1.2 - 3.8 10 3/uL [facility] MONOCYTES ABSOLUTE AUTO 0.5 0.3 - 0.8 10 3/uL [facility] TBH EO # 0.1 0.0 - 0.7 10 3/uL [facility] BASOPHILS ABSOLUTE AUTO 0.0 0.0 - 0.1 10 3/uL [facility] IMMATURE GRANULOCYTES ABS AUTO 0.02 0.00 - 0.03 10 3/uL [facility] 07/09/2025 11:1 5 AM EDT 07/09/2025 11:28 AM EDT Narrative [facility] - 07/09/2025 11:47 AM EDT us Melanie Snell CNM [facility] Final Result [facility] TB * [facility] DRUG SCREEN RAPID (URINE) (07/09/2025 11:00 AM EDT) CANNABINOID SCREEN URINE NEGATIVE NEGATIVE [facility] PHENCYCLIDINE [...] 11:44 AM EDT us Melanie Snell CNM [facility] Final Result Performing Organization Address City/State/[facility] Co de Phone Number [facility] documented in this encounter Visit Diagnoses Not on filedocumented in this encounter Care Teams Career Development Director Relationship Specialty Start Date End Date Sayra Leon MD [address] [place] [address] PCP - General Family Medicine 04/12/23 Melanie Snell CNM [address] [place] [address] Obstetrics and Gynecology 04/12/23 documented as of this encounter
--- OUTSIDE RECORDS SUMMARY | 2025-07-15 08:03 | XMS_ITS | Encounter Summary ---
Author Organization [facility] Address [address] [place] [address] Care Team Providers Care Drive Thru Order Taker Name Role Phone Melanie Snell CN Unavailable Sayra Leon MD Primary Care Provider [phone] Encounter Details Date Type Department Care Team (Late st Contact Info) Description 06/13/2023 Abstract [facility] [address] [place] [address] Melanie Snell CNM [address] [place], [place] [phone] Social History Tobacco Use Types Packs/Day Years [...] 07/16/2025 3:45 PM EDT Visit [facility] [address] [place] [address] Melanie Snell CNM [address] [place], [place] [phone] documented as of this encounter Visit Diagnoses Not on filedocumented in this encounter Care Teams Drive Thru Order Taker Relationship Specialty Start Date End Date Sayra Leon MD [address] [place], [place] [phone] PCP - General Family Medicine 04/12/23 Melanie Snell CNM [address] [place], [place] [phone] Obstetrics and Gynecology 04/12/23 documented as of this encounter
--- OUTSIDE RECORDS SUMMARY | 2025-07-15 08:03 | XMS_ITS | Encounter Summary ---
Author Organization [facility] tem Address [id number] [address] [place] [address] Care Team Providers Care Fur Dressing Supervisor Name Role Phone Sayra Leon MD Primary Care Provider [phone] Reason for Referral * Diagnostic Imaging (Routine) - Pending Review Specialty Diagnoses / Procedures Referred By Contac t Referred To Contact Maternal and Medicine Diagnoses Unicornuate uterus affecting , antepartum, second trimester Advanced maternal age in multigravida, second trimester Procedures US MFM with or without consult Miki Rosas MD [address] [facility] [address] [place] [address] Phone: tel: fax: Maternal- Medicine at [facility] [address] [place] [address] Phone: tel: fax: Referral ID Status Reason Start Date Expiration Date V isits Requested Visits Authorized [id number] Pending Review 01/15/2025 01/15/2026 1 1 Encounter Details Date Type Department Care Team (Late st Contact Info) Description 01/15/2025 Orders Only Maternal- Medicine at [facility] [address] [place] [phone] Radha Porras, [employer] [employer] [facility] DIRECTOR Unicornuate uterus affecting , antepartum, second trimester [...] documented as of this encounter Results * [facility] COMPREHENSIVE ANATOMIC SURVEY (02/26/2025 9:11 AM EDT) Anatomical Region Laterality Modality OB-LEATHER SEASONER Ultrasound 02/26/2025 8:08 AM EDT Narrative 02/27/2025 11:14 AM EDT NAME: LIAM GRANT : 1985 SEX: F Accession Number: [id number] ORDERING PHYSICIAN: MIKI ROSAS REFERRING PHYSICIAN: HERIBERTO URIARTE Coding ----- --------- Procedures 21127: Ultrasound, uterus, real time with image documentation, and maternal evaluation plus detailed anatomic examination, transabdominal approach;single or first gestation 86612: Transvaginal Ultrasound (OB) Indication ----- --------- Screening for Anatomic Survey, Screening for cervical length, Unicornuate uterus, History of prior with IUGR, AMA- Supervision of elderly History ----- --------- OB History 3. Para 1 [id number] Maternal Assessment ----- --------- Physical Exam Height [...] 0 lb 12 oz EFW by Hadlock ([id number]) Head / Face / Neck Biometry: Cephalic index 0.80 61% Nicolaides Long Term Care Pharmacist 8.3 mm CM 5.4 mm 66% Nicolaides [...] Heart/Thorax: 4-chamber view. RVOT view. 3-vessel view. 4-ofaafw-ylpjodb view. Situs. Aortic arch view. Bicaval view. [...] GRANT : 1985 SEX: F Accession Number: [id number] ORDERING PHYSICIAN: MIKI ROSAS REFERRING PHYSICIAN: HERIBERTO URIARTE Coding ----- --------- Procedures 78578: Ultrasound, uterus, real time with imagedocumentation, and maternal evaluation plus detailed anatomic examination, transabdominalapproach;single or first gestation 95472: Transvaginal Ultrasound (OB) Indication ----- --------- Screening for Anatomic Survey, Screening for cervical length, Unicornuateuterus, History of prior with IUGR, AMA- Supervision of elderly History ----- --------- OB History 3. Para 1 [id number] Maternal Assessment ----- --------- Physical Exam Height [...] by U/S 20 w + 1 d HALYEY by U/S: 07/15/2025 Assigned: based on the [...] 0 lb 12 oz EFW by Hadlock ([id number]) Head / Face / Neck Biometry: Cephalic index 0.80 61% Nicolaides Long Term Care Pharmacist 8.3 mm CM 5.4 mm 66% Nicolaides [...] Heart/Thorax: 4-chamber view. RVOT view. 3-vessel view. 7-scxbiq-tavjnpepsbm. Situs. Aortic arch view. Bicaval view. Ductal [...] with thepatient as necessary. Miki Rosas MD [facility] ORDERABLES Final Resul t documented in this encounter Visit Diagnoses Diagnosis Unicornuate uterus affecting , antepartum, second trimester- Primary AMA (advanced maternal age) primigravida 35+, third trimester Advanced maternal age in multigravida, second trimester documented in this encounter Care Teams Fur Dressing Supervisor Relationship Specialty Start Date End Date Sayra Leon MD [address] [place] [address] PCP - General Family Medicine 10/26/22 documented as of this encounter
--- OUTSIDE RECORDS SUMMARY | 2025-07-15 08:10 | XMS_ITS | CCD ---
Author Organization [facility] Care Team Providers Care Logistics Support Name Role Phone CHAPIN, DR NATAN Lazar Attending Unavailable CHAPIN, DR NATAN Lazar Consulting Unavailable REQUEST, NONE LISTED Primary Care Unavaila jayson SAMSON, DR NATAN Lzaar Admitting Unavailable GARFIELD, DR AUDREY Phillips Consulting Unavailasha CONNOLLY, DR PUMA Lazar Consulting Unavailable NIESHAOHERIBERTO Consulting Unavailable NIESHAOHERIBERTO Admitting Unavailable REQUEST, NONE LISTED Primary Care Unavaila ble VIVIANA SNELLE Attending Unavailable Floro GIANFRANCOMHeriberto Unavailable Sayra Green MD Primary Care Provider Sayra Green MD Primary Care Provider VIVIANA SNELLE Referring Unavailable SAYRA GREEN Primary [...] Attending Unavailable FLORO, HERIBERTO L Referring Unavailable KAMPBUD GATES Attending Unavailable FLORO, HERIBERTO L Attending Unavailable KAMPFER, BUD Attending Unavailable FLORO, HERIBERTO L Referring Unavailable FLORO, HERIBERTO L Attending Unavailable KAMPFER, BUD Attending Unavailable Smooth Michele DO Attending Provider Smooth Michele Admitting Unavailable Smooth Michele Attending Unavailable Medications Current Medications Medication Drug Class(es) Dates Sig (Normalized) Sig (Original) clindamycin 300 mg oral capsule (9 sources) Lincosamide Antibacterial Start: 07-01-2025 End: 07-11-2025 [...] End: 07-18-2025 take 1 tablet by mouth once daily at bedtime Start: 03-11-2025 End: 04-10-2025 take 1 tablet [...] Active folic acid 1 mg oral tablet (4 sources) Start: 06-28-2025 take 1 tablet by mouth once daily FOLIC ACID ORAL Take by mouth. Active folic acid 2.5 mg / pyridoxine 25 mg / vitamin b12 1 mg oral tablet (20 sources) Vitamin B12 folic acid-vit B6-vit B12 2.5-25-1 MG tablet tablet Take 1 tablet by mouth in the morning. Active Iron (2 sources) Start: 06-28-2025 take 1 capsule by mouth once daily Start: 06-28-2025 take 1 capsule by mo ut once daily Pnv 135-Njvz-Rwrobf-Dha 90 mg iron- 1 mg-200 mg capsule Active 1 CAP PO Daily June 28, 2025 12:00am Complies with drug therapy ondansetron 8 mg disintegrating oral tablet (13 sources) Serotonin-3 Receptor Antagonist Start: 02-12-2025 End: 03-14-2025 take 1 tablet by mouth every eight [...] Sig (Original) cephalexin 500 mg oral capsule (7 sources) Cephalosporin Antibacterial Start: 06-28-2025 End: 07-01-2025 [...] 08-18-2024 Episodic Skin and subcutaneous tissue infections (8 sources) Cellulitis of left lower limb; Translations: [...] Test Name Value Interpretation Reference Range Facility ALL CBC WITH AUTO DIFFon BASOPHILS ABSOLUTE AUTO 0 [facility] Basophils/100 WBC (Bld) 0.1 % Low 0.2 - 2.0 % [facility] Eosinophils/100 WBC (Bld) 1.2 % 0.9 - 7.0 % [facility] Erythrocyte distribution width (RBC) [Ratio] 13.1 % 11.0 - 15.0 % [facility] Hematocrit (Bld) [Volume fraction] 30.1 % Low 36.0 - 48.0 % [facility] Hem[facility] (Bld) [Mass/Vol] 10.3 g/dL Low 12.0 - 16.0 g/dL [facility] IMMATURE GRANULOCYTES ABS AUTO 0.02 [facility] Immature granulocytes/100 WBC (Bld) 0.2 % 0.0 - 0.5 % [facility] Interpretation and review of laboratory results Abnormal [facility] LYMPHOCYTES ABSOLUTE AUTO 1.8 [facility] Lymphocytes/100 WBC (Bld) 18.2 % Low 20.5 - 60.0 % [facility] MCH (RBC) [Entitic mass] 30.4 pg 26.7 - 34.0 pg [facility] MCHC (RBC) [Mass/Vol] 34.2 g/dL 29.9 - 35.2 g/dL [facility] MCV (RBC) [Entitic vol] 88.8 fL 81.0 - 99.0 fL [facility] MONOCYTES ABSOLUTE AUTO 0.7 [facility] Monocytes/100 WBC (Bld) 6.8 % 1.7 - 12.0 % [facility] NEUTROPHILS ABSOLUTE AUTO 7.2 High [facility] Neutrophils/100 WBC (Bld) 73.5 % 43.0 - 75.0 % [facility] Platelet mean volume (Bld) [Entitic vol] 10.6 fL 9.5 - 13.5 fL [facility] EO # 0.1 [facility] e TB PLT 191 [facility] e [facility] RBC 3.39 Low [facility] e [facility] WBC 9.8 [facility] e [facility] e [facility] DRUG SCREEN RAPID (URINE )on 07-09-2025 AMPHETAMINE SCREEN URINE Negative NEGATIVE [facility] BARBITURATES SCREEN URINE Negative NEGATIVE [facility] BENZODIAZEPINES SCREEN URINE Negative NEGATIVE [facility] BUPRENORPHINE SCREEN URINE Negative NEGATIVE [facility] Comment on above: DRUG CLASS TEST SYST EM CUT-OFF CONCENTRATIONS ARE FOLLOWS: AMP (Amphetamine): 500 ng/mL BAR (Barbiturates): 200 ng/mL BZO (Benzodiazepines): 150 ng/mL BUP (Buprenorphine): 10 ng/mL GERRI (Cocaine): 150 ng/mL mAMP (Methamphetamine): 500 ng/mL MTD (Methadone): 200 ng/mL OPI (Opiates): 100 ng/mL OXY (Oxycodone): 100 ng/mL PCP (Phencyclidine): 25 ng/mL THC (Cannabinoids): 50 ng/mL TCA (Trycyclic Antidepressants): 300 ng/mL CANNABINOID SCREEN URINE Negative NEGATIVE [facility] COCAINE SCREEN URINE Negative NEGATIVE [facility] METHADONE SCREEN URINE Negative NEGATIVE [facility] METHAMPHETAMINES SCREEN URINE Negative NEGATIVE [facility] OPIATE SCREEN URINE Negative NEGATIVE [facility] OXYCODONE SCREEN URINE Negative NEGATIVE [facility] PHENCYCLIDINE SCREEN URINE Negative NEGATIVE [facility] TRICYCLIC ANTIDEPRESSANT URINE Negative NEGATIVE [facility] e US OB FOLLOW UP TRANSABDOMIN AL APPROACHon 07-02-2025 US OB FOLLOW UP TRANSABDOMINAL APPROACH FINDINGS: A [...] profile 06/19 TRANSCRIBED BY: ELECTRONICALLY SIGNED BY: Rangle Chowdhury MD Normal Not Available US BIOPHYSICAL [...] II, MD, PHD at 12-Jun-2025 08:26:23 AM [facility] Normal Not Available US BIOPHYSICAL PROFILE [...] II, MD, PHD at 05-Jun-2025 08:35:12 AM [facility] Normal Not Available US OB FOLLOW [...] II, MD, PHD at 13-May-2025 08:07:18 AM [facility] Normal Not Available US for pregnancyon [...] report is generated using voice recognition reporting (AdMaster). On occasion Power[employer]ribe erroneously drops words from the report or replaces the spoken word with similar sounding words. Please call with any questions/concerns regarding this report.* Dictated and transcribed 01/08/25/dpd This report has been electronically signed and approved by the interpreting radiologist. Jeremy Brandon MD - 01/08/2025 TITLE OF EXAM: OB [...] report is generated using voice recognition reporting (XZERESe). On occasion PowerScribe erroneously drops words from the report or replaces the spoken word with similar sounding words. Please call with any questions/concerns regarding this report.* Dictated and transcribed 01/08/25dpd This report has been electronically signed and approved by the interpreting radiologist. [employer] US for pregnancyOrdered By: Jeremy Garza on 01-08-2025 [employer] Work Phone: US OB < 14 WEEKS [...] report is generated using voice recognition reporting (AdMaster). On occasion [employer] erroneously drops words from the report or replaces the spoken word with similar sounding words. Please call with any questions/concerns regarding this report.* Dictated and transcribed 01/08/25dpd This report has been electronically signed and approved by the interpreting radiologist. 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 FINDINGS: Right Ckkcod99.3 x 6.3 x 5.4 cm Left Aavzpl46.8 x 5.2 x 6.0 cm Normal renal size, cortical volume and echotexture is present for this age. No collecting system dilatation or echogenic foci with posterior shadowing are noted. No bladder stone or mass. Both ureteral jets visualized. IMPRESSION: Normal bilateral renal morphology. Report reported and signed by Rangel Chowdhury on 10/10/2022 1351 Normal [facility] CBC AUTO DIFFon 06-29-2022 BASO # 0.0 103/ul Normal 0.0-0.1 [facility] Comment on above: Performed By: #### H FPFCBC #### [facility] [address] [place] [address] Dr. Preston George Basophils/100 WBC (Bld) 0.6 % Normal 0.2-2.0 [facility] Comment on above: Performed By: #### H FPFCBC #### [facility] [address] [address] [address] Preston George EO # 0.2 103/ul Normal 0.0-0.7 [facility] Comment on above: Performed By: #### H FPFCBC #### [facility] [address] [place] [address] Dr. Preston George Eosinophils/100 WBC (Bld) 3.1 % Normal 0.9-7.0 [facility] Comment on above: Performed By: #### H FPFCBC #### [facility] [address] [address] [address] Preston George Erythrocyte distribution width (RBC) [Ratio] 13.0 % Normal 11.0-15.0 [facility] Comment on above: Performed By: #### H FPFCBC #### [facility] [address] [place] [address] Dr. Preston George Hematocrit (Bld) [Volume fraction] 40.8 % Normal 36.0-48.0 [facility] Comment on above: Performed By: #### H FPFCBC #### [facility] [address] [address] [address] Preston George Hemoglobin (Bld) [Mass/Vol] 13.4 g/dL Normal 12.0-16.0 [facility] Comment on above: Performed By: #### H FPFCBC #### [facility] [address] [address] [address] Preston George IG # 0.01 10e3/ul Normal 0.00-0.03 [facility] Comment on above: Performed By: #### H FPFCBC #### [facility] [address] [place] [address] Dr. Preston George IG % 0.2 % Normal 0.0-0.5 [facility] Comment on above: Performed By: #### H FPFCBC #### [facility] [address] [place] [address] Dr. Preston George LYMPH # 2.2 103/ul Normal 1.2-3.8 [facility] Comment on above: Performed By: #### H FPFCBC #### [facility] [address] [place] [address] Dr. Preston George Lymphocytes/100 WBC (Bld) 45.5 % Normal 20.5-60.0 [facility] Comment on above: Performed By: #### H FPFCBC #### [facility] [address] [place] [address] Dr. Preston George MCH (RBC) [Entitic mass] 31.0 pg Normal 26.7-34.0 [facility] Comment on above: Performed By: #### H FPFCBC #### [facility] [address] [place] [address] Dr. Preston George MCHC (RBC) [Mass/Vol] 32.8 g/dL Normal 29.9-35.2 [facility] Comment on above: Performed By: #### H FPFCBC #### [facility] [address] [place] [address] Dr. Preston George MCV (RBC) [Entitic vol] 94.4 fL Normal 81.0-99.0 [facility] Comment on above: Performed By: #### H FPFCBC #### [facility] [address] [place] [address] Dr. Preston George MONO # 0.5 103/ul Normal 0.3-0.8 [facility] Comment on above: Performed By: #### H FPFCBC #### [facility] [address] [place] [address] Dr. Preston George Monocytes/100 WBC (Bld) 9.6 % Normal 1.7-12.0 [facility] Comment on above: Performed By: #### H FPFCBC #### [facility] [address] [place] [address] Dr. Preston George NEUT # 2.0 103/ul Normal 1.4-6.5 [facility] Comment on above: Performed By: #### H FPFCBC #### [facility] [address] [place] [address] Dr. Preston George Neutrophils/100 WBC (Bld) 41.0 % Critically low 43.0-75.0 [facility] Comment on above: Performed By: #### H FPFCBC #### [facility] [address] [place] [address] Dr. Preston George Platelet mean volume (Bld) [Entitic vol] 10.5 fL Normal 9.5-13.5 [facility] Comment on above: Performed By: #### H FPFCBC #### [facility] [address] [place] [address] Dr. Preston George PLT 274 103/ul Normal 150-450 [facility] Comment on above: Performed By: #### H FPFCBC #### [facility] [address] [place] [address] Dr. Preston George RBC 4.32 106/ul Normal 4.20-5.40 [facility] Comment on above: Performed By: #### H FPFCBC #### [facility] [address] [place] [address] Dr. Preston George WBC 4.8 103/ul Normal 4.0-11.0 [facility] Comment on above: Performed By: #### H FPFCBC #### [facility] [address] [address] [address] Preston George [facility]ALTH[facility] PROFILEon 022 Albumin [Mass/Vol] 3.9 g/dL Normal 3.4-5.[address] [facility] Comment on above: Performed By: #### H FPF #### [facility] [address] [place] [address] Dr. Preston George Albumin/Globulin [Mass ratio] 1.3 {ratio} Normal [facility] Comment on above: Performed By: #### H FPF #### [facility] [address] [address] [address] Preston George ALP [Catalytic activity/Vol] 40 U/L Critically low 46-116 [facility] Comment on above: Performed By: #### H FPF #### [facility] [address] [place] [address] Dr. Preston George ALT [Catalytic activity/Vol] 17 U/L Normal 14-59 [facility] Comment on above: Performed By: #### H FPF #### [facility] [address] [place] [address] Dr. Preston George AST [Catalytic activity/Vol] 14 U/L Critically low 15-37 [facility] Comment on above: Performed By: #### H FPF #### [facility] [address] [place] [address] Dr. Preston George Bilirubin [Mass/Vol] 0.5 mg/dL Normal 0.2-1.0 [facility] Comment on above: Performed By: #### H FPF #### [facility] [address] [place] [address] Dr. Preston George Calcium [Mass/Vol] 8.7 mg/dL Normal 8.5-10.1 [facility] Comment on above: Performed By: #### H FPF #### [facility] [address] [address] [address] Preston George Chloride [Moles/Vol] 105 mmol/L Normal 98-107 [facility] Comment on above: Performed By: #### H FPF #### [facility] [address] [address] [address] Preston George CHOL-HDL RATIO NORM SEE BELOW Normal [facility] Comment on above: Result Comment: 3.3 - 4.4 LOW RISK 4.4 - 7.1 AVERAGE RISK 7.1 - 11.0 MODERATE RISK >11.0 HIGH RISK Performed By: #### H FPF #### [facility] [address] [address] [address] Preston George Cholesterol [Mass/Vol] 204 mg/dL Critically high <=200 [facility] Comment on above: Performed By: #### H FPF #### [facility] [address] [address] [address] Preston George Cholesterol in HDL [Mass/Vol] 80 mg/dL Critically high 40-60 [facility] Comment on above: Performed By: #### H FPF #### [facility] [address] [address] [address] Preston George Cholesterol in LDL [Mass/Vol] 118.0 mg/dL Normal [facility] Comment on above: Performed By: #### H FPF #### [facility] [address] [address] [address] Preston George Cholesterol.total/Cho lesterol in HDL [Mass ratio] 2.6 {ratio} Normal [facility] Comment on above: Performed By: #### H FPF #### [facility] [address] [address] [address] Preston George CO2 [Moles/Vol] 24.7 mmol/L Normal 21.0-32.[address] [facility] Comment on above: Performed By: #### H FPF #### [facility] [address] [address] [address] Preston George Creatinine [Mass/Vol] 0.64 mg/dL Normal 0.55-1.02 [facility] Comment on above: Performed By: #### H FPF #### [facility] [address] [address] [address] Preston George Globulin (S) [Mass/Vol] 2.9 g/dL Normal [facility] Comment on above: Performed By: #### H FPF #### [facility] [address] [address] [address] Preston George Glucose [Mass/Vol] 92 mg/dL Normal 74-106 [facility] Comment on above: Performed By: #### H FPF #### [facility] [address] [address] [address] Preston George HDL NORMAL > or = 60 mg/dl - LOW CARDIOVASCULAR RISK <40 mg/dl - HIGH CARDIOVASCULAR RISK Normal [facility] Comment on above: Performed By: #### H FPF #### [facility] [address] [address] [address] Preston George LDL CALC NORMAL SEE BELOW Normal [facility] Comment on above: Result Comment: <100 mg/dl OPTIMAL 100 - 129 mg/dl NEAR OR ABOVE OPTIMAL 130 - 159 mg/dl BORDERLINE HIGH 160 - 189 mg/dl HIGH >190 mg/dl VERY HIGH Performed By: #### H FPF #### [facility] [address] [place] [address] Dr. Preston George Potassium [Moles/Vol] 4.2 mmol/L Normal 3.5-5.1 [facility] Comment on above: Performed By: #### H FPF #### [facility] [address] [address] [address] Preston George Protein [Mass/Vol] 6.8 g/dL Normal 6.4-8.2 [facility] Comment on above: Performed By: #### H FPF #### [facility] [address] [address] [address] Preston George Sodium [Moles/Vol] 141 mmol/L Normal 136-145 [facility] Comment on above: Performed By: #### H FPF #### [facility] [address] [place] [address] Dr. Preston George Triglyceride [Mass/Vol] 30 mg/dL Normal <=150 [facility] Comment on above: Performed By: #### H FPF #### [facility] [address] [address] [address] Preston George TSH 2.941 uIU/mL Normal 0.358-3.740 [facility] Comment on above: Performed By: #### H FPF #### [facility] [address] [address] [address] Preston George Urea nitrogen [Mass/Vol] 13.0 mg/dL Normal 7.0-18.0 [facility] Comment on above: Performed By: #### H FPF #### [facility] [address] [address] [address] Preston George Urea nitrogen/Creatinine [Mass ratio] 20.3 mg/mg Normal [facility] Comment on above: Performed By: #### H FPF #### [facility] [address] [address] [address] Preston George VLDL CALC 6.0 mg/dL Normal [facility] Comment on above: Performed By: #### H FPF #### [facility] [address] [address] [address] Preston George Q - HCG TOTAL QNon 2 HCG Qn 111 m[IU]/mL [facility] [employer] Worker Comment on above: Order Comment: [facility] performed at: [employer], [address] [place] [address], [address] [place] [address], [phone], Compliance Professional: Salvatore Lawson MD [facility] Collection Date/Time: [id number] [facility] Results Received Date/Time: [facility] Reported Date/Time: FASTING: NO Result Comment: Refe rence Range Non or premenopausal <5 Postmenopausal <10 Values from different assay methods may vary. The use of this assay to monitor or to diagnose patients with cancer or any condition unrelated to has not been cleared or approved by the FDA or the translational specialist of the assay. Performed By: #### [id number] #### [facility] [address] [place] [address] Q - HCG TOTAL QNon 2 HCG Qn 820 m[IU]/mL [facility] [employer] [place] Comment on above: Order Comment: [facility] performed at: [place] [employer], [address] , [address] [place] [address], [phone], Compliance Professional: Salvatore Lawson MD [facility] Date/Time: [id number] [facility] Results Received Date/Time: [id number] [facility] Reported Date/Time: [id number] Result Comment: Refe rence Range Non or premenopausal <5 Postmenopausal <10 Values from different assay methods may vary. The use of this assay to monitor or to diagnose patients with cancer or any condition unrelated to has not been cleared or approved by the FDA or the translational specialist of the assay. Performed By: #### 2 [id number] #### [facility] [address] [place] [address] Q - HCG TOTAL QNon 2 HCG Qn 2387 m[IU]/mL [facility] [employer] Worker Comment on above: Order Comment: [facility] performed at: [place] [employer], [address] , [address] [place], [phone], Compliance Professional: Salvatore Lawson MD [facility] Date/Time: [id number] [facility] Results Received Date/Time: [id number] [facility] Reported Date/Time: [id number] Result Comment: Refe rence Range Non or premenopausal <5 Postmenopausal <10 Values from different assay methods may vary. The use of this assay to monitor or to diagnose patients with cancer or any condition unrelated to has not been cleared or approved by the FDA or the translational specialist of the assay. Performed By: #### 2 [id number] #### [facility] [address] [place] [address] ABO AND RH TYPEon 04-04-2022 ABO and Rh group Nom (Bld) ABO Rh Typing A Rh Positive Normal [facility] Comment on above: Performed By: #### A DAYA #### [facility] [address] [place] [address] Dr. Preston George CBC AUTO DIFFon 04-04-2022 BASO # 0.0 103/ul Normal 0.0-0.1 [facility] Comment on above: Performed By: #### C BC #### [facility] [address] [address] [address] Preston George Basophils/100 WBC (Bld) 0.5 % Normal 0.2-2.0 [facility] Comment on above: Performed By: #### C BC #### [facility] [address] [address] [address] Preston George EO # 0.1 103/ul Normal 0.0-0.7 [facility] Comment on above: Performed By: #### C BC #### [facility] [address] [place] [address] Dr. Preston George Eosinophils/100 WBC (Bld) 1.8 % Normal 0.9-7.0 [facility] Comment on above: Performed By: #### C BC #### [facility] [address] [place] [address] Dr. Preston George Erythrocyte distribution width (RBC) [Ratio] 13.2 % Normal 11.0-15.0 [facility] Comment on above: Performed By: #### C BC #### [facility] [address] [place] [address] Dr. Preston George Hematocrit (Bld) [Volume fraction] 37.1 % Normal 36.0-48.0 [facility] Comment on above: Performed By: #### C BC #### [facility] [address] [place] [address] Dr. Preston George Hemoglobin (Bld) [Mass/Vol] 12.5 g/dL Normal 12.0-16.0 [facility] Comment on above: Performed By: #### C BC #### [facility] [address] [place] [address] Dr. Preston George IG # 0.01 10e3/ul Normal 0.00-0.03 [facility] Comment on above: Performed By: #### C BC #### [facility] [address] [place] [address] Dr. Preston George IG % 0.2 % Normal 0.0-0.5 [facility] Comment on above: Performed By: #### C BC #### [facility] [address] [place] [address] Dr. Preston George LYMPH # 1.3 103/ul Normal 1.2-3.8 [facility] Comment on above: Performed By: #### C BC #### [facility] [address] [place] [address] Dr. Preston George Lymphocytes/100 WBC (Bld) 23.7 % Normal 20.5-60.0 [facility] Comment on above: Performed By: #### C BC #### [facility] [address] [place] [address] Dr. Preston George MANUAL DIFF REQ NO Normal [facility] Comment on above: Performed By: #### C BC #### [facility] [address] [place] [address] Dr. Preston George MCH (RBC) [Entitic mass] 30.9 pg Normal 26.7-34.0 [facility] Comment on above: Performed By: #### C BC #### [facility] [address] [place] [address] Dr. Preston George MCHC (RBC) [Mass/Vol] 33.7 g/dL Normal 29.9-35.2 [facility] Comment on above: Performed By: #### C BC #### [facility] [address] [place] [address] Dr. Preston George MCV (RBC) [Entitic vol] 91.8 fL Normal 81.0-99.0 [facility] Comment on above: Performed By: #### C BC #### [facility] [address] [place] [address] Dr. Preston George MONO # 0.5 103/ul Normal 0.3-0.8 [facility] Comment on above: Performed By: #### C BC #### [facility] [address] [place] [address] Dr. Preston George Monocytes/100 WBC (Bld) 8.5 % Normal 1.7-12.0 [facility] Comment on above: Performed By: #### C BC #### [facility] [address] [place] [address] Dr. Preston George NEUT # 3.7 103/ul Normal 1.4-6.5 [facility] Comment on above: Performed By: #### C BC #### [facility] [address] [place] [address] Dr. Preston George Neutrophils/100 WBC (Bld) 65.3 % Normal 43.0-75.0 [facility] Comment on above: Performed By: #### C BC #### [facility] [address] [place] [address] Dr. Preston George Platelet mean volume (Bld) [Entitic vol] 9.5 fL Normal 9.5-13.5 [facility] Comment on above: Performed By: #### C BC #### [facility] [address] [place] [address] Dr. Preston George PLT 240 103/ul Normal 150-450 [facility] Comment on above: Performed By: #### C BC #### [facility] [address] [place] [address] Dr. Preston George RBC 4.04 106/ul Critically low 4.20-5.40 [facility] Comment on above: Performed By: #### C BC #### [facility] [address] [place] [address] Dr. Preston George WBC 5.7 103/ul Normal 4.0-11.0 [facility] Comment on above: Performed By: #### C BC #### [facility] [address] [place] [address] Dr. Preston George CULTURE URINEon 04-04-2022 CULTURE URINE Culture Observations: MODERATE GROWTH OF MIXED GENITAL JOSEA . NO POTENTIAL PATHOGENS SEEN. Normal [facility] Comment on above: Performed By: #### U RCX #### [facility] [address] [place] [address] Dr. Preston George ER URINE PROFILEon 2 Bilirubin Ql (U) Negative Normal NEGATIVE [facility] Comment on above: Performed By: #### U MICRO, ERUR #### [facility] [address] [address] [address] Preston George Clarity (U) CLOUDY Abnormal CLEAR [facility] Comment on above: Performed By: #### U MICRO, ERUR #### [facility] [address] [place] [address] Dr. Preston George Color (U) RED Abnormal YELLOW [facility] Comment on above: Performed By: #### U MICRO, ERUR #### [facility] [address] [address] [address] Preston George ERUAHD A micrscopic examination will be performed if indicated. Normal [facility] Comment on above: Performed By: #### U MICRO, ERUR #### [facility] [address] [place] [address] Dr. Preston George Glucose Ql (U) Negative Normal NEGATIVE [facility] Comment on above: Performed By: #### U MICRO, ERUR #### [facility] [address] [address] [address] Preston George Hemoglobin Ql (U) LARGE Abnormal NEGATIVE [facility] Comment on above: Performed By: #### U MICRO, ERUR #### [facility] [address] [place] [address] Dr. Preston George Ketones Ql (U) Negative Normal NEGATIVE [facility] Comment on above: Performed By: #### U MICRO, ERUR #### [facility] [address] [address] [address] Preston George LEUKOCYTES Negative Normal NEGATIVE [facility] Comment on above: Performed By: #### U MICRO, ERUR #### [facility] [address] [address] [address] Preston George Nitrite Ql (U) Negative Normal NEGATIVE [facility] Comment on above: Performed By: #### U MICRO, ERUR #### [facility] [address] [place] [address] Dr. Preston George pH (U) 8.5 [pH] Normal 5-9 [facility] Comment on above: Performed By: #### U MICRO, ERUR #### [facility] [address] [address] [address] Preston George Protein (U) [Mass/Vol] 30 mg/dL Abnormal NEGATIVE/ TRACE [facility] Comment on above: Performed By: #### U MICRO, ERUR #### [facility] [address] [place] [address] Dr. Preston George SPEC GRAVITY 1.020 Normal 1.005-<=1.025 [facility] Comment on above: Performed By: #### U MICRO, ERUR #### [facility] [address] [address] [address] Preston George UR MICRO IND INDICATED Normal [facility] Comment on above: Performed By: #### U MICRO, ERUR #### [facility] [address] [place] [address] Dr. Preston George Urobilinogen Qn (U) 0.2 {Anupam'U}/dL Normal 0.2 - 1. 0 [facility] Comment on above: Performed By: #### U MICRO, ERUR #### [facility] [address] [place] [address] Dr. Preston George PREG QUANT HCGon 04-04-2022 HCG QUANT 5751 mIU/mL Normal [facility] Comment on above: Performed By: #### P REGQNT #### [facility] [address] [place] [address] Dr. Preston George HCG RANGE SEE BELOW Normal [facility] Comment on above: Result Comment: 5-50 0-1 WEEK 40-300 1-2 WEEKS 100-1,000 2-3 WEEKS 500-6,000 3-4 WEEKS 5,000-200,000 1-2 MONTHS 10,000-100,000 2-3 MONTHS 3,000-50,000 2ND TRIMESTER 1,000-50,000 3RD TRIMESTER Performed By: #### P REGQNT #### [facility] [address] [place] [address] Dr. Preston George PROF 14(COMP METB)on 022 Albumin [Mass/Vol] 3.5 g/dL Normal 3.4-5.[address] [facility] Comment on above: Performed By: #### C MP #### [facility] [address] [address] [address] Preston George Albumin/Globulin [Mass ratio] 1.1 {ratio} Normal [facility] Comment on above: Performed By: #### C MP #### [facility] [address] [address] [address] Preston George ALP [Catalytic activity/Vol] 38 U/L Critically low 46-116 [facility] Comment on above: Performed By: #### C MP #### [facility] [address] [address] [address] Preston George ALT [Catalytic activity/Vol] 22 U/L Normal 14-59 [facility] Comment on above: Performed By: #### C MP #### [facility] [address] [place] [address] Dr. Preston George Anion gap [Moles/Vol] 14.1 mmol/L Normal [facility] Comment on above: Performed By: #### C MP #### [facility] [address] [place] [address] Dr. Preston George AST [Catalytic activity/Vol] 14 U/L Critically low 15-37 [facility] Comment on above: Performed By: #### C MP #### [facility] [address] [place] [address] Dr. Preston George Bilirubin [Mass/Vol] 0.3 mg/dL Normal 0.2-1.0 [facility] Comment on above: Performed By: #### C MP #### [facility] [address] [place] [address] Dr. Preston George Calcium [Mass/Vol] 8.6 mg/dL Normal 8.5-10.[address] [facility] Comment on above: Performed By: #### C MP #### [facility] [address] [place] [address] Dr. Preston George Chloride [Moles/Vol] 105 mmol/L Normal 98-107 [facility] Comment on above: Performed By: #### C MP #### [facility] [address] [address] [address] Preston George CO2 [Moles/Vol] 24.2 mmol/L Normal 21.0-32.0 [facility] Comment on above: Performed By: #### C MP #### [facility] [address] [place] [address] Dr. Preston George Creatinine [Mass/Vol] 0.58 mg/dL Normal 0.55-1.02 [facility] Comment on above: Performed By: #### C MP #### [facility] [address] [address] [address] Preston George EGFR-AF AZERBAIJANI >60 Normal >=60 [facility] Comment on above: Performed By: #### C MP #### [facility] [address] [place] [address] Dr. Preston George EGFR-NON AF AZERBAIJANI >60 Normal >=60 [facility] Comment on above: Performed By: #### C MP #### [facility] [address] [address] [address] Preston George Globulin (S) [Mass/Vol] 3.1 g/dL Normal [facility] Comment on above: Performed By: #### C MP #### [facility] [address] [address] [address] Preston George Glucose [Mass/Vol] 100 mg/dL Normal 74-106 [facility] Comment on above: Performed By: #### C MP #### [facility] [address] [place] [address] Dr. Preston George Potassium [Moles/Vol] 4.3 mmol/L Normal 3.5-5.1 [facility] Comment on above: Performed By: #### C MP #### [facility] [address] [place] [address] Dr. Preston George Protein [Mass/Vol] 6.6 g/dL Normal 6.4-8.2 [facility] Comment on above: Performed By: #### C MP #### [facility] [address] [place] [address] Dr. Preston George Sodium [Moles/Vol] 139 mmol/L Normal 136-145 [facility] Comment on above: Performed By: #### C MP #### [facility] [address] [place] [address] Dr. Preston George Urea nitrogen [Mass/Vol] 12.0 mg/dL Normal 7.0-18.0 [facility] Comment on above: Performed By: #### C MP #### [facility] [address] [place] [address] Dr. Preston George Urea nitrogen/Creatinine [Mass ratio] 20.7 mg/mg Normal [facility] Comment on above: Performed By: #### C MP #### [facility] [address] [place] [address] Dr. Preston George URINE MICROSCOPIC ONLYon BACTERIA NONE SEEN Normal NONE SEEN [facility] Comment on above: Performed By: #### U MICRO, ERUR #### [facility] [address] [place] [address] Dr. Preston George Bacteria identified Cx Nom (U) INDICATED Normal [facility] Comment on above: Performed By: #### U MICRO, ERUR #### [facility] [address] [place] [address] Dr. Preston George CAST NONE SEEN Normal NONE SEEN [facility] Comment on above: Performed By: #### U MICRO, ERUR #### [facility] [address] [place] [address] Dr. Preston George Crystals LM Nom (Urine sed) NONE SEEN Normal NONE SEEN [facility] Comment on above: Performed By: #### U MICRO, ERUR #### [facility] [address] [place] [address] Dr. Preston George Epithelial cells LM Ql (Urine sed) FEW Abnormal NONE SEEN /RARE [facility] Comment on above: Performed By: #### U MICRO, ERUR #### [facility] [address] [place] [address] Dr. Preston George MUCOUS NONE SEEN Normal NONE SEEN [facility] Comment on above: Performed By: #### U MICRO, ERUR #### [facility] [address] [address] [address] Preston George RBC 50-75 Abnormal 0-2 [facility] Comment on above: Performed By: #### U MICRO, ERUR #### [facility] [address] [address] [address] Preston George WBC 2-5 Abnormal NONE SEEN [facility] Comment on above: Performed By: #### U MICRO, ERUR #### [facility] [address] [address] [address] Preston George US PREG TVon 04-04-2022 [...] PUMA CONNOLLY Date: 2022-04-04 07:15 Normal [facility] US Pelvic, Transabdominalon 01-02-2022 US Pelvic, Transabdominal [...] by Rangel Chowdhury on 01/03/2022 1035 Normal [facility] [employer] Complete Blood Counton 12-26 Erythrocyte distribution width (RBC) [Ratio] 13.1 % Normal 11.0-15.0 [facility] Comment on above: Performed By: #### 2 5791E, 402X, 08236Z, 561, 75022M #### [facility] [address] [place] [address] Hematocrit (Bld) [Volume fraction] 40.7 % Normal 35.0-47.0 [facility] Comment on above: Performed By: #### 2 5791E, 402X, 04507Q, 561, 76570Z #### [facility] [address] [place] [address] Hemoglobin (Bld) [Mass/Vol] 13.4 g/dL Normal 11.6-15.5 [facility] Comment on above: Performed By: #### 2 5791E, 402X, 07998W, 561, 15874U #### [facility] [address] [place] [address] MCH (RBC) [Entitic mass] 31.1 pg Normal 27.0-33.0 [facility] Comment on above: Performed By: #### 2 5791E, 402X, 67788M, 561, 24864F #### [facility] [address] [place] [address] MCHC (RBC) [Mass/Vol] 32.9 g/dL Normal 32.0-36.0 [facility] Comment on above: Performed By: #### 2 5791E, 402X, 71815N, 561, 45170L #### [facility] [address] [place] [address] MCV (RBC) [Entitic vol] 94 fL Normal 80-100 [facility] Comment on above: Performed By: #### 2 5791E, 402X, 17770C, 561, 31242T #### [facility] [address] [place] [address] Platelet mean volume (Bld) [Entitic vol] 11.50 fL Normal 7.50-12.50 [facility] Comment on above: Performed By: #### 2 5791E, 402X, 90498V, 561, 29914S #### [facility] [address] [place] [address] Platelets (Bld) [#/Vol] 257 10*3/uL Normal 140-400 [facility] Comment on above: Performed By: #### 2 5791E, 402X, 35783P, 561, 27284V #### [facility] [address] [place] [address] RBC (Bld) [#/Vol] 4.31 10*6/uL Normal 3.90-5.20 [facility] Comment on above: Performed By: #### 2 5791E, 402X, 28610I, 561, 02471X #### [facility] [address] [place] [address] RDW-SD 45.2 fL Normal 37.0-50.0 [facility] Comment on above: Performed By: #### 2 5791E, 402X, 48122W, 561, 31383H #### [facility] [address] [place] [address] WBC (Bld) [#/Vol] 5.5 10*3/uL Normal 3.8-11.0 [facility] Comment on above: Performed By: #### 2 5791E, 402X, 71316U, 561, 54294P #### [facility] [address] [place] [address] [facility] 12-26-2021 Albumin [Mass/Vol] 4.6 g/dL Normal 3.6-5.1 [facility] Comment on above: Performed By: #### 2 5791E, 402X, 58665G, 561, 57656Y #### [facility] [address] [place] [address] Albumin/Globulin [Mass ratio] 2.4 {ratio} Normal 1.0-2.5 [facility] Comment on above: Performed By: #### 2 5791E, 402X, 39409W, 561, 08939A #### [facility] [address] [place] [address] ALP [Catalytic activity/Vol] 45 U/L Normal 35-119 [facility] Comment on above: Performed By: #### 2 5791E, 402X, 11156E, 561, 58965R #### [facility] [address] [place] [address] ALT [Catalytic activity/Vol] 14 U/L Normal 6-33 [facility] Comment on above: Result Comment: 10/12 Female reference range changed. Performed By: #### 2 5791E, 402X, 84716A, 561, 63259O #### [facility] [address] [place] [address] Anion gap [Moles/Vol] 16 mmol/L Normal 12-20 [facility] Comment on above: Result Comment: Effe ctive 11/17/2019 reference range changed. Performed By: #### 2 5791E, 402X, 66074S, 561, 49304K #### [facility] [address] [place] [address] AST [Catalytic activity/Vol] 20 U/L Normal 9-34 [facility] Comment on above: Performed By: #### 2 5791E, 402X, 61922C, 561, 35867Z #### [facility] [address] [place] [address] Bilirubin [Mass/Vol] 0.38 mg/dL Normal 0.30-1.20 [facility] Comment on above: Performed By: #### 2 5791E, 402X, 63584G, 561, 59558G #### [facility] [address] [place] [address] BUN/CREA 26 Ratio High 6-22 [facility] Comment on above: Performed By: #### 2 5791E, 402X, 26415D, 561, 74496O #### [facility] [address] [place] [address] Calcium [Mass/Vol] 9.7 mg/dL Normal 8.6-10.2 [facility] Comment on above: Performed By: #### 2 5791E, 402X, 73345M, 561, 15900W #### [facility] [address] [place] [address] Chloride [Moles/Vol] 104 mmol/L Normal 98-107 [facility] Comment on above: Performed By: #### 2 5791E, 402X, 10844Z, 561, 41596S #### [facility] [address] [place] [address] CO2 [Moles/Vol] 25 mmol/L Normal 20-31 [facility] Comment on above: Performed By: #### 2 5791E, 402X, 70756A, 561, 05293I #### [facility] [address] [place] [address] Creatinine [Mass/Vol] 0.5 mg/dL Low 0.6-1.4 [facility] Comment on above: Performed By: #### 2 5791E, 402X, 03767K, 561, 51391T #### [facility] [address] [place] [address] eGFRAA 170 mL/min/1.73m2 Normal >60 [facility] Comment on above: Performed By: #### 2 5791E, 402X, 66064G, 561, 13874E #### [facility] [address] [place] [address] eGFRNAA 140 mL/min/1.73m2 Normal >60 [facility] Comment on above: Performed By: #### 2 5791E, 402X, 66025I, 561, 71110R #### [facility] [address] [place] [address] Globulin (S) [Mass/Vol] 1.9 g/dL Normal 1.9-3.7 [facility] Comment on above: Performed By: #### 2 5791E, 402X, 65237H, 561, 48250T #### [facility] [address] [place] [address] Glucose [Mass/Vol] 86 mg/dL Normal 65-99 [facility] Comment on above: Result Comment: For FASTING Glucose --- ADA reference ranges: Normal 65-99 mg/dl Prediabetes 100-125 Diabetes >/= 126 Performed By: #### 2 5791E, 402X, 73334D, 561, 88206B #### [facility] [address] [place] [address] Potassium [Moles/Vol] 4.6 mmol/L Normal 3.5-5.5 [facility] Comment on above: Performed By: #### 2 5791E, 402X, 43783A, 561, 62973G #### [facility] [address] [place] [address] Protein [Mass/Vol] 6.5 g/dL Normal 6.1-8.1 [facility] Comment on above: Performed By: #### 2 5791E, 402X, 06935I, 561, 16323O #### [facility] [address] [place] [address] Sodium [Moles/Vol] 141 mmol/L Normal 135-146 [facility] [facility] [place] [employer] Comment on above: Performed By: #### 2 5791E, 402X, 67845M, 561, 60447Q #### [facility] [address] [place] [address] Urea nitrogen [Mass/Vol] 13 mg/dL Normal 7-25 [facility] Comment on above: Performed By: #### 2 5791E, 402X, 42507P, 561, 21426C #### [facility] [address] [place] [address] Q - DHEA SULFATEon DHEA SULFATE 149 mcg/dL Normal 19-237 [facility] Comment on above: Order Comment: [facility] performed at: [place], [address] [place] [address], [address] [place] [address], [address] [place] [address], Compliance Professional: Salvatore Lawson MD [facility] Collection Date/Time: [id number] [facility] Results Received Date/Time: [id number] [facility] Reported Date/Time: FASTING: UNKNOWN Performed By: #### 2 5791E, 402X, 27254K, 561, 09437R #### [facility] [address] [place] [address] Q - FSHon 12-26-2021 FSH 6.8 mIU/mL Normal [facility] Comment on above: Order Comment: [facility] performed at: [place], [place], [address] [facility], [address] [place] [address], [phone], Compliance Professional: Salvatore Lawson MD [facility] Date/Time: [facility] Results Received Date/Time: [id number] [facility] Reported Date/Time: FASTING: UNKNOWN Result Comment: Refe rence Range Follicular Phase 2.5-10.2 Mid-cycle Peak 3.1-17.7 Luteal Phase 1.5- 9.1 Postmenopausal 23.0-116.3 Performed By: #### 2 5791E, 402X, 08725Y, 561, 35454L #### [facility] [address] [place] [address] Q - INSULIN,SERUMon 12-26-19 22 INSULIN 1.8 uIU/mL Normal [facility] [employer] Work[employer] Comment on above: Order Comment: [facility] performed at: [place], [place] [facility], [address] [place] [address], [phone], Compliance Professional: Salvatore Lawson MD [facility] Date/Time: [facility] Results Received Date/Time: [id number] [facility] Reported Date/Time: FASTING: UNKNOWN Result Comment: Refe rence Range < or = 19.6 Risk: Optimal < or = 19.6 Moderate NA High >19.6 Adult cardiovascular event risk category cut points (optimal, moderate, high) are based on [place] population data from 10/2011. This insulin assay shows strong cross-reactivity for some insulin analogs (lispro, aspart, and glargine) and much lower cross-reactivity with others (detemir, glulisine). Performed By: #### 2 5791E, 402X, 17976K, 561, 53860Y #### [facility] Laboratory Default [address] [place] [address] Q - LHon 12-26-2021 LH 9.5 mIU/mL Normal [facility] Call Circuit Worker Comment on above: Order Comment: [facility] Testing performed at: [facility], [address] [place] [address], [id number], Compliance Professional: Salvatore Lawson MD [facility] Collection Date/Time: [id number] [facility] Results Received Date/Time: [id number] [facility] Reported Date/Time: FASTING: UNKNOWN Result Comment: Refe rence Range Follicular Phase 1.9-12.5 Mid-Cycle Peak 8.7-76.3 Luteal Phase 0.5-16.9 Postmenopausal 10.0-54.7 Performed By: #### 2 [id number], 402X, [id number], 561, [id number] #### [facility] Default [address] [place] [address] Q - PROGESTERONEon PROGESTERONE <0.5 Normal [facility] o Call Circuit Worker Comment on above: Order Comment: [facility] Testing performed at: [facility], [address] [facility], [address] [place], [address], Compliance Professional: Salvatore Lawson MD [facility] Collection Date/Time: [id number] [facility] Results Received Date/Time: [id number] [facility] Reported Date/Time: FASTING: UNKNOWN Result Comment: Refe rence Ranges Female Follicular Phase < 1.0 Luteal Phase 2.6-21.5 Post menopausal < 0.5 1st Trimester 4.1-34.0 2nd Trimester 24.0-76.0 3rd Trimester 52.0-302.0 Performed By: #### 2 [id number], 402X, [id number], 561, [id number] #### [facility] Default [address] [place] [address] TSH w/ Reflex to Free T4on 0 12-26-2021 TSH 2.190 uIU/mL Normal 0.400-4.500 [facility] io Call Circuit Worker Comment on above: Performed By: #### 2 [id number], 402X, [id number], 561, [id number] #### [facility] Default [address] [place] [address] Vital Signs Date Time Vital Sign Value Performing Clinician Facility 07-06-2025 15:40-0400 Body temperature 97.39 [degF] Bud Main RECRUITER Work Phone: [facility] 07-06-2025 15:40-0400 Diastolic blood pressure 70 mm[Hg] Bud Main RECRUITER Work Phone: [facility] 07-06-2025 15:40-0400 Respiratory rate 16 /min Bud Main RECRUITER Work Phone: [facility] 07-06-2025 15:40-0400 Systolic blood pressure 120 mm[Hg] Bud Main RECRUITER Work Phone: [facility] 07-06-2025 15:26-0400 Body mass index (BMI) [Ratio] 28.21 kg/m2 Heriberto Trento CNM Work Phone: [facility] 07-06-2025 15:26-0400 Body weight 86.64 kg Heriberto Trento CNM Work Phone: [facility] 07-06-2025 15:26-0400 Diastolic blood pressure 70 mm[Hg] Heriberto Floro CNM Work Phone: [facility] 07-06-2025 15:26-0400 Systolic blood pressure 120 mm[Hg] Heriberto Trento CNM Work Phone: [facility] 07-01-2025 16:03-0400 Body mass index (BMI) [Ratio] 27.91 kg/m2 Bud Main RECRUITER Work Phone: [facility] 07-01-2025 16:03-0400 Body weight 85.73 kg Bud Main RECRUITER Work Phone: [facility] 07-01-2025 16:03-0400 Diastolic blood pressure 82 mm[Hg] Bud Main RECRUITER Work Phone: [facility] 07-01-2025 16:03-0400 Heart rate 72 /min Bud Main RECRUITER Work Phone: [facility] 07-01-2025 16:03-0400 SaO2% (BldA) [Mass fraction] 99 % Bud Main RECRUITER Work Phone: [facility] 07-01-2025 16:03-0400 Systolic blood pressure 126 mm[Hg] Bud Main RECRUITER Work Phone: [facility] 06-29-2025 16:03-0400 Body mass index (BMI) [Ratio] 28.29 kg/m2 Heriberto Floro CNM Work Phone: [facility] 06-29-2025 16:03-0400 Body weight 86.91 kg Heriberto Snell CNM Work Phone: [facility] 06-29-2025 16:03-0400 Diastolic blood pressure 78 mm[Hg] Heriberto Snell CNM Work Phone: [facility] 06-29-2025 16:03-0400 Systolic blood pressure 126 mm[Hg] Heriberto Snell CNM Work Phone: [facility] 06-29-2025 12:33-0400 Body mass index (BMI) [Ratio] 28.06 kg/m2 Bud Main RECRUITER Work Phone: [facility] 06-29-2025 12:33-0400 Body weight 86.18 kg Bud Main RECRUITER Work Phone: [facility] 06-29-2025 12:33-0400 Diastolic blood pressure 76 mm[Hg] Bud Main RECRUITER Work Phone: [facility] 06-29-2025 12:33-0400 Heart rate 77 /min Bud Main RECRUITER Work Phone: [facility] 06-29-2025 12:33-0400 SaO2% (BldA) [Mass fraction] 99 % Bud Main RECRUITER Work Phone: [facility] 06-29-2025 12:33-0400 Systolic blood pressure 118 mm[Hg] Bud Main RECRUITER Work Phone: [facility] 06-28-2025 10:50-0400 Body height 175.26 cm Sayra Green MD Work Phone: [facility] 06-28-2025 10:50-0400 Body mass index (BMI) [Ratio] 28.3 kg/m2 Sayra Green MD Work Phone: [facility] 06-28-2025 10:50-0400 Body temperature 98.7 [degF] Sayra Green MD Work Phone: [facility] 06-28-2025 10:50-0400 Body weight 87.08 kg Sayra Green MD Work Phone: [facility] 06-28-2025 10:50-0400 Diastolic blood pressure 77 mm[Hg] Sayra Green MD Work Phone: [facility] 06-28-2025 10:50-0400 Heart rate 73 /min Sayra Green MD Work Phone: [facility] 06-28-2025 10:50-0400 Respiratory rate 18 /min Sayra Green MD Work Phone: [facility] 06-28-2025 10:50-0400 SaO2% (BldA) [Mass fraction] 99 % Sayra Green MD Work Phone: [facility] 06-28-2025 10:50-0400 Systolic blood pressure 123 mm[Hg] Sayra Green MD Work Phone: [facility] 06-22-2025 15:00-0400 Body mass index (BMI) [Ratio] 28.35 kg/m2 [facility] Work [facility]: [facility] 06-22-2025 15:00-0400 Body weight 87.09 kg Heriberto Floro CNM Work Phone: [facility] 06-22-2025 15:00-0400 Diastolic blood pressure 80 mm[Hg] Heriberto Floro CNM Work Phone: [facility] 06-22-2025 15:00-0400 Systolic blood pressure 124 mm[Hg] Heriberto Floro CNM Work Phone: [facility] 06-15-2025 15:01-0400 Body mass index (BMI) [Ratio] 27.62 kg/m2 Heriberto Floro CNM Work Phone: [facility] 06-15-2025 15:01-0400 Body weight 84.82 kg Heriberto Floro CNM Work Phone: [facility] 06-15-2025 15:01-0400 Diastolic blood pressure 80 mm[Hg] Heriberto Floro CNM Work Phone: [facility] 06-15-2025 15:01-0400 Systolic blood pressure 118 mm[Hg] Heriberto Floro CNM Work Phone: [facility] 06-08-2025 13:33-0400 Body mass index (BMI) [Ratio] 27.91 kg/m2 Heriberto Floro CNM Work Phone: [facility] 06-08-2025 13:33-0400 Body weight 85.73 kg Heriberto Floro CNM Work Phone: [facility] 06-08-2025 13:33-0400 Diastolic blood pressure 60 mm[Hg] Heriberto Floro CNM Work Phone: [facility] 06-08-2025 13:33-0400 Systolic blood pressure 100 mm[Hg] Heriberto Floro CNM Work Phone: [facility] 06-04-2025 14:39-0400 Body mass index (BMI) [Ratio] 27.91 kg/m2 Heriberto Floro CNM Work Phone: [facility] 06-04-2025 14:39-0400 Body weight 85.73 kg Heriberto Floro CNM Work Phone: [facility] 06-04-2025 14:39-0400 Diastolic blood pressure 70 mm[Hg] Heriberto Floro CNM Work Phone: [facility] 06-04-2025 14:39-0400 Systolic blood pressure 110 mm[Hg] Heriberto Floro CNM Work Phone: [facility] 04-28-2025 13:53-0400 Body mass index (BMI) [Ratio] 27.02 kg/m2 Heriberto Floro CNM Work Phone: [facility] 04-28-2025 13:53-0400 Body weight 83.01 kg Heriberto Floro CNM Work Phone: [facility] 04-28-2025 13:53-0400 Diastolic blood pressure 70 mm[Hg] Heriberto Floro CNM Work Phone: [facility] 04-28-2025 13:53-0400 Systolic blood pressure 110 mm[Hg] Heriberto Floro CNM Work Phone: [facility] 04-07-2025 14:38-0400 Body mass index (BMI) [Ratio] 26.43 kg/m2 Heriberto Floro CNM Work Phone: [facility] 04-07-2025 14:38-0400 Body weight 81.19 kg Heriberto Floro CNM Work Phone: [facility] 04-07-2025 14:38-0400 Diastolic blood pressure 70 mm[Hg] Heriberto Floro CNM Work Phone: [facility] 04-07-2025 14:38-0400 Systolic blood pressure 120 mm[Hg] Heriberto Floro CNM Work Phone: [facility] 03-11-2025 15:32-0400 Body mass index (BMI) [Ratio] 25.25 kg/m2 Heriberto Floro CNM Work Phone: [facility] 03-11-2025 15:32-0400 Body weight 77.56 kg Heriberto Floro CNM Work Phone: [facility] 03-11-2025 15:32-0400 Diastolic blood pressure 70 mm[Hg] Heriberto Floro CNM Work Phone: [facility] 03-11-2025 15:32-0400 Systolic blood pressure 116 mm[Hg] Heriberto Floro CNM Work Phone: [facility] 02-11-2025 09:28-0400 Body mass index (BMI) [Ratio] 24.07 kg/m2 Heriberto Nieshao CNM Work Phone: [facility] 02-11-2025 09:28-0400 Body weight 73.94 kg Heriberto Nieshao CNM Work Phone: [facility] 02-11-2025 09:28-0400 Diastolic blood pressure 60 mm[Hg] Heriberto Nieshao CNM Work Phone: [facility] 02-11-2025 09:28-0400 Systolic blood pressure 110 mm[Hg] Heriberto Nieshao CNM Work Phone: [facility] 01-14-2025 14:31-0500 Body height 175.3 cm Miki Rosas MD Work Phone: [facility] 01-14-2025 14:31-0500 Body mass index (BMI) [Ratio] 23.54 kg/m2 Miki Rosas MD Work Phone: [facility] 01-14-2025 14:31-0500 Body weight 72.3 kg Miki Rosas MD Work Phone: [facility] 01-14-2025 14:31-0500 Diastolic blood pressure 77 mm[Hg] Miki Rosas MD Work Phone: [facility] 01-14-2025 14:31-0500 Heart rate 82 /min Miki Rosas MD Work Phone: [facility] 01-14-2025 14:31-0500 Systolic blood pressure 133 mm[Hg] Miki Rosas MD Work Phone: [facility] 01-14-2025 09:34-0500 Body mass index (BMI) [Ratio] 23.33 kg/m2 Heriberto Nieshao CNM Work Phone: [facility] 01-14-2025 09:34-0500 Body weight 71.67 kg Heriberto Nieshao CNM Work Phone: [facility] 01-14-2025 09:34-0500 Diastolic blood pressure 62 mm[Hg] Heriberto Floro CNM Work Phone: [facility] 01-14-2025 09:34-0500 Systolic blood pressure 102 mm[Hg] Heriberto Floro CNM Work Phone: [facility] 01-07-2025 13:30-0500 Diastolic blood pressure 80 mm[Hg] Heriberto Floro CNM Work Phone: [facility] 01-07-2025 13:30-0500 Systolic blood pressure 122 mm[Hg] Heriberto Floro CNM Work Phone: [facility] 12-17-2024 10:16-0500 Body mass index (BMI) [Ratio] 23.33 kg/m2 Heriberto Floro CNM Work Phone: [facility] 12-17-2024 10:16-0500 Body weight 71.67 kg Heriberto Floro CNM Work Phone: [facility] 12-17-2024 10:16-0500 Diastolic blood pressure 70 mm[Hg] Heriberto Floro CNM Work Phone: [facility] 12-17-2024 10:16-0500 Systolic blood pressure 110 mm[Hg] Heriberto Floro CNM Work Phone: [facility] 08-18-2024 13:09-0400 Body mass index (BMI) [Ratio] 23.33 kg/m2 Heriberto Floro CNM Work Phone: [facility] 08-18-2024 13:09-0400 Body weight 71.67 kg Heriberto Floro CNM Work Phone: [facility] 08-18-2024 13:09-0400 Diastolic blood pressure 70 mm[Hg] Heriberto Floro CNM Work Phone: [facility] 08-18-2024 13:09-0400 Systolic blood pressure 112 mm[Hg] Heriberto Floro CNM Work Phone: [facility] Encounters Encounter Date Encounter Type Care Provider Facility Start: 07-10-2025 End: 07-10-2025 Clinisync Result Encounter Smooth Michele DO Work Phone: [facility] Unsolicited Start: 07-10-2025 End: 07-10-2025 Clinisync Result Encounter Smooth Desaio DO Work Phone: [facility] Unsolicited Start: 07-09-2025 End: 07-09-2025 Clinisync Result Encounter Heriberto Johnson Alis CNM Work Phone: [facility] Unsolicited Start: 07-09-2025 End: 07-09-2025 Clinisync Result Encounter Heriberto Johnson Alis CNM Work Phone: [facility] Unsolicited Start: 07-09-2025 End: 07-09-2025 ambulatory Sayra Green MD Work Phone: [facility] Work Phone: Start: 07-09-2025 End: 07-09-2025 Departed Referred Smooth Ryne [facility] Start: 07-06-2025 End: 07-06-2025 Office outpatient visit 15 minutes Bud Main NP Work Phone: [facility] Comment on above: Cellulitis of left l ower extremity (Primary Dx) Start: 07-06-2025 End: 07-06-2025 Subsequent care visit Heriberto Trentmarixa CNM Work Phone: [facility] Comment on above: NST (non-stress test ) reactive ([facility]) (Primary Dx); AMA (advanced maternal age) multigravida 35+, third trimester ([facility]); Encounter for supervision of other normal , third trimester ([facility]); History of section; Unicornuate uterus; Multigravida of advanced maternal age in third trimester ([facility]) Start: 07-06-2025 End: 07-06-2025 ambulatory HERIBERTO L FLORO Not Available Start: 07-06-2025 End: 07-06-2025 Bamboo flowsheet Heriberto L Floro CNM Work Phone: [facility] Start: 07-06-2025 End: 07-06-2025 Bamboo flowsheet Heriberto L Floro CNM Work Phone: [facility] Start: 07-02-2025 End: 07-02-2025 ambulatory HERIBERTO L FLORO Not Available Start: 07-01-2025 End: 07-01-2025 Office outpatient visit 15 minutes Bud Main NP Work Phone: [facility] Comment on above: Cellulitis of left l ower extremity (Primary Dx) Start: 07-01-2025 End: 07-01-2025 ambulatory BUD MAIN Not Available Start: 06-29-2025 End: 06-29-2025 Subsequent care visit Heriberto Trento CNM Work Phone: [facility] Comment on above: NST (non-stress test ) reactive ([facility]) (Primary Dx); AMA (advanced maternal age) multigravida 35+, third trimester ([facility]) Start: 06-29-2025 End: 06-29-2025 ambulatory HERIBERTO L FLORO Not Available Start: 06-29-2025 End: 06-29-2025 ambulatory BUD MAIN Not Available Start: 06-29-2025 End: 06-29-2025 Office outpatient visit 15 minutes Bud Main RECRUITER Work Phone: [facility] Comment on above: Cellulitis of left l ower extremity (Primary Dx) Start: 06-28-2025 End: 06-28-2025 ambulatory Sayra Green MD Work Phone: [facility] Work Phone: Start: 06-28-2025 End: 06-28-2025 Patient encounter procedure Josee Noyola [employer] [facility] Work Phone: Start: 06-25-2025 End: 06-25-2025 ambulatory HERIBERTO L FLORO Not Available Start: 06-22-2025 End: 06-22-2025 Subsequent care visit Heriberto L Floro CNM Work Phone: [facility] Comment on above: NST (non-stress test ) reactive ([facility]) (Primary Dx); Encounter for supervision of other normal , third trimester ([facility]) Start: 06-22-2025 End: 06-22-2025 ambulatory HERIBERTO L FLORO Not Available Start: 06-22-2025 End: 06-22-2025 Bamboo flowsheet Heriberto L Floro CNM Work Phone: [facility] Start: 06-22-2025 End: 06-22-2025 Bamboo flowsheet Heriberto L Floro CNM Work Phone: [facility] Start: 06-18-2025 End: 06-18-2025 ambulatory HERIBERTO L FLORO Not Available Start: 06-15-2025 End: 06-15-2025 Subsequent care visit Heriberto L Floro CNM Work Phone: [facility] Comment on above: NST (non-stress test ) reactive ([facility]) (Primary Dx); screening for streptococcus B ([facility]); Encounter for supervision of other normal , third trimester ([facility]); AMA (advanced maternal age) multigravida 35+, third trimester ([facility]); History of section Start: 06-15-2025 End: 06-15-2025 ambulatory HERIBERTO L FLORO Not Available Start: 06-15-2025 End: 06-15-2025 Bamboo flowsheet Heriberto L Floro CNM Work Phone: [facility] Start: 06-15-2025 End: 06-15-2025 Bamboo flowsheet Heriberto L Floro CNM Work Phone: [facility] Start: 06-11-2025 End: 06-11-2025 ambulatory HERIBERTO L FLORO Not Available Start: 06-08-2025 End: 06-08-2025 Bamboo flowsheet Heriberto L Floro CNM Work Phone: [facility] Start: 06-08-2025 End: 06-08-2025 Bamboo flowsheet Heriberto L Floro CNM Work Phone: [facility] Start: 06-08-2025 End: 06-08-2025 Subsequent care visit Heriberto L Floro CNM Work Phone: [facility] Comment on above: NST (non-stress test ) reactive ([facility]) (Primary Dx); Encounter for supervision of other normal , third trimester ([facility]); AMA (advanced maternal age) multigravida 35+, third trimester ([facility]); Heartburn; Unicornuate uterus Start: 06-08-2025 End: 06-08-2025 ambulatory HERIBERTO L FLORO Not Available Start: 06-04-2025 End: 06-04-2025 ambulatory HERIBERTO L FLORO Not Available Start: 06-04-2025 End: 06-04-2025 Subsequent care visit Heriberto L Floro CNM Work Phone: [facility] Comment on above: Encounter for superv ision of other normal , third trimester ([facility]) (Primary Dx); Non-stress test reactive ([facility]); AMA (advanced maternal age) multigravida 35+, third trimester ([facility]); Unicornuate uterus Start: 06-04-2025 End: 06-04-2025 [...] supervision of other normal , third trimester ([facility]); Screening for iron deficiency anemia; Screening for diabetes mellitus (DM); AMA (advanced maternal age) multigravida 35+, third trimester ([facility]) Start: 04-28-2025 End: 04-28-2025 ambulatory HERIBERTO L FLORO Not Available Start: 04-07-2025 End: 04-07-2025 Subsequent care visit Heriberto L Floro CNM Work Phone: [facility] Comment on above: Encounter for superv ision of other normal , second trimester (Primary Dx); Heartburn; History of section; Unicornuate uterus Start: 04-07-2025 End: 04-07-2025 ambulatory SAYRA COOMBSHMAN [facility] Start: 04-07-2025 End: 04-07-2025 Bamboo flowsheet Heriberto L Floro CNM Work Phone: [facility] Start: 04-07-2025 End: 04-07-2025 Bamboo flowsheet Heriberto L Floro CNM Work Phone: [facility] Start: 03-11-2025 End: 03-11-2025 ambulatory HERIBERTO L FLORO Not Available Start: 03-11-2025 End: 03-11-2025 Subsequent care visit Heriberto Trento CNM Work Phone: [facility] Comment on above: Heartburn (Primary D x); Encounter for supervision of other normal , second trimester; History of section Start: 03-11-2025 End: 03-11-2025 Bamboo flowsheet Heriberto Elizabeth Trento CNM Work Phone: [facility] Start: 03-11-2025 End: 03-11-2025 Bamboo flowsheet Heriberto Elizabeth Trento CNM Work Phone: [facility] Start: 02-26-2025 End: 02-26-2025 ambulatory [facility] Start: 02-11-2025 End: 02-11-2025 Bamboo flowsheet Heriberto L Floro CNM Work Phone: [facility] Start: 02-11-2025 End: 02-11-2025 Bamboo flowsheet Heriberto Elizabeth Floro CNM Work Phone: [facility] Start: 02-11-2025 End: 02-11-2025 Subsequent care visit Heriberto Trento CNM Work Phone: [facility] Comment on above: Bleeding in early pr egnancy ([facility]) (Primary Dx); Unicornuate uterus; History of section; Nausea/vomiting in ([facility]) Start: 02-11-2025 End: 02-11-2025 ambulatory HERIBERTO L FLORO Not Available Start: 01-14-2025 End: 01-14-2025 Office consultation new/estab patient 60 min Miki Rosas MD Work Phone: [facility] Comment on above: Multigravida of adva nced maternal age in first trimester (Primary Dx) Start: 01-14-2025 End: 01-14-2025 [facility] Start: 01-14-2025 End: 01-14-2025 Bamboo flowsheet Heriberto L Floro CNM Work Phone: [facility] Start: 01-14-2025 End: 01-14-2025 Bamboo flowsheet Heriberto L Floro CNM Work Phone: [facility] Start: 01-14-2025 End: 01-14-2025 ambulatory HERIBERTO L FLORO Not Available Start: 01-14-2025 End: 01-14-2025 Subsequent care visit Heriberto L Floro CNM Work Phone: [facility] Comment on above: Bleeding in early pr egnancy (Primary Dx); examination or test, positive result; Unicornuate uterus; History of section Start: 01-07-2025 End: 01-07-2025 Subsequent care visit Heriberto L Floro CNM Work Phone: [facility] Comment on above: Bleeding in early pr egnancy Start: 01-07-2025 End: 01-07-2025 ambulatory HERIBERTO L FLORO Not Available Start: 12-24-2024 End: 12-24-2024 Chart abstracting Miki Rosas MD Work Phone: [facility] Start: 12-22-2024 End: 12-22-2024 Telephone encounter Sayra Green MD Work Phone: [facility] Start: 12-17-2024 End: 12-17-2024 Initial care visit Heriberto Elizabeth Floro CNM Work Phone: [facility] Comment on above: GA: 9w4d Start: 12-17-2024 End: 12-17-2024 ambulatory HERIBERTO L FLORO Not Available Start: 11-21-2024 End: 11-21-2024 Telephone encounter Heriberto L Floro CNM Work Phone: [facility] Start: 08-18-2024 End: 08-18-2024 ambulatory HERIBERTO L FLORO Not Available Start: 08-18-2024 End: 08-18-2024 Gynecological examination normal Heriberto Snell CNM Work Phone: [facility] Start: 08-18-2024 End: 08-18-2024 Periodic preventive med est patient 18-39 yrs Heriberto Snell CNM Work Phone: [facility] Comment on above: Normal gynecologic e xamination; Screening for cervical cancer; Amenorrhea Start: 12-14-2023 Orders Only Bud Jose David RECRUITER Work Phone: [facility] Comment on above: Iron deficiency anem ia secondary to inadequate dietary iron intake (Primary Dx) Start: 06-29-2022 End: 06-30-2022 ambulatory HERIBERTO SNELL Facility:[facility] Start: 04-04-2022 End: 04-04-[address] NATAN SAMSON Facility:[facility] Procedures Date Procedure Procedure Detail Performing Clinician Start: 07-10-2025 ALL CBC WITH AUTO DIFF Smooth Ryne DO Work Phone: Start: 07-09-2025 [facility] DRUG SCREEN RAPI D (URINE) Heriberto Snell CNM Work Phone: Start: 08-18-2024 Urine test visual color cmprsn meths Heriberto Trento CNM Work Phone: H/O: section [...] Phone: H/O: section History of section Heriberto L Floro CN Work Phone: Plan of Treatment Date Care Activity Detail Author Start: 08-15-2028 Screening for malign ant neoplasm of cervix [facility] Start: 01-14-2026 Adult BMI Screening Adult BMI Screen ing [facility] Start: 01-14-2026 Tobacco Screening Tobacco Screening [facility] Start: 07-16-2025 End: 07-16-2025 ambulatory 07/16/2025 3:45 PM [facility] [address] [place] [id number] Heriberto Snell CNM [address] [place], [place] [id number] [facility] Start: 07-13-2025 Influenza vaccination [facility] Start: 07-09-2025 End: 07-09-2025 Professional / ancillary services management [facility] Start: 07-06-2025 End: 07-06-2025 Patient encounter procedure [facility] Comment on above: Arrived Start: 07-02-2025 End: 07-02-2025 Professional / ancillary services management [facility] Start: 07-01-2025 End: 07-01-2025 Patient encounter procedure 07/01/2025 4:30 PM EDT [facility] [address] [place], [place] [id number] Bud Main NP [address] [place] [address] [facility] Start: 06-29-2025 End: 06-29-2025 Patient [...] CULTURE Lab Routine screening for streptococcus B ([facility]) Expected: 06/15/2025 (Approximate), Expires: 06/15/2026 [facility] Work Phone: Comment on above: Expected: 06/15/2025 (Approximate), Expires: 06/15/2026 Start: 06-11-2025 End: 06-11-2025 Professional / ancillary services management [facility] Start: 06-08-2025 End: 06-08-2025 Patient encounter procedure [facility] Comment on above: Arrived Start: 06-04-2025 End: 06-04-2025 Professional / ancillary services management 06/04/2025 3:00 PM EDT Ancillary Procedure [facility] [address] [phone] [facility] Start: 06-04-2025 End: 06-04-2025 Patient encounter procedure [facility] Comment on above: Arrived Start: 05-12-2025 End: 05-12-2025 Professional / ancillary services management 05/12/2025 2:00 PM EDT Ancillary Procedure [facility] [address] [facility] [address] [place] [phone] [facility] Start: 05-12-2025 End: 05-12-2025 Patient encounter procedure 05/12/2025 1:30 PM EDT Routine [facility] [address] [place] [phone] Heriberto Snell CNM [address] [place], [place] [phone] [facility] Start: 04-28-2025 End: 04-28-2026 CBC panel - Blood by Automated count CBC Lab Routine Screening for iron deficiency anemia Expected: 04/28/2025 (Approximate), Expires: 04/28/2026 [facility] Work Phone: Comment on above: Expected: 04/28/2025 (Approximate), Expires: 04/28/2026 Start: 04-28-2025 End: 04-28-2026 GLUCOSE, GESTATIONAL SCREEN (50G)-135 CUTOFF GLUCOSE, GESTATIONAL SCREEN (50G)-135 CUTOFF Lab Routine Screening for diabetes mellitus (DM) Expected: 04/28/2025 (Approximate), Expires: 04/28/2026 [facility] Comment on above: Expected: 04/28/2025 (Approximate), Expires: 04/28/2026 Start: 04-28-2025 End: 04-28-2025 Patient encounter procedure [facility] Comment on above: Arrived Start: 04-28-2025 End: 04-28-2026 US biophysical profile wo non stress testing US biophysical profile wo non stress testing Imaging Routine AMA (advanced maternal age) multigravida 35+, third trimester ([facility]) Expected: 04/28/2025, Expires: 04/28/2026 [facility] Comment on above: Expected: 04/28/2025 , Expires: 04/28/2026 Start: 04-28-2025 End: 04-28-2026 US for US OB follow up transabdominal approach Imaging Routine AMA (advanced maternal age) multigravida 35+, third trimester ([facility]) Expected: 04/28/2025, Expires: 04/28/2026 [facility] Comment on above: Expected: 04/28/2025 , Expires: 04/28/2026 Start: 04-07-2025 End: 04-07-2025 Patient encounter procedure [facility] Comment on above: Arrived Start: 02-26-2025 End: 02-26-2025 Patient encounter procedure 02/26/2025 8:00 AM EDT Appointment [facility] [place] [address] [facility] [address] [place] [address] [facility] [place] Start: 02-11-2025 End: 02-11-2025 Patient encounter procedure [facility] Comment on above: Arrived Start: 01-14-2025 End: 01-14-2025 Patient encounter procedure 01/14/2025 3:30 PM EST Office Visit Maternal- Medicine at [facility] [address] [place] [address] Miki Rosas MD [address] [place] [address] Maternal- Medicine at [facility] Start: 01-14-2025 End: 01-14-2025 Patient encounter procedure 01/14/2025 2:15 PM EST Appointment [facility] US Imaging [address] [place] [phone] [facility] US Imaging Start: 01-14-2025 End: 01-14-2025 Patient encounter procedure 01/14/2025 9:30 AM EST Routine [facility] [address] [place] [address] Heriberto Snell, M [address] [place], [place] [phone] [facility] Start: 12-17-2024 End: 12-17-2025 ABO/Rh ABO/Rh Lab Routine examination or test, positive result Expected: 12/17/2024 (Approximate), Expires: 12/17/2025 [facility] Comment on above: Expected: 12/17/2024 (Approximate), Expires: 12/17/2025 Start: 12-17-2024 End: 12-17-2025 Antibody screen Antibody screen Lab Routine examination or test, positive result Expected: 12/17/2024 (Approximate), Expires: 12/17/2025 [facility] Comment on above: Expected: 12/17/2024 (Approximate), Expires: 12/17/2025 Start: 12-17-2024 End: 12-17-2025 Bacteria identified in Urine by Culture Urine culture Microbiology Routine examination or test, positive result Expected: 12/17/2024 (Approximate), Expires: 12/17/2025 [facility] Comment on above: Expected: 12/17/2024 (Approximate), Expires: 12/17/2025 Start: 12-17-2024 End: 12-17-2025 CBC panel - Blood by Automated count CBC Lab Routine examination or test, positive result Expected: 12/17/2024 (Approximate), Expires: 12/17/2025 [facility] Comment on above: Expected: 12/17/2024 (Approximate), Expires: 12/17/2025 Start: 12-17-2024 End: 12-17-2025 DRUG TOX MONITORIGN 6 W/ CONF,URINE DRUG TOX MONITORIGN 6 W/ CONF,URINE Lab Routine examination or test, positive result Expected: 12/17/2024 (Approximate), Expires: 12/17/2025 [facility] Comment on above: Expected: 12/17/2024 (Approximate), Expires: 12/17/2025 Start: 12-17-2024 End: 12-17-2025 Hemoglobin A1c/Hemoglobin.total in Blood Hemoglobin A1c Lab Routine examination or test, positive result Expected: 12/17/2024 (Approximate), Expires: 12/17/2025 [facility] Comment on above: Expected: 12/17/2024 (Approximate), Expires: 12/17/2025 Start: 12-17-2024 End: 12-17-2025 Hepatitis B virus surface Ag [Presence] in Serum or Plasma by Immunoassay Hepatitis B surface antigen Lab Routine examination or test, positive result Expected: 12/17/2024 (Approximate), Expires: 12/17/2025 [facility] Work Phone: Comment on above: Expected: 12/17/2024 (Approximate), Expires: 12/17/2025 Start: 12-17-2024 End: 12-17-2025 Hepatitis C virus Ab [Presence] in Serum or Plasma by Immunoassay Hepatitis C antibody Lab Routine examination or test, positive result Expected: 12/17/2024 (Approximate), Expires: 12/17/2025 [facility] Comment on above: Expected: 12/17/2024 (Approximate), Expires: 12/17/2025 Start: 12-17-2024 End: 12-17-2025 HIV-1/HIV-2 antigen/antibody combination immunoassay HIV-1 and HIV-2 antibodies Lab Routine examination or test, positive result Expected: 12/17/2024 (Approximate), Expires: 12/17/2025 [facility] Comment on above: Expected: 12/17/2024 (Approximate), Expires: 12/17/2025 Start: 12-17-2024 End: 12-17-2025 Neisseria gonorrhoeae DNA [Presence] in Cervical mucus by ABIGAIL with probe detection C. trachomatis / N. gonorrhoeae, DNA probe Pathology and Cytology Routine examination or test, positive result Expected: 12/17/2024 (Approximate), Expires: 12/17/2025 [facility] Comment on above: Expected: 12/17/2024 (Approximate), Expires: 12/17/2025 Start: 12-17-2024 End: 12-17-2025 Reagin Ab [Presence] in Serum by RPR RPR Lab Routine examination or test, positive result Expected: 12/17/2024 (Approximate), Expires: 12/17/2025 [facility] Comment on above: Expected: 12/17/2024 (Approximate), Expires: 12/17/2025 Start: 12-17-2024 End: 12-17-2025 Rubella antibody, IgG Rubella antibody, IgG Lab Routine examination or test, positive result Expected: 12/17/2024 (Approximate), Expires: 12/17/2025 [facility] Comment on above: Expected: 12/17/2024 (Approximate), Expires: 12/17/2025 Start: 12-17-2024 End: 12-17-2025 TSH W/REFLEX TO FT4 TSH W/REFLEX TO FT4 Lab Routine examination or test, positive result Expected: 12/17/2024 (Approximate), Expires: 12/17/2025 [facility] Comment on above: Expected: 12/17/2024 (Approximate), Expires: 12/17/2025 Start: 12-17-2024 End: 12-17-2025 URINALYSIS MICROSCOPIC URINALYSIS MICROSCOPIC Lab Routine examination or test, positive result Expected: 12/17/2024 (Approximate), Expires: 12/17/2025 [facility] Comment on above: Expected: 12/17/2024 (Approximate), Expires: 12/17/2025 Start: 08-18-2024 End: 08-18-2025 THINPREP IMAGING PAP AND HPV DNA REFLEX HPV 16,18 THINPREP IMAGING PAP AND HPV DNA REFLEX HPV 16,18 Pathology and Cytology Routine Screening for cervical cancer Expected: 08/18/2024 (Approximate), Expires: 08/18/2025 [facility] Work Phone: Comment on above: Expected: 08/18/2024 (Approximate), Expires: 08/18/2025 Start: 07-13-2024 Influenza vaccination [facility] Start: 06-13-2024 Adult BMI Screening Adult BMI Screen ing [facility] Start: 06-13-2024 Tobacco Screening Tobacco Screening [facility] Start: 03-13-2024 End: 12-14-2024 Ferritin [Mass/volume] in Serum or Plasma Ferritin Lab Routine Iron deficiency anemia secondary to inadequate dietary iron intake Expected: 03/13/2024 (Approximate), Expires: 12/14/2024 [facility] Work Phone: Comment on above: Expected: 03/13/2024 (Approximate), Expires: 12/14/2024 Start: 07-13-2023 Influenza vaccination Influenza Vacc ine (#1) [facility] Start: 03-13-2018 DTaP,Tdap and Td Vaccines (3 - Td or Tdap) DTaP,Tdap and Td Vaccines (3 - Td or Tdap) [facility] Start: 2007 Screening for malign ant neoplasm of cervix Pap Smear [facility] Start: 1998 Depression Screening Depression Scre ening [facility] Immunizations Immunization Date Immunization Notes Care Provider Fa cility 03-13-2008 measles, mumps and rubella virus vaccine Bud Main NP Work Phone: [facility] 03-13-2008 tetanus toxoid, redu kyleigh diphtheria toxoid, and acellular pertussis vaccine, adsorbed Bud Main NP Work Phone: [facility] 11-09-1999 hepatitis B vaccine, pediatric or pediatric/adolescent dosage Bud Kampfer RECRUITER Work Phone: [facility] 08-27-1998 hepatitis B vaccine, pediatric or pediatric/adolescent dosage Bud Main RECRUITER Work Phone: [facility] 08-27-1998 TD(adult) unspecifie d formulation Bud Main RECRUITER Work Phone: [facility] 05-21-1998 hepatitis B vaccine, pediatric or pediatric/adolescent dosage Bud Main RECRUITER Work Phone: [facility] 05-21-1998 measles, mumps and rubella virus vaccine Bud Main RECRUITER Work Phone: [facility] Payers Date Payer Category Payer Self-pay 2024 Managed Care Other (unspecified) [id number] 2024 Private Health Insurance [id number] 2022 Unknown [employer] [id number] 2022-Present [address] [place] [address] [id number] 2014 Commercial Managed C are - PPO [id number] 1986 Unknown [id number] 2.16.840.1.281862.3.579.2.5 93 1986 Unknown [id number] 2.16.840.1.480589.3.579.2.1 286 1986 Unknown [id number] 2.16.840.1.971863.3.579.2.1 286 1986 Unknown [id number] 2.16.840.1.037893.3.579.2.1 286 1986 Unknown [id number] 2.16.840.1.276785.3.579.2.1 286 1986 Unknown [id number] 2.16.840.1.012006.3.579.2.1 259 1986 Unknown [id number] 2.16.840.1.564786.3.579.2.1 259 1986 Unknown [id number] 2.16840.1.685711.3.579.2.1 259 1986 Unknown [id number] 2.16.840.1.208556.3.579.2.1 259 1986 Unknown [id number] 2.16840.1.869609.3.579.2.1 259 1986 Unknown [id number] 2.16840.1.444834.3.579.2.1 259 1986 Unknown [id number] 2.16840.1.567047.3.579.2.1 259 1986 Unknown [id number] 2.16840.1.182282.3.579.2.1 259 1986 Unknown [id number] 2.16840.1.220360.3.579.2.1 259 1986 Unknown [id number] 2.16840.1.732741.3.579.2.1 259 1986 Unknown [id number] 2.16840.1.625944.3.579.2.1 259 1986 Unknown [id number] 2.16.840.1.715993.3.579.2.1 259 1986 Unknown [id number] 2.16.840.1.677550.3.579.2.1 259 1986 Unknown [id number] 2.16.840.1.669672.3.579.2.1 259 1986 Unknown [id number] 2.16840.1.331263.3.579.2.1 259 1986 Unknown [id number] 2.16.840.1.511004.3.579.2.1 259 1986 Unknown [id number] 2.16.840.1.547930.3.579.2.1 259 1986 Unknown [id number] 2.16.840.1.657963.3.579.2.1 259 1986 Unknown [id number] 2.16.840.1.508490.3.579.2.1 259 1986 Unknown [id number] 2.16.840.1.847862.3.579.2.1 259 1986 Unknown [id number] 2.16.840.1.712543.3.579.2.1 259 1986 Unknown [id number] 2.16.840.1.487727.3.579.2.1 259 1986 Unknown [id number] 2.16.840.1.223774.3.579.2.1 259 1986 Unknown [id number] 2.16.840.1.638356.3.579.2.1 259 1959 Self-pay [id number] 1959 Unknown [id number] Unknown [id number] 2.16.840.1.999629.3.579.2.5 93 Unknown [id number] 2.16.840.1.835771.3.579.2.5 31 Social History Date Type Detail Facility Start: 05-01-2023 End: 06-28-2025 Tobacco smoking status WIIS Never smoked tobacco [facility] Start: 10-16-2022 End: 05-01-2023 Tobacco use and exposure Smokeless tobacco non-user [facility] Start: 12-12-2023 End: 07-06-2025 Alcohol intake Ex-drinker (finding) [facility] Start: 06-21-2023 End: 08-15-2023 History of Social function [facility] Start: 06-21-2023 End: 10-04-2023 Humiliation, Afraid, Rape, and Kick questionnaire [HARK] [facility] Within the last year , have you been afraid of your partner or ex-partner? Patient refused [facility] Are you now , , , , never or living with a partner? Refused [facility] (I/We) worried wheth er (my/our) food would run out before (I/we) got money to buy more. DK or Refused [facility] The thought of nuria figueroa myself has occurred to me Never [facility] Start: 12-12-2023 Alcohol Comment caffeine: 2 cu ps coffee [facility] Start: 1985 Sex Assigned At Female [facility] Start: 01-24-2023 Gender identity Identifies as female gender (finding) [facility] Start: 12-06-2023 Sexual orientation Heterosexual (fin ding) [facility] Start: 10-25-2024 [facility] Start: 10-16-2022 Alcohol Comment rare [facility] Start: 1985 [facility] at [facility] Start: 06-17-2015 Sex Female (finding) [facility] NEGATED: Highlighted rowStart: NINF History of tobacco use Passive smoker [facility] Functional Status Date Assessment Result Facility 07-01-2025 Patient Health Quest ionnaire 2 item (PHQ-2) [Reported] [facility] 06-29-2025 Patient Health Quest ionnaire 2 item (PHQ-2) [Reported] [facility] Clinical Notes 08-18-2024 to 07-06-2025 Bud Main NP - 07/06/2025 3:30 PM EDLeola Snell CNM - 07/06/2025 3:30 PM Suresh Main NP - 07/01/2025 4:30 PM Mal Snell CNM - 06/29/2025 4:00 PM EDT [...] warm moist compresses. documented in this encounter [facility] 07-06-2025 History of Presen t illness Narrative [...] for this visit: NST (non-stress test) reactive ([facility]) AMA (advanced maternal age) multigravida 35+, third trimester ([facility]) Encounter for supervision of other normal , third trimester ([facility]) History of section Unicornuate uterus Multigravida of advanced maternal age in third trimester ([facility]) Continue vitamin. Labs reviewed. Expected mode of delivery repeat section Follow up in 1 week for a routine visit. documented in this encounter [facility] 07-01-2025 History of Presen t illness Narrative [...] scheduled for Sunday. documented in this encounter [facility] 06-29-2025 History of Presen t illness Narrative [...] a routine visit. documented in this encounter [facility] 06-29-2025 History of Presen t illness Narrative [...] plan. Follow-up: 07/01/2025 documented in this encounter [facility] 06-28-2025 Evaluation note Diagnosis Onset Date Resolution Cellulitis of left leg without foot acute June 28 10:35am [facility] Work Phone: 1(237) 401-321408-11-2025 History of Present illness Narrative* Heriberto Snell CNM - 06/22/2025 3:00 PM EDT Subjective No chief complaint on [...] for this visit: NST (non-stress test) reactive ([facility]) Encounter for supervision of other normal , third trimester ([facility]) Continue vitamin. Labs reviewed. GBS taken. Expected mode of delivery repeat section Follow up in 1 week for a routine visit. documented in this encounterWashington [facility] [id number] History of Present illness Narrative* Heriberto Snell CNM - 06/15/2025 3:00 PM EDT Subjective No chief complaint on [...] for this visit: NST (non-stress test) reactive ([facility]) screening for streptococcus B ([facility]) - STREPTOCCOUS, GROUP B CULTURE; Future Encounter for supervision of other normal , third trimester ([facility]) AMA (advanced maternal age) multigravida 35+, third trimester ([facility]) History of section Continue vitamin. Labs reviewed. GBS done today Reactive NST in office today Expected mode of delivery repeat Follow up in 1 week for a routine visit. documented in this encounterWashington [facility] [id number] History of Present illness Narrative* Heriberto Snell CNM - 06/08/2025 1:30 PM EDT Subjective No chief complaint on [...] for this visit: NST (non-stress test) reactive ([facility]) Encounter for supervision of other normal , third trimester ([facility]) AMA (advanced maternal age) multigravida 35+, third trimester ([facility]) Heartburn Unicornuate uterus Continue vitamin. Labs reviewed. GBS taken. Reactive NST in office today Expected mode of delivery repeat Follow up in 1 week for a routine visit. documented in this encounterWashington [facility] Medical [id number] History of Present illness Narrative* Heriberto Snell CNM - 06/04/2025 2:30 PM EDT Subjective No chief complaint on [...] supervision of other normal , third trimester ([facility]) Non-stress test reactive ([facility]) Reactive NST today BPP performed Continue vitamin. Labs reviewed GBS taken. Expected mode of delivery repeat Follow up in 1 week for a routine visit. documented in this encounterWashington University Medical [id number] History of Present illness Narrative* Heriberto Snell CNM - 04/28/2025 2:00 PM EDT Subjective No chief complaint on [...] supervision of other normal , third trimester ([facility]) Screening for iron deficiency anemia - CBC; Future Screening for diabetes mellitus (DM) - GLUCOSE, GESTATIONAL SCREEN (50G)-135 CUTOFF; Future AMA (advanced maternal age) multigravida 35+, third trimester ([facility]) - US OB follow up transabdominal [...] for a routine visit. documented in this encounterWashington University Medical [id number] History of Present illness Narrative* Heriberto Snell CNM - 04/07/2025 2:30 PM EDT Subjective No chief complaint on [...] for a routine visit. documented in this encounterWashington University Medical [id number] History of Present illness Narrative* Heriberto Snell CNM - 03/11/2025 3:30 PM EDT Subjective No chief complaint [...] for a routine visit. documented in this encounterWashington University Medical [id number] History of Present illness Narrative* Heriberto Snell CNM - 02/11/2025 9:30 AM EDT Subjective No chief complaint on file. [...] for a routine visit. documented in this encounterWashington University Medical [id number] History of Present illness Narrative* Ruth Lal RN - 01/14/2025 3:30 PM EST Headache/epigastric pain/blurry vision/swelling? No Cramping/contractions? No Abnormal [...] No Have you been seen here at [facility] in a previous ? Yes Recent ER visits or hospitalizations? No Bring blood sugar log or meter with you today? (Please bring them with you for every visit at [facility]) N/A Flu vaccine (Sep-January)? No Any concerns that you would like me to mention to the provider today? Patient reports noticing occasional heart palpitations throughout the past week. States she briefly discussed with primary OB this AM * Miki Rosas MD - 01/14/2025 3:30 PM EST REASON FOR CONSULTATION: Advanced maternal age. HISTORY [...] and the other consultants, we search on [employer] and all the available care everywhere epic I did review all the imaging studies of the patient available on EMR, ordered by the primary care physician and the other medical device sales consultant HABITS: Patient activity no restrictions, diet no restrictions REVIEW OF SYSTEM: Head and Neck: Negative for any dizziness and headaches. Cardiovascular and Respiratory System: Denies any chest pain, shortness of breath, and coughing. Abdominal and System: Denies any abdominal pain, nausea, vomiting, vaginal bleeding, and vaginal discharge PHYSICAL EXAMINATION: BP 133/77 (BP Site: Left Arm, BP Postition: Sitting) Pulse 82 Ht 175.3 cm(5' 9 ) Wt 72.3 kg (159 lb 6.4 oz) LMP 10/11/2024 BMI 23.54 kg/m . Gravid abdomen, Respirations not labored. Well oriented time place person, normal gait RECOMMENDATION: 1. Advanced maternal age with low risk cell free DNA testing. 2. Please offer early glucose tolerance test. 3. Follow-up in 6 weeks for targeted anatomy at [facility] office. 4. Routine care at OB provider. 5. Patient interested in repeat at her local hospital. 6. Patient is low risk and can be delivered at her local hospital. DISPOSITION: At this point the patient is in complete care of her flaring machine operator. Patient does have 1more ultrasound scheduled at our [place] office Thank you for allowing me to participate in [facility] . If there any questions please do not hesitate to contact us. Sincerely, MIKI ROSAS MD [facility] History of Present illness Narrative* Heriberto Snell CNM - 01/14/2025 9:30 AM EST Subjective No chief complaint on file. Paige [...] then went to sleep. She is seeing MFM today and I did suggest that she [...] for a routine visit. documented in this encounterWashington University Medical [id number] History of Present illness Narrative* Heriberto Snell CNM - 01/07/2025 1:30 PM EST Subjective No chief complaint on file. Paige [...] since, just upper body work out. Last [place] was about a week ago. The following portions of the chart were reviewed this encounter and updated as appropriate: Objective Physical Exam , Pregravid BMI: 23.32 Expected Total Weight Gain: 25 lb-35 lb BP: 122/80 Labs Imaging Assessment/Plan Diagnoses and all orders for this visit: Bleeding in early - US OB less than 14 weeks early; Future Patient has appt with [facility] next week and I suggested she rest until then. No intercourse, pelvic rest, no working out, rest when she can on the couch until she can see [facility] for recommendation. ] Urine protein Urine glucose Continue vitamin. Labs reviewed. Order placed for anatomy scan at 20 weeks. Follow up in 4 weeks for a routine visit. documented in this encounterWashington University Medical [id number] Telephone encounter Note* Telephone Encounter - Deirdre Cheng - 12/22/2024 12:33 PM EST Hi, this is Leana. At [facility], I am calling about a patient. You referred to us Paige Enamorado, date 1985. I need a database for the epic. I need her address, her emergency contact, I need everything, and can I have a better copy of this card? Because every number I have tried to enter off of this card for insurance to run. It will not run fax number [phone]. Mepersonally, , Option 3, thank you. [facility] [id number] Miscellaneous Notes* Telephone Encounter - Deirdre Cheng - 12/22/2024 12:33 PM EST Va, this is Leana. At [facility], I am calling about a patient. You referred to us Paige Enamorado, date 1985. I need a database for the [facility]. I need her address, her emergency contact, I need everything, and can I have a better copy of this card? Because every number I have tried to enter off of this card for insurance to run. It will not run fax number [phone]. Mepersonally, , Option 3, thank you. documented in this encounterNOSt. Joseph Medical [id number] History of Present illness Narrative* Heriberto Snell CNM - 12/17/2024 9:30 AM EST ;uSubjective Paige Enamorado is a 39 y.o. at 9w4d with a working estimated date of delivery of 07/18/2025,by Last Menstrual Period who presents for an [...] also given office phone number and [facility] number to call in case of an emergency or after hours needs. PVU and all questions answered. We did discuss place of delivery. Patient should plan to go to [facility] for all services unless an emergency and they need to go to the closest ER. We can make other arrangements possibly ifpatient would like to deliver at another facility but I did explain I am now at [facility] 100% of the time and would like to do all deliveries there. Patient referral to [facility] sent today as well for consult of and well being AMA and unicornuate uterus. Patient will begin increased surveillance testing at 32 weeks or soonerif needed. documented in this encounterWashington University Medical [id number] Telephone encounter Note* Telephone Encounter - Gisele Boone - 11/21/2024 2:26 PM EST Pt will be 6 weeks on 11/22/24- She would like to schedule a new OB appointment. She would prefer a morning appt if available. Lmp- oct 11 [facility] [id number] Miscellaneous Notes* Telephone Encounter - Gisele Boone - 11/21/2024 2:26 PM EST Pt will be 6 weeks on 11/22/24- She would like to schedule a new OB appointment. She would prefer a morning appt if available. Lmp- oct 11 documented in this encounterWashington University Medical [id number] History of Present illness Narrative* Heriberto Snell CNM - 08/18/2024 1:00 PM EDT YEARLY HPI: This is a established patient. Chief Complaint Patient presents with Gynecologic Exam Here for annual exam. OB History Para Term AB Living 2 1 1 1 1 SAB IAB Ectopic Multiple Live Births 1 1 # Outcome Date GA Lbr Benji/2nd Weight Sex Type Anes PTL Lv 2 Term 06/17/23 37w1d 5 lb 8 oz F CS-LTranv KELLEE 1 SAB COPYRIGHT CLERK complaints: no Changes in healthsince last [...] MA, 08/18/2024 12:58 PM documented in this encounterJ[facility] HealthcareEvaluation note* Diagnosis Iron deficiency anemia secondary to inadequate [...] first trimester- Primary documented in this encounter [facility] SystemEvaluation [facility]* Diagnosis Heartburn- Primary Encounter for [...] supervision of other normal , third trimester ([facility]) Screening for iron deficiency anemia Screening for [...] of section Other postprocedural status Nausea/vomiting in ([facility]) Unspecified vomiting of , unspecified as to episode of care documented in this encounter [facility] HealthcareEvaluation note* Diagnosis NST (non-stress test) reactive ([facility])- Primary state, incidental screening for streptococcus B ([facility]) screening for Streptococcus B Encounter for supervision of other normal , third trimester ([facility]) AMA (advanced maternal age) multigravida 35+, third trimester ([facility]) History of section Other postprocedural status documented in this encounter [facility] HealthcareEvaluation note* Diagnosis NST (non-stress test) reactive ([facility])- Primary state, incidental Encounter for supervision of other normal , third trimester ([facility]) documented in this encounter [facility] HealthcareEvaluation noteNo assessment information availableGuernsey Memorial Hospital Work Phone: Evaluation note* Diagnosis Cellulitis of [...] lower extremity- Primary documented in this encounter [facility] HealthcareEvaluation note* Diagnosis NST (non-stress test) reactive ([facility])- Primary state, incidental AMA (advanced maternal age) multigravida 35+, third trimester ([facility]) Encounter for supervision of other normal , third trimester ([facility]) History of section Other postprocedural status Unicornuate uterus Multigravida of advanced maternal age in third trimester ([facility]) documented in this encounter [facility] HealthcareInstructionsNot on filedocumented in this encounterProOhiohealth Dublin [facility] Hospital SystemInstructionsNot on filedocumented in this encounterProOhiohealth Dublin Methodist Hospital SystemReason for referral (narrative)No reason for referral information availableGuernsey Memorial Hospital Work Phone: Reason for visit Narrative* Maternity Services (Routine) - Closed Specialty Diagnoses / Procedures Referred By Contac t Referred To Contact Obstetrics and Gynecology Diagnoses examination or test, positive result Procedures MT OFFICE/OUTPATIENT NEW HIGH MDM 60 MINUTES Heriberto Snell CNM [address] [place] [address] Phone: tel: fax: Heriberto Snell CNM [address] [place] [address] Phone: tel: fax: Referral ID Status Reason Start Date Expiration Date V isits Requested Visits Authorized [id number] Closed Specialty Services Required 12/18/2024 06/16/2025 99 99 [facility] Healthcare Summary Purpose Family History No Family History Records Found Relationship Condition Age at Onset Recorded Date/T litzy family member Unknown Advance Directives No Advanced Directives Records Found Advance Directive Response Recorded Date/ Time Advance Directives No April 06 1:46pm Chief Complaint and Reason for Visit Chief Complaint Admit Date Bug bite June 28, 2025 10 :35am Chief Complaint Admit Date Bug bite June 28, 2025 10 :35am Unknown July 09, 2025 1: 00pm Reason for Visit Admit Date Cellulitis of left leg without foot Augu 2024 10:35am Additional Source Comments INFORMATION SOURCE (unrecogn ized section and content) DATE CREATED AUTHOR 07/05/2022 [facility] DATE CREATED AUTHOR AUTHOR'S ORGANIZ ATION 12/06/2022 [facility] dical Specialist DATE CREATED AUTHOR AUTHOR'S ORGANIZ ATION 01/16/2025 [facility] DATE CREATED AUTHOR AUTHOR'S ORGANIZ ATION 02/28/2025 [facility] DATE CREATED AUTHOR AUTHOR'S ORGANIZ ATION 04/10/2025 [facility] DATE CREATED AUTHOR AUTHOR'S ORGANIZ ATION 07/06/2025 [facility] dical Specialists EPIC DATE CREATED AUTHOR AUTHOR'S ORGANIZ ATION 07/12/[address] [facility] ysician Group Care Teams (unrecognized sec tion and content) Logistics Support Relationship Specialty Start Date End Date Sayra Green MD [address] [place] [address] PCP - General Family Medicine 04/12/23 Heriberto Snell CNM [address] [place] [address] Obstetrics and Gynecology 04/12/23 Logistics Support Relationship Specialty Start Date End Date Sayra Green MD [address] [place] [address] PCP - General Family Medicine 04/12/23 Heriberto Snell CNM [address] [place] [address] Obstetrics and Gynecology 04/12/23 Logistics Support Relationship Specialty Start Date End Date Sayra Green MD [address] [place] [address] PCP - General Family Medicine 04/12/23 Heriberto Snell CNM [address] [place] [address] Obstetrics and Gynecology 04/12/23 Logistics Support Relationship Specialty Start Date End Date Sayra Green MD [address] [place] [address] PCP - General Family Medicine 04/12/23 Heriberto Snell CNM [address] [place] [address] Obstetrics and Gynecology 04/12/23 Logistics Support Relationship Specialty Start Date End Date Sayra Green MD [address] [place] [place] [address] PCP - General Family Medicine 10/26/22 Logistics Support Relationship Specialty Start Date End Date Sayra Green MD [address] [place] [address] PCP - General Family Medicine 04/12/23 Heriberto Snell CNM [address] [place] [address] Obstetrics and Gynecology 04/12/23 Logistics Support Relationship Specialty Start Date End Date Sayra Green MD [address] [place] [address] PCP - General Family Medicine 04/12/23 Heriberto Snell CNM [address] [place] [address] Obstetrics and Gynecology 04/12/23 Logistics Support Relationship Specialty Start Date End Date Sayra Green MD [address] [facility] [place] [address] PCP - General Family Medicine 10/26/22 Logistics Support Relationship Specialty Start Date End Date Sayra Green MD [address] [facility] [place] [address] PCP - General Family Medicine 04/12/23 Heriberto Snell CNM [address] [place] [address] Obstetrics and Gynecology 04/12/23 Logistics Support Relationship Specialty Start Date End Date Sayra Green MD [address] [facility] [place] [address] PCP - General Family Medicine 04/12/23 Heriberto Snell CNM [address] [place] [address] Obstetrics and Gynecology 04/12/23 Logistics Support Relationship Specialty Start Date End Date Sayra Green MD [address] [facility] [place] [address] PCP - General Family Medicine 04/12/23 Heriberto Snell CNM [address] [place] [address] Obstetrics and Gynecology 04/12/23 Logistics Support Relationship Specialty Start Date End Date Sayra Green MD [address] [place] [address] PCP - General Family Medicine 04/12/23 Heriberto Snell CNM [address] [place] [address] Obstetrics and Gynecology 04/12/23 Logistics Support Relationship Specialty Start Date End Date Sayra Green MD [address] [place] [address] PCP - General Family Medicine 04/12/23 Heriberto Snell CNM [address] [place] [address] Obstetrics and Gynecology 04/12/23 Logistics Support Relationship Specialty Start Date End Date Sayra Green MD [address] [place] [address] PCP - General Family Medicine 04/12/23 Heriberto Snell CNM [address] [place] [address] Obstetrics and Gynecology 04/12/23 Logistics Support Relationship Specialty Start Date End Date Sayra Green MD [address] [place] [address] PCP - General Family Medicine 04/12/23 Heriberto Snell CNM [address] [place] [address] Obstetrics and Gynecology 04/12/23 Logistics Support Relationship Specialty Start Date End Date Sayra Green MD [address] [place] [address] PCP - General Family Medicine 04/12/23 Heriberto Snell CNM [address] [place] [address] Obstetrics and Gynecology 04/12/23 Team Status: Active Member Role Status Dates Sayra Green MD Primary Care Provide r Active Team Status: Inactive Member Role Status Dates Sayra Green MD Primary Care Provider Active Start: June End: June 28, 2025 Josee Belle , [employer] Attending Provider Active Start: June 28, 2025 End: June 28, 2025 Logistics Support Relationship Specialty Start Date End Date Sayra Green MD [address] [place] [address] PCP - General Family Medicine 04/12/23 Heriberto Snell CNM [address] [place] [address] Obstetrics and Gynecology 04/12/23 Logistics Support Relationship Specialty Start Date End Date Sayra Green MD [address] [place] [address] PCP - General Family Medicine 04/12/23 Heriberto Snell CNM [address] [place] [address] Obstetrics and Gynecology 04/12/23 Logistics Support Relationship Specialty Start Date End Date Sayra Green MD [address] [place] [address] PCP - General Family Medicine 04/12/23 Heriberto Snell CNM [address] [place] [address] Obstetrics and Gynecology 04/12/23 Logistics Support Relationship Specialty Start Date End Date Sayra Green MD [address] [place] [address] PCP - General Family Medicine 04/12/23 Heriberto Snell CNM [address] [place] [address] Obstetrics and Gynecology 04/12/23 Team Status: Inactive Member Role Status Dates Smooth Michele DO Attending Provider Active Start : July 09, 2025 End: July 09, 2025 Reason for Visit (unrecogniz ed section and [...] BE BASED ON THE PRIMARY CLINICAL RECORDS. [employer] provides no warranty or guarantee of the accuracy or completeness of information in this document.
[2025-07-15 11:45] VITALS: BP 123/83; PULSE 76; TEMP 36.7; O2SAT 96
--- NOTE | 2025-07-15 11:45 | PC.NURSE ---
Paige, her , 2 yo Carson and 6 day old Akshat arrive for follow up. Parents states are doing well, adjusting to 2 children, baby is settling in well and big sister loves him. Pagie states is feeling well, tired but otherwise feeling good. She notes swelling of ankles and feet worse in the evening and so much better in the morning. Discussion about normal post delivery edema, verbalized understanding. started a headache yesterday, improved with Motrin and has mild headache currently. States her BP has been normal at home. She relates that she easily gets headaches when tired, or weather changes. VSS and assessment WNL. Incision clean and dry, no redness or drainage with steri-strips intact. Denies concerns for self except infant not latching on right breast, has been pumping that breast when baby feeds from left. Obtaining up to 6 oz every 3 hours. States always feel really full and achy. Discussed limiting how much she removes during pumping and how to latch to right breast. Akshat awake and alert. VSS and assessment WNL. Fussy and rooting during assessment and weight. Diaper changed for small void and small yellow seedy stool. Infant to right breast in cross cradle hold, struggles to latch, mom becomes easily concerns=ed that baby will not eat. placed in football hold with assistance of LC. Mom reminds LC I don't like football hold LC notes infant active rooting and attempting to latch. Mom assists and he begins with active suck and swallow. LC assists mom in adjusting nursing pillow for more support, and blanket roll under wrist for comfort. Baby nurses 15 min well and released latch. Burped and to second breast. Shallow latch noted, mom states small pinch . LC coaches mom to adjust positioning and re-latched with much wider gape, baby nurses another 15 minutes and releases latch when sleepy. Mom reports breasts feel much better when baby nurses from both sides. [facility] will consider chiropractor support for , as she did with first child, to assist in comfort for latching. No further concerns noted or expressed. Family home ambulatory at this time. Aware to call as needed.
== END 2025-07-15 11:49 | disposition home or self-care (01) ==
LOC: FBCO 08:00
PROVIDERS: Family Provider Family Medicine; Visit Provider Obstetrics & Gynecology
DX: Z39.1 Encounter for care and examination of lactating mother (principal)